=== PATIENT | female | born 1940 | race Caucasian/White ===

== ENCOUNTER → 2016-11-12 | Outpatient (CLI) | payer OTHER ==
[~2016-11-12] MED LIST: ATOR10TA82 PO; CALC500C70 PO; CHOL100010 PO; LISI-794 PO; TRAV0.00 OPB
[2016-11-12 13:09] LABS: BLOOD UREA NITROGEN 17 mg/dl (7-18); CALCIUM 9.7 mg/dl (8.5-10.1); CARBON DIOXIDE 27 mmol/L (21-32); CHLORIDE 108 mmol/L (98-107); CREATININE 0.93 mg/dl (0.60-1.20); GLUCOSE 110 mg/dl (70-99); POTASSIUM 3.9 mmol/L (3.5-5.1); SODIUM 143 mmol/L (136-145)
[2016-11-12 13:15] LABS: ESTIMATED AVERAGE GLUCOSE 117 mg/dl; HA1C FLAG Normal (Normal)
== END | disposition home or self-care (01) ==
LOC: C.LABPBG 08:00
PROVIDERS: ATTEND Internal Medicine Geriatric Medicine
DX: I10 Essential (primary) hypertension (principal); R73.9 Hyperglycemia, unspecified; K22.2 Esophageal obstruction

== ENCOUNTER → 2016-11-27 | Outpatient (CLI) | payer OTHER ==
[2016-11-27 18:13] LABS: LYME DISEASE AB IGG NEG (NEG); LYME DISEASE AB IGM NEG (NEG)
--- NOTE | 2016-11-28 11:43 | CODING QUERY NO DIAGNOSIS ---
TREATMENT RENDERED WITHOUT A DIAGNOSIS To promote full compliance with coding requirements relating to patient care, physician participation is requested in all cases of curbstone setter uncertainty. Please assist us with providing a diagnosis/symptom for the test(s) below: A diagnosis/symptom was not documented on your Order. A valid diagnosis/symptom is required to bill all insurances. Please remember that we are unable to code a diagnosis of rule out, probable, possible, questionable, or suspected. Tests that require a diagnosis: * LYME IGG & IGM +WM CONFIRM DIAGNOSIS: Provider Signature: Date: Thank you Mel [place] [employer] Information Management Once completed, please kindly fax back to [phone] For questions please call [phone]
== END | disposition home or self-care (01) ==
LOC: C.LABPBG 10:58
PROVIDERS: ATTEND Internal Medicine Geriatric Medicine
DX: T14.8 Other injury of unspecified body region (principal); W57.XXXA Bitten or stung by nonvenomous insect and other nonvenomous arthropods, initial encounter

== ENCOUNTER → 2016-12-04 | Outpatient (CLI) | payer OTHER ==
--- NOTE | 2016-12-04 15:28 | DIAGNOSTIC IMAGING REPORT ---
THORACIC SPINE 3 VIEWS HISTORY: Pain PAIN IN LT SCAPULA COMPARISON: None. FINDINGS: There is no fracture. No subluxation. Disc spaces are preserved. IMPRESSION: No fracture or subluxation within the thoracic spine. Electronically signed by: Robert Guzman M.D. 12/04/2016 3:27 PM Dictated Date/Time: 12/04/2016 3:27 PM
--- NOTE | 2016-12-04 15:37 | DIAGNOSTIC IMAGING REPORT ---
LEFT SCAPULA CLINICAL HISTORY: Left scapula pain. COMPARISON: None FINDINGS: Alignment of the left acromioclavicular and glenohumeral joints is anatomic. No fracture within the left scapula is identified. There is moderate left AC joint arthrosis. There is minimal glenohumeral joint arthrosis. IMPRESSION: 1. No acute fracture of the left scapula identified by radiography. 2. 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 Electronically signed by: Fernando Chavez M.D. 12/04/2016 3:36 PM Dictated Date/Time: 12/04/2016 3:35 PM
== END | disposition home or self-care (01) ==
LOC: C.RADBC 14:31
PROVIDERS: ATTEND Physician Assistant Medical
DX: M19.012 Primary osteoarthritis, left shoulder (principal); M89.8X1 Other specified disorders of bone, shoulder

== ENCOUNTER → 2017-05-27 | Outpatient (CLI) | payer OTHER ==
[2017-05-27 18:38] LABS: BLOOD UREA NITROGEN 19 mg/dl (7-18); BUN/CREATININE RATIO 14.8 (10-20); CALCIUM 9.4 mg/dl (8.5-10.1); CARBON DIOXIDE 27 mmol/L (21-32); CHLORIDE 104 mmol/L (98-107); CREATININE 1.26 mg/dl (0.60-1.20); GLUCOSE 116 mg/dl (70-99); POTASSIUM 3.7 mmol/L (3.5-5.1); SODIUM 141 mmol/L (136-145)
[2017-05-27 18:49] LABS: CHOLESTEROL 154 mg/dl (0-200); CHOLESTEROL/HDL RATIO 3.1; HDL CHOLESTEROL 50 mg/dl; LDL CHOLESTEROL CALCULATED 74 mg/dl; THYROID STIMULATING HORMONE 0.774 uIu/ml (0.300-4.500); TRIGLYCERIDES 148 mg/dl (0-150); VERY LOW DENSITY LIPOPROT CALC 30 mg/dl
== END | disposition home or self-care (01) ==
LOC: C.LABPBG 14:57
PROVIDERS: ATTEND Internal Medicine Geriatric Medicine
DX: I10 Essential (primary) hypertension (principal); E78.5 Hyperlipidemia, unspecified; N20.0 Calculus of kidney

== ENCOUNTER → 2017-06-10 | Outpatient (CLI) | payer OTHER ==
[2017-06-10 17:49] LABS: ALT/SGPT 28 U/L (12-78); BLOOD UREA NITROGEN 13 mg/dl (7-18); BUN/CREATININE RATIO 13.4 (10-20); CALCIUM 9.4 mg/dl (8.5-10.1); CARBON DIOXIDE 27 mmol/L (21-32); CHLORIDE 104 mmol/L (98-107); CHOLESTEROL 164 mg/dl (0-200); CREATININE 0.98 mg/dl (0.60-1.20); GLUCOSE 97 mg/dl (70-99); POTASSIUM 3.9 mmol/L (3.5-5.1); SODIUM 137 mmol/L (136-145); TRIGLYCERIDES 162 mg/dl (0-150); VERY LOW DENSITY LIPOPROT CALC 32 mg/dl
[2017-06-10 17:59] LABS: ALKALINE PHOSPHATASE 99 U/L (45-117); AST/SGOT 18 U/L (15-37); CHOLESTEROL/HDL RATIO 3.5; HDL CHOLESTEROL 47 mg/dl; LDL CHOLESTEROL CALCULATED 85 mg/dl
== END | disposition home or self-care (01) ==
LOC: C.LABPBG 13:45
PROVIDERS: ATTEND Internal Medicine Geriatric Medicine
DX: I10 Essential (primary) hypertension (principal); E78.5 Hyperlipidemia, unspecified; M81.0 Age-related osteoporosis without current pathological fracture; R73.9 Hyperglycemia, unspecified; N20.0 Calculus of kidney

== ENCOUNTER → 2017-06-27 | Outpatient (CLI) | payer OTHER ==
--- NOTE | 2017-06-28 12:55 | MAMMOGRAPHY REPORT ---
BILATERAL DIGITAL SCREENING MAMMOGRAM TOMOSYNTHESIS WITH CAD: 06/27/2017 CLINICAL HISTORY: Routine screening. Patient has no complaints. TECHNIQUE: Breast tomosynthesis in addition to standard 2D mammography was performed. Current study was also evaluated with a Computer Aided Detection (CAD) system. COMPARISON: Comparison is made to exams dated: 06/25/2016 mammogram, 12/28/2015 mammogram, 12/28/2015 ultrasound, 06/28/2015 ultrasound, 06/28/2015 mammogram, and 06/22/2015 mammogram - [facility]. BREAST COMPOSITION: There are scattered areas of fibroglandular density in both breasts. FINDINGS: No suspicious masses, calcifications, or areas of architectural distortion are noted in ei ther breast. There has been no significant interval change compared to prior exams. Scattered bilater al benign-appearing calcifications are not significantly changed. Small circumscribed benign-appeari ng masses are again noted bilaterally, which are considered benign given the multiplicity and bilater ality and likely represent cysts. IMPRESSION: ACR BI-RADS CATEGORY 2: BENIGN There is no mammographic evidence of malignancy. A 1 year screening mammogram is recommended. The pa tient will receive written notification of the results. Approximately 10% of breast cancers are not detected with mammography. A negative mammographic report should not delay biopsy if a clinically suggestive mass is present. Gabrielle Covington M.D. /:06/27/2017 14:34:35 Design Technology Professor: Ruby Villatoro, [facility] letter sent: Normal 1/2 BI-RADS Code: ACR BI-RADS Category 2: Benign
== END | disposition home or self-care (01) ==
LOC: C.MAMM 10:09
PROVIDERS: ATTEND Internal Medicine Geriatric Medicine
DX: Z12.31 Encounter for screening mammogram for malignant neoplasm of breast (principal)

== ENCOUNTER → 2017-08-01 | Outpatient (CLI) | payer OTHER | END | disposition home or self-care (01) | LOC: C.MAMM 13:07 | PROVIDERS: ATTEND Internal Medicine Geriatric Medicine | DX: M81.0 Age-related osteoporosis without current pathological fracture (principal); M85.89 Other specified disorders of bone density and structure, multiple sites ==

== ENCOUNTER → 2017-08-01 | Outpatient (CLI) | payer OTHER ==
[~2017-08-01] MED LIST changes: +OPTIRAY 320 IV PRN
--- NOTE | 2017-08-01 15:25 | DIAGNOSTIC IMAGING REPORT ---
CT NECK WITH INTRAVENOUS CONTRAST. HISTORY: Cervical lymphadenopathy. TECHNIQUE: Multiaxial CT images of the neck were performed following the use of intravenous contrast. COMPARISON STUDY: None. FINDINGS: The visualized brain parenchyma and orbits are unremarkable. The major mucosal airway surfaces are intact. Prevertebral soft tissues and the epiglottis are normal in thickness. The parotid and submandibular glands are symmetric. The major cervical vessels enhance normally. There is a 3 mm hypodense nodule/cyst within the left thyroid lobe. The lung apices are clear. A small amount of bubbly secretions within the frontal sinuses. The mastoid air cells are clear. No suspicious lytic or blastic osseous lesions within the visualized osseous structures. There are few enlarged left upper cervical lymph nodes. Dominant lymph node within the jugulodigastric station measures 2.7 x 1.7 cm. There is also a necrotic 1.3 x 1.1 cm posterior cervical chain lymph node. IMPRESSION: Left cervical lymphadenopathy as described above. One of these lymph nodes is necrotic. Therefore, this favors a neoplastic or infectious process. Ultrasound guided fine-needle aspiration is recommended for further evaluation. Electronically signed by: Edmar Daniel M.D. 08/01/2017 3:24 PM Dictated Date/Time: 08/01/2017 3:16 PM
== END | disposition home or self-care (01) ==
LOC: C.CTS 14:41
PROVIDERS: ATTEND Internal Medicine Geriatric Medicine
DX: R59.0 Localized enlarged lymph nodes (principal)

== ENCOUNTER → 2017-08-06 | Outpatient (CLI) | payer OTHER ==
[~2017-08-06] MED LIST changes: -OPTIRAY 320 IV PRN
--- NOTE | 2017-08-06 11:46 | Discharge Instructions ---
Discharge Instructions Procedure Procedure Date: Aug 06, 2017. Reason for visit: Enlarged Lymph Nodes. Discharge Discharge Date: Aug 06, 2017. Discharge Diagnosis: Cervical lymphadenopathy Instructions Activity Recommendations: No limitations Return to School/Work: no limitations Recommended Home Diet: Resume Previous Diet Provider Instructions: Ultrasound guided fine-needle aspiration of a left cervical lymph node is performed. The procedure was well tolerated and without immediate complication. ACTIVITY RECOMMENDATIONS: * Rest today. * Resume regular activity in one day. MEDICATIONS: * May take Tylenol or Ibuprofen as needed for pain. DIET: * Resume previous diet. SPECIAL CARE INSTRUCTIONS: Call your doctor if: * Temperature above 101 degrees F. * Pain not relieved by pain medicine ordered. * Increased drainage or redness from incision. * Notify your doctor with any questions or concerns. Call your doctor or go to the nearest Emergency Department if you experience: * Increased chest pain or shortness of breath. FOLLOW UP VISIT: Follow-up with Referring Physician as scheduled. Allergies Coded Allergies: Doxycycline (Unverified Allergy, Intermediate, HIVES, 04/19/16) Penicillins (Unverified Allergy, Intermediate, HIVES, 04/19/16) Sulfa Drugs (Unverified Allergy, Intermediate, HIVES, 04/19/16) [place] Recommendations: Call your doctor if: * Temperature above 101 degrees * Pain not relieved by pain medicine ordered * There is increased drainage or redness from any incision * You have any unanswered questions or concerns. Your Doctors Instructions noted above were prepared by provider Edilberto Ho. Patient Signature Section: Patient Instructions Signature Page Conchita Alejandra Patient (or Guardian) Signature/Date: I have read and understand the instructions given to me by my caregivers. Caregiver/RN/Doctor Signature/Date: The above-named patient and/or guardian has received patient instructions on this date. + Original Patient Signature Page (only) stays with chart. Please make copy for patient.
--- NOTE | 2017-08-06 11:58 | DIAGNOSTIC IMAGING REPORT ---
ULTRASOUND-GUIDED FINE-NEEDLE ASPIRATION LEFT CERVICAL LYMPH NODE CLINICAL HISTORY: Left cervical lymphadenopathy. COMPARISON STUDY: CT of the neck dated 08/01/2017. PROCEDURE: The risks, benefits, and alternatives to the procedure were discussed with the patient. Written informed consent was obtained. The patient was placed supine in ultrasound, and a 2.7 cm left cervical lymph node was localized by ultrasound and selected for fine needle aspiration. The left neck was prepped and draped in the usual sterile fashion. The node was aspirated under ultrasound guidance with 3 passes utilizing 25-gauge needles. The initial specimen was reviewed by the pathologist in real-time and deemed adequate for diagnosis, confirming lymphoid tissue. 2 additional specimens were acquired for flow cytometry. The patient tolerated the procedure well and left the department in satisfactory condition. IMPRESSION: Completed fine-needle aspiration of a left cervical lymph node as above. Electronically signed by: Edilberto Ho M.D. 08/06/2017 11:57 AM Dictated Date/Time: 08/06/2017 11:55 AM
== END | disposition home or self-care (01) ==
LOC: C.ULTR 10:05
PROVIDERS: ATTEND Internal Medicine Geriatric Medicine
DX: R59.9 Enlarged lymph nodes, unspecified (principal); C83.30 Diffuse large B-cell lymphoma, unspecified site

== ENCOUNTER → 2017-08-28 | Outpatient (CLI) | payer OTHER ==
[~2017-08-28] MED LIST changes: +ACET-1311 PO; -CHOL100010 PO; +CHOL2000 PO; +OXYC-57 PO; +TRAV0.00 OP
--- NOTE | 2017-08-28 10:51 | DIAGNOSTIC IMAGING REPORT ---
PET/CT HISTORY: LYMPHOMA TECHNIQUE: PET/CT was performed from the base of the skull through the pelvis following the intravenous administration of 14.5 mCi of F18-FDG. Non-contrast CT imaging was performed over the same range without breath-hold for attenuation correction of PET images and anatomic correlation, but not for primary interpretation as it is not of standard diagnostic quality. CT DOSE: COMPARISON: Neck CT 08/01/2017. FINDINGS: HEAD AND NECK: There are 4 adjacent left cervical lymph nodes which are enlarged and demonstrate abnormal FDG uptake. Dominant lymph node measures 2.7 x 2.0 cm. These have slightly increased in size. These demonstrate intense FDG uptake with an SUV max of 17. No FDG avid right cervical lymph nodes. CHEST: There is no FDG-avid disease in the chest. There is no axillary, mediastinal, or hilar lymphadenopathy. There is no pleural or pericardial effusion. There is no air-space disease or suspicious lung nodule. ABDOMEN/PELVIS: Below the diaphragm, tracer is distributed physiologically in the gastrointestinal and genitourinary tracts. There is no significant lymphadenopathy and no FDG-avid disease. Mild bilateral adrenal gland uptake is likely physiologic. Small hiatus hernia. There is a single prominent right external iliac lymph node on image 158 which measures 7 mm in short axis diameter. However, this does not demonstrate abnormal FDG uptake. Colonic diverticulosis. MUSCULOSKELETAL: There is no FDG-avid or destructive bone lesion. IMPRESSION: 1. A cluster of enlarged left cervical lymph nodes demonstrating intense FDG uptake consistent with the patient's history of lymphoma. 2. No additional FDG avid disease identified within the chest, abdomen or pelvis. Electronically signed by: Edmar Daniel M.D. 08/28/2017 10:50 AM Dictated Date/Time: 08/28/2017 10:34 AM
== END | disposition home or self-care (01) ==
LOC: C.PET 07:38
PROVIDERS: ATTEND Internal Medicine Hematology & Oncology
DX: C85.90 Non-Hodgkin lymphoma, unspecified, unspecified site (principal)

== ENCOUNTER 2017-09-02 05:11 | Day surgery (SDC) | payer OTHER ==
[2017-08-27 14:01] VITALS: BMI 25.0
--- NOTE | 2017-08-27 14:28 | PAT Medication Instructions ---
Service Date Aug 27, 2017. Current Home Medication List Acetaminophen (Tylenol), 650 MG PO PRN Atorvastatin (Lipitor), 10 MG PO HS Calcium/Vitamin D (Os-Haroldo 500 Plus D), 1 TAB PO HS Cholecalciferol (Vitamin D3), 4,000 UNITS PO HS Lisinopril (Zestril), 40 MG PO HS Travoprost (Travatan Z), 1 DROPS OPB HS Travoprost (Travatan Z), 1 DROPS OP HS Medication Instructions For Your Scheduled Surgery - Hold the following medications 24 hours prior to surgery: Lisinopril (Zestril), 40 MG PO HS - Take the following medications the morning of surgery with a sip of water: Acetaminophen (Tylenol), 650 MG PO PRN (okay to take up to 4 hours prior to surgery if needed) - Take the following medications as scheduled the night before surgery: Acetaminophen (Tylenol), 650 MG PO PRN (if needed) Atorvastatin (Lipitor), 10 MG PO HS Travoprost (Travatan Z), 1 DROPS OPB HS Travoprost (Travatan Z), 1 DROPS OP HS Calcium/Vitamin D (Os-Haroldo 500 Plus D), 1 TAB PO HS Cholecalciferol (Vitamin D3), 4,000 UNITS PO HS If you have any questions please call us at [phone] or [phone] or [phone]
--- NOTE | 2017-08-27 15:04 | DIAGNOSTIC IMAGING REPORT ---
CHEST 2 VIEWS ROUTINE CLINICAL HISTORY: PAT preoperative evaluation COMPARISON STUDY: No previous studies for comparison. FINDINGS: The bones soft tissues and hemidiaphragms are normal. The cardiomediastinal silhouette is normal. The lungs are clear. The pulmonary vasculature is normal. IMPRESSION: Negative chest. The above report was generated using voice recognition software. It may contain grammatical, syntax or spelling errors. Electronically signed by: Robert Guzman M.D. 08/27/2017 3:03 PM Dictated Date/Time: 08/27/2017 3:03 PM
[2017-08-27 15:59] LABS: BASO % 0.1 %; BASO ABS # 0.02 K/uL (0-0.2); EOS % 0.1 %; EOS ABS # 0.02 K/uL (0-0.5); HEMATOCRIT 40.4 % (37-47); HEMOGLOBIN 13.6 g/dL (12.0-16.0); IG# 0.04 K/uL (0.00-0.02); LYMPH ABS # 1.64 K/uL (1.2-3.4); MEAN CELL VOLUME 89.6 fL (80-100); MEAN CORPUSCULAR HEMOGLOBIN 30.2 pg (25-34); MEAN CORPUSCULAR HGB CONC 33.7 g/dl (32-36); MEAN PLATELET VOLUME 11.1 fL (7.4-10.4); MONO % 7.2 %; MONO ABS # 0.98 K/uL (0.11-0.59); NEUT % 80.3 %; NEUT ABS # 10.95 K/uL (1.4-6.5); PLATELET COUNT 289 K/uL (130-400); RED CELL DISTRIBUTION WIDTH CV 12.6 % (11.5-14.5); RED CELL DISTRIBUTION WIDTH SD 41.3 fL (36.4-46.3); WHITE BLOOD COUNT 13.65 K/uL (4.8-10.8)
[2017-08-27 16:06] LABS: ALBUMIN 3.8 gm/dl (3.4-5.0); CALCIUM 9.5 mg/dl (8.5-10.1); CREATININE 0.87 mg/dl (0.60-1.20); POTASSIUM 3.5 mmol/L (3.5-5.1)
[2017-08-27 16:08] LABS: TOTAL PROTEIN 7.8 gm/dl (6.4-8.2)
[2017-08-27 16:09] LABS: PTT PATIENT 25.8 SECONDS (21.0-31.0)
[~2017-09-02] VITALS: Ht 147.3 cm; Wt 55.1 kg
[~2017-09-02 05:11] MED LIST changes: -OXYC-57 PO
[2017-09-02 05:41] VITALS: BP 176/83; PULSE 96; TEMP 36.6; O2SAT 98; Ht 147.3 cm; Wt 55.1 kg
[2017-09-02] MEDS ORDERED: CLINDAMYCIN IV 900 MG in DEXTROSE 5% 50ML IV SCH (06:00)
[2017-09-02] MEDS ORDERED: LACTATED RINGER'S 1000ML 1,000 ML IV SCH ×2 (06:00→08:46)
[2017-09-02] MEDS ORDERED: PROPOFOL IV EMULSION 10 MG/ML 20 ML VIAL IV ONE (06:41)
[2017-09-02] MEDS ORDERED: LIDOCAINE HCL 2% 2 ML VIAL (20MG/ML) ONE (06:41)
[2017-09-02] MEDS ORDERED: FENTANYL CITRATE INJ 50 MCG/1 ML 2 ML VIAL ONE (06:41)
[2017-09-02] MEDS ORDERED: MIDAZOLAM HCL 1 MG/ML 2ML VIAL ONE (06:41)
--- NOTE | 2017-09-02 07:02 | History & Physical Bridge Note ---
H&P Re-Evaluation Bridge Note: I have examined the patient, reviewed the History & Physical and in the interval since the performance of the History & Physical I have noted the following changes of clinical significance: No changes noted
[2017-09-02] MEDS ORDERED: ONDANSETRON INJ 2 MG/ML 2 ML VIAL IV PRN ×2 (07:15→09:00)
[2017-09-02] MEDS ORDERED: EpHEDrine SULFATE INJ 50 MG/ML AMP IV PRN (07:15)
[2017-09-02] MEDS ORDERED: HYDROmorphone INJ 1 MG/ML SYR IV PRN (07:15)
[2017-09-02] MEDS ORDERED: ATROPINE SULFATE 0.1 MG/ML 5ML SYR IV PRN (07:15)
[2017-09-02] MEDS ORDERED: BUPIVACAINE 0.5 % 5 MG/1 ML MPF 30ML VIAL ONE (07:17)
[2017-09-02] MEDS ORDERED: DEXAMETHASONE SOD INJ 4 MG/ML VIAL ONE (07:33)
[2017-09-02] MEDS ORDERED: ONDANSETRON INJ 2 MG/ML 2 ML VIAL ONE (07:33)
[2017-09-02] MEDS ORDERED: KETOROLAC TROMETHAMINE 30 MG/ML VIAL ONE (08:19)
--- NOTE | 2017-09-02 08:31 | [facility] Post Operative Brief Note ---
Immediate Operative Summary Operative Date Sep 02, 2017. Pre-Operative Diagnosis Lympnhoma Left Neck Post-Operative Diagnosis Lympnhoma Left Neck Procedure(s) Performed Left Cervical Lymph Node Biopsy Surgeon Dr Villafana Ore Sampler Surgeon(s) Channing Layne PA-C Estimated Blood Loss 3cc Findings Consistent with Post-Op Diagnosis Specimens As Per Surgeon Giovani A. Left Cervicle Neck Lymph Node Drains None Anesthesia Type General Complication(s) none Disposition Accompanied Pt To Recover: no Disposition: Recovery Room / PACU
--- NOTE | 2017-09-02 08:41 | [facility] Operative Report ---
Operative Report Operative Date Sep 02, 2017. Pre-Operative Diagnosis Lymphoma Left Neck Post-Operative Diagnosis same Procedure(s) Performed left cervical lymph node biopsy Surgeon Dr Villafana Patient Service Specialist Surgeon(s) Channing Layne PA-C Estimated Blood Loss 3cc Findings Large left anterior cervical lymph node in belly of digastric Specimens As Per Surgeon Giovani A. Left Cervicle Neck Lymph Node Drains None Anesthesia GETA Complication(s) None Disposition Recovery Room / PACU Indications 77-year-old female with left cervical lymphadenopathy, FNA showed lymphoma. Plan for left cervical lymph node excisional biopsy. The risks of the procedure were discussed, all questions were answered, and the patient agreed to proceed with surgery as planned. Description of Procedure The patient was properly identified, consented, and taken to the operating room where she was placed in the supine position. General endotracheal anesthesia was induced. SCDs and a safety belt were placed. Preoperative antibiotics were administered. The patient's head was tilted to the right anterior left neck was prepped and draped in the standard sterile fashion. Surgical timeout was performed and all parties were in agreement that this was the correct patient and procedure to be performed and we continued as planned. Local anesthetic was injected along the skin incision. A oblique incision was made in a natural skin crease overlying the lymph node and deepened down through the subcutaneous tissue and platysma with electrocautery. The lymph node was in the belly of the digastric which was dissected away and partially divided. Nervous and vascular structures were maintained. Several small blood vessels were ligated with 3-0 silk ties. The lymph node was carefully circumferentially dissected, excised, and passed off the table as specimen. The wound was irrigated and hemostasis was confirmed. The platysma was closed with a running 3-0 Vicryl suture, and the skin was closed with interrupted 3-0 Vicryl deep dermal sutures, followed by 4-0 Monocryl running subcuticular suture. Dermabond was placed over the wound. The patient was extubated in the operating room and taken to the PACU where she recovered without apparent incident. All sponge, instrument and needle counts were correct at the conclusion of the procedure. The patient tolerated the procedure well. The physician's assistant head cashier was present and scrubbed for the entirety of the case. He was critical in positioning the patient, prepping and draping, retraction and exposure, excision of the lymph node, and closure of the incision with placement of dressings. I attest to the content of the Intraoperative Record and any orders documented therein. Any exceptions are noted below.
[2017-09-02] MEDS ORDERED: OXYC-57 PO (08:44)
--- NOTE | 2017-09-02 08:46 | Discharge Instructions ---
Discharge Instructions Date of Service Sep 02, 2017. Visit Reason for Visit: B-Cell Lymphoma, Cervical Lymphadenopathy Discharge Discharge Diagnosis / Problem: lymph node excision Discharge Goals Goal(s): Diagnostic testing Activity Recommendations Activity Limitations: as noted below Shower/Bathe: no limitations Driving or Machine Use: resume 3 days after discharge Anesthesia . Post Anesthesia Instructions: If you have had General Anesthesia or IV Sedation: * Do not drive today. * Resume driving when surgeon permits. * Do not make important decisions or sign legal documents today. * Call surgeon for: 1. Temperature elevations greater than 101 degrees F. 2. Uncontrollable pain. 3. Excessive bleeding. 4. Persistent nausea and vomiting. 5. Medication intolerance (nausea, vomiting or rash). * For nausea and vomiting use only clear liquids such as: tea, soda, bouillon until nausea subsides, then gradually increase diet as tolerated. * If you have any concerns or questions, call your surgeon's office. If physician is unavailable and it is an emergency, call 911 or go to the nearest emergency room. . Instructions / Follow-Up Instructions / Follow-Up Dr. Villafana as planned in 1-2 weeks, call [phone] if you do not already have an appt or have any questions It is ok to take Tylenol if you are not taking Percocet Diet Recommendations Recommended Home Diet: no limitations Procedures Procedures Performed: Left Cervical Lymph Node Biopsy Pending Studies Studies pending at discharge: yes List of pending studies: pathology Medical Emergencies . Who to Call and When: Medical Emergencies: If at any time you feel your situation is an emergency, please call 911 immediately. . Non-Emergent Contact Non-Emergency issues call your: Surgeon Call Non-Emergent contact if: you have a fever, temperature is above 101.5, your pain is not controlled, wound has increased pain, you have any medication questions . . "Provider Documentation" section prepared by Channing Layne. .
[2017-09-02] MEDS ORDERED: OXYCODONE/ACETAMINOPHEN 5-325 TAB PO PRN (09:00)
[2017-09-02] MEDS ORDERED: MoRPHine SULFATE 2 MG/ML CARP IV PRN (09:00)
[2017-09-02] MEDS: FENTANYL CITRATE INJ 50 MCG/1 ML 2 ML VIAL IV PRN ×2 (09:12→09:17)
--- NOTE | 2017-09-02 09:33 | Anesthesiology Progress Note ---
Anesthesia Post Op Note Date & Time Sep 02, 2017 at 09:32 Vital Signs Pain Intensity: 4 Vital Signs Past 12 Hours Date Time Temp Pulse Resp B/P (MAP) Pulse Ox O2 Delivery O2 Flow Rate FiO2 09/02/17 09:20 36.2 78 16 146/80 95 Room Air 09/02/17 09:10 79 16 152/78 96 Room Air 09/02/17 09:00 81 16 142/76 100 Oxymask 3 09/02/17 08:50 80 16 136/72 100 Oxymask 5 09/02/17 08:43 36.0 85 16 129/76 98 Oxymask 10 09/02/17 05:41 36.6 96 18 176/83 (114) 98 Room Air Notes Mental Status: alert / awake / arousable, participated in evaluation Pt Amnestic to Procedure: Yes Nausea / Vomiting: adequately controlled Pain: adequately controlled Airway Patency, RR, SpO2: stable & adequate BP & HR: stable & adequate Hydration State: stable & adequate Anesthetic Complications: no major complications apparent
[2017-09-02 09:40] VITALS: BP 157/77; PULSE 74; TEMP 36.4; O2SAT 97
[2017-09-02] MEDS ORDERED: CEFOXITIN SOD 1 GM VIAL ONE (09:53)
[2017-09-02 10:10] VITALS: BP 161/70; PULSE 69; O2SAT 97
[2017-09-02 10:35] VITALS: BP 155/72; PULSE 70; TEMP 36.1; O2SAT 98
== END 2017-09-02 10:40 | disposition home or self-care (01) ==
LOC: C.ACU 05:11
PROVIDERS: ATTEND Surgery
DX: C83.31 Diffuse large B-cell lymphoma, lymph nodes of head, face, and neck (principal); I10 Essential (primary) hypertension; K21.9 Gastro-esophageal reflux disease without esophagitis; Z88.2 Allergy status to sulfonamides; Z88.1 Allergy status to other antibiotic agents

== ENCOUNTER → 2017-09-03 | Outpatient (CLI) | payer OTHER ==
[~2017-09-03] MED LIST changes: -ACET-1311 PO; +CLR10 PO; +CRDCD180 PO; +DOCU-94 PO; +OXYC-57 PO; +POLY335019 PO; +SENN-134; -TRAV0.00 OP; +VLTG EXT; +XRL20 PO; +ZOLP5TAB PO
[2017-09-03 12:17] LABS: BASO % 0.1 %; BASO ABS # 0.01 K/uL (0-0.2); HEMATOCRIT 39.9 % (37-47); HEMOGLOBIN 13.3 g/dL (12.0-16.0); IG# 0.06 K/uL (0.00-0.02); LYMPH % 12.2 %; LYMPH ABS # 1.81 K/uL (1.2-3.4); MEAN CELL VOLUME 88.9 fL (80-100); MEAN CORPUSCULAR HEMOGLOBIN 29.6 pg (25-34); MEAN CORPUSCULAR HGB CONC 33.3 g/dl (32-36); MEAN PLATELET VOLUME 10.1 fL (7.4-10.4); MONO ABS # 0.74 K/uL (0.11-0.59); NEUT % 82.3 %; NEUT ABS # 12.16 K/uL (1.4-6.5); PLATELET COUNT 456 K/uL (130-400); RED CELL DISTRIBUTION WIDTH CV 12.6 % (11.5-14.5); RED CELL DISTRIBUTION WIDTH SD 40.5 fL (36.4-46.3); WHITE BLOOD COUNT 14.78 K/uL (4.8-10.8)
[2017-09-03 15:33] LABS: ALBUMIN 3.4 gm/dl (3.4-5.0); ALT/SGPT 15 U/L (12-78); AST/SGOT 11 U/L (15-37); BLOOD UREA NITROGEN 14 mg/dl (7-18); CALCIUM 9.6 mg/dl (8.5-10.1); CARBON DIOXIDE 26 mmol/L (21-32); CREATININE 1.22 mg/dl (0.60-1.20); GLUCOSE 141 mg/dl (70-99); POTASSIUM 3.8 mmol/L (3.5-5.1); SODIUM 139 mmol/L (136-145)
[2017-09-03 15:35] LABS: ALKALINE PHOSPHATASE 106 U/L (45-117); TOTAL PROTEIN 7.5 gm/dl (6.4-8.2)
--- NOTE | 2017-09-10 13:15 | CODING QUERY MEDICAL NECESSITY ---
CQTREATMENT RENDERED WITHOUT A DIAGNOSIS To promote full compliance with coding requirements relating to patient care, physician participation is requested in all cases of inpatient coder uncertainty. Please assist us with providing a diagnosis/symptom for the test(s) below: A diagnosis/symptom was not documented on your Order. A valid diagnosis/symptom is required to bill all insurances. Please remember that we are unable to code a diagnosis of rule out, probable, possible, questionable, or suspected. Tests that require a diagnosis: DOS 09/03/17 CBC WITH AUTO DIFF TESTING LDH TESTING COMPREHENSIVE METABOLIC TESTIG Provider Signature: Date: Thank you Dalia Pereira Health Information Management Once completed, please kindly fax back to [phone] For questions please call [phone]
== END | disposition home or self-care (01) ==
LOC: C.LABPBG 10:05
PROVIDERS: ATTEND Internal Medicine Hematology & Oncology
DX: C85.10 Unspecified B-cell lymphoma, unspecified site (principal)

== ENCOUNTER → 2017-09-17 | Outpatient (CLI) | payer OTHER ==
[~2017-09-17] MED LIST changes: -CLR10 PO; -CRDCD180 PO; -DOCU-94 PO; -POLY335019 PO; -SENN-134; -VLTG EXT; -XRL20 PO; -ZOLP5TAB PO
--- NOTE | 2017-09-17 15:40 | ECHOCARDIOGRAM REPORT ---
*NOTICE TO RECEIVING LIBERTARIAN AGENCY This information is strictly Confidential and protected under [place] law. [place] law prohibits you from making any further disclosure of this information unless further disclosure is expressly permitted by the written consent of the person to whom it pertains or is authorized by law. A general authorization for the release of medical or other information is not sufficient for this purpose. Hospital accepts no responsibility if the information is made available to any other person, INCLUDING THE PATIENT. Interpretation Summary * Name: HARI HOPKINS Study Date: 09/17/2017 01:39 PM BP: 148/78 mmHg * Patient Location: [facility] HR: 91 * : 1940 (M/d/yyyy) Gender: Female Height: 59 in * Age: 77 yrs Ethnicity: [place] Weight: 118 lb * Ordering Physician: Giovanni Mcpherson * Referring Physician: Giovanni Mcpherson * Performed By: Sue Richards RCS * * Reason For Study: Neoplasm, Pre-CHEMO Eval * BSA: 1.5 m2 * -- Conclusions -- * Left ventricular systolic function is normal. * No regional wall motion abnormalities noted. * Ejection Fraction = 60-65%. * There is borderline concentric left ventricular hypertrophy. * Grade I diastolic dysfunction, (abnormal relaxation pattern). * There is mild mitral regurgitation. Procedure Details * A complete two-dimensional transthoracic echocardiogram was performed (2D, M-mode, Doppler and color flow Doppler). Left Ventricle * The left ventricle is normal in size. * There is borderline concentric left ventricular hypertrophy. * Left ventricular systolic function is normal. * Ejection Fraction = 60-65%. * No regional wall motion abnormalities noted. Right Ventricle * The right ventricle is normal size. * The right ventricular systolic function is normal as assessed by tricuspid annular plane systolic excursion (TAPSE) (normal >1.5 cm). Atria * The left atrial size is normal. * Right atrial size is normal. * No ASD detected; PFO is not assessed. Mitral Valve * The mitral valve anatomy is normal. * There is no mitral valve stenosis. * There is mild mitral regurgitation. Tricuspid Valve * The tricuspid valve anatomy is normal. * There is no tricuspid stenosis. * Significant tricuspid regurgitation is absent. Aortic Valve * The aortic valve is normal in structure and function. * No hemodynamically significant valvular aortic stenosis. * There is no significant aortic regurgitation. Pulmonic Valve * The pulmonary valve is not well seen, but the Doppler examination is normal without significant regurgitation or stenosis. Great Vessels * The aortic root is normal size. * The pulmonary is not well visualized. Pericardium/Pleural * There is no pericardial effusion. Great Vessels * Normal inferior vena cava size and collapsability with sniff indicates a normal right atrial pressure of 3 mmHg Left Ventricular Diastolic Function * Grade I diastolic dysfunction, (abnormal relaxation pattern). MMode 2D Measurements and Calculations IVSd 1.0 cm IVSs 1.4 cm LVIDd 3.3 cm LVIDs 2.2 cm LVPWd 0.97 cm LVPWs 1.5 cm IVS/LVPW 1.1 FS 33.5 % EDV(Teich) 42.9 ml ESV(Teich) 15.6 ml EF(Teich) 63.6 % EDV(cubed) 34.7 ml ESV(cubed) 10.2 ml EF(cubed) 70.6 % % IVS thick 34.2 % % LVPW thick 54.3 % LV mass(C)d 93.7 grams LV mass(C)dI 63.6 grams/m\S\2 LV mass(C)s 100.0 grams LV mass(C)sI 67.9 grams/m\S\2 SV(Teich) 27.3 ml SI(Teich) 18.5 ml/m\S\2 SV(cubed) 24.5 ml SI(cubed) 16.6 ml/m\S\2 Ao root diam 3.2 cm Ao root area 8.0 cm\S\2 ACS 1.3 cm LA dimension 3.8 cm asc Aorta Diam 2.8 cm LA/Ao 1.2 EDV(MOD-sp2) 74.7 ml ESV(MOD-sp2) 19.6 ml EF(MOD-sp2) 73.8 % SV(MOD-sp2) 55.1 ml SI(MOD-sp2) 37.4 ml/m\S\2 Doppler Measurements and Calculations MV E max miguel 75.0 cm/sec MV A max miguel 85.7 cm/sec MV E/A 0.87 MV P1/2t max miguel 101.9 cm/sec MV P1/2t 65.1 msec MVA(P1/2t) 3.4 cm\S\2 MV dec slope 458.5 cm/sec\S\2 MV dec time 0.24 sec Ao V2 max 129.8 cm/sec Ao max PG 6.7 mmHg Ao max PG (full) 1.9 mmHg LV V1 max PG 4.9 mmHg LV V1 max 110.3 cm/sec PA V2 max 110.1 cm/sec PA max PG 4.9 mmHg TR max miguel 221.7 cm/sec
== END | disposition home or self-care (01) ==
LOC: C.CPL 13:28
PROVIDERS: ATTEND Internal Medicine Hematology & Oncology
DX: C85.11 Unspecified B-cell lymphoma, lymph nodes of head, face, and neck (principal)

== ENCOUNTER → 2017-09-18 | Outpatient (CLI) | payer OTHER ==
[2017-09-18 12:18] LABS: BASO % 0.4 %; BASO ABS # 0.03 K/uL (0-0.2); EOS % 0.8 %; EOS ABS # 0.06 K/uL (0-0.5); HEMOGLOBIN 13.7 g/dL (12.0-16.0); IG# 0.02 K/uL (0.00-0.02); LYMPH % 25.8 %; LYMPH ABS # 1.99 K/uL (1.2-3.4); MEAN CELL VOLUME 88.1 fL (80-100); MEAN CORPUSCULAR HEMOGLOBIN 30.2 pg (25-34); MEAN CORPUSCULAR HGB CONC 34.3 g/dl (32-36); MEAN PLATELET VOLUME 10.4 fL (7.4-10.4); MONO % 5.7 %; MONO ABS # 0.44 K/uL (0.11-0.59); NEUT ABS # 5.18 K/uL (1.4-6.5); PLATELET COUNT 346 K/uL (130-400); RED CELL DISTRIBUTION WIDTH CV 12.6 % (11.5-14.5); RED CELL DISTRIBUTION WIDTH SD 40.6 fL (36.4-46.3); WHITE BLOOD COUNT 7.72 K/uL (4.8-10.8)
[2017-09-18 12:54] LABS: ALBUMIN 3.7 gm/dl (3.4-5.0); ALT/SGPT 20 U/L (12-78); BLOOD UREA NITROGEN 12 mg/dl (7-18); CALCIUM 9.8 mg/dl (8.5-10.1); CARBON DIOXIDE 26 mmol/L (21-32); CREATININE 0.91 mg/dl (0.60-1.20); GLUCOSE 93 mg/dl (70-99); POTASSIUM 3.9 mmol/L (3.5-5.1); SODIUM 138 mmol/L (136-145)
[2017-09-18 12:57] LABS: ALKALINE PHOSPHATASE 103 U/L (45-117); AST/SGOT 14 U/L (15-37); TOTAL PROTEIN 7.6 gm/dl (6.4-8.2)
[2017-09-19 01:24] LABS: HEP C IGG 13 YRS+OLDER_RFLX NEG (NEG)
[2017-09-20 08:02] LABS: HEPATITIS A IGM TC 51813E NON-REACTIVE (NON-REACTIVE); HEPATITIS B CORE IGM TC51854R NON-REACTIVE (NON-REACTIVE)
== END | disposition home or self-care (01) ==
LOC: C.LABPBG 09:46
PROVIDERS: ATTEND Internal Medicine Hematology & Oncology
DX: C85.11 Unspecified B-cell lymphoma, lymph nodes of head, face, and neck (principal)

== ENCOUNTER → 2017-09-30 | Day surgery (SDC) | payer OTHER ==
[2017-09-18 14:09] VITALS: Ht 149.9 cm; Wt 53.6 kg
[~2017-09-30] VITALS: Ht 149.9 cm; Wt 53.6 kg
[~2017-09-30] MED LIST changes: +ATROPINE SULFATE 0.1 MG/ML 5ML SYR IV PRN; +BUPIVACAINE 0.5 % 5 MG/1 ML MPF 30ML VIAL ONE; +CLINDAMYCIN IV 900 MG in DEXTROSE 5% 50ML 44 ML IV SCH; +EpHEDrine SULFATE INJ 50 MG/ML AMP IV PRN; +FENTANYL CITRATE INJ 50 MCG/1 ML 2 ML VIAL IV PRN; +FENTANYL CITRATE INJ 50 MCG/1 ML 2 ML VIAL ONE; +HEPARIN SOD (PORCINE) 1000 UNIT/ML 10 ML VIAL ONE; +LACTATED RINGER'S 1000ML 1,000 ML IV SCH; +LIDOCAINE/EPINEPHRINE 1% 20 ML VIAL ONE; +MIDAZOLAM HCL 1 MG/ML 2ML VIAL ONE; +ONDANSETRON INJ 2 MG/ML 2 ML VIAL IV PRN; -OXYC-57 PO; +OXYCODONE/ACETAMINOPHEN 5-325 TAB PO PRN; +PROPOFOL IV EMULSION 10 MG/ML 20 ML VIAL IV ONE; +SODIUM CHLORIDE 0.9% 1000ML 1,000 ML IV SCH
[2017-09-30 06:54] VITALS: BP 172/81; PULSE 92; TEMP 36.8; O2SAT 99
--- NOTE | 2017-09-30 09:16 | [facility] Post Operative Brief Note ---
Immediate Operative Summary Operative Date Sep 30, 2017. Pre-Operative Diagnosis B-cell lymphoma Post-Operative Diagnosis B-cell lymphoma Procedure(s) Performed Left internal jugular vein Infusaport Insertion with Fluoroscopy Surgeon Dr. Villafana Rolling Machine Tender Surgeon(s) Fior Cunningham PA-C Estimated Blood Loss 5 mL Findings Consistent with Post-Op Diagnosis Left internal jugular vein port placed Specimens none per surgeon Drains None Anesthesia Type MAC Complication(s) none Disposition Accompanied Pt To Recover: no Disposition: Recovery Room / PACU
--- NOTE | 2017-09-30 09:20 | [facility] Operative Report ---
Operative Report Operative Date Sep 30, 2017. Pre-Operative Diagnosis B-cell lymphoma Post-Operative Diagnosis Same Procedure(s) Performed Left internal jugular vein port placement using real-time ultrasound guidance and fluoroscopy Surgeon Dr. Villafana Esthetician/Skin Therapist Surgeon(s) Fior Cunningham PA-C Estimated Blood Loss 5 mL Findings Left internal jugular vein accessed using real-time ultrasound guidance, port placed, placement confirmed with fluoroscopy. Specimens none per surgeon Drains None Anesthesia MAC/local Complication(s) None Disposition Recovery Room / PACU Indications 77-year-old female with newly diagnosed lymphoma, needs port placement for chemotherapy access. The risks of the procedure were discussed, all questions were answered, and the patient agreed to proceed with surgery as planned. Description of Procedure The patient was properly identified, consented, and taken to the operating room where she was placed in the supine position with both arms tucked and a shoulder roll placed vertically. Monitored anesthesia care was induced. SCDs and a safety belt were placed. Preoperative antibiotics were administered. The patient's chest and neck was prepped and draped in the standard sterile fashion. Surgical timeout was performed and all parties were in agreement that this was the correct patient and procedure to be performed and we continued as planned. The patient was placed in Trendelenburg position. Local anesthetic was injected along the skin incision. Using real-time ultrasound guidance the left internal jugular vein was accessed using the access needle. The wire was placed and the needle was removed. Fluoroscopy confirmed placement into the left internal jugular vein extending into the superior vena cava. A transverse skin incision was made in the right chest and a pocket was created for the port. A hemostat was used to create a subcutaneous tunnel and bring the catheter from the neck incision into the chest incision. The dilator and peel- away sheath were inserted over the wire. The catheter was then inserted through the peel-away sheath and fluoroscopy confirmed placement into the superior vena cava. The catheter was cut to length and attached to the port. The port was secured into place with 3-0 Prolene sutures. A final x-ray revealed good placement of the port. The wound was irrigated and hemostasis was confirmed. The skin was closed with interrupted 3-0 Vicryl deep dermal sutures, followed by 4-0 Monocryl running subcuticular suture. Dermabond was placed over the wounds. The port was accessed and chey blood easily and flushed easily. It was flushed with heparinized saline. The patient taken to the PACU where she recovered without apparent incident. All sponge, instrument and needle counts were correct at the conclusion of the procedure. The patient tolerated the procedure well. A chest x-ray was pending in the PACU at the time of this dictation per The physician's engineer second assistant was present and scrubbed for the entirety of the case. She was essential in positioning the patient, prepping and draping, retraction and exposure, placement of the port, closure of the incisions and placement of the dressings. I attest to the content of the Intraoperative Record and any orders documented therein. Any exceptions are noted below.
--- NOTE | 2017-09-30 09:22 | [facility] Operative Report ---
Operative Report Operative Date Sep 30, 2017. Pre-Operative Diagnosis B-cell lymphoma Surgeon Dr. Villafana Findings Real-time ultrasound guidance was used and interpreted for access into the left internal jugular vein. Fluoroscopy was used and interpreted by the surgeon throughout the procedure to assist in placement of the port. A total of 40.8 seconds of fluoroscopy time was utilized. I attest to the content of the Intraoperative Record and any orders documented therein. Any exceptions are noted below.
--- NOTE | 2017-09-30 09:31 | Discharge Instructions ---
Discharge Instructions Date of Service Sep 30, 2017. Admission Reason for Admission: B-Cell Lymphoma Discharge Discharge Diagnosis / Problem: B-Cell Lymphoma Discharge Goals Goal(s): Decrease discomfort, Improve function Activity Recommendations Activity Limitations: as noted below Lifting Limitations: no more than 10 pounds Exercise/Sports Limitations: until after follow-up appointment May Resume Sexual Activity: after follow-up appointment Shower/Bathe: tomorrow Driving or Machine Use: resume 3 days after discharge . Instructions / Follow-Up Instructions / Follow-Up You have surgical glue, Dermabond, over your incision. You may shower tomorrow. Do not soak or scrub your incision. You may use regular strength (325mg/tab) Tylenol for pain control. Take 2 tabs every 4-6 hrs as needed for pain. Do not exceed 10 tabs in a 24 hr period. Do not take more than 3000mg of Tylenol per day. Please follow-up with Dr. Villafana in the General Surgery Clinic in 1-2 weeks for incision check. Please call the office at [phone] with any questions or concerns. Current Hospital Diet Patient's current hospital diet: Discharge Diet Recommended Diet: Regular Diet Procedures Procedures Performed: Left internal jugular vein Infusaport Insertion with Fluoroscopy Pending Studies Studies pending at discharge: no Medical Emergencies . Who to Call and When: Medical Emergencies: If at any time you feel your situation is an emergency, please call 911 immediately. . Non-Emergent Contact Non-Emergency issues call your: Primary Care Provider, Surgeon Call Non-Emergent contact if: temperature is above 101.5, your pain is not controlled, wound has increased drainage, wound has increased redness . "Provider Documentation" section prepared by Fior Moore. .
--- NOTE | 2017-09-30 09:58 | Anesthesiology Progress Note ---
Anesthesia Post Op Note Date & Time Sep 30, 2017 at 09:57 Vital Signs Pain Intensity: 0 Vital Signs Past 12 Hours Date Time Temp Pulse Resp B/P (MAP) Pulse Ox O2 Delivery O2 Flow Rate FiO2 09/30/17 09:47 72 14 98 09/30/17 09:47 72 14 09/30/17 09:46 129/69 09/30/17 09:42 71 23 94 09/30/17 09:42 74 23 09/30/17 09:41 75 17 130/66 92 09/30/17 09:41 78 17 09/30/17 09:36 75 21 125/60 99 09/30/17 09:36 76 21 09/30/17 09:34 121/62 09/30/17 09:33 181/67 09/30/17 09:32 181/91 09/30/17 09:31 69 15 09/30/17 09:31 74 15 98 09/30/17 09:27 112/61 09/30/17 09:26 36.8 76 16 112/61 (81) 100 Oxymask 10 09/30/17 09:26 78 09/30/17 09:26 78 100 09/30/17 06:54 36.8 92 18 172/81 (111) 99 Room Air Notes Mental Status: alert / awake / arousable, participated in evaluation Pt Amnestic to Procedure: Yes Nausea / Vomiting: adequately controlled Pain: adequately controlled Airway Patency, RR, SpO2: stable & adequate BP & HR: stable & adequate Hydration State: stable & adequate Anesthetic Complications: no major complications apparent
--- NOTE | 2017-09-30 10:10 | DIAGNOSTIC IMAGING REPORT ---
CHEST ONE VIEW PORTABLE CLINICAL HISTORY: 77 years-old Female presenting with s/p port placement; pt in PACU. TECHNIQUE: Portable upright AP view of the chest was obtained. COMPARISON: 08/27/2017. FINDINGS: Interval placement of a left internal jugular Mediport terminates in the lower SVC. Cardiac silhouette top normal in size. Minimal bandlike opacities at the lung bases. No other focal opacity. No large effusion or pneumothorax. Osseous structures normal. Upper abdomen normal. IMPRESSION: 1. Interval placement of a left IJ Mediport, which is appropriately positioned. No pneumothorax. 2. Minimal bibasilar atelectasis. No convincing evidence of acute cardiopulmonary disease. Electronically signed by: Tyrone Noel M.D. 09/30/2017 10:09 AM Dictated Date/Time: 09/30/2017 10:08 AM
[2017-09-30 10:35] VITALS: BP 136/65; PULSE 69; TEMP 36.5; O2SAT 98
[2017-09-30 11:05] VITALS: BP 127/75; PULSE 70; TEMP 36.8; O2SAT 99
== END | disposition home or self-care (01) ==
LOC: C.ACU 06:32
PROVIDERS: ATTEND Surgery
DX: C85.10 Unspecified B-cell lymphoma, unspecified site (principal); E78.5 Hyperlipidemia, unspecified; K21.9 Gastro-esophageal reflux disease without esophagitis; H40.9 Unspecified glaucoma; I10 Essential (primary) hypertension; M81.0 Age-related osteoporosis without current pathological fracture; E55.9 Vitamin D deficiency, unspecified; Z82.49 Family history of ischemic heart disease and other diseases of the circulatory system; Z79.899 Other long term (current) drug therapy; Z88.1 Allergy status to other antibiotic agents; Z88.0 Allergy status to penicillin; Z88.2 Allergy status to sulfonamides

== ENCOUNTER 2017-10-07 07:35 | Emergency (ER) | payer OTHER ==
[~2017-10-07] VITALS: Ht 149.9 cm; Wt 53.3 kg
[2017-10-07 07:37] VITALS: TEMP 36.6; Ht 149.9 cm; Wt 53.3 kg
[2017-10-07] MEDS ORDERED: SODIUM CHLORIDE 0.9% 1000ML 1,000 ML IV STA (07:55)
[2017-10-07] MEDS ORDERED: KETOROLAC TROMETHAMINE 30 MG/ML VIAL IV STA (07:55)
[2017-10-07] MEDS ORDERED: CLR10 PO (08:07)
--- NOTE | 2017-10-07 08:09 | EMERGENCY ROOM VISIT NOTE ---
History First contact with patient: 07:43 Chief Complaint: ABDOMINAL PAIN Stated Complaint: PAINS STOMACH Nursing Triage Summary: Pt states she is getting chemo for lymphoma, just started chemo on . Reports upper abd pain and back pain that started last night. No BM since Sat. History of Present Illness The patient is a 77 year old female who presents to the Emergency Room with complaints of 4 day h/o constipation. Started chemotherapy for her b cell lymphoma 1 week prior, was told that side effects include constipation and to take stool softeners and laxative. She has been doing this regularly but 4 days ago was her last BM. At this time pain is constant, 6/10 in severity, made worse with movement. She denies vomiting, fevers, chills, chest pain or difficulty breathing. ROS See HPI for pertinent positives and negatives. Review of Systems ROS See HPI for pertinent positives and negatives. Past Medical/Surgical History Medical Problems: (1) Bladder infection (2) HLD (hyperlipidemia) (3) HTN (hypertension) (4) Kidney stone (5) Urinary tract infection (6) Urinary tract infection Surgical Problems: (1) Previous section Social History Smoking Status: Never Smoker Current/Historical Medications Scheduled Atorvastatin (Lipitor), 10 MG PO HS Calcium/Vitamin D (Os-Haroldo 500 Plus D), 1 TAB PO HS Cholecalciferol (Vitamin D3), 4,000 UNITS PO HS Lisinopril (Zestril), 40 MG PO HS Loratadine (Claritin), 10 MG PO DAILY Travoprost (Travatan Z), 1 DROPS OPB HS Physical Exam Vital Signs Date Time Temp Pulse Resp B/P (MAP) Pulse Ox O2 Delivery O2 Flow Rate FiO2 10/07/17 12:39 79 20 168/91 98 10/07/17 11:32 70 24 177/97 100 Room Air 10/07/17 09:10 71 18 175/84 99 Room Air 10/07/17 07:37 36.6 114 18 161/94 99 Room Air Physical Exam GENERAL: Awake, alert, well-appearing, in mild distress HENT: Normocephalic, atraumatic. EYES: Normal conjunctiva. Sclera non-icteric. NECK: Supple. FROM. No JVD. RESPIRATORY: Clear to auscultation. CARDIAC: Regular rate, normal rhythm. Extremities warm and well perfused. Pulses equal. ABDOMEN: Soft, non-distended. Mild tenderness to palpation in mid epigastric. No rebound or guarding. No masses. LOWER EXTREMITIES: Calves are equal size bilaterally. No edema. No discoloration. NEURO: No motor deficits noted. SKIN: No rash or jaundice noted. Medical Decision & Procedures Laboratory Results 10/07/17 08:10 Red Blood Count 4.79, Mean Corpuscular Volume 85.6, Mean Corpuscular Hemoglobin 29.6, Mean Corpuscular Hemoglobin Concent 34.6, Mean Platelet Volume 11.0, Neutrophils (%) (Auto) 52.5, Lymphocytes (%) (Auto) 42.1, Monocytes (%) (Auto) 1.8, Eosinophils (%) (Auto) 1.8, Basophils (%) (Auto) 0.9, Neutrophils # (Auto) 0.60, Lymphocytes # (Auto) 0.48, Monocytes # (Auto) 0.02, Eosinophils # (Auto) 0.02, Basophils # (Auto) 0.01 10/07/17 08:10 Test 10/07/17 08:10 10/07/17 08:45 White Blood Count 1.14 K/uL (4.8-10.8) Red Blood Count 4.79 M/uL (4.2-5.4) Hemoglobin 14.2 g/dL (12.0-16.0) Hematocrit 41.0 % (37-47) Mean Corpuscular Volume 85.6 fL (80-100) Mean Corpuscular Hemoglobin 29.6 pg (25-34) Mean Corpuscular Hemoglobin Concent 34.6 g/dl (32-36) Platelet Count 116 K/uL (130-400) Mean Platelet Volume 11.0 fL (7.4-10.4) Neutrophils (%) (Auto) 52.5 % Lymphocytes (%) (Auto) 42.1 % Monocytes (%) (Auto) 1.8 % Eosinophils (%) (Auto) 1.8 % Basophils (%) (Auto) 0.9 % Neutrophils # (Auto) 0.60 K/uL (1.4-6.5) Lymphocytes # (Auto) 0.48 K/uL (1.2-3.4) Monocytes # (Auto) 0.02 K/uL (0.11-0.59) Eosinophils # (Auto) 0.02 K/uL (0-0.5) Basophils # (Auto) 0.01 K/uL (0-0.2) RDW Standard Deviation 40.2 fL (36.4-46.3) RDW Coefficient of Variation 12.7 % (11.5-14.5) Immature Granulocyte % (Auto) 0.9 % Immature Granulocyte # (Auto) 0.01 K/uL (0.00-0.02) Anion Gap 11.0 mmol/L (3-11) Est Creatinine Clear Calc Drug Dose 38.8 ml/min Estimated GFR () 70.1 Estimated GFR (Non- 60.5 BUN/Creatinine Ratio 18.0 (10-20) Calcium Level 9.8 mg/dl (8.5-10.1) Total Bilirubin 1.7 mg/dl (0.2-1) Direct Bilirubin 0.4 mg/dl (0-0.2) Aspartate Amino Transf (AST/SGOT) 10 U/L (15-37) Alanine Aminotransferase (ALT/SGPT) 31 U/L (12-78) Alkaline Phosphatase 131 U/L (45-117) Total Protein 7.9 gm/dl (6.4-8.2) Albumin 4.1 gm/dl (3.4-5.0) Lipase 278 U/L (73-393) Urine Color YELLOW Urine Appearance CLEAR (CLEAR) Urine pH 8.0 (4.5-7.5) Urine Specific [employer] 1.015 (1.000-1.030) Urine Protein NEG (NEG) Urine Glucose (UA) NEG (NEG) Urine Ketones TRACE (NEG) Urine Occult Blood TRACE (NEG) Urine Nitrite NEG (NEG) Urine Bilirubin NEG (NEG) Urine Urobilinogen NEG (NEG) Urine Leukocyte Esterase NEG (NEG) Urine WBC (Auto) 1-5 /hpf (0-5) Urine RBC (Auto) 10-30 /hpf (0-4) Urine Hyaline Casts (Auto) 1-5 /lpf (0-5) Urine Epithelial Cells (Auto) 5-10 /lpf (0-5) Urine Bacteria (Auto) NEG (NEG) Medications Administered Medications (Trade) Dose Ordered Sig/Deepika Route Start Time Stop Time Status Last Admin Dose Admin Sodium Chloride 1,000 ml @ 400 mls/hr Q2H30M STAT IV 10/07/17 07:55 10/07/17 10:24 DC 10/07/17 08:28 400 MLS/HR Ketorolac Tromethamine (Toradol Inj) 30 mg NOW STAT IV 10/07/17 07:55 10/07/17 07:59 DC 10/07/17 08:28 30 MG Ondansetron HCl (Zofran Inj) 4 mg NOW STAT IV 10/07/17 09:58 10/07/17 09:59 DC 10/07/17 10:08 4 MG Fentanyl Citrate (Fentanyl Inj) 50 mcg NOW ONCE IV 10/07/17 11:30 10/07/17 11:31 DC 10/07/17 11:32 50 MCG ED Course 0746 Reviewed records, seen and assessed pt in B12B. 0800 Discussed case with attending, ordered CT abd/pelv oral & IV, labs: cbc, PRP, lipase. UA micros+cult if indic. 2L NSS @ 400cc/hr. 0919 Reviewed labs. CBC shows neutropenia neut # 0.6, leukocytopenia 1.14. Normal kidney function. Mildly low potassium and sodium 3.2 and 133 respectively. Alk phos is 131. BSG is 113. T bili 1.7, direct bili 0.4. Lipase is normal. AG is 11. [address] WNL. 1050 per nurse, pt reports continue abd pain. 1115 given 50 mcg fentanyl 1130 discussed labs and course with Dr. Mcpherson. Dr Mcpherson does not think hospitalization is recommended at this time. Told to call his office if her constipation recurs, as her regimen has high risk for constipation. Rec increase colace and miralax regimen. Pt feeling better, understands the plan. Medically stable for discharge. Medical Decision 77 F here for abdominal pain and 4 day h/o constipation. Pt is on chemotherapy since 1 week for her non hodgkin b cell lymphoma under the care of Dr. Ubaldo Santana. CT abd showed no stool impaction or evidence of acute diverticulitis or colitis. Given fluids and pain control. Pt is afebrile, found to be neutropenic which is a known and expected side effect of her chemotherapy as verified in records and discussed with Dr. Finley. Pt was able to move her bowels while here and felt symptomatic improvement. Discussed normal lab results, with the exception of neutropenia with Dr. Finley, and his recommendation was to increase stool softener and laxative use, and that if symtpom of constipation returns, to call his office immediately. Pt understands and agreeable to plan. Medically stable for discharge. Impression Primary Impression: Constipation due to pain medication therapy Additional Impression: Myelosuppression after chemotherapy Departure Information Dispostion Home / Self-Care Condition GOOD Referrals Chin Pineda M.D. (PCP) Patient Instructions My [facility] Additional Instructions You were admitted due to abdominal pain that was likely due to your history of four days of constipation. We have given you fluids here and some pain control. The CT of the abdomen did not show any signs of infection or obstruction. You have sinced moved your bowels here and improved some. We discussed your case with your oncologist Dr. Finley and he recommends that you increase your intake of stool softener daily. Also that you should call his office if your constipation recurs, since your chemotherapy is likely the cause of it. Stay well hydrated and eat foods high in fiber. Resident Tracking Resident Involvement: Resident Care Provided Care Provided: Adult Hospital Medicine Problem Qualifiers
--- NOTE | 2017-10-07 08:11 | DIAGNOSTIC IMAGING REPORT ---
CHEST ONE VIEW PORTABLE CLINICAL HISTORY: Abdominal pain. COMPARISON STUDY: PET CT August 28, 2017 and chest radiograph September 30, 2017. FINDINGS: No lucency is identified under the hemidiaphragms to suggest pneumoperitoneum. There is no pneumothorax or pleural effusion. Minimal linear left basilar opacity is suggestive of atelectasis. A left internal jugular [id number] is in place. Patient is mildly rotated. There is no evidence for pulmonary edema. Cardiomediastinal silhouette is unremarkable. IMPRESSION: No acute cardiopulmonary findings. Electronically signed by: Fernando Chavez M.D. 10/07/2017 8:09 AM Dictated Date/Time: 10/07/2017 8:07 AM
[2017-10-07 08:39] LABS: HEMOGLOBIN 14.2 g/dL (12.0-16.0); MEAN CELL VOLUME 85.6 fL (80-100); MEAN CORPUSCULAR HEMOGLOBIN 29.6 pg (25-34); MEAN CORPUSCULAR HGB CONC 34.6 g/dl (32-36); PLATELET COUNT 116 K/uL (130-400); RED CELL DISTRIBUTION WIDTH CV 12.7 % (11.5-14.5); RED CELL DISTRIBUTION WIDTH SD 40.2 fL (36.4-46.3); WHITE BLOOD COUNT 1.14 K/uL (4.8-10.8)
[2017-10-07 08:42] LABS: ALBUMIN 4.1 gm/dl (3.4-5.0); CALCIUM 9.8 mg/dl (8.5-10.1); CREATININE 0.92 mg/dl (0.60-1.20); POTASSIUM 3.2 mmol/L (3.5-5.1)
[2017-10-07 08:45] LABS: TOTAL PROTEIN 7.9 gm/dl (6.4-8.2)
[2017-10-07 08:58] LABS: BASO % 0.9 %; BASO ABS # 0.01 K/uL (0-0.2); EOS % 1.8 %; EOS ABS # 0.02 K/uL (0-0.5); IG# 0.01 K/uL (0.00-0.02); LYMPH % 42.1 %; LYMPH ABS # 0.48 K/uL (1.2-3.4); MONO % 1.8 %; MONO ABS # 0.02 K/uL (0.11-0.59); NEUT % 52.5 %
[2017-10-07] MEDS ORDERED: ATOR10TA82 PO (09:22)
[2017-10-07] MEDS ORDERED: CALC500C70 PO (09:22)
[2017-10-07] MEDS ORDERED: ONDANSETRON INJ 2 MG/ML 2 ML VIAL IV STA (09:58)
--- NOTE | 2017-10-07 10:35 | DIAGNOSTIC IMAGING REPORT ---
ABD/PELVIS IV AND ORAL CONT CT DOSE: 290.97 mGy.cm HISTORY: Pain lymphoma TECHNIQUE: Multiaxial CT images of the abdomen and pelvis were performed following the use of intravenous and oral contrast. A dose lowering technique was utilized adhering to the principles of ALARA. COMPARISON STUDY: PET/CT scan dated 08/28/2017. FINDINGS: minimal dependent basilar atelectasis. Liver is uniform. Gallbladder slightly distended. Kidneys negative for hydronephrosis. Enhancement characteristics are unremarkable. Small splenic cyst unchanged. Pancreas is uniform. Mild chronic sigmoid diverticulosis. Scattered additional colonic diverticulosis. No evidence for diverticulitis. No evidence for fecal impaction. Uterus is anteflexed. Bladder is midline. No significant abdominal pelvic or inguinal adenopathy. IMPRESSION: Mild chronic sigmoid diverticulosis. 2. No evidence for acute diverticulitis. 3. Nonobstructive bowel pattern with the remainder of the study unremarkable. The above report was generated using voice recognition software. It may contain grammatical, syntax or spelling errors. Electronically signed by: Robert Guzman M.D. 10/07/2017 10:33 AM Dictated Date/Time: 10/07/2017 10:29 AM
[2017-10-07] MEDS ORDERED: FENTANYL CITRATE INJ 50 MCG/1 ML 2 ML VIAL IV ONE (11:30)
--- NOTE | 2017-10-07 11:50 | EMERGENCY ROOM VISIT NOTE ---
History Report prepared by Sunnyibnicole: Abran Vázquez Under the Supervision of: Lu GarciaO. First contact with patient: 07:42 Chief Complaint: ABDOMINAL PAIN Stated Complaint: PAINS STOMACH Nursing Triage Summary: Pt states she is getting chemo for lymphoma, just started chemo on . Reports upper abd pain and back pain that started last night. No BM since Sat. History of Present Illness The patient is a 77 year old female who presents to the Emergency Room with complaints of constant upper abdominal pain beginning four days ago. The patient also complains of back pain. She rates her pain as a 6/10 in severity. Her pain is worsened with movement. The patient is currently receiving chemotherapy for lymphoma. She began her chemotherapy treatments last week. She was told to take stool softeners in case of chemotherapy induced constipation. The patient notes that she has not had a bowel movement in five days. She reports drinking a lot of water recently. She denies fevers or vomiting. Source of History: patient Onset: Four days ago Position: abdomen (upper) Symptom Intensity: 6/10 Timing: constant Modifying Factors (Worsening): movement Associated Symptoms: + back pain, No fevers, No vomiting Review of Systems See HPI for pertinent positives & negatives. A total of 10 systems reviewed and were otherwise negative. Past Medical & Surgical Medical Problems: (1) Bladder infection (2) HLD (hyperlipidemia) (3) HTN (hypertension) (4) Kidney stone (5) Urinary tract infection (6) Urinary tract infection Surgical Problems: (1) Previous section Family History No pertinent family history stated. Social History Smoking Status: Never Smoker Occupation Status: retired Current/Historical Medications Scheduled Atorvastatin (Lipitor), 10 MG PO HS Calcium/Vitamin D (Os-Haroldo 500 Plus D), 1 TAB PO HS Cholecalciferol (Vitamin D3), 4,000 UNITS PO HS Lisinopril (Zestril), 40 MG PO HS Loratadine (Claritin), 10 MG PO DAILY Travoprost (Travatan Z), 1 DROPS OPB HS Allergies Coded Allergies: Doxycycline (Verified Allergy, Intermediate, HIVES, 10/07/17) Penicillins (Verified Allergy, Intermediate, HIVES, 10/07/17) Sulfa Antibiotics (Verified Allergy, Intermediate, HIVES, 10/07/17) Physical Exam Vital Signs Date Time Temp Pulse Resp B/P (MAP) Pulse Ox O2 Delivery O2 Flow Rate FiO2 10/07/17 11:32 70 24 177/97 100 Room Air 10/07/17 09:10 71 18 175/84 99 Room Air 10/07/17 07:37 36.6 114 18 161/94 99 Room Air Physical Exam CONSTITUTIONAL/VITAL SIGNS: Reviewed / noted above. GENERAL: Non-toxic in appearance. INTEGUMENTARY: Warm, dry, and [place]. HEAD: Normocephalic. EYES: without scleral icterus or trauma. ENT/OROPHARYNX: clear and moist. LYMPHADENOPATHY/NECK: Is supple without lymphadenopathy or meningismus. RESPIRATORY: Lungs clear and equal. CARDIOVASCULAR: Regular rate and rhythm. GI/ABDOMEN: Soft. No organomegaly or pulsatile mass. No rebound or guarding. Normal bowel sounds. Mild epigastric tenderness. EXTREMITIES: Warm and well perfused. BACK: No CVA tenderness. NEUROLOGICAL: Intact without focal deficits. PSYCHIATRIC: normal affect. MUSCULOSKELETAL: Normally developed with good muscle tone. Medical Decision & Procedures ER Provider Diagnostic Interpretation: Radiology results as stated below per my review and radiologist interpretation: ABD/PELVIS IV AND ORAL CONT FINDINGS: minimal dependent basilar atelectasis. Liver is uniform. Gallbladder slightly distended. Kidneys negative for hydronephrosis. Enhancement characteristics are unremarkable. Small splenic cyst unchanged. Pancreas is uniform. Mild chronic sigmoid diverticulosis. Scattered additional colonic diverticulosis. No evidence for diverticulitis. No evidence for fecal impaction. Uterus is anteflexed. Bladder is midline. No significant abdominal pelvic or inguinal adenopathy. IMPRESSION: Mild chronic sigmoid diverticulosis. 2. No evidence for acute diverticulitis. 3. Nonobstructive bowel pattern with the remainder of the study unremarkable. The above report was generated using voice recognition software. It may contain grammatical, syntax or spelling errors. Electronically signed by: Robert Guzman M.D. 10/07/2017 10:33 AM CHEST ONE VIEW PORTABLE FINDINGS: No lucency is identified under the hemidiaphragms to suggest pneumoperitoneum. There is no pneumothorax or pleural effusion. Minimal linear left basilar opacity is suggestive of atelectasis. A left internal jugular [id number]-[id number] is in place. Patient is mildly rotated. There is no evidence for pulmonary edema. Cardiomediastinal silhouette is unremarkable. IMPRESSION: No acute cardiopulmonary findings. Electronically signed by: Fernando Chavez M.D. 10/07/2017 8:09 AM Laboratory Results 10/07/17 08:10 Red Blood Count 4.79, Mean Corpuscular Volume 85.6, Mean Corpuscular Hemoglobin 29.6, Mean Corpuscular Hemoglobin Concent 34.6, Mean Platelet Volume 11.0, Neutrophils (%) (Auto) 52.5, Lymphocytes (%) (Auto) 42.1, Monocytes (%) (Auto) 1.8, Eosinophils (%) (Auto) 1.8, Basophils (%) (Auto) 0.9, Neutrophils # (Auto) 0.60, Lymphocytes # (Auto) 0.48, Monocytes # (Auto) 0.02, Eosinophils # (Auto) 0.02, Basophils # (Auto) 0.01 10/07/17 08:10 Test 10/07/17 08:10 10/07/17 08:45 White Blood Count 1.14 K/uL (4.8-10.8) Red Blood Count 4.79 M/uL (4.2-5.4) Hemoglobin 14.2 g/dL (12.0-16.0) Hematocrit 41.0 % (37-47) Mean Corpuscular Volume 85.6 fL (80-100) Mean Corpuscular Hemoglobin 29.6 pg (25-34) Mean Corpuscular Hemoglobin Concent 34.6 g/dl (32-36) Platelet Count 116 K/uL (130-400) Mean Platelet Volume 11.0 fL (7.4-10.4) Neutrophils (%) (Auto) 52.5 % Lymphocytes (%) (Auto) 42.1 % Monocytes (%) (Auto) 1.8 % Eosinophils (%) (Auto) 1.8 % Basophils (%) (Auto) 0.9 % Neutrophils # (Auto) 0.60 K/uL (1.4-6.5) Lymphocytes # (Auto) 0.48 K/uL (1.2-3.4) Monocytes # (Auto) 0.02 K/uL (0.11-0.59) Eosinophils # (Auto) 0.02 K/uL (0-0.5) Basophils # (Auto) 0.01 K/uL (0-0.2) RDW Standard Deviation 40.2 fL (36.4-46.3) RDW Coefficient of Variation 12.7 % (11.5-14.5) Immature Granulocyte % (Auto) 0.9 % Immature Granulocyte # (Auto) 0.01 K/uL (0.00-0.02) Anion Gap 11.0 mmol/L (3-11) Est Creatinine Clear Calc Drug Dose 38.8 ml/min Estimated GFR () 70.1 Estimated GFR (Non- 60.5 BUN/Creatinine Ratio 18.0 (10-20) Calcium Level 9.8 mg/dl (8.5-10.1) Total Bilirubin 1.7 mg/dl (0.2-1) Direct Bilirubin 0.4 mg/dl (0-0.2) Aspartate Amino Transf (AST/SGOT) 10 U/L (15-37) Alanine Aminotransferase (ALT/SGPT) 31 U/L (12-78) Alkaline Phosphatase 131 U/L (45-117) Total Protein 7.9 gm/dl (6.4-8.2) Albumin 4.1 gm/dl (3.4-5.0) Lipase 278 U/L (73-393) Urine Color YELLOW Urine Appearance CLEAR (CLEAR) Urine pH 8.0 (4.5-7.5) Urine Specific [place] 1.015 (1.000-1.030) Urine Protein NEG (NEG) Urine Glucose (UA) NEG (NEG) Urine Ketones TRACE (NEG) Urine Occult Blood TRACE (NEG) Urine Nitrite NEG (NEG) Urine Bilirubin NEG (NEG) Urine Urobilinogen NEG (NEG) Urine Leukocyte Esterase NEG (NEG) Urine WBC (Auto) 1-5 /hpf (0-5) Urine RBC (Auto) 10-30 /hpf (0-4) Urine Hyaline Casts (Auto) 1-5 /lpf (0-5) Urine Epithelial Cells (Auto) 5-10 /lpf (0-5) Urine Bacteria (Auto) NEG (NEG) Laboratory results as stated above per my review. Medications Administered Medications (Trade) Dose Ordered Sig/Deepika Route Start Time Stop Time Status Last Admin Dose Admin Sodium Chloride 1,000 ml @ 400 mls/hr Q2H30M STAT IV 10/07/17 07:55 10/07/17 10:24 DC 10/07/17 08:28 400 MLS/HR Ketorolac Tromethamine (Toradol Inj) 30 mg NOW STAT IV 10/07/17 07:55 10/07/17 07:59 DC 10/07/17 08:28 30 MG Ondansetron HCl (Zofran Inj) 4 mg NOW STAT IV 10/07/17 09:58 10/07/17 09:59 DC 10/07/17 10:08 4 MG Fentanyl Citrate (Fentanyl Inj) 50 mcg NOW ONCE IV 10/07/17 11:30 10/07/17 11:31 DC 10/07/17 11:32 50 MCG ED Course 0744: Previous medical records were reviewed. The patient was evaluated in room B12B. A complete history and physical examination was performed. 0755: Ordered Toradol Inj 30 mg IV, Sodium Chloride 1000 ml @ 400 mls/hr IV. 0958: Ordered Zofran Inj 4 mg IV. 1130: Ordered Fentanyl Inj 50 mcg IV. 1145: On reevaluation, the patient is resting comfortably. I discussed the results and findings with the patient. She verbalized agreement of the treatment plan. The patient was discharged home. Medical Decision Differential considered: pancreatitis, hepatitis, or acute cholecystitis, AAA, UTI, pyelonephritis, kidney stones, appendicitis, diverticulitis, shingles, bowel obstruction mesenteric ischemia, intussusception, hernia, ovarian torsion , ruptured ovarian cyst. This is a 77-year-old female who presents to the ED with a chief complaint of abdominal discomfort and constipation. The patient has had the symptoms for the past 4 days. She reports some mild discomfort in the epigastric area. She states that her pain is worse with movement and constant in nature. She states that she has been trying some stool softeners and laxatives without improvement. The patient reports starting chemotherapy last week for lymphoma. She has been eating and drinking well. Her exam reveals some mild tenderness in the epigastric area. She is slightly tachycardic and hypertensive on her initial evaluation. A CT scan of the abdomen pelvis did not show acute process. White blood cell count was 1.14 with a absolute neutrophil count of 0.6. Lipase negative, potassium was 3.2, total bilirubin was 1.7, alkaline phosphatase 151, chest x-ray was negative for acute disease, urine did show trace ketones but no infection. She was treated with IV Toradol, IV fentanyl and IV fluids. She was advised of the results. The patient did have a small bowel movement here. There is no evidence of significant constipation on her CT scan. Dr. Mcpherson was made aware of the patient's abnormal white blood cell count and laboratory studies. He feels the patient is stable for discharge. The patient is afebrile. She was discharged Medication Reconcilliation Current Medication List: was personally reviewed by me Blood Pressure Screening Patient's blood pressure: Elevated blood pressure Blood pressure disposition: Referred to PCP Consults Time Called: 1125 Consulting Physician: Dr. Garcia - Oncology Returned Call: [phone] Discussed the patient's case. Jose Bolanos states that constipation is normal side effect from the patient's chemotherapy treatments. He does not believe hospitalization to be warranted currently. He recommends the patient call his office should her constipation continue. Impression Primary Impression: Constipation Additional Impressions: Abdominal pain Neutropenia Lymphoma Scribe Attestation The scribe's documentation has been prepared under my direction and personally reviewed by me in its entirety. I confirm that the note above accurately reflects all work, treatment, procedures, and medical decision making performed by me. Departure Information Dispostion Home / Self-Care Referrals Chin Pineda M.D. (PCP) Forms Call Back Authorization, HOME CARE DOCUMENTATION FORM, IMPORTANT VISIT INFORMATION Patient Instructions My [facility] Additional Instructions You were admitted due to abdominal pain that was likely due to your history of four days of constipation. We have given you fluids here and some pain control. The CT of the abdomen did not show any signs of infection or obstruction. You have sinced moved your bowels here and improved some. We discussed your case with your oncologist Dr. Finley and he recommends that you increase your intake of stool softener daily. Also that you should call his office if your constipation recurs, since your chemotherapy is likely the cause of it. Stay well hydrated and eat foods high in fiber. Problem Qualifiers
[2017-10-07] MEDS ORDERED: LISI-794 PO (12:07)
[2017-10-07] MEDS ORDERED: TRAV0.00 OPB (12:07)
[2017-10-07 12:39] VITALS: BP 168/91; PULSE 79; O2SAT 98
[2017-10-07] MEDS ORDERED: CHOL2000 PO (14:00)
[2017-10-11] MEDS ORDERED: ZOLP5TAB PO (12:39)
== END 2017-10-07 12:34 | disposition home or self-care (01) ==
LOC: C.EDB 07:36
DX: K59.00 Constipation, unspecified (principal); D70.9 Neutropenia, unspecified; C85.80 Other specified types of non-Hodgkin lymphoma, unspecified site; T45.1X5A Adverse effect of antineoplastic and immunosuppressive drugs, initial encounter; I10 Essential (primary) hypertension; E78.5 Hyperlipidemia, unspecified; Z87.442 Personal history of urinary calculi; Z87.440 Personal history of urinary (tract) infections; Z88.1 Allergy status to other antibiotic agents; Z88.0 Allergy status to penicillin; Z88.2 Allergy status to sulfonamides

== ENCOUNTER 2017-10-09 10:54 | Inpatient (IN) | payer OTHER ==
[~2017-10-09] VITALS: Ht 151.8 cm; Wt 53.7 kg
[~2017-10-09 10:54] MED LIST changes: -ATROPINE SULFATE 0.1 MG/ML 5ML SYR IV PRN; -BUPIVACAINE 0.5 % 5 MG/1 ML MPF 30ML VIAL ONE; -CLINDAMYCIN IV 900 MG in DEXTROSE 5% 50ML 44 ML IV SCH; +CLR10 PO; -EpHEDrine SULFATE INJ 50 MG/ML AMP IV PRN; -FENTANYL CITRATE INJ 50 MCG/1 ML 2 ML VIAL IV PRN; -FENTANYL CITRATE INJ 50 MCG/1 ML 2 ML VIAL ONE; -HEPARIN SOD (PORCINE) 1000 UNIT/ML 10 ML VIAL ONE; -LACTATED RINGER'S 1000ML 1,000 ML IV SCH; -LIDOCAINE/EPINEPHRINE 1% 20 ML VIAL ONE; -MIDAZOLAM HCL 1 MG/ML 2ML VIAL ONE; -ONDANSETRON INJ 2 MG/ML 2 ML VIAL IV PRN; -OXYCODONE/ACETAMINOPHEN 5-325 TAB PO PRN; -PROPOFOL IV EMULSION 10 MG/ML 20 ML VIAL IV ONE; -SODIUM CHLORIDE 0.9% 1000ML 1,000 ML IV SCH
[2017-10-09] MEDS ORDERED: MoRPHine SULFATE 4 MG/ML 1 ML CARP\\VIAL IV STA (11:31)
[2017-10-09] MEDS ORDERED: SODIUM CHLORIDE 0.9% 500ML 500 ML IV STA (11:31)
[2017-10-09] MEDS ORDERED: SODIUM CHLORIDE 0.9% 1000ML 1,000 ML IV STA (11:35)
[2017-10-09] MEDS ORDERED: OPTIRAY 320 IV PRN (11:45)
[2017-10-09 12:04] LABS: ALBUMIN 3.4 gm/dl (3.4-5.0); CALCIUM 9.5 mg/dl (8.5-10.1); CREATININE 0.93 mg/dl (0.60-1.20); POTASSIUM 3.2 mmol/L (3.5-5.1)
[2017-10-09 12:08] LABS: TOTAL PROTEIN 7.2 gm/dl (6.4-8.2)
[2017-10-09] MEDS ORDERED: DOCU-94 PO (12:17)
[2017-10-09] MEDS ORDERED: SENN-134 (12:17)
[2017-10-09] MEDS ORDERED: POLY335019 PO (12:17)
[2017-10-09 12:20] LABS: HEMATOCRIT 35.5 % (37-47); HEMOGLOBIN 12.4 g/dL (12.0-16.0); MEAN CELL VOLUME 84.9 fL (80-100); MEAN CORPUSCULAR HEMOGLOBIN 29.7 pg (25-34); MEAN CORPUSCULAR HGB CONC 34.9 g/dl (32-36); MEAN PLATELET VOLUME 11.3 fL (7.4-10.4); PLATELET COUNT 93 K/uL (130-400); RED CELL DISTRIBUTION WIDTH CV 12.5 % (11.5-14.5); RED CELL DISTRIBUTION WIDTH SD 38.8 fL (36.4-46.3); WHITE BLOOD COUNT 1.36 K/uL (4.8-10.8)
[2017-10-09] MEDS ORDERED: DILTIAZEM BOLUS / DRIP IV STA ×2 (13:09→14:40)
[2017-10-09] MEDS ORDERED: DILTIAZEM BOLUS FROM BAG IV ONE (13:15)
[2017-10-09] MEDS: DILTIAZEM HCL INJ 125 MG in DEXTROSE 5% 100ML IV PRN ×3 (13:31→14:40)
--- NOTE | 2017-10-09 14:12 | DIAGNOSTIC IMAGING REPORT ---
CT ANGIOGRAM OF THE CHEST CLINICAL HISTORY: Dyspnea. Back pain. COMPARISON STUDY: Chest x-ray dated 10/07/2017. PET/CT dated 08/28/2017. TECHNIQUE: Following the IV administration of 117 cc of Optiray 320, CT angiogram of the chest was performed from the upper abdomen to the thoracic inlet utilizing the pulmonary embolus protocol. Images are reviewed in the axial, sagittal, and coronal planes. 3-D MIPS images are created and assessed. IV contrast was administered without complication. A dose lowering technique was utilized adhering to the principles of ALARA. CT DOSE: 571.77 mGycm FINDINGS: Thyroid: Imaged portions of the thyroid gland are normal in size and attenuation. Thoracic aorta: The thoracic aorta is normal in caliber and demonstrates standard 3-vessel arch anatomy. No dissection is seen. A left internal jugular central venous infusion port is in place. Pulmonary vasculature: The pulmonary trunk is normal in caliber. There are no filling defects identified in main, lobar, or segmental pulmonary branches to suggest pulmonary embolus. Heart: The heart is enlarged and without pericardial effusion. The coronary arteries are calcified. Lungs and pleural spaces: Mild emphysematous change is noted. There is no airspace consolidation or pleural effusion. A calcific granuloma seen at the left apex. Dependent atelectasis is observed. The trachea and central airways are clear. Mediastinum: There is no mediastinal lymphadenopathy. Karmen: Clear. Axillae: There is no axillary lymphadenopathy. Upper abdomen: The partially visualized kidneys demonstrate cortical atrophy. A small hiatal hernia is identified. Skeletal structures: The skeletal structures are osteopenic. No lytic or blastic bony lesions are seen. IMPRESSION: 1. There is no evidence of pulmonary embolus in the main, lobar, or segmental pulmonary arteries. 2. Cardiomegaly and mild emphysema. 3. There is no airspace consolidation or pleural effusion. Electronically signed by: Edilberto Ho M.D. 10/09/2017 2:10 PM Dictated Date/Time: 10/09/2017 2:05 PM
--- NOTE | 2017-10-09 14:14 | DIAGNOSTIC IMAGING REPORT ---
THORACIC SPINE WITHOUT CT DOSE: HISTORY: Pain r flank pain TECHNIQUE: Multiaxial CT images of the thoracic spine were performed and reformatted in the sagittal and coronal plane without the use of contrast. A dose lowering technique was utilized adhering to the principles of ALARA. COMPARISON: None. FINDINGS: No fractures. No subluxation. Paraspinal soft tissues are unremarkable. Mild degenerative disc change throughout IMPRESSION: Minimal/mild degenerative disc change at the entire thoracic region. Otherwise negative study. The above report was generated using voice recognition software. It may contain grammatical, syntax or spelling errors. Electronically signed by: Robert Guzman M.D. 10/09/2017 2:12 PM Dictated Date/Time: 10/09/2017 2:10 PM
[2017-10-09] MEDS ORDERED: METOPROLOL TARTRATE 1 MG/ML VIAL IV STA (14:40)
[2017-10-09] MEDS ORDERED: ALUMINUM/MAGNESIUM/SIMETH (MAALOX MAX) 30 ML UDC PO PRN (14:45)
[2017-10-09] MEDS ORDERED: MAGNESIUM HYDROXIDE SUSP 30 ML UDC PO PRN (14:45)
[2017-10-09] MEDS ORDERED: MoRPHine SULFATE 4 MG/ML 1 ML CARP\\VIAL IV PRN (14:45)
[2017-10-09] MEDS ORDERED: ONDANSETRON INJ 2 MG/ML 2 ML VIAL IV PRN (14:45)
--- NOTE | 2017-10-09 15:08 | EMERGENCY ROOM VISIT NOTE ---
History Report prepared by Mckay: Abran Vázquez Under the Supervision of: Dr. Francis Coleman D.O. First contact with patient: 11:17 Chief Complaint: BACK PAIN Stated Complaint: BACK PAIN, SOB History of Present Illness The patient is a 77 year old female who presents to the Emergency Room with complaints of constant lower back pain beginning eight days ago. She rates her current pain as a 7/10 in severity. She also complains of lower abdominal pain ( also began eight days ago) and shortness of breath. The patient has a history of Large B-cell Lymphoma (most recent chemotherapy treatment was about one week ago). She was diagnosed three months ago, and had her port placed last week. She states that she has had her pain began after receiving her first chemotherapy treatment. The patient was seen in the ED two days ago for abdominal and back pain. She has taken Oxycodone for her pain, but it only helps when she takes two doses. Her pain is worsened with movement. The patient' s pain is improved with rest. Pt denies headache, fevers, chest pain, shortness of breath, nausea, vomiting, pain with urination, numbness, weakness, and melena. Source of History: patient Onset: Eight days ago Position: back (lower) Timing: constant Modifying Factors (Worsening): movement Modifying Factors (Relieving): rest Associated Symptoms: + abdominal pain (lower), No fevers, No headache, No chest pain, No SOB, No nausea, No vomiting, No melena, No weakness, No numbness Review of Systems See HPI for pertinent positives & negatives. A total of 10 systems reviewed and were otherwise negative. Past Medical & Surgical Medical Problems: (1) Atrial fibrillation with RVR (2) B-cell lymphoma (3) Back pain (4) Bladder infection (5) HLD (hyperlipidemia) (6) HTN (hypertension) (7) Kidney stone (8) Urinary tract infection (9) Urinary tract infection Surgical Problems: (1) Previous section Family History No pertinent family history stated. Social History Smoking Status: Never Smoker Marital Status: Occupation Status: retired Current/Historical Medications Scheduled Atorvastatin (Lipitor), 10 MG PO HS Calcium/Vitamin D (Os-Haroldo 500 Plus D), 1 TAB PO HS Cholecalciferol (Vitamin D3), 4,000 UNITS PO HS Docusate Sodium (Colace), 200 MG PO TID Lisinopril (Zestril), 40 MG PO HS Loratadine (Claritin), 10 MG PO DAILY Polyethylene Glycol 3350 (Miralax), 17 GM PO BID Travoprost (Travatan Z), 1 DROPS OPB HS Allergies Coded Allergies: Doxycycline (Verified Allergy, Intermediate, HIVES, 10/09/17) Penicillins (Verified Allergy, Intermediate, HIVES, 10/09/17) Sulfa Antibiotics (Verified Allergy, Intermediate, HIVES, 10/09/17) Physical Exam Vital Signs Date Time Temp Pulse Resp B/P (MAP) Pulse Ox O2 Delivery O2 Flow Rate FiO2 10/09/17 14:41 169 16 102/75 98 Room Air 10/09/17 14:20 163 22 122/81 100 Room Air 10/09/17 14:03 156 22 147/86 100 Room Air 10/09/17 13:41 106/79 10/09/17 13:40 99/65 10/09/17 13:35 97/68 10/09/17 13:34 185 10/09/17 13:34 167 16 97/68 100 Room Air 10/09/17 13:30 183 21 97 10/09/17 13:28 111 10/09/17 13:12 189 10/09/17 13:09 200 16 129/90 98 Room Air 10/09/17 11:01 36.5 121 20 143/85 99 Room Air Physical Exam GENERAL: Sitting up in bed, alert, anxious, tearful, non-toxic EYE EXAM: normal conjunctiva. OROPHARYNX: no exudate, no erythema, lips, buccal mucosa, and tongue normal and mucous membranes are moist NECK: supple, no nuchal rigidity, no adenopathy, non-tender LUNGS: Clear to auscultation. Normal chest wall mechanics HEART: no murmurs, S1 normal and S2 normal ABDOMEN: abdomen soft, non-tender, normo-active bowel sounds, no masses, no rebound or guarding. BACK: Back is symmetrical on inspection and there is no deformity, no midline tenderness, no CVA tenderness. SKIN: no rashes and no bruising UPPER EXTREMITIES: upper extremities are grossly normal. Radial pulses equal bilaterally. LOWER EXTREMITIES: Calves are equal bilaterally. NEURO EXAM: Normal sensorium, cranial nerves II-XII grossly intact, normal speech, no gross weakness of arms, no gross weakness of legs. Medical Decision & Procedures ER Provider Diagnostic Interpretation: Radiology results as stated below per my review and the radiologist's interpretation: THORACIC SPINE WITHOUT FINDINGS: No fractures. No subluxation. Paraspinal soft tissues are unremarkable. Mild degenerative disc change throughout IMPRESSION: Minimal/mild degenerative disc change at the entire thoracic region. Otherwise negative study. The above report was generated using voice recognition software. It may contain grammatical, syntax or spelling errors. Electronically signed by: Robert Guzman M.D. 10/09/2017 2:[address] ANGIOGRAM OF THE CHEST FINDINGS: Thyroid: Imaged portions of the thyroid gland are normal in size and attenuation. Thoracic aorta: The thoracic aorta is normal in caliber and demonstrates standard 3-vessel arch anatomy. No dissection is seen. A left internal jugular central venous infusion port is in place. Pulmonary vasculature: The pulmonary trunk is normal in caliber. There are no filling defects identified in main, lobar, or segmental pulmonary branches to suggest pulmonary embolus. Heart: The heart is enlarged and without pericardial effusion. The coronary arteries are calcified. Lungs and pleural spaces: Mild emphysematous change is noted. There is no airspace consolidation or pleural effusion. A calcific granuloma seen at the left apex. Dependent atelectasis is observed. The trachea and central airways are clear. Mediastinum: There is no mediastinal lymphadenopathy. Karmen: Clear. Axillae: There is no axillary lymphadenopathy. Upper abdomen: The partially visualized kidneys demonstrate cortical atrophy. A small hiatal hernia is identified. Skeletal structures: The skeletal structures are osteopenic. No lytic or blastic bony lesions are seen. IMPRESSION: 1. There is no evidence of pulmonary embolus in the main, lobar, or segmental pulmonary arteries. 2. Cardiomegaly and mild emphysema. 3. There is no airspace consolidation or pleural effusion. Electronically signed by: Edilberto Ho M.D. 10/09/2017 2:10 PM Laboratory Results 10/09/17 11:39 Red Blood Count 4.18, Mean Corpuscular Volume 84.9, Mean Corpuscular Hemoglobin 29.7, Mean Corpuscular Hemoglobin Concent 34.9, Mean Platelet Volume 11.3 10/09/17 11:39 Test 10/09/17 11:39 10/09/17 14:40 White Blood Count 1.36 K/uL (4.8-10.8) Red Blood Count 4.18 M/uL (4.2-5.4) Hemoglobin 12.4 g/dL (12.0-16.0) Hematocrit 35.5 % (37-47) Mean Corpuscular Volume 84.9 fL (80-100) Mean Corpuscular Hemoglobin 29.7 pg (25-34) Mean Corpuscular Hemoglobin Concent 34.9 g/dl (32-36) Platelet Count 93 K/uL (130-400) Mean Platelet Volume 11.3 fL (7.4-10.4) RDW Standard Deviation 38.8 fL (36.4-46.3) RDW Coefficient of Variation 12.5 % (11.5-14.5) Neutrophils % (Manual) 44.6 % Lymphocytes % (Manual) 28.6 % Variant Lymphocytes % (manual) 12.5 % Monocytes % (Manual) 11.6 % Eosinophils % (Manual) 0.9 % Basophils % (Manual) 1.8 % Neutrophils # (Manual) 0.61 K/uL (1.4-6.5) Total Absolute Neutrophils 0.61 K/uL (1.4-6.5) Lymphocytes # (Manual) 0.39 K/uL (1.2-3.4) Absolute Variant Lymphocytes 0.17 K/uL Total Absolute Lymphocytes 0.56 K/uL (1.2-3.4) Monocytes # (Manual) 0.16 K/uL (0.11-0.59) Eosinophils # (Manual) 0.01 K/uL (0-0.5) Basophils # (Manual) 0.02 K/uL (0-0.2) Toxic Granulation 1+ Dohle Bodies 2+ Platelet Estimate DECREASED Giant Platelets 3+ Red Blood Cell Morphology Unremarkable Anion Gap 10.0 mmol/L (3-11) Est Creatinine Clear Calc Drug Dose 38.2 ml/min Estimated GFR () 69.2 Estimated GFR (Non- 59.7 BUN/Creatinine Ratio 15.3 (10-20) Calcium Level 9.5 mg/dl (8.5-10.1) Total Bilirubin 0.8 mg/dl (0.2-1) Direct Bilirubin 0.3 mg/dl (0-0.2) Aspartate Amino Transf (AST/SGOT) 8 U/L (15-37) Alanine Aminotransferase (ALT/SGPT) 18 U/L (12-78) Alkaline Phosphatase 109 U/L (45-117) Total Protein 7.2 gm/dl (6.4-8.2) Albumin 3.4 gm/dl (3.4-5.0) Lipase 76 U/L (73-393) Laboratory results per my review. Medications Administered Medications (Trade) Dose Ordered Sig/Deepika Route Start Time Stop Time Status Last Admin Dose Admin Sodium Chloride 500 ml @ 999 mls/hr Q31M STAT IV 10/09/17 11:31 10/09/17 12:01 DC 10/09/17 11:31 999 MLS/HR Morphine Sulfate (MoRPHine SULFATE INJ) 4 mg NOW STAT IV 10/09/17 11:31 10/09/17 11:33 DC 10/09/17 11:31 4 MG Sodium Chloride 1,000 ml @ 999 mls/hr Q1H1M STAT IV 10/09/17 11:35 10/09/17 12:35 DC 10/09/17 11:49 999 MLS/HR Diltiazem HCl (Cardizem Bolus From Bag) 10 mg ONE ONCE IV 10/09/17 13:15 10/09/17 13:16 DC 10/09/17 13:15 10 MG Diltiazem HCl 125 mg/Dextrose 125 ml @ 0 mls/hr Q0M PRN IV 10/09/17 13:15 11/08/17 13:14 10/09/17 14:40 15 MLS/HR ECG Per My Interpretation Indication: back/shoulder pain Rate (beats per minute): 98 Rhythm: sinus rhythm Findings: PAC, left axis deviation Change: Repeat ECG reveals A-fib with RVR (rate of 187 bpm). Left axis deviation noted. ST depressions seen in the hilateral leads. ED Course ED COURSE: Vital signs were reviewed and showed tachycardia and hypertension. The patients medical record was reviewed The above diagnostic studies were performed and reviewed. ED treatments and interventions as stated above. 1122: The patient was evaluated in room C5. A complete history and physical examination was performed. 1131: Ordered Morphine Sulfate 4 mg IV, Sodium Chloride 500 ml @ 999 mls/hr IV. 1135: Ordered Sodium Chloride 1000 ml @ 999 mls/hr IV. 1305: The patient experienced a rapid and irregular heart rhythm. Repeat ECG was obtained. I reassessed the patient. Her back pain is gone, but her abdominal pain is still present. 1309: Ordered Cardizem Bolus/Drip IV. 1345: Upon reevaluation, the patient is resting comfortably. I discussed my findings with the patient and sh understands and agrees with the treatment plan. Based on the patients age, coexisting illnesses, exam and lab findings the decision to treat as an inpatient was made. The patient remained stable while under my care. The patient will be evaluated for further management. 1410: I checked in on the patient. Her heart rate is in the 150's, and her Cardizem Drip was increased. Medical Decision Differential diagnoses includes but is not limited to lumbar radiculopathy, muscle strain, facture, cauda equina, mass, and disc herniation. Patient is a 77-year-old female who presents the ER with a past medical history of lymphoma large B cell. Last chemo was a week ago. She has pain in her lower abdomen pain in her right upper back. These pains have been there since she received her last dose of Neulasta. CBC shows a neutropenia. BMP was fairly unremarkable along with bilirubin, LFTs and lipase. CTA of the chest was unremarkable. CT of the thoracic spine was negative. Previous imaging of the abdomen was reviewed and unremarkable. Patient was given fluids. Patient had 2 episodes of A. fib with RVR. She initially broke on her own and then was placed on Cardizem drip and bolus. This was titrated up. Patient family were updated at bedside. She was given IV morphine previously. She was admitted to internal medicine with A. fib and RVR. I do favor the back pain is likely muscle skeletal in nature versus related to the Neulasta. Medication Reconcilliation Current Medication List: was personally reviewed by me Blood Pressure Screening Patient's blood pressure: Elevated blood pressure Blood pressure disposition: Elevated BP felt to be situational Consults Time Called: 1345 Consulting Physician: Dr. Catrachito ROCA Hospitalist Returned Call: [phone] I reviewed the patient's case with Dr. Winston. CHANELLE will evaluate the patient for further management. Impression Primary Impression: Atrial fibrillation with RVR Critical Care I have personally spent 35 minutes of critical care time in the direct management of this patient. This includes bedside care, interpretation of diagnostic studies, and testing, discussion with consultants, patient, and family members, and other required patient management activities. This 35 minutes is in excess of all separately billable procedures. Scribe Attestation The scribe's documentation has been prepared under my direction and personally reviewed by me in its entirety. I confirm that the note above accurately reflects all work, treatment, procedures, and medical decision making performed by me. Departure Information Dispostion Being Evaluated By Hospitalist Referrals Chin Pineda M.D. (PCP) Patient Instructions My [facility]
[2017-10-09] MEDS ORDERED: POTASSIUM CHLORIDE 20 MEQ TABCR PO ONE ×2 (15:15→21:00)
[2017-10-09] MEDS ORDERED: DICLOFENAC SOD 1% GEL 100 GM TUBE EXT PRN (15:30)
--- NOTE | 2017-10-09 15:35 | History and Physical ---
History & Physical Date & Time of Service: Oct 09, 2017 at 15:04 Chief Complaint: Back Pain, Sob Primary Care Physician: Chin Pineda M.D. History of Present Illness Source: patient, family (daughter at bedside), clinic records, hospital records This is a 77 y/o female with a history of HTN, HLD, B cell lymphoma, prediabetes , glaucoma, osteoporosis and vitamin D deficiency who presented to the ED on with back pain, abdominal pain, and shortness of breath. The patient was recently diagnosed with B cell lymphoma in June 2017. She recently had a port placed and had her first chemotherapy treatment last week. The following day, she received Neulasta. The patient states that since receiving Neulasta, she has had right sided lower to mid back pain. She describes it as a constant ache that was a 9/10 at its worst with associated shortness of breath. She had also complained of lower abdominal pain and states that she had been constipated. Currently, she denies any pain after receiving morphine in the ED. Her SOB has also resolved. The patient was coincidentally found to be in a -fib with RVR. The patient denies any chest pain or palpitations or previous history of a-fib. She does note that she has not been sleeping much in the last week since starting the chemo and a short course of steroids. The patient denies fevers, chills, sweats, chest pain, palpitations, claudication, cough, wheezing, nausea, vomiting, dysuria, hematuria, urinary retention, paralysis, weakness, numbness and tingling. Past Medical/Surgical History Medical Problems: (1) Abdominal pain (2) Atrial fibrillation with RVR (3) B-cell lymphoma (4) Back pain (5) Bladder infection (6) Constipation (7) Constipation due to pain medication therapy (8) HLD (hyperlipidemia) (9) HTN (hypertension) (10) Kidney stone (11) Lymphoma (12) Myelosuppression after chemotherapy (13) Neutropenia (14) Urinary tract infection (15) Urinary tract infection Surgical Problems: (1) Previous section Prediabetes Glaucoma Family History Myocardial infarction Prostate cancer Stroke Social History Smoking Status: Never Smoker Smokeless Tobacco Use: No Alcohol Use: none Drug Use: none Marital Status: Housing status: lives with significant other Occupational Status: retired Allergies Coded Allergies: Doxycycline (Verified Allergy, Intermediate, HIVES, 10/09/17) Penicillins (Verified Allergy, Intermediate, HIVES, 10/09/17) Sulfa Antibiotics (Verified Allergy, Intermediate, HIVES, 10/09/17) Home Medications Scheduled Atorvastatin (Lipitor), 10 MG PO HS Calcium/Vitamin D (Os-Haroldo 500 Plus D), 1 TAB PO HS Cholecalciferol (Vitamin D3), 4,000 UNITS PO HS Docusate Sodium (Colace), 200 MG PO TID Lisinopril (Zestril), 40 MG PO HS Loratadine (Claritin), 10 MG PO DAILY Polyethylene Glycol 3350 (Miralax), 17 GM PO BID Travoprost (Travatan Z), 1 DROPS OPB HS Scheduled PRN Oxycodone/Acetaminophen 5MG/325MG (Percocet 5MG/325MG), 1-2 TABLETS PO Q4H PRN for Pain Review of Systems Constitutional: No fever, No chills, No sweats Eyes: No worsening of vision, No eye pain, No diplopia ENT: No hearing loss, No nasal symptoms, No trouble swallowing Respiratory: No cough, No wheezing, No shortness of breath Cardiovascular: No chest pain, No claudication, No palpitations Abdomen: +Abdominal pain, now resolved. No nausea, No vomiting Musculoskeletal: +Back pain, now resolved. No muscle pain, No swelling Genitourinary - Female: No dysuria, No urinary retention, No hematuria Neurologic: No paralysis, No weakness, No numbness/tingling Integumentary: No rash, No itch, No color change Physical Exam Vital Signs Date Time Temp Pulse Resp B/P (MAP) Pulse Ox O2 Delivery O2 Flow Rate FiO2 10/09/17 14:41 169 16 102/75 98 Room Air 10/09/17 14:20 163 22 122/81 100 Room Air 10/09/17 14:03 156 22 147/86 100 Room Air 10/09/17 13:41 106/79 10/09/17 13:40 99/65 10/09/17 13:35 97/68 10/09/17 13:34 185 10/09/17 13:34 167 16 97/68 100 Room Air 10/09/17 13:30 183 21 97 10/09/17 13:28 111 10/09/17 13:12 189 10/09/17 13:09 200 16 129/90 98 Room Air 10/09/17 11:01 36.5 121 20 143/85 99 Room Air General appearance: Well-developed, well-nourished, no apparent distress Head: Normocephalic, atraumatic Eyes: Normal inspection, PERRL, EOMI ENT: Normal ENT inspection, hearing grossly normal, pharynx normal Neck: Supple, no JVD, trachea midline Respiratory/Chest: Lungs clear to auscultation, normal breath sounds, no respiratory distress Cardiovascular: +Irregular, tachycardic. No gallop, no murmur Abdomen/GI: Normal bowel sounds, non-tender, soft Extremities/Musculoskeletal: Normal inspection, no calf tenderness, no pedal edema Neurological/Psych: Alert, normal mood/affect, oriented x 3 Skin: Normal color, warm/dry, no rash Diagnostics Laboratory Results Results Past 24 Hours Test 10/09/17 11:39 Range/Units White Blood Count 1.36 4.8-10.8 K/uL Red Blood Count 4.18 4.2-5.4 M/uL Hemoglobin 12.4 12.0-16.0 g/dL Hematocrit 35.5 37-47 % Mean Corpuscular Volume 84.9 80-100 fL Mean Corpuscular Hemoglobin 29.7 25-34 pg Mean Corpuscular Hemoglobin Concent 34.9 32-36 g/dl Platelet Count 93 130-400 K/uL Mean Platelet Volume 11.3 7.4-10.4 fL RDW Standard Deviation 38.8 36.4-46.3 fL RDW Coefficient of Variation 12.5 11.5-14.5 % Neutrophils % (Manual) 44.6 % Lymphocytes % (Manual) 28.6 % Variant Lymphocytes % (manual) 12.5 % Monocytes % (Manual) 11.6 % Eosinophils % (Manual) 0.9 % Basophils % (Manual) 1.8 % Neutrophils # (Manual) 0.61 1.4-6.5 K/uL Total Absolute Neutrophils 0.61 1.4-6.5 K/uL Lymphocytes # (Manual) 0.39 1.2-3.4 K/uL Absolute Variant Lymphocytes 0.17 K/uL Total Absolute Lymphocytes 0.56 1.2-3.4 K/uL Monocytes # (Manual) 0.16 0.11-0.59 K/uL Eosinophils # (Manual) 0.01 0-0.5 K/uL Basophils # (Manual) 0.02 0-0.2 K/uL Toxic Granulation 1+ Dohle Bodies 2+ Platelet Estimate DECREASED Giant Platelets 3+ Red Blood Cell Morphology Unremarkable Sodium Level 131 136-145 mmol/L Potassium Level 3.2 3.5-5.1 mmol/L Chloride Level 99 98-107 mmol/L Carbon Dioxide Level 22 21-32 mmol/L Anion Gap 10.0 3-11 mmol/L Blood Urea Nitrogen 14 7-18 mg/dl Creatinine 0.93 0.60-1.20 mg/dl Est Creatinine Clear Calc Drug Dose 38.2 ml/min Estimated GFR () 69.2 Estimated GFR (Non- 59.7 BUN/Creatinine Ratio 15.3 10-20 Random Glucose 124 70-99 mg/dl Calcium Level 9.5 8.5-10.1 mg/dl Total Bilirubin 0.8 0.2-1 mg/dl Direct Bilirubin 0.3 0-0.2 mg/dl Aspartate Amino Transf (AST/SGOT) 8 15-37 U/L Alanine Aminotransferase (ALT/SGPT) 18 12-78 U/L Alkaline Phosphatase 109 45-117 U/L Total Protein 7.2 6.4-8.2 gm/dl Albumin 3.4 3.4-5.0 gm/dl Lipase 76 73-393 U/L Diagnostic Radiology Reviewed the following studies and agree with interpretation as follows: CT ANGIOGRAM OF THE CHEST CLINICAL HISTORY: Dyspnea. Back pain. COMPARISON STUDY: Chest x-ray dated 10/07/2017. PET/CT dated 08/28/2017. TECHNIQUE: Following the IV administration of 117 cc of Optiray 320, CT angiogram of the chest was performed from the upper abdomen to the thoracic inlet utilizing the pulmonary embolus protocol. Images are reviewed in the axial, sagittal, and coronal planes. 3-D MIPS images are created and assessed. IV contrast was administered without complication. A dose lowering technique was utilized adhering to the principles of ALARA. CT DOSE: 571.77 mGycm FINDINGS: Thyroid: Imaged portions of the thyroid gland are normal in size and attenuation. Thoracic aorta: The thoracic aorta is normal in caliber and demonstrates standard 3-vessel arch anatomy. No dissection is seen. A left internal jugular central venous infusion port is in place. Pulmonary vasculature: The pulmonary trunk is normal in caliber. There are no filling defects identified in main, lobar, or segmental pulmonary branches to suggest pulmonary embolus. Heart: The heart is enlarged and without pericardial effusion. The coronary arteries are calcified. Lungs and pleural spaces: Mild emphysematous change is noted. There is no airspace consolidation or pleural effusion. A calcific granuloma seen at the left apex. Dependent atelectasis is observed. The trachea and central airways are clear. Mediastinum: There is no mediastinal lymphadenopathy. Karmen: Clear. Axillae: There is no axillary lymphadenopathy. Upper abdomen: The partially visualized kidneys demonstrate cortical atrophy. A small hiatal hernia is identified. Skeletal structures: The skeletal structures are osteopenic. No lytic or blastic bony lesions are seen. IMPRESSION: 1. There is no evidence of pulmonary embolus in the main, lobar, or segmental pulmonary arteries. 2. Cardiomegaly and mild emphysema. 3. There is no airspace consolidation or pleural effusion. THORACIC SPINE WITHOUT CT DOSE: HISTORY: Pain r flank pain TECHNIQUE: Multiaxial CT images of the thoracic spine were performed and reformatted in the sagittal and coronal plane without the use of contrast. A dose lowering technique was utilized adhering to the principles of ALARA. COMPARISON: None. FINDINGS: No fractures. No subluxation. Paraspinal soft tissues are unremarkable. Mild degenerative disc change throughout IMPRESSION: Minimal/mild degenerative disc change at the entire thoracic region. Otherwise negative study. EKG Reviewed EKG and agree with interpretation as follows: 98 bpm, sinus rhythm with premature supraventricular complexes Patient later found to be in an irregular rhythm with HR in 200s Impression Assessment and Plan 77 y/o female with a history of HTN, HLD, B cell lymphoma, prediabetes, glaucoma , osteoporosis and vitamin D deficiency who presented to the ED on 10/09 with back pain, abdominal pain, and shortness of breath. Pt had been in normal sinus rhythm on arrival but later developed an irregular rhythm with HR up to 200. Vital signs otherwise stable. EKG in ED still in sinus rhythm. Labs reveal pancytopenia. Potassium 3.2. Pt received diltiazem 10 mg bolus and drip and IVF in ED. CTA chest negative for PE. CT thoracic spine shows mild degenerative changes but otherwise negative. A-fib with RVR, new onset--HR still maintaining 160s-170s, difficult to ascertain if truly a-fib but does at times look/sound irregular -Admit to telemetry -Continue diltiazem drip, currently at 10 mg/hr, can titrate up to 15 -Lopressor 5 mg IV x 1 stat, will monitor response. May need to consider amiodarone -Repeat echocardiogram to assess for thrombus. Last echo 09/17/17 showed EF 60-65 %, no WMA. Borderline LVH. Grade I diastolic dysfunction -Heparin drip -Check TSH, magnesium -Trend troponin x 3, first negative Hypokalemia -Potassium 3.2 on admission -KCl 40 mEq PO now, another 40 mEq tonight, continue to monitor -Mag level pending Back pain/rib pain due to rib somatic dysfunction -CTA chest negative for PE, no acute findings -CT thoracic spine mild degenerative changes -OMT performed by Dr. Winston -Voltaren gel prn HTN, HLD--stable -Continue lisinopril 40 mg PO hs, Lipitor 10 mg PO qd B cell lymphoma, pancytopenia--first chemo treatment last week -Neutropenic precautions, continue to monitor CBC Prediabetes--stable -Check HgbA1c -Will hold off on ISS for now Glaucoma -Continue Travatan drops Osteoporosis, vitamin D deficiency -Continue calcium and vitamin D supplements DVT prophylaxis -Heparin drip -YULISA hernández and SCDs Code Status -Level I, FULL RESUSCITATION STATUS i personally examined pt and verified all luther points w Joya Chau PAC back pain afib totally asymptomatic vitals noted nad HR irreg irreg clearly afib on monitor by the time i see her ost/msk shows R ribs shayna 11-12 stuck in exhalation, tender decreased ROM - balanced ligamentous tension - improved afib - rate control, anticoagulation back pain / rib pain / rib somatic dysfunction - OMT as above, voltaren gel, outpt f/u for further OMT if pain persists late addendum - followed up multiple times due to afib - at one point HR ~150, BP ~75/40 - fluid bolus and changed to amiodarone, reduced dilt - vitals all ipmroved. pt asymptomatic the whole time. d/w cardiology after this due to possible need for cardioversion -- fortnatly on later follow ups she was much more stable vitals, and all the while asymptomatic Resuscitation Status VTE Prophylaxis Will order VTE Prophylaxis: Yes
[2017-10-09 16:30] LABS: HEMOGLOBIN A1C 5.8 % (4.5-5.6)
[2017-10-09] MEDS ORDERED: HEPARIN IV BOLUS 4,000 UNIT in SYRINGE 0 ML IV ONE (18:45)
[2017-10-09] MEDS ORDERED: HEPARIN 25,000 UNIT/500ML D5W 500 ML IV SCH (18:45)
[2017-10-09] MEDS ORDERED: AMIODARONE 150MG / 100ML D5W ONE (18:52)
[2017-10-09] MEDS ORDERED: AMIODARONE 360MG / 200ML D5W ONE (18:52)
[2017-10-09] MEDS ORDERED: AMIODARONE / D5W 100 ML IV SCH (19:45)
[2017-10-09] MEDS ORDERED: SODIUM CHLORIDE 0.9% 1000ML 1,000 ML IV SCH (19:45)
[2017-10-09] MEDS ORDERED: 0.2 MICRON FILTER SET 1 EA IV SCH (19:45)
[2017-10-09] MEDS ORDERED: AMIODARONE / D5W 200 ML IV SCH (19:55)
[2017-10-09] MEDS: CALCIUM 600MG + VIT D 400 IU TAB PO SCH (21:00)
[2017-10-09] MEDS: POLYETHYLENE (MIRALAX) 17 GM PACK PO SCH (21:00)
[2017-10-09] MEDS: ATORVASTATIN 10 MG TAB PO SCH (21:00)
[2017-10-09] MEDS: DOCUSATE SODIUM 100 MG CAP PO SCH (21:00)
[2017-10-09] MEDS: TRAVOPROST Z 0.004% OPH SOLN 2.5 ML BTL OPB SCH (21:00)
[2017-10-09] MEDS: LISINOPRIL 40 MG TAB PO SCH (21:00)
[2017-10-10] VITALS (10 sets, daily range): BP systolic 114–148; BP diastolic 59–80; PULSE 77–95; TEMP 36.4–36.9; O2SAT 95–98; Ht 151.8 cm; Wt 53.7 kg
[2017-10-10] MEDS ORDERED: AMIODARONE / D5W 200 ML IV SCH (01:55)
[2017-10-10] MEDS: DILTIAZEM HCL INJ 125 MG in DEXTROSE 5% 100ML IV PRN (02:30)
[2017-10-10 04:08] LABS: HEMATOCRIT 30.7 % (37-47); HEMOGLOBIN 10.2 g/dL (12.0-16.0); MEAN CELL VOLUME 85.8 fL (80-100); MEAN CORPUSCULAR HEMOGLOBIN 28.5 pg (25-34); MEAN CORPUSCULAR HGB CONC 33.2 g/dl (32-36); RED CELL DISTRIBUTION WIDTH CV 12.6 % (11.5-14.5); RED CELL DISTRIBUTION WIDTH SD 40.1 fL (36.4-46.3); WHITE BLOOD COUNT 2.66 K/uL (4.8-10.8)
[2017-10-10 04:11] LABS: PLATELET COUNT 99 K/uL (130-400)
[2017-10-10 04:39] LABS: PTT PATIENT 53.7 SECONDS (21.0-31.0)
[2017-10-10 04:40] LABS: CALCIUM 8.5 mg/dl (8.5-10.1); CREATININE 0.61 mg/dl (0.60-1.20); POTASSIUM 3.9 mmol/L (3.5-5.1)
[2017-10-10 05:09] LABS: BASO % 0.4 %; BASO ABS # 0.01 K/uL (0-0.2); EOS % 1.5 %; EOS ABS # 0.04 K/uL (0-0.5); IG# 0.02 K/uL (0.00-0.02); LYMPH % 16.9 %; LYMPH ABS # 0.45 K/uL (1.2-3.4); MONO % 17.7 %; MONO ABS # 0.47 K/uL (0.11-0.59); NEUT % 62.7 %; NEUT ABS # 1.67 K/uL (1.4-6.5)
[2017-10-10] MEDS: DOCUSATE SODIUM 100 MG CAP PO SCH ×3 (07:28→21:22)
[2017-10-10] MEDS: LORATADINE 10 MG TAB PO SCH (07:28)
[2017-10-10] MEDS: POLYETHYLENE (MIRALAX) 17 GM PACK PO SCH ×2 (07:29→21:21)
--- NOTE | 2017-10-10 08:44 | Clinical Documentation Query ---
MELVIN Mendez : CLINICAL DOCUMENTATION QUERY Patient is a 77 year old female admitted for evaluation of back and lower abdominal pain with associated SOB, subsequently found to be in atrial fibrillation. PMH includes "myelosuppression after chemotherapy". Documentation includes pancytopenia. This is in the setting of recent chemotherapy. As appropriate, consider documentation as suggested below in order to capture the associated severity of illness and risk of mortality. Thank you. In your clinical opinion is this patient being managed for: ( x ) possible antineoplastic chemotherapy induced pancytopenia ( ) Not Agree ( ) Other explanation of clinical findings (Please Explain) ( ) Unable to determine (Please Define) ( ) Need to Discuss The medical record reflects the following clinical findings, treatment, and risk factors. Clinical Indicators: As above Treatment: Neulasta, serial hematology Risk Factors: Chemotherapy Please clarify and document your clinical opinion in the progress notes and discharge summary. Terms such as "probable", "suspected", "likely", "questionable", "possible", or "still to be ruled out" are acceptable. IF IN AGREEMENT, YOU MUST DOCUMENT ABOVE DIAGNOSTIC STATEMENT IN DAILY PROGRESS NOTES AND DISCHARGE SUMMARY. This document is not part of the patient's record. Thank You, Josias Henriquez, DOMINGO [phone]
--- NOTE | 2017-10-10 08:45 | Clinical Documentation Query ---
TYE ROPER : CLINICAL DOCUMENTATION QUERY Patient is a 77 year old female admitted for evaluation of back and lower abdominal pain with associated SOB, subsequently found to be in atrial fibrillation. PMH includes "myelosuppression after chemotherapy". Documentation includes pancytopenia. This is in the setting of recent chemotherapy. As appropriate, consider documentation as suggested below in order to capture the associated severity of illness and risk of mortality. Thank you. In your clinical opinion is this patient being managed for: ( x ) Antineoplastic chemotherapy induced pancytopenia ( ) Not Agree ( ) Other explanation of clinical findings (Please Explain) ( ) Unable to determine (Please Define) ( ) Need to Discuss The medical record reflects the following clinical findings, treatment, and risk factors. Clinical Indicators: As above Treatment: Neulasta, serial hematology Risk Factors: Chemotherapy Please clarify and document your clinical opinion in the progress notes and discharge summary. Terms such as "probable", "suspected", "likely", "questionable", "possible", or "still to be ruled out" are acceptable. IF IN AGREEMENT, YOU MUST DOCUMENT ABOVE DIAGNOSTIC STATEMENT IN DAILY PROGRESS NOTES AND DISCHARGE SUMMARY. This document is not part of the patient's record. Thank You, Josias Henriquez, DOMINGO [phone]
--- NOTE | 2017-10-10 10:27 | Cardiology Consultation ---
Cardiology Consultation Date of Consultation: Oct 10, 2017. Requesting Physician: Dr. Sylvester Reason for Consultation: Atrial fibrillation with rapid ventricular response Pt evaluation today including: conversation w/ patient, physical exam, lab review, review of studies, review of inpatient medication list History of Present Illness This is a 77-year-old woman who has a history of hypertension, hyperlipidemia and lymphoma but no prior cardiovascular history who presented to [facility] on October 09, 2017 with abdominal and back discomfort as well as some shortness of breath. Her discomfort was constant, quite severe and was associated with shortness of breath when severe. She describes to me that the discomfort started about a week ago, has been on and off and at times quite severe. She does not recall having it before and she relates it to her lymphoma and chemotherapy. She was completely unaware of palpitations, either at the time of her emergency room visit or in the past. She reports no chest symptoms at all (discomfort, palpitations) and does not have difficulty with exertion or exertional chest discomfort. Her first vital signs in the emergency room were at 11 AM and her heart rate was 121, an electrocardiogram done at 11: 30 AM showed sinus tachycardia with premature atrial beats, 2 hours later her heart rate was 201 placed on telemetry at around 1300 she was in atrial fibrillation with rapid heart rate. She remained in atrial fibrillation with a rapid heart rate until 2100 when she converted spontaneously to sinus rhythm. She has remained in sinus rhythm since. In the emergency room she was evaluated with CT scanning which was negative for pulmonary emboli, cardiac enzymes did elevate somewhat (they were normal on arrival, however 8 hours later peaked at 0.059 and subsequently dropped slightly), admission electrocardiography does show inferolateral ST depression without elevation. These ST abnormalities were present on prior electrocardiograms however. An echocardiogram had been done on September 17, 2017 and that showed normal left ventricular size and function with mild left ventricular hypertrophy. This was repeated today. At the time of my evaluation she feels well, she has no chest complaints and currently is not having abdominal or back discomfort either. Past Medical/Surgical History (1) B-cell lymphoma (2) Kidney stone (3) HTN (hypertension) (4) HLD (hyperlipidemia) (5) Urinary tract infection (6) Previous section Family History Myocardial infarction Prostate cancer Stroke Social History Smoking Status: Never Smoker History of Alcohol Use: No Review of Systems Constitutional: No fever, No weight loss, No weakness Respiratory: + shortness of breath (With pain and atrial fibrillation), No cough, No wheezing, No dyspnea on exertion Cardiac: + see HPI, No chest pain, No orthopnea, No PND, No edema, No palpitations Abdomen: + pain, No nausea, No vomiting, No diarrhea, No GI bleeding Female : No problem reported Neurologic: No paralysis, No weakness, No numbness/tingling, No balance problems Heme: No abnormal bleeding/bruising, No clotting problems Endo: No fatigue Skin: No problem reported All Other Systems: Reviewed and Negative Allergies Coded Allergies: Doxycycline (Verified Allergy, Intermediate, HIVES, 10/09/17) Penicillins (Verified Allergy, Intermediate, HIVES, 10/09/17) Sulfa Antibiotics (Verified Allergy, Intermediate, HIVES, 10/09/17) Medications Current Inpatient Medications Medications (Trade) Dose Ordered Sig/Deepika Route Start Time Stop Time Status Last Admin Dose Admin Ioversol (Optiray 320) 100 ml UD PRN IV 10/09/17 11:45 10/13/17 11:44 Diltiazem HCl 125 mg/Dextrose 125 ml @ 0 mls/hr Q0M PRN IV 10/09/17 13:15 11/08/17 13:14 10/10/17 02:30 5 MLS/HR Acetaminophen (Tylenol Tab) 650 mg Q4H PRN PO 10/09/17 14:45 11/08/17 14:44 Al Hydrox/Mg Hydrox/Simethicone (Maalox Max Susp) 15 ml Q4H PRN PO 10/09/17 14:45 11/08/17 14:44 Magnesium Hydroxide (Milk Of Magnesia Susp) 30 ml Q12H PRN PO 10/09/17 14:45 11/08/17 14:44 Ondansetron HCl (Zofran Inj) 4 mg Q6H PRN IV 10/09/17 14:45 11/08/17 14:44 Polyethylene (Miralax Powder Packet) 17 gm BID PO 10/09/17 21:00 11/08/17 20:59 10/10/17 07:29 17 GM Atorvastatin Calcium (Lipitor Tab) 10 mg HS PO 10/09/17 21:00 11/08/17 20:59 10/09/17 21:00 10 MG Calcium/Vitamin D (Caltrate Plus Tab) 1 tab HS PO 10/09/17 21:00 11/08/17 20:59 10/09/17 21:00 1 TAB Docusate Sodium (coLACE CAP) 100 mg TID PO 10/09/17 21:00 11/08/17 20:59 10/10/17 07:28 100 MG Lisinopril (Zestril Tab) 40 mg HS PO 10/09/17 21:00 11/08/17 20:59 Loratadine (Claritin Tab) 10 mg DAILY PO 10/10/17 09:00 11/09/17 08:59 10/10/17 07:28 10 MG Travoprost (Travatan Z) 1 drops HS OPB 10/09/17 21:00 11/08/17 20:59 10/09/17 21:00 1 DROPS Morphine Sulfate (MoRPHine SULFATE INJ) 4 mg Q4H PRN IV 10/09/17 14:45 10/23/17 14:44 Diclofenac Sodium (Voltaren 1% Top Gel) 1 appln QID PRN EXT 10/09/17 15:30 11/08/17 15:29 Heparin Sodium/ Dextrose 500 ml @ 17 mls/hr Q24H IV 10/09/17 18:45 11/08/17 18:44 10/09/17 18:45 17 MLS/HR Amiodarone HCL/ Dextrose 200 ml @ 16.7 mls/hr [id number] IV 10/10/17 01:55 11/09/17 01:54 10/10/17 02:32 16.7 MLS/HR Physical Exam Vital Signs Past 12 Hours Date Time Temp Pulse Resp B/P (MAP) Pulse Ox O2 Delivery O2 Flow Rate FiO2 10/10/17 07:45 36.8 79 16 119/65 (83) 97 Room Air 10/10/17 05:57 36.5 79 16 120/69 (86) 97 Room Air 10/10/17 04:00 Room Air 10/10/17 02:35 77 131/75 (93) 10/10/17 00:41 Room Air 10/10/17 00:04 36.5 95 17 122/59 (80) 96 Room Air 10/10/17 00:00 Room Air Constitutional: General Apperance: heathly-appearing Level of Distress: NAD Psychiatric: Mental Status: active & alert Head: normocephalic Eyes: EOM: EOMI ENMT: normal ENT inspection, hearing grossly normal Neck: supple, no masses Lungs: Respiratory effort: no dyspnea, good air movement Auscultation: breath sounds normal, no wheezing Cardiovascular: Heart Auscultation: RRR, no murmurs, no rubs, no gallops Peripheral Pulses: Bruits: none appreciated Abdomen: Bowel Sounds: normal Inspection & Palpation: soft, no tenderness, guarding & rebound, no masses Musculoskeletal: normal strength (5/5 throughout) Extremities: no edema Neurologic: Cranial Nerves: grossly intact Sensation: grossly intact Data Laboratory Results: Last 24 Hours Test 10/09/17 11:39 10/09/17 19:15 10/09/17 21:25 10/10/17 03:28 White Blood Count 1.36 K/uL 2.66 K/uL Red Blood Count 4.18 M/uL 3.58 M/uL Hemoglobin 12.4 g/dL 10.2 g/dL Hematocrit 35.5 % 30.7 % Mean Corpuscular Volume 84.9 fL 85.8 fL Mean Corpuscular Hemoglobin 29.7 pg 28.5 pg Mean Corpuscular Hemoglobin Concent 34.9 g/dl 33.2 g/dl Platelet Count 93 K/uL 99 K/uL Mean Platelet Volume 11.3 fL 11.0 fL RDW Standard Deviation 38.8 fL 40.1 fL RDW Coefficient of Variation 12.5 % 12.6 % Neutrophils % (Manual) 44.6 % Lymphocytes % (Manual) 28.6 % Variant Lymphocytes % (manual) 12.5 % Monocytes % (Manual) 11.6 % Eosinophils % (Manual) 0.9 % Basophils % (Manual) 1.8 % Neutrophils # (Manual) 0.61 K/uL Total Absolute Neutrophils 0.61 K/uL Lymphocytes # (Manual) 0.39 K/uL Absolute Variant Lymphocytes 0.17 K/uL Total Absolute Lymphocytes 0.56 K/uL Monocytes # (Manual) 0.16 K/uL Eosinophils # (Manual) 0.01 K/uL Basophils # (Manual) 0.02 K/uL Toxic Granulation 1+ 2+ Dohle Bodies 2+ 2+ Platelet Estimate DECREASED Giant Platelets 3+ Red Blood Cell Morphology Unremarkable Unremarkable Sodium Level 131 mmol/L 138 mmol/L Potassium Level 3.2 mmol/L 3.9 mmol/L Chloride Level 99 mmol/L 108 mmol/L Carbon Dioxide Level 22 mmol/L 24 mmol/L Anion Gap 10.0 mmol/L 6.0 mmol/L Blood Urea Nitrogen 14 mg/dl 7 mg/dl Creatinine 0.93 mg/dl 0.61 mg/dl Est Creatinine Clear Calc Drug Dose 38.2 ml/min 55.7 ml/min Estimated GFR () 69.2 102.1 Estimated GFR (Non- 59.7 88.1 BUN/Creatinine Ratio 15.3 10.9 Random Glucose 124 mg/dl 114 mg/dl Estimated Average Glucose 120 mg/dl Hemoglobin A1c 5.8 % Calcium Level 9.5 mg/dl 8.5 mg/dl Magnesium Level 1.8 mg/dl 1.8 mg/dl Total Bilirubin 0.8 mg/dl Direct Bilirubin 0.3 mg/dl Aspartate Amino Transf (AST/SGOT) 8 U/L Alanine Aminotransferase (ALT/SGPT) 18 U/L Alkaline Phosphatase 109 U/L Troponin I < 0.015 ng/ml 0.059 ng/ml 0.053 ng/ml Total Protein 7.2 gm/dl Albumin 3.4 gm/dl Lipase 76 U/L Thyroid Stimulating Hormone (TSH) 1.090 uIu/ml Urine Color YELLOW Urine Appearance CLEAR Urine pH 6.5 Urine Specific [place] 1.027 Urine Protein NEG Urine Glucose (UA) NEG Urine Ketones NEG Urine Occult Blood TRACE Urine Nitrite NEG Urine Bilirubin NEG Urine Urobilinogen NEG Urine Leukocyte Esterase NEG Urine WBC (Auto) 0 /hpf Urine RBC (Auto) 0-4 /hpf Urine Hyaline Casts (Auto) 0 /lpf Urine Epithelial Cells (Auto) 5-10 /lpf Urine Bacteria (Auto) NEG Neutrophils (%) (Auto) 62.7 % Lymphocytes (%) (Auto) 16.9 % Monocytes (%) (Auto) 17.7 % Eosinophils (%) (Auto) 1.5 % Basophils (%) (Auto) 0.4 % Neutrophils # (Auto) 1.67 K/uL Lymphocytes # (Auto) 0.45 K/uL Monocytes # (Auto) 0.47 K/uL Eosinophils # (Auto) 0.04 K/uL Basophils # (Auto) 0.01 K/uL Immature Granulocyte % (Auto) 0.8 % Immature Granulocyte # (Auto) 0.02 K/uL Toxic Vacuolation 1+ Activated Partial Thromboplast Time 53.7 SECONDS Partial Thromboplastin Ratio 2.1 Imaging: Echocardiography reviewed at bedside does not show any significant abnormality, full report to follow EKG: Initial ECG shows sinus rhythm with premature atrial beats and inferolateral nonspecific ST depression. Telemetry reviewed: Atrial fibrillation with a rapid ventricular response when initially placed on telemetry at 1300 on October 09, 2017, spontaneous conversion to sinus rhythm on October 09 2017 at around 2100. Sinus rhythm since. Assessment & Plan 1. Atrial fibrillation: She developed asymptomatic atrial fibrillation after presentation to the emergency room, she has remained in sinus rhythm after spontaneous conversion to sinus rhythm after 8 hours of atrial fibrillation. I suspect she has had a before but cannot be certain, I doubt it has anything to do with her abdominal and back discomfort. The rate was very fast and she will need to be on AV brett blocking medications as she will likely have recurrence. It is conceivable it is related to her lymphoma but that seems unlikely. 2. Enzyme elevation: She did have slight troponin elevation, but I suspect this is demand ischemia. Her rate was fast enough that I think it is sufficient to explain the enzyme abnormalities. I certainly would not consider invasive evaluation, we could consider stress testing but my inclination would be to not do that. 3. Abdominal and back discomfort: I doubt this is a cardiac symptom, this is been present for a week and she was having severe symptoms when she presented to the emergency room and she was not in atrial fibrillation. I suspect atrial fibrillation truly was asymptomatic and was picked up because she came in for the discomfort which was unrelated. Thank you for allowing me to participate in her care.
--- NOTE | 2017-10-10 10:55 | Hospitalist Progress Note ---
Hospitalist Progress Note Date of Service Oct 10, 2017. Subjective Pt evaluation today including: conversation w/ patient, conversation w/ family , physical exam, chart review, lab review, review of studies, review of inpatient medication list Patient seen and evaluated. No acute events overnight. Had approx. 8 hours of A Fib. Converted to sinus at approx. 1130 PM. Was asymptomatic with RVR yesterday. Possibility that she has had this in the past. Electrolytes acceptable. TSH WNL. Cardiology saw patient and plan to implement Diltiazem. Will discuss oral AC options. Back pain remains but much more improved. Suspect this is a combination of muscle and Neulasta. She states the Voltaren and the manipulation therapy performed by Dr. Winston really helped Constitutional: No fever, No chills Respiratory: No cough, No shortness of breath Cardiovascular: No chest pain, No palpitations Abdomen: No pain, No nausea, No vomiting, No diarrhea, No constipation Musculoskeletal: + problem reported (low back pain - much improved), No calf pain Female : No dysuria Heme: No abnormal bleeding/bruising Medications Current Inpatient Medications Medications (Trade) Dose Ordered Sig/Deepika Route Start Time Stop Time Status Last Admin Dose Admin Ioversol (Optiray 320) 100 ml UD PRN IV 10/09/17 11:45 10/13/17 11:44 Acetaminophen (Tylenol Tab) 650 mg Q4H PRN PO 10/09/17 14:45 11/08/17 14:44 Al Hydrox/Mg Hydrox/Simethicone (Maalox Max Susp) 15 ml Q4H PRN PO 10/09/17 14:45 11/08/17 14:44 Magnesium Hydroxide (Milk Of Magnesia Susp) 30 ml Q12H PRN PO 10/09/17 14:45 11/08/17 14:44 Ondansetron HCl (Zofran Inj) 4 mg Q6H PRN IV 10/09/17 14:45 11/08/17 14:44 Polyethylene (Miralax Powder Packet) 17 gm BID PO 10/09/17 21:00 11/08/17 20:59 10/10/17 07:29 17 GM Atorvastatin Calcium (Lipitor Tab) 10 mg HS PO 10/09/17 21:00 11/08/17 20:59 10/09/17 21:00 10 MG Calcium/Vitamin D (Caltrate Plus Tab) 1 tab HS PO 10/09/17 21:00 11/08/17 20:59 10/09/17 21:00 1 TAB Docusate Sodium (coLACE CAP) 100 mg TID PO 10/09/17 21:00 11/08/17 20:59 10/10/17 07:28 100 MG Lisinopril (Zestril Tab) 40 mg HS PO 10/09/17 21:00 11/08/17 20:59 Loratadine (Claritin Tab) 10 mg DAILY PO 10/10/17 09:00 11/09/17 08:59 10/10/17 07:28 10 MG Travoprost (Travatan Z) 1 drops HS OPB 10/09/17 21:00 11/08/17 20:59 10/09/17 21:00 1 DROPS Morphine Sulfate (MoRPHine SULFATE INJ) 4 mg Q4H PRN IV 10/09/17 14:45 10/23/17 14:44 Diclofenac Sodium (Voltaren 1% Top Gel) 1 appln QID PRN EXT 10/09/17 15:30 11/08/17 15:29 Heparin Sodium/ Dextrose 500 ml @ 17 mls/hr Q24H IV 10/09/17 18:45 11/08/17 18:44 10/09/17 18:45 17 MLS/HR Diltiazem HCl (Cardizem Cd Cap) 180 mg QAM PO 10/11/17 09:00 11/10/17 08:59 UNV Diltiazem HCl (Cardizem Cd Cap) 180 mg ONE PO 10/10/17 10:30 11/09/17 10:29 UNV Objective Vital Signs Date Time Temp Pulse Resp B/P (MAP) Pulse Ox O2 Delivery O2 Flow Rate FiO2 10/10/17 08:00 97 Room Air 10/10/17 07:45 36.8 79 16 119/65 (83) 97 Room Air 10/10/17 05:57 36.5 79 16 120/69 (86) 97 Room Air 10/10/17 04:00 Room Air 10/10/17 02:35 77 131/75 (93) 10/10/17 00:41 Room Air 10/10/17 00:04 36.5 95 17 122/59 (80) 96 Room Air 10/10/17 00:00 Room Air 10/09/17 15:58 134 16 114/83 98 Room Air 10/09/17 14:41 169 16 102/75 98 Room Air 10/09/17 14:20 163 22 122/81 100 Room Air 10/09/17 14:03 156 22 147/86 100 Room Air 10/09/17 13:41 106/79 10/09/17 13:40 99/65 10/09/17 13:35 97/68 10/09/17 13:34 185 10/09/17 13:34 167 16 97/68 100 Room Air 10/09/17 13:30 183 21 97 10/09/17 13:28 111 10/09/17 13:12 189 10/09/17 13:09 200 16 129/90 98 Room Air 10/09/17 11:01 36.5 121 20 143/85 99 Room Air Physical Exam General Appearance: WD/WN, no apparent distress Eyes: sclerae normal ENT: hearing grossly normal Neck: supple, no JVD, trachea midline Respiratory/Chest: lungs clear, normal breath sounds, no respiratory distress, no accessory muscle use Cardiovascular: regular rate, rhythm, no gallop, no murmur Abdomen: normal bowel sounds, non tender, soft Extremities: no pedal edema Neurologic/Psychiatric: alert Skin: normal color, warm/dry Laboratory Results Last 24 Hours Test 10/09/17 11:39 10/09/17 19:15 10/09/17 21:25 10/10/17 03:28 White Blood Count 1.36 K/uL 2.66 K/uL Red Blood Count 4.18 M/uL 3.58 M/uL Hemoglobin 12.4 g/dL 10.2 g/dL Hematocrit 35.5 % 30.7 % Mean Corpuscular Volume 84.9 fL 85.8 fL Mean Corpuscular Hemoglobin 29.7 pg 28.5 pg Mean Corpuscular Hemoglobin Concent 34.9 g/dl 33.2 g/dl Platelet Count 93 K/uL 99 K/uL Mean Platelet Volume 11.3 fL 11.0 fL RDW Standard Deviation 38.8 fL 40.1 fL RDW Coefficient of Variation 12.5 % 12.6 % Neutrophils % (Manual) 44.6 % Lymphocytes % (Manual) 28.6 % Variant Lymphocytes % (manual) 12.5 % Monocytes % (Manual) 11.6 % Eosinophils % (Manual) 0.9 % Basophils % (Manual) 1.8 % Neutrophils # (Manual) 0.61 K/uL Total Absolute Neutrophils 0.61 K/uL Lymphocytes # (Manual) 0.39 K/uL Absolute Variant Lymphocytes 0.17 K/uL Total Absolute Lymphocytes 0.56 K/uL Monocytes # (Manual) 0.16 K/uL Eosinophils # (Manual) 0.01 K/uL Basophils # (Manual) 0.02 K/uL Toxic Granulation 1+ 2+ Dohle Bodies 2+ 2+ Platelet Estimate DECREASED Giant Platelets 3+ Red Blood Cell Morphology Unremarkable Unremarkable Sodium Level 131 mmol/L 138 mmol/L Potassium Level 3.2 mmol/L 3.9 mmol/L Chloride Level 99 mmol/L 108 mmol/L Carbon Dioxide Level 22 mmol/L 24 mmol/L Anion Gap 10.0 mmol/L 6.0 mmol/L Blood Urea Nitrogen 14 mg/dl 7 mg/dl Creatinine 0.93 mg/dl 0.61 mg/dl Est Creatinine Clear Calc Drug Dose 38.2 ml/min 55.7 ml/min Estimated GFR () 69.2 102.1 Estimated GFR (Non- 59.7 88.1 BUN/Creatinine Ratio 15.3 10.9 Random Glucose 124 mg/dl 114 mg/dl Estimated Average Glucose 120 mg/dl Hemoglobin A1c 5.8 % Calcium Level 9.5 mg/dl 8.5 mg/dl Magnesium Level 1.8 mg/dl 1.8 mg/dl Total Bilirubin 0.8 mg/dl Direct Bilirubin 0.3 mg/dl Aspartate Amino Transf (AST/SGOT) 8 U/L Alanine Aminotransferase (ALT/SGPT) 18 U/L Alkaline Phosphatase 109 U/L Troponin I < 0.015 ng/ml 0.059 ng/ml 0.053 ng/ml Total Protein 7.2 gm/dl Albumin 3.4 gm/dl Lipase 76 U/L Thyroid Stimulating Hormone (TSH) 1.090 uIu/ml Urine Color YELLOW Urine Appearance CLEAR Urine pH 6.5 Urine Specific [place] 1.027 Urine Protein NEG Urine Glucose (UA) NEG Urine Ketones NEG Urine Occult Blood TRACE Urine Nitrite NEG Urine Bilirubin NEG Urine Urobilinogen NEG Urine Leukocyte Esterase NEG Urine WBC (Auto) 0 /hpf Urine RBC (Auto) 0-4 /hpf Urine Hyaline Casts (Auto) 0 /lpf Urine Epithelial Cells (Auto) 5-10 /lpf Urine Bacteria (Auto) NEG Neutrophils (%) (Auto) 62.7 % Lymphocytes (%) (Auto) 16.9 % Monocytes (%) (Auto) 17.7 % Eosinophils (%) (Auto) 1.5 % Basophils (%) (Auto) 0.4 % Neutrophils # (Auto) 1.67 K/uL Lymphocytes # (Auto) 0.45 K/uL Monocytes # (Auto) 0.47 K/uL Eosinophils # (Auto) 0.04 K/uL Basophils # (Auto) 0.01 K/uL Immature Granulocyte % (Auto) 0.8 % Immature Granulocyte # (Auto) 0.02 K/uL Toxic Vacuolation 1+ Activated Partial Thromboplast Time 53.7 SECONDS Partial Thromboplastin Ratio 2.1 Assessment and Plan 77 y/o female with a history of HTN, HLD, B cell lymphoma, prediabetes, glaucoma , osteoporosis and vitamin D deficiency who presented to the ED on 10/09 with back pain, abdominal pain, and shortness of breath. Pt had been in normal sinus rhythm on arrival but later developed an irregular rhythm with HR up to 200. Vital signs otherwise stable. EKG in ED still in sinus rhythm. Labs reveal pancytopenia. Potassium 3.2. Pt received diltiazem 10 mg bolus and drip and IVF in ED. CTA chest negative for PE. CT thoracic spine shows mild degenerative changes but otherwise negative. Paroxysmal Atrial Fibrillation, New Onset: NSR Currently - Converted after initial use of Diltiazem then conversion to Amiodarone - Remains on heparin gtt - will need to evaluate if NOACs can be used or if contraindication given underlying CA process - given that thrombosis from A Fib is from the mechanical nature of blood pooling not the pro-inflammatory state of CA, would suspect a new agent may be a good option - Updated echo obtained - await read - Cardiology following - appreciate recommendations and possible outpatient establishment Elevated Troponins: Demand Ischemia - Likely from above and trending down - no ischemic findings and no chest pain Back Pain/Rib Pain - Element of MS Pain/Spasm and Likely Neulasta: - Reports good relief with OMT by Dr. Winston and Voltaren gel; Neulasta can cause bone pain due to marrow stimulation - Continue Voltaren gel; willing to prescribe stronger opiates for PRN use with CA pain - Also discussed the importance of a good bowel regimen given her underlying constipation - will prescribed Senna Hypokalemia: RESOLVED B Cell Lymphoma with Antineoplastic Chemotherapy-Induced Pancytopenia/ Neutropenia: - Labs improving and likely hit humberto and will continue to improve - looks well - continue neutropenic precautions at this time HTN/HLD: STABLE - Lipitor 10 mg daily Pre-DM: No intervention necessary Glaucoma: STABLE - Travatan drops Osteoporosis/Vitamin D Deficiency: -Continue calcium and vitamin D supplements DVT prophylaxis: Heparin gtt with oral conversion Code Status: FULL RESUSCITATION Disposition: Monitor with Diltiazem implementation and will assess AC options - likely D/C tomorrow Discharge planning: home
[2017-10-10] MEDS: ACETAMINOPHEN 325 MG TAB PO PRN ×2 (12:34→21:24)
[2017-10-10] MEDS ORDERED: DILTIAZEM HCL 180 MG CAPCR PO ONE (13:00)
--- NOTE | 2017-10-10 13:51 | ECHOCARDIOGRAM REPORT ---
*NOTICE TO RECEIVING REPUBLICAN AGENCY This information is strictly Confidential and protected under [place] law. [place] law prohibits you from making any further disclosure of this information unless further disclosure is expressly permitted by the written consent of the person to whom it pertains or is authorized by law. A general authorization for the release of medical or other information is not sufficient for this purpose. Hospital accepts no responsibility if the information is made available to any other person, INCLUDING THE PATIENT. Interpretation Summary * Conclusions -- * Limited 2D echo to assess LV function. * 1. Normal LV size and wall thickness. * 2. Normal LV function. LVEF 65-70%. No regional wall motion abnormalities. * 3. Normal RV size and function. * 4. No gross valvular abnormalities. * 5. Compared with prior study on 09/17/2017: No significant changes. Procedure Details * A two-dimensional transthoracic echocardiogram was performed. * Limited views were obtained. * A contrast injection of Definity was performed to improve assessment of LV function. * A contrast injection of Definity was performed to improve assessment for apical thrombus. * Contrast was injected into an intravenous site in the left arm. * One vial of Definity ultrasound contrast was diluted in normal saline to a total volume of 10 ml. A total of '1' ml of solution was administered during imaging. * Lot # [id number] of Definity utilized for procedure. * Expiration date 1APR19. * The attending nurse who injected the contrast agent was Sue Mccall RN. Left Ventricle * The left ventricle is grossly normal size. * There is normal left ventricular wall thickness. * Ejection Fraction = 65-70%. * No regional wall motion abnormalities noted. Right Ventricle * The right ventricle is grossly normal size. * The right ventricular systolic function is normal as assessed by tricuspid annular plane systolic excursion (TAPSE) (normal >1.5 cm). Atria * Borderline left atrial enlargement. * Right atrium not well visualized. * No ASD detected; PFO is not assessed. Mitral Valve * The mitral valve is grossly normal. * There is no mitral valve stenosis. Tricuspid Valve * The tricuspid valve is not well visualized, but is grossly normal. Aortic Valve * The aortic valve opens well. * No hemodynamically significant valvular aortic stenosis. Pulmonic Valve * The pulmonic valve is not well visualized. Great Vessels * The aortic root and proximal ascending aorta are normal sized. Pericardium/Pleural * There is no pericardial effusion. MMode 2D Measurements and Calculations IVSd 1.0 cm IVSs 1.1 cm LVIDd 4.3 cm LVIDs 2.8 cm LVPWd 0.95 cm LVPWs 1.1 cm IVS/LVPW 1.1 FS 34.0 % EDV(Teich) 81.4 ml ESV(Teich) 30.0 ml EF(Teich) 63.2 % EDV(cubed) 77.5 ml ESV(cubed) 22.3 ml EF(cubed) 71.2 % % IVS thick 7.2 % % LVPW thick 20.8 % LV mass(C)d 140.4 grams LV mass(C)dI 96.0 grams/m\S\2 LV mass(C)s 91.6 grams LV mass(C)sI 62.6 grams/m\S\2 SV(Teich) 51.5 ml SI(Teich) 35.2 ml/m\S\2 SV(cubed) 55.2 ml SI(cubed) 37.7 ml/m\S\2
[2017-10-10] MEDS ORDERED: RIVAROXABAN 20 MG TAB PO ONE (14:00)
[2017-10-10] MEDS ORDERED: OXYC-57 PO (16:38)
[2017-10-10] MEDS: LACTOBACILLUS ACIDOPHILUS (FLORANEX) TAB PO SCH (16:45)
[2017-10-10] MEDS ORDERED: ALPRAZOLAM 0.25 MG TAB PO ONE (21:00)
[2017-10-10] MEDS: ATORVASTATIN 10 MG TAB PO SCH (21:23)
[2017-10-10] MEDS: LISINOPRIL 40 MG TAB PO SCH (21:25)
[2017-10-10] MEDS: CALCIUM 600MG + VIT D 400 IU TAB PO SCH (21:25)
[2017-10-10] MEDS: TRAVOPROST Z 0.004% OPH SOLN 2.5 ML BTL OPB SCH (21:26)
[2017-10-11 00:20] VITALS: BP 162/77; PULSE 94; TEMP 36.8; O2SAT 93
[2017-10-11] MEDS: ACETAMINOPHEN 325 MG TAB PO PRN (01:55)
[2017-10-11] MEDS ORDERED: BISACODYL 10 MG SUPP PR PRN (02:15)
[2017-10-11 04:24] VITALS: BP 160/81; PULSE 78; TEMP 36.9; O2SAT 97
[2017-10-11 06:07] LABS: PTT PATIENT 38.9 SECONDS (21.0-31.0)
[2017-10-11 06:26] LABS: CALCIUM 9.1 mg/dl (8.5-10.1); CREATININE 0.65 mg/dl (0.60-1.20); POTASSIUM 3.9 mmol/L (3.5-5.1)
[2017-10-11 06:29] LABS: HEMOGLOBIN 10.3 g/dL (12.0-16.0); MEAN CORPUSCULAR HEMOGLOBIN 29.5 pg (25-34); MEAN CORPUSCULAR HGB CONC 34.3 g/dl (32-36); RED CELL DISTRIBUTION WIDTH CV 12.8 % (11.5-14.5); WHITE BLOOD COUNT 8.82 K/uL (4.8-10.8)
[2017-10-11 06:38] LABS: PLATELET COUNT 154 K/uL (130-400)
[2017-10-11 06:57] LABS: MEAN PLATELET VOLUME 10.4 fL (7.4-10.4)
[2017-10-11 07:57] VITALS: BP 129/75; PULSE 84; TEMP 36.9; O2SAT 97
[2017-10-11] MEDS: DOCUSATE SODIUM 100 MG CAP PO SCH ×2 (08:51→12:32)
[2017-10-11] MEDS: LACTOBACILLUS ACIDOPHILUS (FLORANEX) TAB PO SCH ×2 (08:51→11:10)
[2017-10-11] MEDS: LORATADINE 10 MG TAB PO SCH (08:52)
[2017-10-11] MEDS: POLYETHYLENE (MIRALAX) 17 GM PACK PO SCH (08:52)
[2017-10-11] MEDS ORDERED: DILTIAZEM HCL 180 MG CAPCR PO SCH (09:00)
--- NOTE | 2017-10-11 10:07 | Cardiology Follow-Up ---
Subjective Date of Service: Oct 11, 2017. Pt evaluation today including: conversation w/ patient, physical exam, lab review, review of studies, review of inpatient medication list History of Present Illness This is a 77-year-old woman who has a history of hypertension, hyperlipidemia and lymphoma but no prior cardiovascular history who presented to [facility] on October 09, 2017 with abdominal and back discomfort as well as some shortness of breath. Her discomfort was constant, quite severe and was associated with shortness of breath when severe. She describes to me that the discomfort started about a week ago, has been on and off and at times quite severe. She does not recall having it before and she relates it to her lymphoma and chemotherapy. She was completely unaware of palpitations, either at the time of her emergency room visit or in the past. She reports no chest symptoms at all (discomfort, palpitations) and does not have difficulty with exertion or exertional chest discomfort. Her first vital signs in the emergency room were at 11 AM and her heart rate was 121, an electrocardiogram done at 11: 30 AM showed sinus tachycardia with premature atrial beats, 2 hours later her heart rate was 201 placed on telemetry at around 1300 she was in atrial fibrillation with rapid heart rate. She remained in atrial fibrillation with a rapid heart rate until 2100 when she converted spontaneously to sinus rhythm. She has remained in sinus rhythm since. In the emergency room she was evaluated with CT scanning which was negative for pulmonary emboli, cardiac enzymes did elevate somewhat (they were normal on arrival, however 8 hours later peaked at 0.059 and subsequently dropped slightly), admission electrocardiography does show inferolateral ST depression without elevation. These ST abnormalities were present on prior electrocardiograms however. An echocardiogram had been done on September 17, 2017 and that showed normal left ventricular size and function with mild left ventricular hypertrophy. This was repeated yesterday and was similar. Today she is feeling better, she had a bowel movement yesterday and her discomfort has resolved. She has no palpitations and is tolerating her medications well. No evidence of bleeding. Social History Smoking Status: Never Smoker History of Alcohol Use: No Review of Systems Respiratory: No cough, No shortness of breath Cardiac: No chest pain, No palpitations Medications Cardiovascular: Item Value Date Time Rivaroxaban 20 mg 10/11/17 1615 (Xarelto Tab) DAILYBD/PO Diltiazem HCl 180 mg 10/11/17 0900 (Cardizem Cd Cap) QAM/PO 10/11/17 0904 Atorvastatin 10 mg 10/09/172099 Calcium HS/PO 10/10/172122 (Lipitor Tab) Lisinopril 40 mg 10/09/172099 (Zestril Tab) HS/PO 10/10/172124 Objective Vital Signs Past 12 Hours Date Time Temp Pulse Resp B/P (MAP) Pulse Ox O2 Delivery O2 Flow Rate FiO2 10/11/17 08:00 Room Air 10/11/17 07:57 36.9 84 18 129/75 (93) 97 10/11/17 04:24 36.9 78 16 160/81 (107) 97 Room Air 10/11/17 04:00 Room Air 10/11/17 00:20 36.8 94 17 162/77 (105) 93 Room Air 10/11/17 00:00 Room Air Last Recorded Weight-Kilograms: 53.700 Physical Exam Constitutional: General Apperance: heathly-appearing Level of Distress: NAD Lungs: Respiratory effort: no dyspnea, good air movement Auscultation: breath sounds normal, no wheezing Cardiovascular: Heart Auscultation: RRR, no murmurs, no rubs, no gallops Peripheral Pulses: Bruits: none appreciated Extremities: no edema Data Laboratory Results: Last 24 Hours Test 10/11/17 05:29 White Blood Count 8.82 K/uL Red Blood Count 3.49 M/uL Hemoglobin 10.3 g/dL Hematocrit 30.0 % Mean Corpuscular Volume 86.0 fL Mean Corpuscular Hemoglobin 29.5 pg Mean Corpuscular Hemoglobin Concent 34.3 g/dl Platelet Count 154 K/uL Mean Platelet Volume 10.4 fL RDW Standard Deviation 40.0 fL RDW Coefficient of Variation 12.8 % Neutrophils % (Manual) 78.2 % Lymphocytes % (Manual) 9.6 % Monocytes % (Manual) 5.2 % Basophils % (Manual) 2.6 % Metamyelocytes % 0.9 % Myelocytes % 2.6 % Blast Cells % 0.9 % Neutrophils # (Manual) 6.90 K/uL Total Absolute Neutrophils 6.90 K/uL Lymphocytes # (Manual) 0.85 K/uL Total Absolute Lymphocytes 0.85 K/uL Monocytes # (Manual) 0.46 K/uL Basophils # (Manual) 0.23 K/uL Metamyelocytes # 0.08 K/uL Myelocytes # 0.23 K/uL Blast Cells # 0.08 K/uL Blood Smear Review Toxic Granulation 2+ Dohle Bodies 2+ Giant Platelets 1+ Activated Partial Thromboplast Time 38.9 SECONDS Partial Thromboplastin Ratio 1.5 Sodium Level 138 mmol/L Potassium Level 3.9 mmol/L Chloride Level 104 mmol/L Carbon Dioxide Level 29 mmol/L Anion Gap 5.0 mmol/L Blood Urea Nitrogen 4 mg/dl Creatinine 0.65 mg/dl Est Creatinine Clear Calc Drug Dose 52.3 ml/min Estimated GFR () 100.0 Estimated GFR (Non- 86.2 BUN/Creatinine Ratio 6.8 Random Glucose 101 mg/dl Calcium Level 9.1 mg/dl Magnesium Level 2.1 mg/dl Imaging: Echo shows good left ventricular size and function, no effusion Telemetry reviewed: She has remained in sinus rhythm overnight, no significant bradycardia Assessment and Plan 1. Atrial fibrillation: She developed asymptomatic atrial fibrillation after presentation to the emergency room, she has remained in sinus rhythm after spontaneous conversion to sinus rhythm after 8 hours of atrial fibrillation. I suspect she has had a before but cannot be certain, I doubt it has anything to do with her abdominal and back discomfort. The rate was very fast and she will need to be on AV brett blocking medications as she will likely have recurrence. It is conceivable it is related to her lymphoma but that seems unlikely. She is tolerating her medications well and I would continue the current regimen. 2. Enzyme elevation: She did have slight troponin elevation, but I suspect this is demand ischemia. Her rate was fast enough that I think it is sufficient to explain the enzyme abnormalities. I certainly would not consider invasive evaluation, we could consider stress testing but my inclination would be to not do that. If she has recurrent symptoms we can consider it. 3. Abdominal and back discomfort: I doubt this is a cardiac symptom, this is been present for a week and she was having severe symptoms when she presented to the emergency room and she was not in atrial fibrillation. I suspect atrial fibrillation truly was asymptomatic and was picked up because she came in for the discomfort which was unrelated. Thank you for allowing me to participate in her care.
[2017-10-11] MEDS ORDERED: XRL20 PO (10:44)
[2017-10-11] MEDS ORDERED: CRDCD180 PO (10:49)
[2017-10-11] MEDS ORDERED: VLTG EXT (10:49)
[2017-10-11 11:10] VITALS: BP 131/82; PULSE 103; TEMP 36.9; O2SAT 93
--- NOTE | 2017-10-11 12:36 | Discharge Instructions ---
Discharge Instructions Date of Service Oct 11, 2017. Admission Reason for Admission: Atrial Fibrillation With Rvr, Back Pain Discharge Discharge Diagnosis / Problem: afib Discharge Goals Goal(s): Decrease discomfort, Improve disease control, Improve nutritional status, Learn about illness, Diagnostic testing, Therapeutic intervention, Prevent Disease Progression, Specific goals Activity Recommendations Activity Limitations: resume your previous activity . 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 - call your primary care physician OR go to local emergency room if has any fever/chill, chest pain, shortness of breathing, nausea/vomiting/abdominal pain , facial droop/slurry speech/local weakness, or if has any questions. - fall precaution - diet as instructed - you need to follow up with your subspecialists, such as oncologist and esters and emulsifiers supervisor Current Hospital Diet Patient's current hospital diet: AHA Diet (Heart Healthy) Discharge Diet Recommended Diet: AHA Diet (Heart Healthy) Pending Studies Studies pending at discharge: no Laboratory Results Hemoglobin A1c Test 10/09/17 11:39 Range/Units Estimated Average Glucose 120 mg/dl Hemoglobin A1c 5.8 H 4.5-5.6 % Medical Emergencies . Who to Call and When: Medical Emergencies: If at any time you feel your situation is an emergency, please call 911 immediately. . Non-Emergent Contact Non-Emergency issues call your: Primary Care Provider, Post Anesthesia Room Nurse, Oncologist . . "Provider Documentation" section prepared by Dennis Hooks. .
[2017-10-11] MEDS ORDERED: ZOLP5TAB PO (12:39)
[2017-10-11 12:43] VITALS: BP 131/82; PULSE 103; TEMP 36.9; O2SAT 93
--- NOTE | 2017-10-11 14:45 | Discharge Summary ---
Discharge Summary Date of Service Oct 11, 2017. Discharge Summary Admission Date: Oct 09, 2017 at 15:03 Discharge Date: Oct 11, 2017 Discharge Disposition: Home Principal Diagnosis: Paroxysmal Atrial Fibrillation Problems/Secondary Diagnoses: B Cell Lymphoma with Antineoplastic please follow up with your oncologist Procedures: No Consultations: Seed Tester Medication Reconciliation New Medications: Oxycodone/Acetaminophen 5MG/325MG (Percocet 5MG/325MG) Tab 1-2 TABLETS PO Q4H PRN for Pain for 3 Days, #20 TAB Zolpidem Tartrate (Ambien) 5 Mg Tab 1 TAB PO HS PRN for Insomnia for 30 Days, #30 TAB 0 Refills Diclofenac Sod (Voltaren) 100 Appln/100 Gm Gel 1 APPLN EXT QID PRN for pain for 30 Days, #1 TUBE Diltiazem HCl (Diltiazem HCl ER) 180 Mg Capcr 180 MG PO QAM for 30 Days, #30 TABS Rivaroxaban (Xarelto) 20 Mg Tab 20 MG PO DAILYBD for 90 Days, #90 TAB Continued Medications: Atorvastatin (Lipitor) 10 Mg Tab 10 MG PO HS Calcium/Vitamin D (Os-Haroldo 500 Plus D) Tab 1 TAB PO HS Cholecalciferol (Vitamin D3) 2,000 Unit Cap 4000 UNITS PO HS for 90 Days, CAP 3 Refills Docusate Sodium (Colace) 100 Mg Cap 200 MG PO TID Lisinopril (Zestril) 40 Mg Tab 40 MG PO HS, TAB Loratadine (Claritin) 10 Mg Tab 10 MG PO DAILY, TAB Polyethylene Glycol 3350 (Miralax) 1 Pow Pow 17 GM PO BID Travoprost (Travatan Z) 0.004 % Jerman 1 DROPS OPB HS Discharge Exam Pleasant, doing well, reported not sleeping well last night, no other complaint Review of Systems: Constitutional: No fever, No chills, No sweats, No weight loss, No weakness , No fatigue, No problem reported Eyes: No worsening of vision, No eye pain, No redness, No discharge, No diplopia, No problem reported ENT: No hearing loss, No unusual epistaxis, No nasal symptoms, No sore throat, No tinnitus, No dental problems, No trouble swallowing, No problem reported Respiratory: No cough, No sputum, No wheezing, No shortness of breath, No dyspnea on exertion, No dyspnea at rest, No hemoptysis, No problem reported Cardiovascular: No chest pain, No orthopnea, No PND, No edema, No claudication, No palpitations, No problem reported Abdomen: No pain, No nausea, No vomiting, No diarrhea, No constipation, No GI bleeding, No problem reported Musculoskeletal: No joint pain, No muscle pain, No swelling, No calf pain, No problem reported Genitourinary - Female: No dysuria, No urinary frequency, No urinary urgency , No urinary incontinence, No urinary retention, No hematuria, No dysmenorrhea, No menorrhagia, No metrorrhagia, No rash, No vaginal bleeding, No vaginal discharge, No vaginal itching, No vulvodynia, No , No problem reported Neurologic: No memory loss, No paralysis, No weakness, No numbness/tingling , No vertigo, No balance problems, No problem reported Psychiatric: No depression symptoms, No anhedonism, No anxiety, No insomnia , No substance abuse, No problem reported Endocrine: No fatigue, No excessive thirst, No excessive urination, No problem reported Hematologic / Lymphatic: No abnormal bleeding/bruising, No clotting problems , No swollen lymph nodes, No night sweats, No problem reported Integumentary: No rash, No itch, No new/changing skin lesions, No color change, No bleeding, No problem reported Physical Exam: General Appearance: WD/WN, no apparent distress Eyes: normal inspection, PERRL, EOMI ENT: normal ENT inspection, hearing grossly normal, TMs normal Neck: supple, no adenopathy, thyroid normal Respiratory/Chest: chest non-tender, + decreased breath sounds Cardiovascular: regular rate, rhythm, no edema, no gallop, no JVD Abdomen / GI: normal bowel sounds, non tender, no pulsatile mass Extremities: normal inspection, no calf tenderness, normal capillary refill , no pedal edema Neurologic/Psychiatric: technical sales consultant II-XII nml as tested, no motor/sensory deficits , alert, normal mood/affect, normal reflexes Skin: normal color, warm/dry Hospital Course 77 y/o female admitted to because of new diagnosed A. fib and elevated troponin Paroxysmal Atrial Fibrillation, New diagnosed: NSR Currently, Cardiology input appreciated, switch to oral medicine Cardizem CD 180 mg p.o. daily Discussed with patient about the need of stroke prevention [id number]- VASc Score is 2 with adjusted stroke rate is 2.2% per year HAS- Bled Score; 2 with bleeding rate at 1.88% per year Discussed with patient the risk and benefit, she agreed to start Xarelto Elevated Troponins: Demand Ischemia Back Pain/Rib Pain - Element of musculoskeletal pain/Spasm and Likely Neulasta: Continue current medication Recent B Cell Lymphoma with Antineoplastic Chemotherapy-Induced Pancytopenia/ Neutropenia: possible antineoplastic chemotherapy induced pancytopenia, resolved Was on neutropenic precautions HTN/HLD: STABLE Pre-DM: Was HbA1c 5.8 Glaucoma: STABLE\ Osteoporosis/Vitamin D Deficiency: The above condition is stable continue current care Patient reported insomnia, 5 mg of Ambien ordered as needed for insomnia at nighttime DVT prophylaxis: Heparin gtt with oral conversion Code Status: FULL RESUSCITATION Discharge instruction you have Paroxysmal Atrial Fibrillation, New diagnosed: NSR Currently, follow- up cardiology input, you are on blood thinner Xarelto for stroke prevention, be careful of fall, and watching signs of bleeding 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 - call your primary care physician OR go to local emergency room if has any fever/chill, chest pain, shortness of breathing, nausea/vomiting/abdominal pain , facial droop/slurry speech/local weakness, or if has any questions. - fall precaution - diet as instructed - you need to follow up with your subspecialists, such as oncologist and construction quality control manager Total Time Spent: Greater than 30 minutes This includes examination of the patient, discharge planning, medication reconciliation, and communication with other providers. Discharge Instructions Please refer to the electronic Patient Visit Report (Discharge Instructions) for additional information. Additional Copies To Chin Pineda M.D.; Chano Muelelr M.D.; Giovanni Mcpherson MD
[2017-10-11] MEDS ORDERED: RIVAROXABAN 20 MG TAB PO SCH (16:15)
== END 2017-10-11 14:31 | disposition home or self-care (01) | DRG 308 ==
LOC: C.EDB 10:56 → UNDOADMIN 15:03 → C.2E 15:03 → ENRESERV 15:16 → CANRESERV 15:16 → EDBEDREQ 15:32 → ENRESERV 15:53
PROVIDERS: ADMIT Family Medicine; ATTEND Hospitalist
DX: I48.0 Paroxysmal atrial fibrillation (principal); D61.810 Antineoplastic chemotherapy induced pancytopenia; C85.10 Unspecified B-cell lymphoma, unspecified site; I24.8 Other forms of acute ischemic heart disease; T45.8X5A Adverse effect of other primarily systemic and hematological agents, initial encounter; Z88.1 Allergy status to other antibiotic agents; Z88.0 Allergy status to penicillin; Z88.5 Allergy status to narcotic agent; E87.6 Hypokalemia; M99.08 Segmental and somatic dysfunction of rib cage; I10 Essential (primary) hypertension; R73.03 Prediabetes; H40.9 Unspecified glaucoma; M81.0 Age-related osteoporosis without current pathological fracture; E55.9 Vitamin D deficiency, unspecified

== ENCOUNTER → 2017-11-27 | Outpatient (CLI) | payer OTHER ==
[~2017-11-27] MED LIST changes: +CRDCD180 PO; +DOCU-94 PO; +POLY335019 PO; +VLTG EXT; +XRL20 PO; +ZOLP5TAB PO
--- NOTE | 2017-11-27 13:06 | DIAGNOSTIC IMAGING REPORT ---
PET/CT SKULL-THIGH CLINICAL HISTORY: 77 years-old Female presenting with LYMPHOMA, last treatment 11/12/2017. TECHNIQUE: PET/CT was performed from the skull base through the proximal thighs following the intravenous administration of 10.724 mCi of F18-FDG. Blood glucose level 94 mg/dL. The injection was performed at 9:14 AM and imaging began at 10:[address] was performed for attenuation correction purposes and anatomic localization. COMPARISON: 08/28/2017. CT DOSE (mGy.cm): The estimated cumulative dose is 969.17. FINDINGS: Head and neck: No FDG-avid mass in the visualized portion of the head or neck. No FDG avid or enlarged lymph nodes in the neck. Interval resolution of previously noted FDG avid enlarged left cervical lymph nodes. These are no longer apparent on anatomic imaging. Chest: Left internal jugular Mediport terminates in the upper SVC. Normal thyroid and thoracic inlet. No FDG avid axillary, supraclavicular, or mediastinal lymphadenopathy. Evaluation of the maritza on anatomic imaging limited without intravenous contrast. Atherosclerosis of the aorta. Normal heart size. Coronary artery calcification. No pericardial or pleural effusion. Minimal dependent changes likely atelectasis. No FDG avid focal nodule or infiltrate. Airways patent. Abdomen and pelvis: Normal physiologic distribution of radiotracer in the gastrointestinal and genitourinary tracts. No FDG avid lymphadenopathy or mass lesion. Normal liver density. Bilateral urothelial thickening evident at the renal pelvises. Diverticulosis of the descending and sigmoid colon. No pericolonic inflammatory change. Small hiatal hernia. Atherosclerosis of the normal caliber abdominal aorta. Musculoskeletal: No FDG-avid or destructive osseous lesion. IMPRESSION: 1. Follow-up PET/CT demonstrates complete resolution of FDG avid left cervical lymphadenopathy. No new sites of FDG avidity to suggest recurrent or residual lymphoproliferative disease. Electronically signed by: Tyrone Noel M.D. 11/27/2017 1:04 PM Dictated Date/Time: 11/27/2017 12:52 PM
== END | disposition home or self-care (01) ==
LOC: C.PET 08:28
PROVIDERS: ATTEND Internal Medicine Hematology & Oncology
DX: C85.11 Unspecified B-cell lymphoma, lymph nodes of head, face, and neck (principal)

== ENCOUNTER → 2018-02-13 | Outpatient (CLI) | payer OTHER ==
[~2018-02-13] MED LIST changes: -CLR10 PO; -CRDCD180 PO; -DOCU-94 PO; +LISI-725 PO; -LISI-794 PO; +METO25TA3 PO; -POLY335019 PO; -VLTG EXT; -XRL20 PO; -ZOLP5TAB PO
[2018-02-13 13:27] VITALS: BP 127/72; PULSE 63; TEMP 36.4; O2SAT 100
--- NOTE | 2018-02-13 16:22 | Radiation Oncology Follow-Up ---
Radiation Oncology Follow-Up Date of Visit Feb 13, 2018. Reason For Visit One-month follow-up in cancer survivorship care plan Radiation Completion Date finished 01-10-2018 Diagnosis (1) B-cell lymphoma Status: Chronic Onset Date: 09/02/2017 Stage: 0 Permanent Comment: Enlarged left cervical lymph node Status post excisional biopsy September 02, 2017 Diffuse large B-cell lymphoma Status post 3 cycles of R CHOP Status post completion of consolidation radiation therapy January 10, 2018. She received 3600 cGy Last Edited By: Aleja Monsalve on Jan 20, 2018 12:05 History of Present Illness Ms. Alejandra was found to have left cervical enlarged lymphadenopathy. On August 01, [address] scan of the neck. This revealed a 2.7 cm left cervical lymph node and a necrotic 1.3 x 1.1 cm posterior cervical chain lymph node. Patient underwent an ultrasound-guided FNA aspiration which diagnosed a B-cell lymphoma consistent with a diffuse large B-cell lymphoma on August 06, 2017. Case: [id number]. A surgical excision for confirmatory pathology was strongly recommended. Patient was seen by Dr. Giovanni Mcpherson on August 26, 2017. He recommended proceeding with the excisional biopsy. On September 02, 2017 Dr. Villafana performed an excisional biopsy of the left cervical adenopathy. The specimen consisted of a 3.2 x 2.7 x 2.0 cm soft rubbery lymph node. Pathology confirmed a diffuse large B-cell lymphoma with extensive necrosis. The lesion was positive for BCL 6 and CD10 and positive for CD20, PAX- 5, LCA and BCL-2 case: [id number]. On August 28, [address] scan. This again identified the dominant lymph node measuring 2.7 x 2.0 cm in the left neck with intense FDG uptake in an SUV max of 17. No FDG avid right cervical lymph nodes are appreciated. No uptake is noted in the chest abdomen pelvis or musculoskeletal area. This is compatible with the known diagnosis of lymphoma. A bone marrow biopsy was performed on September 16, 2017 and was negative for lymphomatous involvement. He recommended treatment with 3 cycles of R CHOP. The patient was able to complete the 3 cycles without interruption or significant difficulty. She did develop some back pain and on October [address] scan of the abdomen and pelvis which showed no evidence of abdominal or pelvic adenopathy. It did showed mild chronic sigmoid diverticulosis. CT scan of the thoracic spine and chest performed on October 09, 2017 also showed no evidence of lymphomatous involvement. Following the completion of her course of systemic therapy on November 27, 2017 patient underwent a repeat PET CT scan. This showed complete resolution of the uptake in the left neck with no new areas of uptake noted. Patient therefore had a complete response. Status post completion of radiation therapy January 10, 2018. She received 3600 cGy Interim History She continues to have xerostomia. She also has altered taste in regards to some foods. There is a better flavor to foods that are spicy. She does feel that some of her taste is recovering. She is using [id number] products to help with xerostomia. She is using Biotene rinse as well as spray. There was a dark discoloration to the skin on the side of her neck. She stated this is steadily improving as well as the dryness of the skin. She is noted no masses. She is being evaluated for atrial fibrillation which began with chemotherapy. She is being followed closely by her dentist. She is having regular cleanings and recently had a fluoride treatment. Allergies Coded Allergies: Morphine (Verified Allergy, Severe, caused A fib and tachycardia, 12/04/17) Doxycycline (Verified Allergy, Intermediate, HIVES, 10/09/17) Penicillins (Verified Allergy, Intermediate, HIVES, 10/09/17) Sulfa Antibiotics (Verified Allergy, Intermediate, HIVES, 10/09/17) Home Medications Scheduled Atorvastatin (Lipitor), 10 MG PO HS Calcium/Vitamin D (Os-Haroldo 500 Plus D), 1 TAB PO HS Cholecalciferol (Vitamin D3), 2,000 UNITS PO HS Lisinopril (Zestril), 20 MG PO DAILY Metoprolol Succ (Toprol Xl) (Toprol-Xl), 25 MG PO HS Travoprost (Travatan Z), 1 DROPS OPB HS Review of Systems Gastrointestinal: Symptoms: WNL Oral: Symptoms: Scant Saliva/Dry Mouth Respiratory: Symptoms: WNL Urinary: Symptoms: Nocturia Comments: occ nocturia times 1 Skin: Symptoms: No Problems Physical Exam Vital Signs Date Time Temp Pulse Resp B/P (MAP) Pulse Ox O2 Delivery O2 Flow Rate FiO2 02/13/18 13:27 36.4 63 16 127/72 100 General Appearance: no apparent distress Eyes: normal inspection, EOMI ENT: normal ENT inspection, hearing grossly normal, pharynx normal Neck: no adenopathy, thyroid normal, + pertinent finding (Resolving hyperpigmentation) Respiratory/Chest: lungs clear, no respiratory distress, no accessory muscle use Cardiovascular: no gallop, + irregularly irregular Extremities: no pedal edema Neurologic/Psychiatric: no motor/sensory deficits, alert, normal mood/affect Skin: warm/dry Pain Management Patient Reports Pain: No Side: Bilateral Patient Preferred Pain Scale: 0 - 10 Initial Pain Intensity: 0.0 Pain Management Plan She denies pain therefore requires no pain management. Laboratory Laboratory Results: not applicable Pathology Pathology Results: were reviewed, and pertinent findings noted in HPI Imaging Imaging Studies: not applicable Assessment & Plan Plan: Continue regular follow-up with her primary care provider and medical oncologist. Recheck scanning per medical oncology. We discussed the xerostomia. I gave her information about a oral gel that can be used especially at bedtime. I have recommended that she use Aquaphor to the skin on the side of her neck. We discussed that the issues with taste should steadily improve over time. We asked her to return to our office in 6 months. She may call if she has any questions or concerns in the interim. Today we completed a cancer survivorship care plan. A copy of the document was given to the patient. She was given a survivorship booklet. Total Time In Follow-Up I spent 20 minutes speaking to the patient in performing examination. I spent 20 minutes reviewing information, preparing the survivorship document, and completing this note. Copy To Chin Pineda M.D.; Giovanni Mcpherson MD Problem Qualifiers (1) B-cell lymphoma: B-cell lymphoma type: diffuse large B-cell Lymphoma site: neck Qualified Codes: C83.31 - Diffuse large b-cell lymphoma, lymph nodes of head, face, and neck
== END | disposition home or self-care (01) ==
LOC: C.ONC 13:10
PROVIDERS: ATTEND Physician Assistant Medical
DX: Z08 Encounter for follow-up examination after completed treatment for malignant neoplasm (principal); Z92.3 Personal history of irradiation; Z85.72 Personal history of non-Hodgkin lymphomas

== ENCOUNTER 2020-08-19 06:28 | Observation (INO) ==
[2020-08-19] MEDS ORDERED: METOPROLOL TARTRATE 1 MG/ML VIAL IV STA ×2 (07:01→07:45)
[2020-08-19] MEDS ORDERED: SODIUM CHLORIDE 0.9% 500 ML IV ONE ×2 (07:01→07:45)
[2020-08-19 07:02] LABS: Basophils # (auto) 0.02 K/uL (0-0.2); Basophils % (auto) 0.2 %; Eosinophils # (auto) 0.08 K/uL (0-0.5); Eosinophils % (auto) 0.6 %; Hematocrit (blood only) 39.9 % (37-47); Hemoglobin 13.2 g/dL (12.0-16.0); Immature Granulocytes # (auto) 0.04 K/uL (0.00-0.02); Immature Granulocytes % (auto) 0.3 %; Lymphocytes % (auto) 11.3 %; Mean Corpuscular Hemoglobin 30.8 pg (25-34); Mean Corpuscular Hgb Conc 33.1 g/dL (32-36); Mean Platelet Volume 10.2 fL (7.4-10.4); Monocytes # (auto) 0.96 K/uL (0.11-0.59); Monocytes % (auto) 7.8 %; Neutrophils # (auto) 9.85 K/uL (1.4-6.5); Neutrophils % (auto) 79.8 %; Platelet Count 244 K/uL (130-400); RDW Standard Deviation 43.8 fL (36.4-46.3); Red Blood Count 4.29 M/uL (4.2-5.4); White Blood Count 12.35 K/uL (4.8-10.8)
--- NOTE | 2020-08-19 07:16 | XRay Report ---
SINGLE VIEW CHEST CLINICAL HISTORY: Palpitations. FINDINGS: An AP, portable, upright chest radiograph is compared to study dated 08/03/2020. The heart i s top normal for projection noting atherosclerotic calcification of the thoracic aorta. The pulmonary vasculature is noncongested. There are mild airspace opacities at the right lung base. No large pleu ral effusion or pneumothorax is seen. The skeletal structures are osteopenic. The bony thorax is nancy sly intact. Catheters are partially visualized in the upper abdomen. IMPRESSION: There are mild airspace opacities at the right lung base. This could represent atelectasi s versus a mild infectious/inflammatory pneumonitis. Clinical correlation will be required. ACT 112: Negative or not required by law. Electronically signed by: Edilberto Ho M.D. 08/19/2020 7:15 AM
[2020-08-19 07:19] LABS: Partial Thromboplastin Ratio 0.9; Partial Thromboplastin Time 22.9 Seconds (21.0-31.0); Prothrombin Time 10.5 Seconds (9.0-12.0)
[2020-08-19 07:27] LABS: Albumin Level 3.7 gm/dl (3.4-5.0); BUN Creatinine Ratio 11.2 (10-20); Bilirubin Direct 0.2 mg/dl (0-0.2); Calcium 9.6 mg/dl (8.5-10.1); Creatinine Clr Calc Pharmacy 28.8 ml/min; Est GFR (African American) 51.3; Est GFR (Non-African American) 44.3; Magnesium 2.1 mg/dl (1.8-2.4); Potassium 3.8 mmol/L (3.5-5.1)
[2020-08-19 07:38] LABS: Bilirubin,Total 0.5 mg/dl (0.2-1); Thyroid Stimulating Hormone 1.37 uIu/ml (0.300-4.500); Total Protein 7.4 gm/dl (6.4-8.2); Troponin I 0.02 ng/ml (0-0.045)
[2020-08-19] MEDS ORDERED: IOVERSOL 100ml IV ONE (08:08)
--- NOTE | 2020-08-19 08:24 | CT Scan Report ---
CT SCAN OF THE ABDOMEN AND PELVIS WITH IV CONTRAST CLINICAL HISTORY: Generalized abdominal pain. Nausea and vomiting. Bilateral ureteral stents. Lymph jayde. COMPARISON STUDY: Abdominal CT dated 07/27/2020. TECHNIQUE: Following the IV administration of 95 cc of Optiray 320, CT scan of the abdomen and pelvi s is performed from the lung bases to the proximal femora. Images are reviewed in the axial, sagittal , and coronal planes. IV contrast was administered without complication. A dose lowering technique wa s utilized adhering to the principles of ALARA. CT DOSE: 272.32 mGy.cm FINDINGS: Lung bases: The heart is mildly enlarged and without pericardial effusion. The lung bases are clear n oting bibasilar scarring/atelectasis. There is a small hiatal hernia. Liver: The contrast-enhanced liver is normal in size, contour, and attenuation. Fatty infiltration is noted adjacent to falciform ligament. There is no intrahepatic biliary ductal dilatation. The hepati c veins and portal veins are patent. Gallbladder: Unremarkable. Spleen: Normal in size and attenuation measuring 8.0 cm in length. There are 2 splenic hypodensities which measure up to 1.7 cm. These are similar to previous Pancreas: Unremarkable. Adrenal glands: Unremarkable. Kidneys: The contrast enhanced kidneys demonstrate mild cortical atrophy. Bilateral ureteral stents a re in place. No calculi are identified in either ureter along the course of the stents. Urothelial th ickening and enhancement is seen within the renal pelvis bilaterally and involving both ureters with mild surrounding inflammation. There is mild bilateral hydronephrosis. The kidneys enhance symmetrica lly. Abdominal vasculature: The abdominal aorta is normal in course and caliber noting advanced atheroscle rotic calcification. Bowel: There is moderate colonic diverticulosis without CT evidence of acute diverticulitis. No bowel obstruction is seen. There is moderate constipation. The appendix is well-visualized and normal. Peritoneum: There is no intraperitoneal free air or abdominal ascites. There is a small fat-containin g umbilical hernia. Lymphadenopathy: None. Pelvic viscera: The bladder wall is thickened. The mucosa is hyperemic and there is pericystic strand ing. The ends of bilateral ureteral stents terminate in the bladder. The uterus and adnexa are normal as imaged. There are small bilateral fat-containing inguinal hernias. Skeletal structures: The skeletal structures are osteopenic. No lytic or blastic lesions are seen. IMPRESSION: 1. Bilateral ureteral stents are in appropriate position. No calculi are seen within either ureter al christal the course of the stents. 2. There is mild bilateral hydronephrosis. 3. The bladder wall appears thickened and hyperemic, and there is pericystic inflammation. Correlate clinically and with urinalysis for evidence of cystitis. 4. Urothelial thickening is seen within the renal pelvis bilaterally end involving both ureters with mild surrounding inflammation. This may be related to the presence of indwelling stents. Correlate fo r evidence of ascending urinary tract infection. 5. There are 2 pathologically indeterminant splenic hypodensities measuring up to 1.7 cm, similar to previous. 6. Colonic diverticulosis without CT evidence of acute diverticulitis. 7. Additional findings as above. ACT 112: Negative or not required by law. Electronically signed by: Edilberto Ho M.D. 08/19/2020 8:22 AM
[2020-08-19 08:41] LABS: Appearance Urine Clear (Clear); Bacteria Urine Automated Negative (Negative); Bilirubin Urine Negative (Negative); Blood Urine 3+ (Negative); Color Urine Dark Yellow; Glucose Urine UA Negative (Negative); Ketones Urine Negative (Negative); Leukocyte Esterase Urine 2+ (Negative); Nitrite Urine Negative (Negative); RBC Urine Automated >30 /hpf (0-4); Specific Gravity Urine 1.007 (1.000-1.030); Urobilinogen Urine Negative (Negative); pH Urine 7.5 (4.5-7.5)
[2020-08-19 08:45] LABS: Protein Urine 2+ (Negative)
[2020-08-19] MEDS ORDERED: cefTRIAXone SODIUM 1,000 MG/50 ML BAG IV STA (09:54)
--- NOTE | 2020-08-19 09:59 | Emergency Department Note ---
Impression & Plan Paroxysmal atrial flutter, Complicated UTI (urinary tract infection), S/P ureteral stent placement, Near syncope ED Provider Note NAME: HARI HOPKINS AGE: 80 SEX: F ARRIVES VIA: Walk-In INFORMANT: Patient, ED PROVIDER(S): Venancio Wong MD CHIEF COMPLAINT: Near syncope, PLAN: Disposition: Admit MEDICAL DECISION MAKING: The patient is a pleasant 80-year-old woman with a past medical history of paroxysmal atrial fibrillation remotely in the setting of being treated with chemotherapy 2 years ago, history of B-cell lymphoma, hypertension, hyperlipidemia, recent bilateral ureteral stent placement for ureteral stricture who presents emergency department with near syncope and nausea with heart rate in the 160s that she noticed today in the setting of feeling some generalized abdominal pain and nausea over the past several days since her ureteral stent placement. She denies any fevers, chills, cough, congestion, chest pain, shortness of breath, known COVID-19 exposures. She denies diarrhea. On arrival the patient is in no acute distress, afebrile with heart rate in the 160s and atrial flutter, in no acute distress vital signs otherwise stable. She appears clinically dry. EKG with ST abnormality likely rate-related without overt ST elevation. She was given IV fluid hydration as well as 5 mg followed by 2.5 mg of IV Lopressor with subsequent cardioversion and resolution of ST abnormalities on repeat EKG. Patient denied any change in what she was feeling as she felt okay on arrival despite HR in 160s. CXR negative for acute cardiopulmonary process. WBC 12.5, nonspecific. H/H and platelets wnl. Chemistry without acidosis. Electrolytes without significant abnormalities. LFTs unremarkable. Troponin 0.[address] on pelvis does show the possibility of cystitis with additional possibility of a ascending urinary infection though could be related to her recent ureteral stent placement. UA is not highly convincing though with LE 2+, WBCs 5-10, RBCs though with 10-20 epitheleal cells and no bacteria. She was given order for IV ceftriaxone for this possibility. Given the patient's atrial flutter in the setting of possible complicate UTI she was agreeable with recommendation for admission. Case was discussed with Dr. Duncan, [facility] hospitalist, CHANELLE will evaluate the patient for admission. Triage Nursing notes reviewed and agree them. Prior medical records reviewed Vital Signs: reviewed and remarkable for tachycardia. Differential diagnosis: Vasovagal event, dehydration, infection, hypoglycemia, electrolyte abn ormalities, cardiac sources, intracerebral event, pulmonary embolism, seizure, toxicologic, neurologic, as well as other pathologies. ER treatment provided: See below. Diagnostics interpreted by me: ECG 0641: Atrial flutter, 160 bpm, no ectopy, ST and TWA, no overt ST elevation. ECG 0827: NSR, 73 bpm, no ectopy, no overt ST elevation or depression. Cardiac Monitoring: An order for continuous cardiac monitoring was placed and demonstrated Atrial flutter, 160 bpm, no ectopy. Laboratory studies: See below Imaging studies: CT SCAN OF THE ABDOMEN AND PELVIS WITH IV CONTRAST CLINICAL HISTORY: Generalized abdominal pain. Nausea and vomiting. Bilateral ureteral stents. Lymphoma. COMPARISON STUDY: Abdominal CT dated 07/27/2020. TECHNIQUE: Following the IV administration of 95 cc of Optiray 320, CT scan of the abdomen and pelvis is performed from the lung bases to the proximal femora. Images are reviewed in the axial, sagittal, and coronal planes. IV contrast was administered without complication. A dose lowering technique was utilized adhering to the principles of ALARA. CT DOSE: 272.32 mGy.cm FINDINGS: Lung bases: The heart is mildly enlarged and without pericardial effusion. The lung bases are clear noting bibasilar scarring/atelectasis. There is a small hiatal hernia. Liver: The contrast-enhanced liver is normal in size, contour, and attenuation. Fatty infiltration is noted adjacent to falciform ligament. There is no intrahepatic biliary ductal dilatation. The hepatic veins and portal veins are patent. Gallbladder: Unremarkable. Spleen: Normal in size and attenuation measuring 8.0 cm in length. There are 2 splenic hypodensities which measure up to 1.7 cm. These are similar to previous Pancreas: Unremarkable. Adrenal glands: Unremarkable. Kidneys: The contrast enhanced kidneys demonstrate mild cortical atrophy. Bilateral ureteral stents are in place. No calculi are identified in either ureter along the course of the stents. Urothelial thickening and enhancement is seen within the renal pelvis bilaterally and involving both ureters with mild surrounding inflammation. There is mild bilateral hydronephrosis. The kidneys enhance symmetrically. Abdominal vasculature: The abdominal aorta is normal in course and caliber noting advanced atherosclerotic calcification. Bowel: There is moderate colonic diverticulosis without CT evidence of acute diverticulitis. No bowel obstruction is seen. There is moderate constipation. The appendix is well-visualized and normal. Peritoneum: There is no intraperitoneal free air or abdominal ascites. There is a small fat-containing umbilical hernia. Lymphadenopathy: None. Pelvic viscera: The bladder wall is thickened. The mucosa is hyperemic and there is pericystic stranding. The ends of bilateral ureteral stents terminate in the bladder. The uterus and adnexa are normal as imaged. There are small bilateral fat-containing inguinal hernias. Skeletal structures: The skeletal structures are osteopenic. No lytic or blastic lesions are seen. IMPRESSION: 1. Bilateral ureteral stents are in appropriate position. No calculi are seen within either ureter along the course of the stents. 2. There is mild bilateral hydronephrosis. 3. The bladder wall appears thickened and hyperemic, and there is pericystic inflammation. Correlate clinically and with urinalysis for evidence of cystitis. 4. Urothelial thickening is seen within the renal pelvis bilaterally end involving both ureters with mild surrounding inflammation. This may be related to the presence of indwelling stents. Correlate for evidence of ascending urinary tract infection. 5. There are 2 pathologically indeterminant splenic hypodensities measuring up to 1.7 cm, similar to previous. 6. Colonic diverticulosis without CT evidence of acute diverticulitis. 7. Additional findings as above. ACT 112: Negative or not required by law. Electronically signed by: Edilberto Ho M.D. 08/19/2020 8:22 AM Consultation(s): Case was discussed [place] Dr. Duncan, [facility] [place], [facility] will evaluate the patient for admission. HPI: The patient is a pleasant 80-year-old woman with a past medical history of paroxysmal atrial fibrillation remotely in the setting of being treated with chemotherapy 2 years ago, history of B-cell lymphoma, hypertension, hyperlipidemia, recent bilateral ureteral stent placement who presents emergency department with near syncope and nausea with heart rate in the 160s that she noticed today in the setting of feeling some generalized abdominal pain and nausea over the past several days since her ureteral stent placement. She denies any fevers, chills, cough, congestion, chest pain, shortness of breath, known COVID-19 exposures. She denies diarrhea. ROS: See above HPI for pertinent positives & negatives. A total of 10 systems reviewed and were otherwise negative. PAST MEDICAL HISTORY:See Below PAST SURGICAL HISTORY:See Below FAMILY HISTORY:See Below SOCIAL HISTORY:See Below HOME MEDICATIONS:See Below ALLERGIES:See Below VITALS:See Below PHYSICAL EXAMINATION: GENERAL: Awake, alert, fatigued-appearing, in no distress HENT: Normocephalic, atraumatic. Oropharynx with dry mucous membranes and otherwise unremarkable. EYES: Normal conjunctiva. Sclera non-icteric. NECK: Supple. No nuchal rigidity. FROM. No JVD. RESPIRATORY: Clear to auscultation. CARDIAC: Tachycardic rate, irregular rhythm. Extremities warm and well perfused. Pulses equal. ABDOMEN: Soft, non-distended. No tenderness to palpation. No rebound or guarding. No masses. RECTAL: Deferred. MUSCULOSKELETAL: Chest examination reveals no tenderness. The back is symmetrica l on inspection without obvious abnormality. There is no CVA tenderness to palpation. No joint edema. LOWER EXTREMITIES: Calves are equal size bilaterally and non-tender. No edema. No discoloration. NEURO: Normal sensorium. No sensory or motor deficits noted. SKIN: No rash or jaundice noted. ED COURSE: Critical Care: I have personally spent greater than 45 minutes of critical care time in the direct management of this patient. This includes bedside care, interpretation of diagnostic studies, and testing, discussion with consultants, patient, and family members, and other required patient management activities. This 45 minutes is in excess of all separately billable procedures. Venancio Wong MD Past Med/Surg History Medical History B-cell lymphoma Diffuse large B-cell lymphoma, s/p 3 cycles of R CHOP/XRT Coronary artery calcification follows with cardiology (Dr. Pineda) GERD (gastroesophageal reflux disease) Glaucoma Hiatal hernia HLD (hyperlipidemia) HTN (hypertension) Insomnia Kidney stone Osteoporosis Paroxysmal A-fib Single episode in 2018, asymptomatic in 200s, possible reaction to morphine, follows with cardiology (Dr. Pineda) Blake's patrizia Surgical History History of bilateral tubal ligation History of section x3 History of colonoscopy History of cystoscopy + stent History of esophagogastroduodenoscopy (EGD) History of lithotripsy History of tooth extraction History of vascular access device left upper chest (since removed) S/P cataract surgery B/L Family History Father Coronary heart disease Myocardial infarction Lung disease Prostate cancer Mother Coronary heart disease Myocardial infarction Brother Prostate cancer Denies family history of Ovarian cancer Diabetes Breast cancer Lung cancer Colorectal cancer Social History Smoking Status: Never smoker Second Hand Exposure: Yes (parents smoked); Hx Alcohol Use: No Hx Substance Use: No Preferred Language: Ugandan Communication Ability: Effective Visual Impairment: No Limitations Hearing Ability: Normal Psych Tech Required: No Beliefs That Will Affect Care: None marital status: Current Living Situation: Spouse Current Living Situation Comment: has pancreatic cancer. current occupational status: retired Other Information That Helps Us Care for You: No Feels Safe at Home: Yes Childhood Exposure to Second-Hand Smoke: Yes caffeine: No during the past year weight has: remained stable Dental Care, Regularly: Yes Physical Activity Frequency: 1-2 Times per Week Physical Activity Frequency Comment: walks Seatbelt Use: always Sunscreen Use: Yes Assistive Devices: Glasses Allergies Allergies Allergy/AdvReac Type Severity Reaction Status Date / Time doxycycline Allergy Intermediate HIVES Verified 08/19/20 07:34 Penicillins Allergy Intermediate HIVES Verified 08/19/20 07:34 Sulfa (Sulfonamide Allergy Intermediate HIVES Verified 08/19/20 07:34 Antibiotics) morphine AdvReac Severe caused A Verified 08/19/20 07:34 fib and tachycardia Home Meds Home Medications Medication Instructions Recorded Confirmed calcium carbonate-vitamin D3 1 tab PO HS 01/05/19 08/19/20 [Calcium 500 + D] cholecalciferol (vitamin D3) 2,000 unit PO HS 01/05/19 08/19/20 [Vitamin D3] lisinopril 20 mg PO QAM 01/05/19 08/19/20 metoprolol succinate 25 mg PO HS 01/05/19 08/19/20 travoprost 1 drp OPB HS 01/05/19 08/19/20 Previous Rx's Medication Instructions Recorded atorvastatin 10 mg tablet 10 mg PO HS #90 tab 03/24/20 ciprofloxacin HCl [Cipro] 500 mg PO Q12H #6 tab 08/15/20 phenazopyridine [Pyridium] 200 mg PO Q8H PRN #10 tab 08/15/20 tamsulosin 0.4 mg PO HS #30 cap 08/15/20 oxycodone 5 mg tablet 5 mg PO Q8H PRN #7 tab 08/16/20 Results & Data (ED) Vital Signs Vital Signs - 24 hr 08/19/20 06:33 08/19/20 06:59 08/19/20 07:00 Temperature 36.5 C Temperature Source Temporal Artery Scan Pulse Rate 160 H 157 H 157 H Pulse Rate from SpO2 Sensor 157 H 158 H Respiratory Rate 20 20 24 Blood Pressure 127/88 131/90 128/88 Blood Pressure Mean 101 103 101 Pulse Oximetry 97 99 98 Oxygen Delivery Method Room Air Room Air Room Air Sepsis Recent Fever Within 48 Hours No Sepsis New/Unexplained Change in Mental Status No Sepsis Action Taken by Nursing No Action Required 08/19/20 07:06 08/19/20 07:10 08/19/20 07:26 Temperature Temperature Source Pulse Rate 156 H 152 H 139 H Pulse Rate from SpO2 Sensor 152 H 146 H Respiratory Rate 20 17 Blood Pressure 128/88 134/96 117/88 Blood Pressure Mean 108 97 Pulse Oximetry 97 98 Oxygen Delivery Method Room Air Room Air Sepsis Recent Fever Within 48 Hours Sepsis New/Unexplained Change in Mental Status Sepsis Action Taken by Nursing 08/19/20 07:30 08/19/20 07:51 08/19/20 08:00 Temperature Temperature Source Pulse Rate 155 H 159 H 146 H Pulse Rate from SpO2 Sensor 143 H 147 H 154 H Respiratory Rate 17 24 19 Blood Pressure 114/94 123/75 123/89 Blood Pressure Mean 100 91 100 Pulse Oximetry 98 97 97 Oxygen Delivery Method Room Air Room Air Room Air Sepsis Recent Fever Within 48 Hours Sepsis New/Unexplained Change in Mental Status Sepsis Action Taken by Nursing 08/19/20 08:24 08/19/20 08:31 08/19/20 08:51 Temperature Temperature Source Pulse Rate 72 72 71 Pulse Rate from SpO2 Sensor 71 72 68 Respiratory Rate 19 20 19 Blood Pressure 138/89 124/70 143/83 H Blood Pressure Mean 105 88 103 Pulse Oximetry 97 97 99 Oxygen Delivery Method Room Air Room Air Room Air Sepsis Recent Fever Within 48 Hours Sepsis New/Unexplained Change in Mental Status Sepsis Action Taken by Nursing 08/19/20 09:15 08/19/20 09:27 08/19/20 09:30 Temperature Temperature Source Pulse Rate 74 68 73 Pulse Rate from SpO2 Sensor 74 68 74 Respiratory Rate 19 18 23 Blood Pressure 114/77 106/73 121/72 Blood Pressure Mean 89 84 88 Pulse Oximetry 95 97 96 Oxygen Delivery Method Room Air Room Air Room Air Sepsis Recent Fever Within 48 Hours Sepsis New/Unexplained Change in Mental Status Sepsis Action Taken by Nursing 08/19/20 10:00 Temperature Temperature Source Pulse Rate 75 Pulse Rate from SpO2 Sensor 77 Respiratory Rate 23 Blood Pressure 109/66 Blood Pressure Mean 80 Pulse Oximetry 96 Oxygen Delivery Method Room Air Sepsis Recent Fever Within 48 Hours Sepsis New/Unexplained Change in Mental Status Sepsis Action Taken by Nursing Laboratory Data Attestation: I reviewed the patient's lab results. Result diagrams: 08/19/20 06:51 08/19/20 06:51 Lab Results 08/19/20 08/19/20 08/19/20 Range/Units 06:50 06:51 06:51 WBC 12.35 H (4.8-10.8) K/uL RBC 4.29 (4.2-5.4) M/uL Hgb 13.2 (12.0-16.0) g/dL Hct 39.9 (37-47) % MCV 93.0 (80-100) fL MCH 30.8 (25-34) pg MCHC 33.1 (32-36) g/dL RDW Std Deviation 43.8 (36.4-46.3) fL RDW Coeff of Lazaro 13.0 (11.5-14.5) % Plt Count 244 (130-400) K/uL MPV 10.2 (7.4-10.4) fL Immature Gran % (Auto) 0.3 % Neut % (Auto) 79.8 % Lymph % (Auto) 11.3 % Woodson % (Auto) 7.8 % Eos % (Auto) 0.6 % Baso % (Auto) 0.2 % Neut # (Auto) 9.85 H (1.4-6.5) K/uL Lymph # (Auto) 1.40 (1.2-3.4) K/uL Woodson # (Auto) 0.96 H (0.11-0.59) K/uL Eos # (Auto) 0.08 (0-0.5) K/uL Baso # (Auto) 0.02 (0-0.2) K/uL Immature Gran # (Auto) 0.04 H (0.00-0.02) K/uL PT 10.5 (9.0-12.0) Seconds INR 1.0 (0.9-1.1) APTT 22.9 (21.0-31.0) Seconds PTT Ratio 0.9 Sodium (136-145) mmol/L Potassium (3.5-5.1) mmol/L Chloride (98-107) mmol/L Carbon Dioxide (21-32) mmol/L Anion Gap (3-11) BUN (7-18) mg/dl Creatinine (0.6-1.2) mg/dl Est Cr Clr Drug Dosing ml/min Est GFR ( Amer) Est GFR (Non-Af Amer) BUN/Creatinine Ratio (10-20) Glucose (70-99) mg/dl Calcium (8.5-10.1) mg/dl Phosphorus (2.5-4.9) mg/dl Magnesium (1.8-2.4) mg/dl Total Bilirubin (0.2-1) mg/dl Direct Bilirubin (0-0.2) mg/dl AST (15-37) U/L ALT (12-78) U/L Alkaline Phosphatase (45-117) U/L Troponin I (0-0.045) ng/ml Total Protein (6.4-8.2) gm/dl Albumin (3.4-5.0) gm/dl Lipase (73-393) U/L Procalcitonin < 0.05 (0-0.5) ng/ml TSH (0.300-4.500) uIu/ml Urine Color Urine Appearance (Clear) Urine pH (4.5-7.5) Ur Specific Montgomery (1.000-1.030) Urine Protein (Negative) Urine Glucose (UA) (Negative) Urine Ketones (Negative) Urine Blood (Negative) Urine Nitrite (Negative) Urine Bilirubin (Negative) Urine Urobilinogen (Negative) Ur Leukocyte Esterase (Negative) Urine WBC (Auto) (0-5) /hpf Urine RBC (Auto) (0-4) /hpf U Hyaline Cast (Auto) (0-5) /lpf U Epithel Cells (Auto) (0-5) /lpf Urine Bacteria (Auto) (Negative) COVID-19 Eval Order SARS-CoV-2, RNA, NAAT (NEGATIVE) 08/19/20 08/19/20 08/19/20 Range/Units 06:51 06:51 08:05 WBC (4.8-10.8) K/uL RBC (4.2-5.4) M/uL Hgb (12.0-16.0) g/dL Hct (37-47) % MCV (80-100) fL MCH (25-34) pg MCHC (32-36) g/dL RDW Std Deviation (36.4-46.3) fL RDW Coeff of Lazaro (11.5-14.5) % Plt Count (130-400) K/uL MPV (7.4-10.4) fL Immature Gran % (Auto) % Neut % (Auto) % Lymph % (Auto) % Woodson % (Auto) % Eos % (Auto) % Baso % (Auto) % Neut # (Auto) (1.4-6.5) K/uL Lymph # (Auto) (1.2-3.4) K/uL Woodson # (Auto) (0.11-0.59) K/uL Eos # (Auto) (0-0.5) K/uL Baso # (Auto) (0-0.2) K/uL Immature Gran # (Auto) (0.00-0.02) K/uL PT (9.0-12.0) Seconds INR (0.9-1.1) APTT (21.0-31.0) Seconds PTT Ratio Sodium 138 (136-145) mmol/L Potassium 3.8 (3.5-5.1) mmol/L Chloride 104 (98-107) mmol/L Carbon Dioxide 27 (21-32) mmol/L Anion Gap 7.0 (3-11) BUN 13 (7-18) mg/dl Creatinine 1.17 (0.6-1.2) mg/dl Est Cr Clr Drug Dosing 28.8 ml/min Est GFR ( Amer) 51.3 Est GFR (Non-Af Amer) 44.3 BUN/Creatinine Ratio 11.2 (10-20) Glucose 137 H (70-99) mg/dl Calcium 9.6 (8.5-10.1) mg/dl Phosphorus 2.4 L (2.5-4.9) mg/dl Magnesium 2.1 (1.8-2.4) mg/dl Total Bilirubin 0.5 (0.2-1) mg/dl Direct Bilirubin 0.2 (0-0.2) mg/dl AST 12 L (15-37) U/L ALT 16 (12-78) U/L Alkaline Phosphatase 87 (45-117) U/L Troponin I 0.020 (0-0.045) ng/ml Total Protein 7.4 (6.4-8.2) gm/dl Albumin 3.7 (3.4-5.0) gm/dl Lipase 133 (73-393) U/L Procalcitonin (0-0.5) ng/ml TSH 1.370 (0.300-4.500) uIu/ml Urine Color Dark Yellow Urine Appearance Clear (Clear) Urine pH 7.5 (4.5-7.5) Ur Specific Montgomery 1.007 (1.000-1.030) Urine Protein 2+ H (Negative) Urine Glucose (UA) Negative (Negative) Urine Ketones Negative (Negative) Urine Blood 3+ H (Negative) Urine Nitrite Negative (Negative) Urine Bilirubin Negative (Negative) Urine Urobilinogen Negative (Negative) Ur Leukocyte Esterase 2+ H (Negative) Urine WBC (Auto) 5-10 H (0-5) /hpf Urine RBC (Auto) >30 H (0-4) /hpf U Hyaline Cast (Auto) 1-5 (0-5) /lpf U Epithel Cells (Auto) 10-20 H (0-5) /lpf Urine Bacteria (Auto) Negative (Negative) COVID-19 Eval Order SARS-CoV-2, RNA, NAAT (NEGATIVE) 08/19/20 08/19/20 Range/Units 08:30 08:30 WBC (4.8-10.8) K/uL RBC (4.2-5.4) M/uL Hgb (12.0-16.0) g/dL Hct (37-47) % MCV (80-100) fL MCH (25-34) pg MCHC (32-36) g/dL RDW Std Deviation (36.4-46.3) fL RDW Coeff of Lazaro (11.5-14.5) % Plt Count (130-400) K/uL MPV (7.4-10.4) fL Immature Gran % (Auto) % Neut % (Auto) % Lymph % (Auto) % Woodson % (Auto) % Eos % (Auto) % Baso % (Auto) % Neut # (Auto) (1.4-6.5) K/uL Lymph # (Auto) (1.2-3.4) K/uL Woodson # (Auto) (0.11-0.59) K/uL Eos # (Auto) (0-0.5) K/uL Baso # (Auto) (0-0.2) K/uL Immature Gran # (Auto) (0.00-0.02) K/uL PT (9.0-12.0) Seconds INR (0.9-1.1) APTT (21.0-31.0) Seconds PTT Ratio Sodium (136-145) mmol/L Potassium (3.5-5.1) mmol/L Chloride (98-107) mmol/L Carbon Dioxide (21-32) mmol/L Anion Gap (3-11) BUN (7-18) mg/dl Creatinine (0.6-1.2) mg/dl Est Cr Clr Drug Dosing ml/min Est GFR ( Amer) Est GFR (Non-Af Amer) BUN/Creatinine Ratio (10-20) Glucose (70-99) mg/dl Calcium (8.5-10.1) mg/dl Phosphorus (2.5-4.9) mg/dl Magnesium (1.8-2.4) mg/dl Total Bilirubin (0.2-1) mg/dl Direct Bilirubin (0-0.2) mg/dl AST (15-37) U/L ALT (12-78) U/L Alkaline Phosphatase (45-117) U/L Troponin I (0-0.045) ng/ml Total Protein (6.4-8.2) gm/dl Albumin (3.4-5.0) gm/dl Lipase (73-393) U/L Procalcitonin (0-0.5) ng/ml TSH (0.300-4.500) uIu/ml Urine Color Urine Appearance (Clear) Urine pH (4.5-7.5) Ur Specific Montgomery (1.000-1.030) Urine Protein (Negative) Urine Glucose (UA) (Negative) Urine Ketones (Negative) Urine Blood (Negative) Urine Nitrite (Negative) Urine Bilirubin (Negative) Urine Urobilinogen (Negative) Ur Leukocyte Esterase (Negative) Urine WBC (Auto) (0-5) /hpf Urine RBC (Auto) (0-4) /hpf U Hyaline Cast (Auto) (0-5) /lpf U Epithel Cells (Auto) (0-5) /lpf Urine Bacteria (Auto) (Negative) COVID-19 Eval Order Covid19 IDNow atMSCC SARS-CoV-2, RNA, NAAT NEGATIVE (NEGATIVE) Administered Medications Acetaminophen (Acetaminophen 325 Mg Tab) 650 mg PO Q6H PRN PRN Reason: Pain or Fever Stop: 09/18/20 12:04 Last Admin: 08/19/20 20:01 Dose: 650 mg Documented by: [id number] Atorvastatin Calcium (Atorvastatin 10 Mg Tab) 10 mg PO [facility] Stop: 09/18/20 20:59 Last Admin: 08/19/20 20:03 Dose: 10 mg Documented by: [id number] Heparin Sodium (Porcine) (Heparin Sod 5,000 Unit/0.5 Ml Vial) 5,000 units SQ Q12 [facility] Stop: 09/18/20 20:59 Last Admin: 08/19/20 20:04 Dose: 5,000 units Documented by: [id number] Potassium Chloride/Sodium Chloride (Normal Saline W/20 Meq Kcl) 20 meq in 1,000 mls @ 80 mls/hr IV .[id number] [facility] Stop: 08/20/20 01:14 Last Admin: 08/19/20 13:28 Dose: 80 mls/hr Documented by: [id number] Lisinopril (Lisinopril 20 Mg Tab) 20 mg PO QAM [facility] Stop: 09/18/20 12:44 Last Admin: 08/19/20 13:28 Dose: 20 mg Documented by: [id number] Metoprolol Succinate (Metoprolol Succ 50mg Ext Rel Tab) 50 mg PO [facility] Stop: 09/18/20 20:59 Last Admin: 08/19/20 20:02 Dose: 50 mg Documented by: [id number] Multivitamins/Minerals (Calcium 600mg + Vit D 400 Iu Tab) 1 tab PO [facility] Stop: 09/18/20 20:59 Last Admin: 08/19/20 20:02 Dose: 1 tab Documented by: [id number] Tamsulosin HCl (Tamsulosin Hcl 0.4 Mg Cap) 0.4 mg PO [facility] Stop: 09/18/20 20:59 Last Admin: 08/19/20 20:02 Dose: 0.4 mg Documented by: [id number] Travoprost (Travoprost Z 0.004% Oph Soln 2.5 Ml Btl) 1 drops OPB [facility] Stop: 09/18/20 20:59 Last Admin: 08/19/20 20:05 Dose: 1 drops Documented by: [id number] Vitamin D (Cholecalciferol 1,000 Units 25 Mcg Tab) 2,000 units PO [facility] Stop: 09/18/20 20:59 Last Admin: 08/19/20 20:04 Dose: 2,000 units Documented by: [id number] Discontinued Medications Acetaminophen (Acetaminophen 325 Mg Tab) 650 mg PO NOW STA Stop: 08/19/20 11:19 Last Admin: 08/19/20 11:54 Dose: 650 mg Documented by: [id number] Sodium Chloride (Nss) 500 mls @ 999 mls/hr IV .Q31M ONE Stop: 08/19/20 07:31 Last Infusion: 08/19/20 07:39 Dose: 0 mls/hr Documented by: [id number] Admin: 08/19/20 07:06 Dose: 999 mls/hr Documented by: [id number] Sodium Chloride (Nss) 500 mls @ 999 mls/hr IV .Q31M ONE Stop: 08/19/20 08:15 Last Infusion: 08/19/20 08:23 Dose: 0 mls/hr Documented by: [id number] Admin: 08/19/20 07:50 Dose: 999 mls/hr Documented by: [id number] Ceftriaxone Sodium (Rocephin) 1,000 mg in 50 mls @ 100 mls/hr IV NOW STA Stop: 08/19/20 10:23 Last Infusion: 08/19/20 10:43 Dose: 0 mls/hr Documented by: [id number] Admin: 08/19/20 10:04 Dose: 100 mls/hr Documented by: [id number] Ioversol (Ioversol 100ml) 95 ml IV ONCE ONE Stop: 08/19/20 08:09 Last Admin: 08/19/20 08:09 Dose: 95 ml Documented by: [id number] Metoprolol Tartrate (Metoprolol Tartrate 1 Mg/Ml Vial) 5 mg IV NOW STA Stop: 08/19/20 07:02 Last Admin: 08/19/20 07:06 Dose: 5 mg Documented by: [id number] Metoprolol Tartrate (Metoprolol Tartrate 1 Mg/Ml Vial) 2.5 mg IV NOW STA Stop: 08/19/20 07:46 Last Admin: 08/19/20 07:51 Dose: 2.5 mg Documented by: [id number] Discharge Plan Visit Data Chief Complaint: Cardiac Assessment Stated Complaint: HIGH BP ED Provider: Venancio Wong Discharge Problem: Paroxysmal atrial flutter, Complicated UTI (urinary tract infection), S/P ureteral stent placement, Near syncope Patient Disposition: Admitted As Inpatient Discharge Instructions Interventions: ED Discharge Assessment Last Done: 08/19/20 11:12
[2020-08-19] MEDS ORDERED: ACETAMINOPHEN 325 MG TAB PO STA (11:18)
--- NOTE | 2020-08-19 11:21 | History & Physical Report ---
Date of Service August 19, 2020 Assessment & Plan (1) Complicated UTI (urinary tract infection): Mrs. Alejandra is a 80 year female with a history Paroxysmal Atrial Tachycardia, Hypertension, Hypercholesterolemia, Coronary Artery Calcifications, GERD, Shatzki's Ring, Glaucoma, Osteoporosis, Hyperplastic Colonic Polyp, B-Cell Lymphoma s/p R-CHOP 2017, single episode of A-Fib (at a time with severe pain secondary to Neulasta and after receiving IV Morphine in 2018), and Hematuria s/p Cystoscopy/Ureteroscopy with B/L Ureteral Stents and Dilation of Left Ureteral Stricture 08/15/2020-- who present to [facility] today with Newly Diagnosed Paroxysmal Atrial Flutter with 2:1 AV Conduction and a Complicated UTI. Patient states that at approximately 5:00 am she got out of bed to use the bathroom and felt transiently lightheaded and nauseated. She did not have any significant palpitations but her HR was up to 165 bpm at home. This is in the setting of experiencing some generalized abdominal pain and nausea over the past several days since her ureteral stents were placed on 08/15/20. Patient also complains of dysuria, urinary frequency, and pain in her low back. She denies any fevers, chills, headache, or rigors. Patient did not experience any any angina pectoris or anginal equivalent symptoms with her rapid atrial flutter. She did not have any associated dyspnea with rapid atrial flutter. On arrival to the ER, clinical research monitor and EKG confirmed A-Flutter with 2:1 AV Conduction. Patient initially appeared dehydrated so she was given a bolus of NSS. Patient then received IV Lopressor 5 mg, followed by 2.5 mg and spontaneously converted back to a NSR at 0819. Patient remains in a normal sinus rhythm at this time. Her initial troponin I is 0.020 ng/ml. Serum K and Mg levels are within normal limits. Urine analysis shows 3+ blood, 2+ leukocyte esterase, 2+ protein. CT scan of abdomen and pelvis showed bilateral ureteral stents, mild bilateral hydronephrosis, thickened and hyperemic bladder wall with pericystic inflammation. -- Admit on Observation Status to Med-Surg with Telemetry. -- Continue IV Ceftriaxone 1000 mg every 24 hours. -- Urine C&S ordered. -- Consult [facility], she's followed by Dr. Rouse. (2) Paroxysmal atrial flutter: Patient did not have any significant palpitations with Atrial Flutter despite her HR being up to 165 bpm. Patient did not experience any any angina pectoris or anginal equivalent symptoms with her rapid atrial flutter. She did not have any associated dyspnea with rapid atrial flutter. hall monitor and EKG confirmed A-Flutter with 2:1 AV Conduction. Patient was given a bolus of NSS. Patient then received IV Lopressor 5 mg, followed by 2.5 mg and spontaneously converted back to a NSR at 0819. Patient remains in a normal sinus rhythm at this time. Her initial troponin I is 0.020 ng/ml. Serum K and Mg levels are within normal limits. -- [id number] is 4 based on gender, hypertension, and age. -- Her single episode of A-Fib and this episode of A-Flutter occurred during extenuating circumstances. 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 -- Continue cardiac monitoring. -- Increase Metoprolol Succinate from 25 mg QHS to 50 mg QHS. -- Follow up with Dr. Pineda after discharge, consider 30 Cardiac Event Monitor. (3) HTN (hypertension): -- BP appears to be well controlled. -- Continue Lisinopril 20 mg every morning. -- Increase Metoprolol Succinate ER to 50 mg each evening. (4) HLD (hyperlipidemia): -- Continue Atorvastatin 10 mg each evening. History of Present Illness Chief Complaint: -- Complicated UTI, bilateral ureteral stents. -- Paroxysmal Atrial Flutter with 2:1 AV Conduction. Primary Care Provider: Malka Au DO Mrs. Alejandra is a 80 year female with a history Paroxysmal Atrial Tachycardia, Hypertension, Hypercholesterolemia, Coronary Artery Calcifications, GERD, Shatzki's Ring, Glaucoma, Osteoporosis, Hyperplastic Colonic Polyp, B-Cell Lymphoma s/p R-CHOP 2017, single episode of A-Fib (at a time with severe pain secondary to Neulasta and after receiving IV Morphine in 2018), and Hematuria s/p Cystoscopy/Ureteroscopy with B/L Ureteral Stents and Dilation of Left Ureteral Stricture 08/15/2020-- who present to [facility] today complaining of a near syncopal episode, elevated HR, and nausea. Patient states that at approximately 5:00 am she got out of bed to use the bathroom and felt transiently lightheaded and nauseated. She did not have any significant palpitations but her HR was up to 165 bpm at home. This is in the setting of experiencing some generalized abdominal pain and nausea over the past several days since her ureteral stents placed on 08/15/20. Patient also complains of dysuria, urinary frequency, and pain in her low back. She denies any fevers, chills, headache, stiff neck, congestion, shortness of breath, known COVID-19 exposures. Continue did not experience any chest pain, heaviness, tightness, pressure, vomiting, or diaphoresis with her elevated heart rate. Allergies Allergy/AdvReac Type Severity Reaction Status Date / Time doxycycline Allergy Intermediate HIVES Verified 08/19/20 07:34 Penicillins Allergy Intermediate HIVES Verified 08/19/20 07:34 Sulfa (Sulfonamide Allergy Intermediate HIVES Verified 08/19/20 07:34 Antibiotics) morphine AdvReac Severe caused A Verified 08/19/20 07:34 fib and tachycardia Home Medications Medication Instructions Recorded Confirmed Type calcium carbonate-vitamin D3 1 tab PO HS 01/05/19 08/19/20 History [Calcium 500 + D] cholecalciferol (vitamin D3) 2,000 unit PO HS 01/05/19 08/19/20 History [Vitamin D3] lisinopril 20 mg PO QAM 01/05/19 08/19/20 History metoprolol succinate 25 mg PO HS 01/05/19 08/19/20 History travoprost 1 drp OPB HS 01/05/19 08/19/20 History atorvastatin 10 mg tablet 10 mg PO HS #90 tab 03/24/20 08/19/20 Rx ciprofloxacin HCl [Cipro] 500 mg PO Q12H #6 tab 08/15/20 08/19/20 Rx phenazopyridine [Pyridium] 200 mg PO Q8H PRN #10 tab 08/15/20 08/19/20 Rx tamsulosin 0.4 mg PO HS #30 cap 08/15/20 08/19/20 Rx oxycodone 5 mg tablet 5 mg PO Q8H PRN #7 tab 08/16/20 08/19/20 Rx Past Med/Surg History Medical History B-cell lymphoma Diffuse large B-cell lymphoma, s/p 3 cycles of R CHOP/XRT Coronary artery calcification follows with cardiology (Dr. Pineda) GERD (gastroesophageal reflux disease) Glaucoma Hiatal hernia HLD (hyperlipidemia) HTN (hypertension) Insomnia Kidney stone Osteoporosis Paroxysmal A-fib Single episode in 2018, asymptomatic in 200s, possible reaction to morphine, follows with cardiology (Dr. Pineda) Schatzki's ring Surgical History History of bilateral tubal ligation History of section x3 History of colonoscopy History of cystoscopy + stent History of esophagogastroduodenoscopy (EGD) History of lithotripsy History of tooth extraction History of vascular access device left upper chest (since removed) S/P cataract surgery B/L Family History Father Coronary heart disease Myocardial infarction Lung disease Prostate cancer Mother Coronary heart disease Myocardial infarction Brother Prostate cancer Denies family history of Ovarian cancer Diabetes Breast cancer Lung cancer Colorectal cancer Social History Smoking Status: Never smoker Second Hand Exposure: Yes (parents smoked); Hx Alcohol Use: No Hx Substance Use: No Preferred Language: Micronesian Communication Ability: Effective Visual Impairment: No Limitations Hearing Ability: Normal 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 current occupational status: retired Other Information That Helps Us Care for You: No Feels Safe at Home: Yes Childhood Exposure to Second-Hand Smoke: Yes caffeine: No during the past year weight has: remained stable Dental Care, Regularly: Yes Physical Activity Frequency: 1-2 Times per Week Physical Activity Frequency Comment: walks Seatbelt Use: always Sunscreen Use: Yes Assistive Devices: Glasses Review of Systems Review of Systems: All systems reviewed & are unremarkable except as noted in Subjective Physical Exam Physical Exam: GENERAL: Patient in no acute distress. HEENT: Head is atraumatic, normocephalic. EOM's intact. Facies symmetric. No perioral cyanosis. NECK: No JVD. JVP is at the level of the clavicle sitting upright. Carotid upstrokes are + 2 bilaterally without obvious bruits. CHEST/LUNGS: Clear to auscultation throughout all lung aviles. No wheezes, rales, or crackles. CVS: S1 and S2 are regular without obvious murmurs, gallops, or rubs. PMI is nondisplaced. No lifts, heaves, or thrills. No abdominal aortic or renal brui ts. ABDOMINAL EXAM: Bowel sounds are present. No masses or organomegaly. Suprapubic tenderness to palpation. CVA's are non-tender to jarring. EXTREMITIES: No clubbing or cyanosis. No edema. Intact posterior tibial and radial pulses bilaterally. NEUROLOGIC EXAM: Patient is awake, alert, and oriented. Pleasant and cooperative. Answers questions appropriately. Speech is clear. Normal move ment in all 4 extremities. BOATSWAINS MATE: -- Currently NSR. -- Earlier rapid atrial flutter. -- Spontaneously converted back to NSR at 0819. EKG 08/19/2020: -- Atrial flutter with 2:1 A-V conduction -- ST & T wave abnormality, consider inferior ischemia. -- Abnormal EKG. When compared with EKG of 03-AUG-2020 14:29: -- Atrial flutter has replaced sinus rhythm. -- Vent. rate has increased BY 87 BPM. -- ST now depressed in Lateral leads. -- T wave inversion now evident in Inferior leads. Results & Data Results & Data ([facility]) Vital Signs (Past 12 Hours) Vital Signs Temp Pulse Resp BP Pulse Ox 08/19/20 10:30 68 20 124/82 98 08/19/20 10:00 75 23 109/66 96 08/19/20 09:30 73 23 121/72 96 08/19/20 09:27 68 18 106/73 97 08/19/20 09:15 74 19 114/77 95 08/19/20 08:51 71 19 143/83 H 99 08/19/20 08:31 72 20 124/70 97 08/19/20 08:24 72 19 138/89 97 08/19/20 08:00 146 H 19 123/89 97 08/19/20 07:51 159 H 24 123/75 97 08/19/20 07:30 155 H 17 114/94 98 08/19/20 07:26 139 H 17 117/88 98 08/19/20 07:10 152 H 20 134/96 97 08/19/20 07:06 156 H 128/88 08/19/20 07:00 157 H 24 128/88 98 08/19/20 06:59 157 H 20 131/90 99 08/19/20 06:33 36.5 C 160 H 20 127/88 97 Laboratory Results Laboratory Results - last 24 hr 08/19/20 08/19/20 08/19/20 06:51 06:51 06:51 WBC 12.35 H RBC 4.29 Hgb 13.2 Hct 39.9 MCV 93.0 MCH 30.8 MCHC 33.1 RDW Std Deviation 43.8 RDW Coeff of Lazaro 13.0 Plt Count 244 MPV 10.2 Immature Gran % (Auto) 0.3 Neut % (Auto) 79.8 Lymph % (Auto) 11.3 Randall % (Auto) 7.8 Eos % (Auto) 0.6 Baso % (Auto) 0.2 Neut # (Auto) 9.85 H Lymph # (Auto) 1.40 Randall # (Auto) 0.96 H Eos # (Auto) 0.08 Baso # (Auto) 0.02 Immature Gran # (Auto) 0.04 H PT 10.5 INR 1.0 APTT 22.9 PTT Ratio 0.9 Sodium 138 Potassium 3.8 Chloride 104 Carbon Dioxide 27 Anion Gap 7.0 BUN 13 Creatinine 1.17 Est Cr Clr Drug Dosing 28.8 Est GFR ( Amer) 51.3 Est GFR (Non-Af Amer) 44.3 BUN/Creatinine Ratio 11.2 Glucose 137 H Calcium 9.6 Phosphorus Magnesium 2.1 Total Bilirubin 0.5 Direct Bilirubin 0.2 AST 12 L ALT 16 Alkaline Phosphatase 87 Troponin I 0.020 Total Protein 7.4 Albumin 3.7 Lipase 133 TSH 1.370 Urine Color Urine Appearance Urine pH Ur Specific [place] Urine Protein Urine Glucose (UA) Urine Ketones Urine Blood Urine Nitrite Urine Bilirubin Urine Urobilinogen Ur Leukocyte Esterase Urine WBC (Auto) Urine RBC (Auto) U Hyaline Cast (Auto) U Epithel Cells (Auto) Urine Bacteria (Auto) COVID-19 Eval Order SARS-CoV-2, RNA, NAAT 08/19/20 08/19/20 08/19/20 06:51 08:05 08:30 WBC RBC Hgb Hct MCV MCH MCHC RDW Std Deviation RDW Coeff of Lazaro Plt Count MPV Immature Gran % (Auto) Neut % (Auto) Lymph % (Auto) Randall % (Auto) Eos % (Auto) Baso % (Auto) Neut # (Auto) Lymph # (Auto) Randall # (Auto) Eos # (Auto) Baso # (Auto) Immature Gran # (Auto) PT INR APTT PTT Ratio Sodium Potassium Chloride Carbon Dioxide Anion Gap BUN Creatinine Est Cr Clr Drug Dosing Est GFR ( Amer) Est GFR (Non-Af Amer) BUN/Creatinine Ratio Glucose Calcium Phosphorus 2.4 L Magnesium Total Bilirubin Direct Bilirubin AST ALT Alkaline Phosphatase Troponin I Total Protein Albumin Lipase TSH Urine Color Dark Yellow Urine Appearance Clear Urine pH 7.5 Ur Specific [place] 1.007 Urine Protein 2+ H Urine Glucose (UA) Negative Urine Ketones Negative Urine Blood 3+ H Urine Nitrite Negative Urine Bilirubin Negative Urine Urobilinogen Negative Ur Leukocyte Esterase 2+ H Urine WBC (Auto) 5-10 H Urine RBC (Auto) >30 H U Hyaline Cast (Auto) 1-5 U Epithel Cells (Auto) 10-20 H Urine Bacteria (Auto) Negative COVID-19 Eval Order Covid19 IDNow atMOHC SARS-CoV-2, RNA, NAAT 08/19/20 08:30 WBC RBC Hgb Hct MCV MCH MCHC RDW Std Deviation RDW Coeff of Lazaro Plt Count MPV Immature Gran % (Auto) Neut % (Auto) Lymph % (Auto) Randall % (Auto) Eos % (Auto) Baso % (Auto) Neut # (Auto) Lymph # (Auto) Randall # (Auto) Eos # (Auto) Baso # (Auto) Immature Gran # (Auto) PT INR APTT PTT Ratio Sodium Potassium Chloride Carbon Dioxide Anion Gap BUN Creatinine Est Cr Clr Drug Dosing Est GFR ( Amer) Est GFR (Non-Af Amer) BUN/Creatinine Ratio Glucose Calcium Phosphorus Magnesium Total Bilirubin Direct Bilirubin AST ALT Alkaline Phosphatase Troponin I Total Protein Albumin Lipase TSH Urine Color Urine Appearance Urine pH Ur Specific [place] Urine Protein Urine Glucose (UA) Urine Ketones Urine Blood Urine Nitrite Urine Bilirubin Urine Urobilinogen Ur Leukocyte Esterase Urine WBC (Auto) Urine RBC (Auto) U Hyaline Cast (Auto) U Epithel Cells (Auto) Urine Bacteria (Auto) COVID-19 Eval Order SARS-CoV-2, RNA, NAAT NEGATIVE Diagnostic Findings CT SCAN ABDOMEN/PELVIS 08/19/2020: 1. Bilateral ureteral stents are in appropriate position. No calculi are seen within either ureter along the course of the stents. 2. There is mild bilateral hydronephrosis. 3. The bladder wall appears thickened and hyperemic, and there is pericystic inflammation. Correlate clinically and with urinalysis for evidence of cystitis. 4. Urothelial thickening is seen within the renal pelvis bilaterally end involving both ureters with mild surrounding inflammation. This may be related to the presence of indwelling stents. Correlate for evidence of ascending urinary tract infection. 5. There are 2 pathologically indeterminant splenic hypodensities measuring up to 1.7 cm, similar to previous. 6. Colonic diverticulosis without CT evidence of acute diverticulitis. CXR 08/19/2020: -- There are mild airspace opacities at the right lung base. -- This could represent atelectasis versus a mild infectious/inflammatory pneumonitis. -- Clinical correlation will be required. Medications Administered Discontinued Medications Sodium Chloride (Nss) 500 mls @ 999 mls/hr IV .Q31M ONE Stop: 08/19/20 07:31 Last Infusion: 08/19/20 07:39 Dose: 0 mls/hr Documented by: [id number] Admin: 08/19/20 07:06 Dose: 999 mls/hr Documented by: [id number] Sodium Chloride (Nss) 500 mls @ 999 mls/hr IV .Q31M ONE Stop: 08/19/20 08:15 Last Infusion: 08/19/20 08:23 Dose: 0 mls/hr Documented by: [id number] Admin: 08/19/20 07:50 Dose: 999 mls/hr Documented by: [id number] Ceftriaxone Sodium (Rocephin) 1,000 mg in 50 mls @ 100 mls/hr IV NOW STA Stop: 08/19/20 10:23 Last Infusion: 08/19/20 10:43 Dose: 0 mls/hr Documented by: [id number] Admin: 08/19/20 10:04 Dose: 100 mls/hr Documented by: [id number] Ioversol (Ioversol 100ml) 95 ml IV ONCE ONE Stop: 08/19/20 08:09 Last Admin: 08/19/20 08:09 Dose: 95 ml Documented by: [id number] Metoprolol Tartrate (Metoprolol Tartrate 1 Mg/Ml Vial) 5 mg IV NOW STA Stop: 08/19/20 07:02 Last Admin: 08/19/20 07:06 Dose: 5 mg Documented by: [id number] Metoprolol Tartrate (Metoprolol Tartrate 1 Mg/Ml Vial) 2.5 mg IV NOW STA Stop: 08/19/20 07:46 Last Admin: 08/19/20 07:51 Dose: 2.5 mg Documented by: [id number] Code Status & VTE Plan Code Status Full Code VTE Prophylaxis Plan VTE Prophylaxis will be ordered: Yes Supervising Physician Co-Signing Physician Notes I personally saw and examined the patient. I verified all luther points and agree with ALEJANDRO Alvarez with the following exceptions and/or additions: 80-year-old female who presents to the ER with rapid heart rate and dizziness. S/p usual stents placed 4 days ago. O/E suprapubic pain. Patient reports since ureteral stents placed. Left-sided CVA tenderness. Heart sounds 1+2, no murmurs Atrial flutter with RVR -converted after metoprolol 7.5 mg IV, given suspected short duration of symptoms and 91 other occasion will defer anticoagulation to her bindery library technical assistant. Recommend repeating 30-day monitor to see if she has rec urrence. Complicated UTI/pyelonephritis - suspected. Left CVA tenderness. Consult urology. Ceftriaxone 1 g IV pending urine culture. PG Care Time/CCT Total # of Minutes Spent Total Time Spent with Patient: Total time spent is greater than 50% in coordination of care (as documented) at patient's floor/unit and/or counseling patient:40 Coding Level of Care Code 94634 Initial Inpt Care Lvl 3 Diagnoses Complicated UTI (urinary tract infection) N39.0 Paroxysmal atrial flutter I48.92 HTN (hypertension) I10 HLD (hyperlipidemia) E78.5 Time Spent (min) 65
[2020-08-19] MEDS ORDERED: MAGNESIUM HYDROXIDE SUSP 30 ML UDC PO PRN (12:05)
[2020-08-19] MEDS ORDERED: PHENAZOPYRIDINE HCL 200 MG TAB PO PRN (12:05)
[2020-08-19] MEDS ORDERED: ONDANSETRON INJ 2 MG/ML 2 ML VIAL IV PRN (12:05)
[2020-08-19] MEDS ORDERED: ALUMINUM/MAGNESIUM/SIMETH (MAALOX MAX) 30 ML UDC PO PRN (12:05)
[2020-08-19] MEDS ORDERED: oxyCODONE HCL IR 5 MG TAB (IMMEDIATE RELEASE) PO PRN (12:26)
--- NOTE | 2020-08-19 12:42 | Urology Consultation ---
Date of Consultation August 19, 2020 Assessment & Plan (1) Hematuria: (2) S/P ureteral stent placement: 80 year-old female patient, with multiple comorbidities, admitted with new onset paroxysmal atrial flutter and concern for complicated UTI. -Plan of care reviewed with Dr. Rouse. -She is s/p cystoscopy, bilateral ureteroscopy, with bilateral stent placement and dilation of left ureteral stricture with Dr. Rouse on 08/15/20. -Patient afebrile. -Labs reviewed - creatinine stable, mild increase in white count. -Urinalysis not overly concerning for acute infection. Hematuria and urine wbc typical with indwelling stents. -Imaging reviewed - findings consistent with recent urologic procedure and instrumentation. Bilateral stents in appropriate position. -Did receive 1g IV Rocephin in ED. Presuming she remains afebrile, would recommend holding additional antibiotic therapy while awaiting results of urine culture. -Continue supportive care and hydration. -Will continue to follow while inpatient. History of Present Illness Reason for Consultation: Complicated UTI, b/l stents Attending Physician: Lee Taylor MD History of Present Illness 80-year-old female patient, with a past medical history of paroxysmal atrial fibrillation remotely in the setting of being treated with chemotherapy 2 years ago, history of B-cell lymphoma, hypertension, hyperlipidemia, recent bilateral ureteral stent placement who presented to the emergency department with near syncope, dizziness, and nausea with an associated heart rate in the 160s. Did have associated vomiting prior to ER arrival. Symptoms worsened around 5:00 am this morning when she got up to use the bathroom. In the emergency room, bus driver/monitor confirmed A-flutter. She was provided IV Lopressor and converted back to NSR. She was admitted to hospital for observation for paroxysmal atrial flutter and concern for complicated UTI. Urology consulted for concern for complicated UTI with b/l ureteral stents. Patient known to [facility], follows with Dr. Rouse. She was being followed for gross hematuria. S/p recent cystoscopy and bilateral ureteroscopy, retrograde pyelogram, and stent placement with dilation of left ureteral stricture on August 15, [address] Rouse. During procedure, she was found to have moderate dilation on right with narrowing at UPJ and stricture of distal left ureter. Chart review: Afebrile Wbc 12.35 Hgb 13.2 Creatinine 1.17 Urinalysis +2 leukocytes, 5-10 wbc, >30 rbc, 10-20 epithelial cells, negative bacteria, negative nitrates. Urine culture ordered in ED. Patient did receive IV Rocephin 1g in ER. Imaging: CT abd/pelvis with IV contrast - IMPRESSION: 1. Bilateral ureteral stents are in appropriate position. No calculi are seen within either ureter along the course of the stents. 2. There is mild bilateral hydronephrosis. 3. The bladder wall appears thickened and hyperemic, and there is pericystic inflammation. Correlate clinically and with urinalysis for evidence of cystitis. 4. Urothelial thickening is seen within the renal pelvis bilaterally end involving both ureters with mild surrounding inflammation. This may be related to the presence of indwelling stents. Correlate for evidence of ascending urinary tract infection. 5. There are 2 pathologically indeterminant splenic hypodensities measuring up to 1.7 cm, similar to previous. 6. Colonic diverticulosis without CT evidence of acute diverticulitis. Patient examined at bedside. She is alert, awake, comfortable. Non-toxic in appearance. Reports she is feeling better overall since she arrived in the ER. No longer experiencing dizziness/lightheadedness. Currently denies nausea or vomiting. In regards to her urinary status, she denies dysuria but did note hematuria this morning. Does have some urinary frequency/urgency. Denies bladder pain or pressure. Feels she empties her bladder. Denies significant flank or abdominal pain, does however note "aching" in her b/l flank area. Denies fevers or chills. No history of fevers at home. Overall, her symptoms have improved. Denies additional urologic concerns today. Allergies Allergy/AdvReac Type Severity Reaction Status Date / Time doxycycline Allergy Intermediate HIVES Verified 08/19/20 07:34 Penicillins Allergy Intermediate HIVES Verified 08/19/20 07:34 Sulfa (Sulfonamide Allergy Intermediate HIVES Verified 08/19/20 07:34 Antibiotics) morphine AdvReac Severe caused A Verified 08/19/20 07:34 fib and tachycardia Home Medications Medication Instructions Recorded Confirmed Type calcium carbonate-vitamin D3 1 tab PO HS 01/05/19 08/19/20 History [Calcium 500 + D] cholecalciferol (vitamin D3) 2,000 unit PO HS 01/05/19 08/19/20 History [Vitamin D3] lisinopril 20 mg PO QAM 01/05/19 08/19/20 History metoprolol succinate 25 mg PO HS 01/05/19 08/19/20 History travoprost 1 drp OPB HS 01/05/19 08/19/20 History atorvastatin 10 mg tablet 10 mg PO HS #90 tab 03/24/20 08/19/20 Rx ciprofloxacin HCl [Cipro] 500 mg PO Q12H #6 tab 08/15/20 08/19/20 Rx phenazopyridine [Pyridium] 200 mg PO Q8H PRN #10 tab 08/15/20 08/19/20 Rx tamsulosin 0.4 mg PO HS #30 cap 08/15/20 08/19/20 Rx oxycodone 5 mg tablet 5 mg PO Q8H PRN #7 tab 08/16/20 08/19/20 Rx Patient History Medical History B-cell lymphoma Diffuse large B-cell lymphoma, s/p 3 cycles of R CHOP/XRT Coronary artery calcification follows with cardiology (Dr. Pineda) GERD (gastroesophageal reflux disease) Glaucoma Hiatal hernia HLD (hyperlipidemia) HTN (hypertension) Insomnia Kidney stone Osteoporosis Paroxysmal A-fib Single episode in 2018, asymptomatic in 200s, possible reaction to morphine, follows with cardiology (Dr. Pineda) Schatzki's ring Surgical History History of bilateral tubal ligation History of section x3 History of colonoscopy History of cystoscopy + stent History of esophagogastroduodenoscopy (EGD) History of lithotripsy History of tooth extraction History of vascular access device left upper chest (since removed) S/P cataract surgery B/L Family History Father Coronary heart disease Myocardial infarction Lung disease Prostate cancer Mother Coronary heart disease Myocardial infarction Brother Prostate cancer Denies family history of Ovarian cancer Diabetes Breast cancer Lung cancer Colorectal cancer Social History Smoking Status: Never smoker Second Hand Exposure: Yes (parents smoked); Hx Alcohol Use: No Hx Substance Use: No Preferred Language: Greenlandic Communication Ability: Effective Visual Impairment: No Limitations Hearing Ability: Normal Bilingual Speech Language Pathologist Required: No Beliefs That Will Affect Care: None marital status: Current Living Situation: Spouse Current Living Situation Comment: has pancreatic cancer. current occupational status: retired Other Information That Helps Us Care for You: No Feels Safe at Home: Yes Childhood Exposure to Second-Hand Smoke: Yes caffeine: No during the past year weight has: remained stable Dental Care, Regularly: Yes Physical Activity Frequency: 1-2 Times per Week Physical Activity Frequency Comment: walks Seatbelt Use: always Sunscreen Use: Yes Assistive Devices: Glasses Review of Systems Constitutional: as per Subjective / HPI; no fever and no chills Eyes: no problem reported Ear, Nose, Mouth, Throat: as per Subjective / HPI Respiratory: no cough and no dyspnea Cardiovascular: no chest pain and no edema Gastrointestinal: as per Subjective / HPI Genitourinary: as per Subjective / HPI Musculoskeletal: as per Subjective / HPI Neurologic: as per Subjective / HPI Psychiatric: Notes some stressors at home. Endocrine: as per Subjective / HPI Hematologic / Lymphatic: no easy bleeding and no easy bruising Physical Exam Constitutional: well developed, well nourished, cooperative and comfortable; no acute distress Non-toxic in appearance. ENMT: Ears: no external ear abnormality Nose: no external nose abnormality Neck: normal visual inspection and trachea midline Respiratory: normal respiratory effort and able to speak in complete sentences; no respiratory distress and no audible wheezes Cardiovascular: Extremities: no calf tenderness and no edema Gastrointestinal (Abdomen): Inspection/Auscultation: abdomen normal to inspection; abdomen not distended Percussion/Palpation: abdomen soft; abdomen nontender and no guarding Musculoskeletal: Moves all extremities without difficulty. Skin: No visible rashes, lesions, or wounds noted. Neurologic: moves all extremities and awake Psychiatric: Orientation: alert, oriented x 3 and cooperative Affect: euthymic affect Genitourinary: no CVA tenderness Results & Data ([facility]) Vital Signs (Past 12 Hours) Vital Signs Temp Pulse Pulse Resp BP BP Pulse Ox 08/19/20 12:16 36.8 C 71 18 134/93 97 08/19/20 12:09 79 08/19/20 11:00 70 20 126/70 98 08/19/20 10:30 68 20 124/82 98 08/19/20 10:00 75 23 109/66 96 08/19/20 09:30 73 23 121/72 96 08/19/20 09:27 68 18 106/73 97 08/19/20 09:15 74 19 114/77 95 08/19/20 08:51 71 19 143/83 H 99 08/19/20 08:31 72 20 124/70 97 08/19/20 08:24 72 19 138/89 97 08/19/20 08:00 146 H 19 123/89 97 08/19/20 07:51 159 H 24 123/75 97 08/19/20 07:30 155 H 17 114/94 98 08/19/20 07:26 139 H 17 117/88 98 08/19/20 07:10 152 H 20 134/96 97 08/19/20 07:06 156 H 128/88 08/19/20 07:00 157 H 24 128/88 98 08/19/20 06:59 157 H 20 131/90 99 08/19/20 06:33 36.5 C 160 H 20 127/88 97 PG Care Time/CCT Total # of Minutes Spent Total Time Spent with Patient: Total time spent is greater than 50% in coordina tion of care (as documented) at patient's floor/unit and/or counseling patient: Coding Level of Care Code 41147 Initial Inpt Care Lvl 2 Diagnoses Hematuria R31.9 S/P ureteral stent placement Z96.0
[2020-08-19] MEDS ORDERED: NSS + 20MEQ KCL 20 MEQ/1,000 ML BAG IV SCH (12:45)
[2020-08-19] MEDS: lisinopril 20 MG TAB PO SCH (13:28)
--- NOTE | 2020-08-19 13:36 | Electrocardiogram Report ---
Test Reason : Blood Pressure : / mmHG Vent. Rate : 160 BPM Atrial Rate : 320 BPM P-R Int : 000 ms QRS Dur : 062 ms QT Int : 288 ms P-R-T Axes : 000 002 -30 degrees QTc Int : 469 ms Atrial flutter with 2:1 A-V conduction Abnormal ECG When compared with ECG of 03-AUG-2020 14:29, Atrial flutter has replaced Sinus rhythm Vent. rate has increased BY [address] now depressed in Lateral leads T wave inversion now evident in Inferior leads Confirmed by Trace Brantley ([id number]) on 08/19/2020 1:36:06 PM Referred By: REFERRED SELF Confirmed By:Trace Brantley
[2020-08-19] MEDS: ACETAMINOPHEN 325 MG TAB PO PRN (20:01)
[2020-08-19] MEDS: HEPARIN SOD 5,000 UNIT/0.5 ML VIAL SQ SCH (20:04)
[2020-08-19] MEDS ORDERED: METOPROLOL SUCC 50MG EXT REL TAB PO SCH (21:00)
[2020-08-19] MEDS ORDERED: TAMSULOSIN HCL 0.4 MG CAP PO SCH (21:00)
[2020-08-19] MEDS ORDERED: CHOLECALCIFEROL 1,000 UNITS 25 MCG TAB PO SCH (21:00)
[2020-08-19] MEDS ORDERED: TRAVOPROST Z 0.004% OPH SOLN 2.5 ML BTL OPB SCH (21:00)
[2020-08-19] MEDS ORDERED: CALCIUM 600MG + VIT D 400 IU TAB PO SCH (21:00)
[2020-08-19] MEDS ORDERED: ATORVASTATIN 10 MG TAB PO SCH (21:00)
[2020-08-20] MEDS: ACETAMINOPHEN 325 MG TAB PO PRN ×2 (04:31→10:12)
[2020-08-20 06:17] LABS: Basophils # (auto) 0.03 K/uL (0-0.2); Basophils % (auto) 0.6 %; Eosinophils # (auto) 0.17 K/uL (0-0.5); Eosinophils % (auto) 3.1 %; Hematocrit (blood only) 32.8 % (37-47); Hemoglobin 10.6 g/dL (12.0-16.0); Immature Granulocytes # (auto) 0.02 K/uL (0.00-0.02); Immature Granulocytes % (auto) 0.4 %; Lymphocytes % (auto) 22.1 %; Mean Corpuscular Hemoglobin 30.5 pg (25-34); Mean Corpuscular Hgb Conc 32.3 g/dL (32-36); Mean Corpuscular Volume 94.3 fL (80-100); Mean Platelet Volume 10.1 fL (7.4-10.4); Monocytes # (auto) 0.55 K/uL (0.11-0.59); Monocytes % (auto) 10.1 %; Neutrophils # (auto) 3.45 K/uL (1.4-6.5); Neutrophils % (auto) 63.7 %; Platelet Count 208 K/uL (130-400); RDW Coefficient of Variation 13.2 % (11.5-14.5); Red Blood Count 3.48 M/uL (4.2-5.4); White Blood Count 5.42 K/uL (4.8-10.8)
[2020-08-20 06:45] LABS: BUN Creatinine Ratio 17.4 (10-20); Creatinine Clr Calc Pharmacy 37.5 ml/min; Est GFR (African American) 69.5; Potassium 4.3 mmol/L (3.5-5.1)
[2020-08-20] MEDS: HEPARIN SOD 5,000 UNIT/0.5 ML VIAL SQ SCH (08:05)
[2020-08-20] MEDS: lisinopril 20 MG TAB PO SCH (08:05)
[2020-08-20] MEDS ORDERED: cefTRIAXone SODIUM 1,000 MG in DEXTROSE 5% 50 ML IV SCH (10:00)
[2020-08-20 11:22] VITALS: O2SAT 97
--- NOTE | 2020-08-20 13:46 | Urology Progress Note ---
Date of Service August 20, 2020 Assessment & Plan (1) S/P ureteral stent placement: 80 year-old female patient admitted with new onset paroxysmal atrial flutter and concern for complicated UTI. Imaging was reviewed interpreted by myself patient has moderate inflammation which would be expected after ureteroscopy. Had undergone dilation due to narrowing of ureter which would likely also increase this issue. Patient has been voiding without considerable issues. She is remained afebrile and other than mild chills earlier in the week has not had considerable issues or concerns. Does have moderate discomfort with urgency and frequency which would again be expected after ureteroscopy and with stent placement. Patient has been tolerating with only the utilization of Tylenol and other [id number] medications for pain control. Patient had been started on IV antibiotics. White count was mildly elevated to 12 yesterday but has now reduced down to just over 5. Patient has been resting comfortably. Has been tolerating diet without major issues. At this point would recommend continued observation with plans for work-up for her cardiac issues. Continue with routine postoperative care management after ureteroscopy. Patient has a appointment already set for stent removal. Plan to keep this appointment. Call if any changes issues concerns or fever. Admission and Anticipated Discharge Date Admission Date: August 19, 2020 Subjective Postop from stent placement after bilateral ureteroscopy. Patient is postop day 5 status post bilateral ureteroscopy and stent placement. Has been tolerating stents with moderate discomfort as expected with stents. Patient has previously had stone disease and has not had significant increase in issues or concerns. Patient has been tolerating well. Has noticed some frequency and urgency. Has not had severe pain in the back and flank. Does have occasional burning and irritation. No severe episodes or major changes. No new nausea or vomiting. Had tolerated anesthesia without major problems Patient had developed significant weakness and was found to be in atrial flutter. Has a history of A. fib. Plan is to have assessment with cardiology while inpatient. Review of Systems Review of Systems: All systems reviewed & are unremarkable except as noted in HPI & below Physical Exam Physical Exam: General: Alert in no acute distress. HEENT: Normocephalic Atraumatic. Inspection normal. Cranial Nerves 2-12 Grossly intact. Normal inspection of face. Normal inspection of neck. Psychologic: Normal affect. Respiratory: Nonlabored. No use of accessory muscles. No tachypnea or dyspnea. Cardiovascular: No tachycardia Skin: Ar[place] and Dry. No rashes or visible lesions. Extremities/Lymphatics: No edema Abdomen: Soft Non-distended. No rebound or guarding. Results & Data ([facility]) Vital Signs (Past 12 Hours) Vital Signs Temp Pulse Pulse Resp BP Pulse Ox 08/20/20 11:21 36.4 C L 67 18 132/75 97 08/20/20 08:12 63 08/20/20 07:34 36.8 C 58 L 18 123/61 96 08/20/20 05:11 36.9 C 59 L 18 114/63 96 PG Care Time/CCT Total # of Minutes Spent Total Time Spent with Patient: Total time spent is greater than 50% in coordination of care (as documented) at patient's floor/unit and/or counseling patient: Coding Level of Care Code 06206 Subseq Hosp Care Lvl 3 Diagnoses S/P ureteral stent placement Z96.0
[2020-08-20 15:24] VITALS: PULSE 68
--- NOTE | 2020-08-20 16:03 | Discharge Summary ---
Date of Service August 20, 2020 Admission HPI Per Admitting Provider Mrs. Alejandra is a 80 year female with a history Paroxysmal Atrial Tachycardia, Hypertension, Hypercholesterolemia, Coronary Artery Calcifications, GERD, Shatzki's Ring, Glaucoma, Osteoporosis, Hyperplastic Colonic Polyp, B-Cell Lymphoma s/p R-CHOP 2017, single episode of A-Fib (at a time with severe pain secondary to Neulasta and after receiving IV Morphine in 2018), and Hematuria s/p Cystoscopy/Ureteroscopy with B/L Ureteral Stents and Dilation of Left Ureteral Stricture 08/15/2020-- who present to [facility] ER today complaining of a near syncopal episode, elevated HR, and nausea. Patient states that at approximately 5:00 am she got out of bed to use the bathroom and felt transiently lightheaded and nauseated. She did not have any significant palpitations but her HR was up to 165 bpm at home. This is in the setting of experiencing some generalized abdominal pain and nausea over the past several days since her ureteral stents placed on 08/15/20. Patient also complains of dysuria, urinary frequency, and pain in her low back. She denies any fevers, chills, headache, stiff neck, congestion, shortness of breath, known COVID-19 exposures. Continue did not experience any chest pain, heaviness, tightness, pressure, vomiting, or diaphoresis with her elevated heart rate. Principal Diagnosis Pt states she has occasional, mild abd pain, but not like EX ASSISTANT/PROGRAM DIRECTOR. She has had no further n/v or lightheadedness. She is eating without issue. 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 Pt denies fever, SOB, chest pain, c/d, LE pain or swelling. Discharge Exam Constitutional WD/WN, vitals as above Eyes normal visual aviles by confrontation and + anicteric sclerae Neck normal visual inspection and trachea midline Respiratory normal respiratory effort, lungs clear to auscultation Cardiovascular Rate/Rhythm: regular rate and regular rhythm Gastrointestinal (Abdomen) Inspection/Auscultation: abdomen not distended Percussion/Palpation: abdomen soft; abdomen nontender Musculoskeletal Head/Neck/Chest: normocephalic and head atraumatic Skin no rashes, warm and dry Neurologic awake; not confused Speech / Cognition: normal speech Psychiatric A+Ox3, euthymic affect Discharge Data Allergies Allergy/AdvReac Type Severity Reaction Status Date / Time doxycycline Allergy Intermediate HIVES Verified 08/19/20 07:34 Penicillins Allergy Intermediate HIVES Verified 08/19/20 07:34 Sulfa (Sulfonamide Allergy Intermediate HIVES Verified 08/19/20 07:34 Antibiotics) morphine AdvReac Severe caused A Verified 08/19/20 07:34 fib and tachycardia Consultations 08/19/20 09:54 ED Decision to Admit Stat 08/19/20 12:05 Consult Urology Routine Ordered Studies 08/19/20 07:46 CT abd pelvis IV con only Stat Hospital Course (1) Complicated UTI (urinary tract infection): Mrs. Alejandra is a 80 year female with a history Paroxysmal Atrial Tachycardia, Hypertension, Hypercholesterolemia, Coronary Artery Calcifications, GERD, Shatzki's Ring, Glaucoma, Osteoporosis, Hyperplastic Colonic Polyp, B-Cell Lymphoma s/p R-CHOP 2017, single episode of A-Fib (at a time with severe pain secondary to Neulasta and after receiving IV Morphine in 2018), and Hematuria s/p Cystoscopy/Ureteroscopy with B/L Ureteral Stents and Dilation of Left Ureteral Stricture 08/15/2020-- who present to [facility] ER today with Newly Diagnosed Paroxysmal Atrial Flutter with 2:1 AV Conduction and a Complicated UTI. Patient states that at approximately 5:00 am she got out of bed to use the bathroom and felt transiently lightheaded and nauseated. She did not have any significant palpitations but her HR was up to 165 bpm at home. This is in the setting of experiencing some generalized abdominal pain and nausea over the past several days since her ureteral stents were placed on 08/15/20. Patient also complains of dysuria, urinary frequency, and pain in her low back. She denies any fevers, chills, headache, or rigors. Patient did not experience any any angina pectoris or anginal equivalent symptoms with her rapid atrial flutter. She did not have any associated dyspnea with rapid atrial flutter. On arrival to the ER, nail technician teacher and EKG confirmed A-Flutter with 2:1 AV Conduction. Patient initially appeared dehydrated so she was given a bolus of NSS. Patient then received IV Lopressor 5 mg, followed by 2.5 mg and spontaneously converted back to a NSR at 0819. Patient remains in a normal sinus rhythm at this time. Her initial troponin I is 0.020 ng/ml. Serum K and Mg levels are within normal limits. Urine analysis shows 3+ blood, 2+ leukocyte esterase, 2+ protein. CT scan of abdomen and pelvis showed bilateral ureteral stents, mild bilateral hydronephrosis, thickened and hyperemic bladder wall with pericystic inflammation. Maintained on IV Ceftriaxone 1000 mg every 24 hours. -- Urine C&Snoted for <[address] Rouse. He feels she can go home on 3 days abx, however he does not feel overwhelmingly concerns that pt has a true UTI vs sx related to stents Recs for cefdinir x3 days PCN allergy noted, however pt has been without issue with several doses of ceftriaxone during admission pt has f/u on 08/25 for stent d/c (2) Paroxysmal atrial flutter: Patient did not have any significant palpitations with Atrial Flutter despite her HR being up to 165 bpm. Patient did not experience any any angina pectoris or anginal equivalent symptoms with her rapid atrial flutter. She did not have any associated dyspnea with rapid atrial flutter. avionics integration engineer and EKG confirmed A-Flutter with 2:1 AV Conduction. Patient was given a bolus of NSS. Patient then received IV Lopressor 5 mg, followed by 2.5 mg and spontaneously converted back to a NSR at 0819. Patient remains in a normal sinus rhythm at this time. Her initial troponin I is 0.020 ng/ml. Serum K and Mg levels are within normal limits. -- [id number] is 4 based on gender, hypertension, and age. -- Her single episode of A-Fib and this episode of A-Flutter occurred during extenuating circumstances. -- We will defer anticoagulation to her sulfur burner. -- Continue cardiac monitoring. -- Increase Metoprolol Succinate from 25 mg QHS to 50 mg QHS. -- Follow up with Dr. Pineda after discharge, consider 30 Cardiac Event Monitor. (3) HTN (hypertension): -- BP appears to be well controlled. -- Continue Lisinopril 20 mg every morning. Maintain home metoprolol dosing t/c increase if ongoing issues, however pt has been NSR since she converted in the ED s/p single lopressor dosing (4) HLD (hyperlipidemia): -- Continue Atorvastatin 10 mg each evening. Total Time Total Time Spent Total Time Spent (In Minutes): >30 Total Time Includes: Examination of the Patient, Discharge Planning, Medication Reconciliation, Communication With Other Providers and Other Discharge Plan Discharge Items Patient Disposition: Home - Self-Care Reason For Visit: UTI,URETERAL STENTS,A-FLUTTER W/RVR Discharge Diagnosis: Ureteral stent discomfort, possible UTI Activity: Resume your previous activity Non-emergency contact: Primary Care Provider, Prisoner Classification Interviewer and Urologist Call non-emergency contact if: you have any medication questions, your symptoms worsen, your pain is not controlled and your pain is worsening Follow-up/Referrals: Malka Au DO [Primary Care Provider] - Yannick Rouse DO [Physician] - ( for stent removal as scheduled prior) Vito Pineda DO [Physician] - (event monitor) Diet: Regular Addtl Attending Provider Instructions: You should have an event monitor placed to determine if this atrial fibrillation is more or less of a transient issue. You can follow up with Dr. Pineda for this as you did several years ago. Pending Studies at Discharge: Yes Studies:: Final urine culture Stand-Alone Forms: [facility] [employer], Smoking Cessation Medications and DC Order Prescriptions: New cefdinir 300 mg capsule 300 mg PO BID 3 Days Qty: 6 RF: 0 Continued atorvastatin 10 mg tablet 10 mg PO HS Qty: 90 RF: 3 oxycodone 5 mg tablet 5 mg PO Q8H PRN (Reason: pain) Qty: 7 RF: 0 lisinopril 20 mg Tablet 20 mg PO QAM RF: 0 travoprost 0.004 % Drops 1 drp OPB HS RF: 0 metoprolol succinate 25 mg Tablet Extended Release 24 Hr 25 mg PO HS RF: 0 calcium carbonate-vitamin D3 [Calcium 500 + D] 500 mg(1,250mg) -200 unit Tablet 1 tab PO HS RF: 0 cholecalciferol (vitamin D3) [Vitamin D3] 2,000 unit Capsule 2,000 unit PO HS RF: 0 phenazopyridine [Pyridium] 200 mg tablet 200 mg PO Q8H PRN (Reason: pain) Qty: 10 RF: 0 ciprofloxacin HCl [Cipro] 500 mg tablet 500 mg PO Q12H Qty: 6 RF: 0 tamsulosin 0.4 mg capsule 0.4 mg PO HS Qty: 30 RF: 0 Discharge Orders: Discharge Order (Routine); Ordered 08/20/20 Ordered By: Mel Amin Admission Data Admit Date/Time: 08/19/20 10:18 Attending Provider: Mel Amin Admit Provider: Lee Taylor Primary Care Provider: Malka Au Other Providers: Boni Alvarez ; Rohit Duncan ; Chano Aguilar ; Nilton Mccoy Christophe T. ; Jaquelin Mireles ; Katelyn Jerez ; Yannick Rouse ; Elisabeth Pineda ; Chula Lawrence ; Vernell Duncan ; Dakota Luu ; Renetta Gaviria ; Cinthya Lozano Other Interventions: Discharge Summary Assessment (RN) Last Done: 08/20/20 16:38 Coding Level of Care Code D/C Day Management >30 mins Diagnoses Complicated UTI (urinary tract infection) N39.0 Paroxysmal atrial flutter I48.92 HTN (hypertension) I10 HLD (hyperlipidemia) E78.5
[2020-08-20 16:04] VITALS: BP 136/78; TEMP 98.2
--- NOTE | 2020-08-21 10:51 | Electrocardiogram Report ---
Test Reason : Blood Pressure : / mmHG Vent. Rate : 073 BPM Atrial Rate : 073 BPM P-R Int : 124 ms QRS Dur : 066 ms QT Int : 406 ms P-R-T Axes : 026 -11 004 degrees QTc Int : 447 ms Normal sinus rhythm Normal ECG When compared with ECG of 19-AUG-2020 06:41, Sinus rhythm has replaced Atrial flutter Vent. rate has decreased BY [address] no longer depressed in Lateral leads Confirmed by Chano Mueller ([id number]) on 08/21/2020 10:51:14 AM Referred By: REFERRED SELF Confirmed By:Chano Mueller
== END 2020-08-20 17:17 | disposition home or self-care (01) ==
LOC: ED 06:28 → 2N 06:28 → SUATTDRO 10:18 → 2N 11:12

== ENCOUNTER 2025-04-21 11:23 | Inpatient (IN) ==
[2025-04-21] MEDS: OPTIRAY 320 125ml IV ONE (11:56)
--- NOTE | 2025-04-21 12:19 | CT Scan Report ---
CT angio head w con, CT angio neck with con CLINICAL HISTORY: 85 years-old Female with neuro deficit, acute stroke suspected. Acute stroke lik e symptoms COMPARISON STUDY: Head CT of same day, CTA head and neck 10/07/2024 TECHNIQUE: Following the IV administration of 112 cc of Optiray, CT angiogram of the head and neck wa s performed from the aortic arch the skull apex. Images are reviewed in the axial, sagittal, and heriberto nal planes. 3-D MIPS images are created and assessed. IV contrast was administered without complicati on. All measurements were obtained according to NASCET criteria. A dose lowering technique was utiliz ed adhering to the principles of ALARA. CT DOSE: 953.5 mGy.cm FINDINGS: CT BRAIN: Dictated separately. 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 Involutional changes with chronic microvascular ischemic disease. Ill-defined hypodensity of the left mid brain and maryjane sugges tive of pulmonary degeneration. Chronic left cerebellar lacunar infarct. CT ANGIOGRAM OF THE HEAD AND NECK: Borderline dilation of the pulmonary artery, 2.8 cm. Atherosclerosis of the thoracic aorta. There is patency of the innominate and imaged clavian arteries. The common and internal carotid arteries are p atent. The middle cerebral and anterior cerebral arteries are patent. There is moderate stenosis invo lving an M2 branch of the left middle through artery on image 90 series 6 The vertebral arteries are codominant. Mild multifocal stenoses of the V2 segments secondary to cervical spondylosis. No abnorma l intracranial enhancement. Dural sinuses appear patent. Unremarkable soft tissues. Lung apices appear clear. Degenerative changes of the spine. IMPRESSION: 1. Unremarkable CTA of the head and neck. 2. Chronic left MCA infarct. Please refer to the separately dictated head CT of same day. ACT 112: Negative or not required by law. The above report was generated using voice recognition software. It may contain grammatical, syntax o r spelling errors. Electronically signed by: Claus Moore M.D. 04/21/2025 12:18 PM
[2025-04-21 12:20] LABS: Hematocrit (blood only) 39.8 % (37.0-47.0); Hemoglobin 13.6 g/dl (12.0-16.0); Immature Granulocytes # (auto) 0.07 K/uL (0.01-0.20); Immature Granulocytes % (auto) 0.5 %; Mean Corpuscular Hemoglobin 29.2 pg (25.0-34.0); Mean Corpuscular Volume 85.6 fL (80.0-100.0); Platelet Count 308 K/uL (130-400); RDW Standard Deviation 42.1 fL (36.4-46.3); Red Blood Count 4.65 M/uL (4.20-5.40); White Blood Count 14.34 K/ul (4.8-10.8)
--- NOTE | 2025-04-21 12:24 | CT Scan Report ---
CT head/brain wo con CLINICAL HISTORY: neuro deficit, acute stroke suspected. TECHNIQUE: Multiple axial CT images of the head were obtained without contrast. A dose lowering tech nique was utilized adhering to the principles of ALARA. COMPARISON: 10/07/2024 FINDINGS: There is a large area of encephalomalacia in the left MCA distribution consistent with old infarction. There are stable mild globus pallidus calcifications. No intracranial hemorrhage seen. No mass effect, midline shift, or hydrocephalus. Stable moderate chronic small vessel ischemic change. Visualized paranasal sinuses and mastoid air cells are clear. No skull fracture seen. IMPRESSION: No acute findings. Otherwise as described. ACT 112: Negative or not required by law. The above report was generated using voice recognition software. It may contain grammatical, syntax o r spelling errors. Electronically signed by: Nilton Hurtado M.D. 04/21/2025 12:22 PM
[2025-04-21] MEDS: SODIUM CHLORIDE 0.9% 500 ML IV ONE (12:29)
[2025-04-21 12:35] LABS: Alanine Aminotransferase 15.0 U/L (7-52); Albumin Globulin Ratio 1.3 (0.9-2); Albumin Level 4.0 gm/dl (3.4-5.0); Alkaline Phosphatase 109.0 U/L (34-104); Anion Gap 6.0 (3-11); Bilirubin,Total 0.6 mg/dl (0.2-1.0); Blood Urea Nitrogen 13.0 mg/dl (6-23); Calcium 9.9 mg/dl (8.6-10.3); Carbon Dioxide 27.0 mmol/L (21-32); Chloride 102.0 mmol/L (98-107); Creatinine Clr Calc Pharmacy 35.7 ml/min; Globulin 3.1 gm/dl (2.5-4.0); Glucose 142.0 mg/dl (70-99(Fasting)); Magnesium 1.8 mg/dl (1.7-2.4); Potassium 4.0 mmol/L (3.5-5.1); Sodium 135.0 mmol/L (136-145); Total Protein 7.1 gm/dl (6.0-8.3)
[2025-04-21 12:46] LABS: INR 1.1 (0.9-1.1); Partial Thromboplastin Time 27 Seconds (21-31); Prothrombin Time 11.9 Seconds (9.0-12.0)
--- NOTE | 2025-04-21 12:48 | Emergency Department Note ---
Impression & Plan Stroke-like symptoms, Leukocytosis, History of CVA (cerebrovascular accident), Hypertension ED Provider Note NAME: HARI HOPKINS AGE: 85 SEX: F : 1940 ARRIVES VIA: Walk-In INFORMANT: [Family] ED PROVIDER(S): [Edilberto Parker MD] Patient initially seen by me at 1140 CHIEF COMPLAINT: Stroke symptoms HISTORY OF PRESENT ILLNESS: The patient is an 85-year-old female who suffered a large stroke around 6 months ago. 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 In the last 45 minutes, the patient vomited and, has been looking to the right as she did with her initial stroke. Her gaze issue had resolved even though the right sided paralysis and nonverbal status had been persisting. The patient was on the way to rehab today when her symptoms began. As per the family, the patient is not on antiseizure meds, she has never had a seizure. She is on Eliquis and did receive the Eliquis this morning. PMHx/PSHx/Social Hx: See Below PHYSICAL EXAM: GENERAL: Patient is in no acute distress. HEENT: No acute trauma, normocephalic atraumatic, mucous membranes moist, no nasal congestion. NECK: No stridor, no adenopathy, no meningismus, trachea is midline. LUNGS: Clear to auscultation bilaterally, no wheeze, no rhonchi, breath sounds equal. HEART: Without murmurs gallops or rubs, regular rate and rhythm. ABDOMEN: Soft, nontender, no peritonitis. EXTREMITIES: No cyanosis, full range of motion of all the joints without pain or difficulty. NEUROLOGIC: The patient is basically flaccid in the right arm and right leg. She is nonverbal. Most of the time during my evaluation, she would look only to the right with her eyes deviated to the right. A few times, this deficit seemed to resolve and she could look left and seemed to acknowledge her family on the left. SKIN: No jaundice, no diaphoresis. DIFFERENTIAL DIAGNOSIS: Seizure, stroke, intracranial bleeding, UTI, electrolyte balance, dehydration, among others. EMERGENCY DEPARTMENT PROCEDURES: MEDICAL DECISION MAKING: There is a mild leukocytosis, this certainly could be consistent with infection or just the stress of her current presentation. There is a normal hemoglobin and platelet count. There is no coagulopathy. No renal failure or significant electrolyte abnormality. No concerning liver enzyme elevation. ECG shows a sinus rhythm, no ST elevation. Cardiac enzyme testing x 1 is not consistent with acute cardiac injury. Urinalysis shows potential infection. COVID, influenza and RSV test were negative. Chest film does not show any focal infiltrate. Brain CT shows some older change, no acute intracranial bleeding. CTA of the head and neck were performed, there was no large clot seen. On exam, the patient was basically flaccid on the right and nonverbal--this was baseline as per the family. She would at times have her eyes deviate to the right and her head deviate to the right. This gaze issue was intermittent while in the ED. Given the circumstances, a stroke alert was called. I did speak with the [facility] stroke neurologist. The patient is not a TNK candidate for multiple reasons, primarily though, because she is on Eliquis. For now, a stroke workup/inpatient workup was recommended. Based on the presentation though, based on her recent history, seizure was thought a possible cause for her presentation. She was given IV saline, she received IV Keppra as anticonvulsive therapy. Because of her higher blood pressure, she was given 10 mg of IV labetalol. I did speak with the patient and family. I spoke with case management, the on- call hospitalist was consulted. Prior/Outside records/notes reviewed: None ECG per my interpretation: Indication was possible stroke. The ECG shows a normal sinus rhythm with a rate of 70. There is baseline artifact present. There is an old inferior infarct. There is no acute ST elevation, no PVCs. QTc is 425. Continuous Cardiac Monitoring per my interpretation: An order was placed for continuous cardiac monitoring. The monitor shows a rate of 73 with normal sinus rhythm. Imaging/x-ray results per my interpretation: Chest x-ray shows cardiomegaly, no pneumonia or CHF. Chronic Medical/Social conditions affecting care: Advanced age, recent CVA. Care/Management discussed with: Case management, the on-call hospitalist. Nathalie telestroke on-call-Dr. Salgado Level of care consideration(s): After review of the information above and other included data: --I believe the patient requires escalation of care to admission Critical Care Note: I have personally spent 48 minutes of critical care time in the direct management of this patient. This includes bedside care, interpretation of diagnostic studies, and testing, discussion with consultants, patient, and family members, and other required patient management activities. This 48 minutes is in excess of all separately billable procedures. 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 Paroxysmal atrial flutter Insomnia Coronary artery calcification follows with cardiology (Dr. Pineda) GERD (gastroesophageal reflux disease) Osteoporosis Schatzki's ring Vitamin D deficiency Hiatal hernia HLD (hyperlipidemia) HTN (hypertension) Glaucoma B-cell lymphoma Diffuse large B-cell lymphoma, s/p 3 cycles of R CHOP/XRT > in remission COVID-19 (~11/10/21) Paroxysmal atrial fibrillation with RVR Aug 2020> was related to pain after cysto surgery, wore monitor for a month, no further issues > follows with Dr. Pineda> no pacer Kidney stone Surgical History History of cystoscopy S/P ureteral stent placement (08/15/20) b/l, w/ removal on 08/25/2020 History of bilateral tubal ligation History of esophagogastroduodenoscopy (EGD) History of tooth extraction S/P cataract surgery B/L History of vascular access device left upper chest (since removed) History of section x3 History of lithotripsy Family History (Updated 04/21/25 @ 15:11 by Lee Philip MD) Father Coronary heart disease Myocardial infarction Lung disease Prostate cancer Stroke Mother Coronary heart disease Myocardial infarction Stroke Brother Prostate cancer Denies family history of Ovarian cancer Diabetes Breast cancer Lung cancer Colorectal cancer Social History Smoking Status: Never smoker Second Hand Exposure: No; Do You Dip or Chew Tobacco: No; Hx Alcohol Use: No Hx Substance Use: No Preferred Language: Slovak Communication Ability: Effective Visual Impairment: No Limitations Hearing Ability: Normal Information Manager Required: No Beliefs That Will Affect Care: Uatsdin marital status: / Current Living Situation: Family Current Living Situation Comment: lives with daughter current occupational status: retired How many Children do You have: 3 Feels Safe at Home: Yes Childhood Exposure to Second-Hand Smoke: Yes Diet: regular Diet Comment: regular caffeine: No during the past year weight has: remained stable Dental Care, Regularly: Yes Physical Activity Frequency: Daily Physical Activity Frequency Comment: walks/housework/outside work Seatbelt Use: always Sunscreen Use: Yes Assistive Devices: Glasses Allergies Allergies Allergy/AdvReac Type Severity Reaction Status Date / Time Cephalosporins Allergy Intermediate Hives Verified 04/21/25 15:21 doxycycline Allergy Intermediate HIVES Verified 04/21/25 15:21 Penicillins Allergy Intermediate HIVES Verified 04/21/25 15:21 Sulfa (Sulfonamide Allergy Intermediate HIVES Verified 04/21/25 15:21 Antibiotics) morphine AdvReac Severe caused A Verified 04/21/25 15:21 fib and tachycardia Home Meds Home Medications Medication Instructions Recorded Confirmed calcium 500 mg (as 1 tab PO HS 01/05/19 04/21/25 carbonate)-vitamin D3 5 mcg (200 unit) tablet (Calcium 500 + D) cholecalciferol (vitamin D3) 50 2,000 unit PO HS 01/05/19 04/21/25 mcg (2,000 unit) capsule (Vitamin D3) metoprolol succinate 25 mg 25 mg PO HS 01/05/19 04/21/25 tablet,extended release 24 hr travoprost 0.004 % eye drops 1 drp OPB HS 01/05/19 04/21/25 acetaminophen 325 mg tablet 650 mg PO DIRECTED PRN 04/21/25 04/21/25 (Tylenol) PAIN/FEVER apixaban 2.5 mg tablet (Eliquis) 2.5 mg PO BID 04/21/25 04/21/25 donepezil 5 mg tablet 5 mg PO HS 04/21/25 04/21/25 fluoxetine 40 mg capsule 40 mg PO DAILY 04/21/25 04/21/25 folic acid 1 mg tablet 2 mg PO DAILY 04/21/25 04/21/25 meclizine 12.5 mg tablet 12.5 - 25 mg PO Q8H PRN PRIOR TO 04/21/25 04/21/25 TRAVELING onabotulinumtoxinA 200 unit 400 unit subcut DIRECTED PRN 04/21/25 04/21/25 solution for injection (Botox) .[id number] ondansetron 4 mg disintegrating 4 mg PO TID PRN n/v 04/21/25 04/21/25 tablet sennosides 8.6 mg tablet (senna) 8.6 mg PO DAILY 04/21/25 04/21/25 Previous Rx's Medication Instructions Recorded atorvastatin 10 mg tablet 10 mg PO HS #90 tabs 03/04/24 Results & Data (ED) Vital Signs Vital Signs - 24 hr 04/21/25 11:26 04/21/25 12:05 04/21/25 12:15 Temperature 36.7 C Temperature Source Temporal Artery Scan Pulse Rate 55 L Pulse Rate [Apical] 71 Pulse Rate from SpO2 Sensor Respiratory Rate 14 18 Respiratory Effort / Characteristics Non-Labored Spontaneous Non-Labored Spontaneous Respiratory Depth Normal Normal Respiratory Pattern Regular Blood Pressure 143/70 H 199/95 H Blood Pressure [Left Arm] 213/103 H Blood Pressure Mean 94 158 Blood Pressure Mean [Left Arm] 139 Pulse Oximetry 95 94 Oxygen Delivery Method Room Air Room Air Oxygen Flow Rate Sepsis Recent Fever Within 48 Hours No Sepsis New/Unexplained Change in Mental Status No Sepsis Action Taken by Nursing No Action Required Oxygen Flow Rate - Titration Pulse Oximetry Post Tiitration 04/21/25 12:20 04/21/25 12:24 04/21/25 12:30 Temperature Temperature Source Pulse Rate 71 72 Pulse Rate [Apical] 75 Pulse Rate from SpO2 Sensor Respiratory Rate 18 25 H 20 Respiratory Effort / Characteristics Non-Labored Spontaneous Respiratory Depth Normal Respiratory Pattern Regular Blood Pressure 200/112 H 187/100 H Blood Pressure [Left Arm] 200/112 H Blood Pressure Mean 141 150 Blood Pressure Mean [Left Arm] 141 Pulse Oximetry 94 94 91 Oxygen Delivery Method Room Air Oxygen Flow Rate Sepsis Recent Fever Within 48 Hours Sepsis New/Unexplained Change in Mental Status Sepsis Action Taken by Nursing Oxygen Flow Rate - Titration Pulse Oximetry Post Tiitration 04/21/25 12:34 04/21/25 12:40 04/21/25 12:42 Temperature Temperature Source Pulse Rate 73 Pulse Rate [Apical] Pulse Rate from SpO2 Sensor Respiratory Rate Respiratory Effort / Characteristics Respiratory Depth Respiratory Pattern Blood Pressure 191/93 H Blood Pressure [Left Arm] Blood Pressure Mean 157 Blood Pressure Mean [Left Arm] Pulse Oximetry 87 L Oxygen Delivery Method Nasal Cannula Oxygen Flow Rate 0 Sepsis Recent Fever Within 48 Hours Sepsis New/Unexplained Change in Mental Status Sepsis Action Taken by Nursing Oxygen Flow Rate - Titration 2 Pulse Oximetry Post Tiitration 96 04/21/25 12:54 04/21/25 12:55 04/21/25 13:05 Temperature Temperature Source Pulse Rate 78 71 Pulse Rate [Apical] 76 Pulse Rate from SpO2 Sensor Respiratory Rate 21 17 Respiratory Effort / Characteristics Non-Labored Spontaneous Respiratory Depth Normal Respiratory Pattern Regular Blood Pressure 204/102 H 170/90 H Blood Pressure [Left Arm] 204/102 H Blood Pressure Mean 135 Blood Pressure Mean [Left Arm] 136 Pulse Oximetry 97 99 Oxygen Delivery Method Nasal Cannula Oxygen Flow Rate 2 Sepsis Recent Fever Within 48 Hours Sepsis New/Unexplained Change in Mental Status Sepsis Action Taken by Nursing Oxygen Flow Rate - Titration Pulse Oximetry Post Tiitration 04/21/25 13:10 04/21/25 13:21 04/21/25 13:30 Temperature Temperature Source Pulse Rate 71 68 Pulse Rate [Apical] Pulse Rate from SpO2 Sensor 67 Respiratory Rate 21 Respiratory Effort / Characteristics Respiratory Depth Respiratory Pattern Blood Pressure 181/87 H 180/88 H 190/97 H Blood Pressure [Left Arm] Blood Pressure Mean 111 148 Blood Pressure Mean [Left Arm] Pulse Oximetry 97 94 Oxygen Delivery Method Oxygen Flow Rate Sepsis Recent Fever Within 48 Hours Sepsis New/Unexplained Change in Mental Status Sepsis Action Taken by Nursing Oxygen Flow Rate - Titration Pulse Oximetry Post Tiitration 04/21/25 13:51 04/21/25 14:00 04/21/25 14:30 Temperature Temperature Source Pulse Rate 69 69 62 Pulse Rate [Apical] Pulse Rate from SpO2 Sensor 69 Respiratory Rate 35 H 30 H 22 Respiratory Effort / Characteristics Respiratory Depth Respiratory Pattern Blood Pressure 193/106 H 169/98 H 170/88 H Blood Pressure [Left Arm] Blood Pressure Mean 135 140 146 Blood Pressure Mean [Left Arm] Pulse Oximetry 99 100 Oxygen Delivery Method Oxygen Flow Rate Sepsis Recent Fever Within 48 Hours Sepsis New/Unexplained Change in Mental Status Sepsis Action Taken by Nursing Oxygen Flow Rate - Titration Pulse Oximetry Post Tiitration 04/21/25 14:51 04/21/25 15:00 04/21/25 15:15 Temperature Temperature Source Pulse Rate 62 65 65 Pulse Rate [Apical] Pulse Rate from SpO2 Sensor Respiratory Rate 19 27 H 22 Respiratory Effort / Characteristics Respiratory Depth Respiratory Pattern Blood Pressure 193/93 H 186/95 H 202/100 H Blood Pressure [Left Arm] Blood Pressure Mean 126 138 142 Blood Pressure Mean [Left Arm] Pulse Oximetry 99 99 99 Oxygen Delivery Method Oxygen Flow Rate Sepsis Recent Fever Within 48 Hours Sepsis New/Unexplained Change in Mental Status Sepsis Action Taken by Nursing Oxygen Flow Rate - Titration Pulse Oximetry Post Tiitration Home Medications Current Medication List: was personally reviewed by me Laboratory Data Attestation: I reviewed the patient's lab results. 04/21/25 11:53 04/21/25 11:53 Lab Results 04/21/25 04/21/25 04/21/25 Range/Units 11:53 12:21 13:39 WBC 14.34 H (4.8-10.8) K/ul RBC 4.65 (4.20-5.40) M/uL Hgb 13.6 (12.0-16.0) g/dl Hct 39.8 (37.0-47.0) % MCV 85.6 (80.0-100.0) fL MCH 29.2 (25.0-34.0) pg MCHC 34.2 (32.0-36.0) g/dL RDW Std Deviation 42.1 (36.4-46.3) fL RDW Coeff of Lazaro 13.5 (11.5-14.5) % Plt Count 308 (130-400) K/uL MPV 10.6 (9.4-12.4) fL Immature Gran % (Auto) 0.5 % Neut % (Auto) 75.6 % Lymph % (Auto) 17.5 % [place] % (Auto) 5.4 % Eos % (Auto) 0.7 % Baso % (Auto) 0.3 % Neut # (Auto) 10.84 H (1.40-6.50) K/uL Lymph # (Auto) 2.51 (1.20-3.40) K/uL [place] # (Auto) 0.77 H (0.11-0.59) K/uL Eos # (Auto) 0.10 (0.00-0.50) K/uL Baso # (Auto) 0.05 (0.00-0.20) K/uL Immature Gran # (Auto) 0.07 (0.01-0.20) K/uL PT 11.9 (9.0-12.0) Seconds INR 1.1 (0.9-1.1) APTT 27 (21-31) Seconds PTT Ratio 1.0 Sodium 135 L (136-145) mmol/L Potassium 4.0 (3.5-5.1) mmol/L Chloride 102 (98-107) mmol/L Carbon Dioxide 27 (21-32) mmol/L Anion Gap 6 (3-11) BUN 13 (6-23) mg/dl Creatinine 0.80 (0.6-1.2) mg/dl Est Cr Clr Drug Dosing 35.7 ml/min eGFR 72.61 BUN/Creatinine Ratio 16.3 (10-20) Glucose 142 H (70-99(Fasting)) mg/dl POC Glucose 152 H (70-99) mg/dl Calcium 9.9 (8.6-10.3) mg/dl Magnesium 1.8 (1.7-2.4) mg/dl Total Bilirubin 0.6 (0.2-1.0) mg/dl AST 18 (13-39) U/L ALT 15 (7-52) U/L Alkaline Phosphatase 109 H (34-104) U/L Troponin I High Sens 6.0 (0-14) pg/ml Total Protein 7.1 (6.0-8.3) gm/dl Albumin 4.0 (3.4-5.0) gm/dl Globulin 3.1 (2.5-4.0) gm/dl Albumin/Globulin Ratio 1.3 (0.9-2) Urine Color Yellow Urine Appearance Cloudy A (Clear) Urine pH 7.5 (4.5-7.5) Ur Specific Platinum 1.033 H (1.000-1.030) Urine Protein Trace H (Negative) Urine Glucose (UA) Negative (Negative) Urine Ketones Negative (Negative) Urine Blood 1+ H (Negative) Urine Nitrite Negative (Negative) Urine Bilirubin Negative (Negative) Urine Urobilinogen Negative (Negative) Ur Leukocyte Esterase 3+ H (Negative) Urine WBC (Auto) 11-20 H (0-5) /hpf Urine RBC (Auto) 6-10 H (0-2) /hpf U Hyaline Cast (Auto) 0-2 (0-2) /lpf U Epithel Cells (Auto) 0-2 (0-2) /hpf Urine Bacteria (Auto) None Seen (None Seen) Urine Comment SARS-CoV-2 (PCR) (Negative) Influenza Type A (PCR) (Neg) Influenza Type B (PCR) (Neg) RSV (RT-PCR) (Neg) 04/21/25 Range/Units 13:50 WBC (4.8-10.8) K/ul RBC (4.20-5.40) M/uL Hgb (12.0-16.0) g/dl Hct (37.0-47.0) % MCV (80.0-100.0) fL MCH (25.0-34.0) pg MCHC (32.0-36.0) g/dL RDW Std Deviation (36.4-46.3) fL RDW Coeff of Lazaro (11.5-14.5) % Plt Count (130-400) K/uL MPV (9.4-12.4) fL Immature Gran % (Auto) % Neut % (Auto) % Lymph % (Auto) % [place] % (Auto) % Eos % (Auto) % Baso % (Auto) % Neut # (Auto) (1.40-6.50) K/uL Lymph # (Auto) (1.20-3.40) K/uL [place] # (Auto) (0.11-0.59) K/uL Eos # (Auto) (0.00-0.50) K/uL Baso # (Auto) (0.00-0.20) K/uL Immature Gran # (Auto) (0.01-0.20) K/uL PT (9.0-12.0) Seconds INR (0.9-1.1) APTT (21-31) Seconds PTT Ratio Sodium (136-145) mmol/L Potassium (3.5-5.1) mmol/L Chloride (98-107) mmol/L Carbon Dioxide (21-32) mmol/L Anion Gap (3-11) BUN (6-23) mg/dl Creatinine (0.6-1.2) mg/dl Est Cr Clr Drug Dosing ml/min eGFR BUN/Creatinine Ratio (10-20) Glucose (70-99(Fasting)) mg/dl POC Glucose (70-99) mg/dl Calcium (8.6-10.3) mg/dl Magnesium (1.7-2.4) mg/dl Total Bilirubin (0.2-1.0) mg/dl AST (13-39) U/L ALT (7-52) U/L Alkaline Phosphatase (34-104) U/L Troponin I High Sens (0-14) pg/ml Total Protein (6.0-8.3) gm/dl Albumin (3.4-5.0) gm/dl Globulin (2.5-4.0) gm/dl Albumin/Globulin Ratio (0.9-2) Urine Color Urine Appearance (Clear) Urine pH (4.5-7.5) Ur Specific Platinum (1.000-1.030) Urine Protein (Negative) Urine Glucose (UA) (Negative) Urine Ketones (Negative) Urine Blood (Negative) Urine Nitrite (Negative) Urine Bilirubin (Negative) Urine Urobilinogen (Negative) Ur Leukocyte Esterase (Negative) Urine WBC (Auto) (0-5) /hpf Urine RBC (Auto) (0-2) /hpf U Hyaline Cast (Auto) (0-2) /lpf U Epithel Cells (Auto) (0-2) /hpf Urine Bacteria (Auto) (None Seen) Urine Comment SARS-CoV-2 (PCR) NEGATIVE (Negative) Influenza Type A (PCR) Negative (Neg) Influenza Type B (PCR) Negative (Neg) RSV (RT-PCR) Negative (Neg) Administered Medications Discontinued Medications Sodium Chloride (Nss) 500 mls @ 999 mls/hr IV .Q31M ONE Stop: 04/21/25 12:20 Last Infusion: 04/21/25 13:00 Dose: Infused Documented By: lakesha Admin: 04/21/25 12:29 Dose: 999 mls/hr Documented By: RAJNI Ioversol (Optiray 320 125ml) 112 ml IV ONCE ONE Stop: 04/21/25 11:56 Last Admin: 04/21/25 11:56 Dose: 112 ml Documented By: OWEN Labetalol HCl (Labetalol Hcl Iv 5 Mg/Ml 20ml) 10 mg IV NOW STA Stop: 04/21/25 12:39 Last Admin: 04/21/25 12:55 Dose: 10 mg Documented By: lakesha Levetiracetam (Levetiracetam 500 Mg/5 Ml Vial) 1,900 mg 40 mg/kg (1900 mg) IV NOW STA Stop: 04/21/25 12:14 Last Admin: 04/21/25 12:23 Dose: 1,900 mg Documented By: GCC Imaging Data Radiologist's Impression: Head CT 04/21/25 11:50 CT head/brain wo con CLINICAL HISTORY: neuro deficit, acute stroke suspected. TECHNIQUE: Multiple axial CT images of the head were obtained without contrast. A dose lowering technique was utilized adhering to the principles of ALARA. COMPARISON: 10/07/2024 FINDINGS: There is a large area of encephalomalacia in the left MCA distribution consistent with old infarction. There are stable mild globus pallidus calcifications. No intracranial hemorrhage seen. No mass effect, midline shift, or hydrocephalus. Stable moderate chronic small vessel ischemic change. Visualized paranasal sinuses and mastoid air cells are clear. No skull fracture seen. IMPRESSION: No acute findings. Otherwise as described. ACT 112: Negative or not required by law. The above report was generated using voice recognition software. It may contain grammatical, syntax or spelling errors. Electronically signed by: Nilton Hurtado M.D. 04/21/2025 12:22 PM Head CTA 04/21/25 11:50 CT angio head w con, CT angio neck with con CLINICAL HISTORY: 85 years-old Female with neuro deficit, acute stroke suspected. Acute stroke like symptoms COMPARISON STUDY: Head CT of same day, CTA head and neck 10/07/2024 TECHNIQUE: Following the IV administration of 112 cc of Optiray, CT angiogram of the head and neck was performed from the aortic arch the skull apex. Images are reviewed in the axial, sagittal, and coronal planes. 3-D MIPS images are created and assessed. IV contrast was administered without complication. All measurements were obtained according to NASCET criteria. A dose lowering technique was utilized adhering to the principles of ALARA. CT DOSE: 953.5 mGy.cm FINDINGS: CT BRAIN: Dictated separately. 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 Involutional changes with chronic microvascular ischemic disease. Ill-defined hypodensity of the left mid brain and maryjane suggestive of pulmonary degeneration. Chronic left cerebellar lacunar infarct. CT ANGIOGRAM OF THE HEAD AND NECK: Borderline dilation of the pulmonary artery, 2.8 cm. Atherosclerosis of the thoracic aorta. There is patency of the innominate and imaged clavian arteries. The common and internal carotid arteries are patent. The middle cerebral and anterior cerebral arteries are patent. There is moderate stenosis involving an M2 branch of the left middle through artery on image 90 series 6 The vertebral arteries are codominant. Mild multifocal stenoses of the V2 segments secondary to cervical spondylosis. No abnormal intracranial enhancement. Dural sinuses appear patent. Unremarkable soft tissues. Lung apices appear clear. Degenerative changes of the spine. IMPRESSION: 1. Unremarkable CTA of the head and neck. 2. Chronic left MCA infarct. Please refer to the separately dictated head CT of same day. ACT 112: Negative or not required by law. The above report was generated using voice recognition software. It may contain grammatical, syntax or spelling errors. Electronically signed by: Claus Moore M.D. 04/21/2025 12:18 PM Neck CTA 04/21/25 11:50 CT angio head w con, CT angio neck with con CLINICAL HISTORY: 85 years-old Female with neuro deficit, acute stroke suspected. Acute stroke like symptoms COMPARISON STUDY: Head CT of same day, CTA head and neck 10/07/2024 TECHNIQUE: Following the IV administration of 112 cc of Optiray, CT angiogram of the head and neck was performed from the aortic arch the skull apex. Images are reviewed in the axial, sagittal, and coronal planes. 3-D MIPS images are created and assessed. IV contrast was administered without complication. All measurements were obtained according to NASCET criteria. A dose lowering technique was utilized adhering to the principles of ALARA. CT DOSE: 953.5 mGy.cm FINDINGS: CT BRAIN: Dictated separately. 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 Involutional changes with chronic microvascular ischemic disease. Ill-defined hypodensity of the left mid brain and maryjane suggestive of pulmonary degeneration. Chronic left cerebellar lacunar infarct. CT ANGIOGRAM OF THE HEAD AND NECK: Borderline dilation of the pulmonary artery, 2.8 cm. Atherosclerosis of the thoracic aorta. There is patency of the innominate and imaged clavian arteries. The common and internal carotid arteries are patent. The middle cerebral and anterior cerebral arteries are patent. There is moderate stenosis involving an M2 branch of the left middle through artery on image 90 series 6 The vertebral arteries are codominant. Mild multifocal stenoses of the V2 segments secondary to cervical spondylosis. No abnormal intracranial enhancement. Dural sinuses appear patent. Unremarkable soft tissues. Lung apices appear clear. Degenerative changes of the spine. IMPRESSION: 1. Unremarkable CTA of the head and neck. 2. Chronic left MCA infarct. Please refer to the separately dictated head CT of same day. ACT 112: Negative or not required by law. The above report was generated using voice recognition software. It may contain grammatical, syntax or spelling errors. Electronically signed by: Claus Moore M.D. 04/21/2025 12:18 PM Chest X-Ray 04/21/25 14:40 XR chest 1V portable CLINICAL HISTORY: leukocytosis, altered mental status COMPARISON STUDY: 08/19/2020 FINDINGS: Stable mild cardiomegaly without pulmonary vascular congestion. No consolidation or pleural effusion seen. No pneumothorax. IMPRESSION: No pneumonia seen. ACT 112: Negative or not required by law. Electronically signed by: Nilton Hurtado M.D. 04/21/2025 3:02 PM Discharge Plan Visit Data Chief Complaint: Neuro Symptoms/Deficit Stated Complaint: GAZE SHIFTING, SLOWER WITH TASKS ED Provider: Edilberto Parker Discharge Problem: Stroke-like symptoms, Leukocytosis, History of CVA (cerebrovascular accident), Hypertension Patient Disposition: Admitted As Inpatient Condition: Fair Forms Stand Alone Forms: My [facility] Prescriptions Prescriptions: No Action atorvastatin 10 mg tablet 10 mg PO HS Qty: 90 3RF travoprost 0.004 % Drops 1 drp OPB HS metoprolol succinate 25 mg Tablet Extended Release 24 Hr 25 mg PO HS calcium carbonate-vitamin D3 [Calcium 500 + D] 500 mg(1,250mg) -200 unit Tablet 1 tab PO HS cholecalciferol (vitamin D3) [Vitamin D3] 2,000 unit Capsule 2,000 unit PO HS fluoxetine 40 mg capsule 40 mg PO DAILY donepezil 5 mg tablet 5 mg PO HS folic acid 1 mg tablet 2 mg PO DAILY ondansetron 4 mg tablet,disintegrating 4 mg PO TID PRN (Reason: n/v) Eliquis 2.5 mg tablet 2.5 mg PO BID sennosides [senna] 8.6 mg Tablet 8.6 mg PO DAILY acetaminophen [Tylenol] 325 mg Tablet 650 mg PO DIRECTED PRN (Reason: PAIN/FEVER) meclizine 12.5 mg Tablet 12.5 - 25 mg PO Q8H PRN (Reason: PRIOR TO TRAVELING) Rx Instructions: TAKE 30-60 MINUTES PRIOR TO TRAVELING. Botox 200 unit Recon Soln 400 unit subcut DIRECTED PRN (Reason: .[id number]) Rx Instructions: INJECTIONS TO RUE & RLE DIRECTED. Referrals Referrals: PCP,NO [Physician] - Discharge Problem: Leukocytosis Qualifiers: Leukocytosis type: unspecified Qualified Code(s): D72.829 - Elevated white blood cell count, unspecified Hypertension Qualifiers: Hypertension type: unspecified Qualified Code(s): I10 - Essential (primary) hypertension
[2025-04-21] MEDS: LABETALOL HCL IV 5 MG/ML 20ML IV STA (12:55)
[2025-04-21 14:31] LABS: Appearance Urine Cloudy (Clear); Bacteria Urine Automated None Seen (None Seen); Cast Urine Automated 0-2 /lpf (0-2); Epithelial Cell Urine Auto 0-2 /hpf (0-2); Glucose Urine UA Negative (Negative)
[2025-04-21 14:40] LABS: Influenza A virus by PCR Negative (Neg); Influenza B virus by PCR Negative (Neg); SARS CoV2 RNA(COVID-19) Ceph NEGATIVE (Negative)
--- NOTE | 2025-04-21 14:43 | History & Physical Report ---
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 speech therapy office due to concerns for eye deviation/staring to the right and suspected altered mental status. #staring episodes/eye deviation to the right - -differential - new stroke event vs seizures vs "stroke mimics" (infection, metabolic causes, etc) vs other -plan - -has been loaded with Keppra IV in the ER; will continue such; plan 500mg BID moving forward -EEG in am -MRI brain w/o contrast - rule out new CVA -once MRI brain returns will decide on formal neuro consult, adding an antiplatelet agent (if new CVA is seen), etc. -with respect to a stroke mimic --> COVID/flu/RSV negative; u/a possibly suggestive of UTI but no symptoms - await culture; cxr without pneumonia -cont Eliquis 2.5mg BID due to h/o PAF #prior left-sided LOUIS/MCA territory CVA - 09/2024 - -with resulting right hemiplegia, right facial droop, dense global aphasia, and ?memory difficulty? -cont Eliquis for secondary prevention -see above discussion under "staring episodes" #h/o PAF - -captured on monitoring in years past per her daughter -place on tele -cont meto succ daily -cont Eliquis 2.5mg BID (meets criteria for low dose due to low body weight, borderline age) #HTN - -markedly elevated BPs upon presentation -is only on meto succ 25mg HS -gave additional IV lopressor x 1 this evening -will need better BP control while here #hyperlipidemia - -LDL checked September 2024 and was 55 -all prior LDLs were <100 -defer on rechecking a lipid panel this admission -cont lipitor but uncertain why she is only on 10mg daily #glaucoma - -cont home eye drops #h/o non-Hodgkin's lymphoma - -in remission #vomiting - -1 episode today after getting out of the [employer] van -?abd pain on exam? -will obtain CT a/p - rule out intra-abdominal pathology -u/a findings noted #DVT proph - -Eliquis 2.5mg BID pt's daughter & son updated at bedside throughout the admission process History of Present Illness Chief Complaint: staring spells/eye deviation Primary Care Provider: Rosa Elena Carmona 85yo female with large left MCA territory stroke/LOUIS territory stroke in September 2024, PAF on Eliquis, HTN, hyperlipidemia, and prior non-Hodgkin's lymphoma presents from the outpatient [facility] speech therapy office due to concerns for eye deviation/staring. Ms Alejandra was in normal health this am, ate breakfast in usual fashion, and got ready to go to speech therapy. She takes [employer] transportation and she was with her son during the ride. When they got to [facility] she had emesis x 1. This did not recur, and they proceeded to the speech therapy office. She has been going to the same speech therapy team for months and they noticed that she wasn't acting normally. They specifically noted eye deviation of both eyes to the right. Her son wasn't sure how long it lasted. However, they feel that the staring to the right/eye deviation has been coming & going for several hours. They have not noted any right arm or right leg abnormalities (seizure activity, etc). By the time of my assessment she was back to baseline per her daughter & son. Since the stroke she has been ambulating with a hemiwalker. She does not need any thickened liquids or modified diet. She does have ongoing dense expressive & receptive aphasia and this poses significant challenges with communication. Her daughter stated "we just keep asking questions until we figure out what she needs." She does get yes/no mixed up frequently. Allergies Allergy/AdvReac Type Severity Reaction Status Date / Time Cephalosporins Allergy Intermediate Hives Verified 04/21/25 15:21 doxycycline Allergy Intermediate HIVES Verified 04/21/25 15:21 Penicillins Allergy Intermediate HIVES Verified 04/21/25 15:21 Sulfa (Sulfonamide Allergy Intermediate HIVES Verified 04/21/25 15:21 Antibiotics) morphine AdvReac Severe caused A Verified 04/21/25 15:21 fib and tachycardia Home Medications Medication Instructions Recorded Confirmed Type calcium 500 mg (as 1 tab PO HS 01/05/19 04/21/25 History carbonate)-vitamin D3 5 mcg (200 unit) tablet (Calcium 500 + D) cholecalciferol (vitamin D3) 50 2,000 unit PO HS 01/05/19 04/21/25 History mcg (2,000 unit) capsule (Vitamin D3) metoprolol succinate 25 mg 25 mg PO HS 01/05/19 04/21/25 History tablet,extended release 24 hr travoprost 0.004 % eye drops 1 drp OPB HS 01/05/19 04/21/25 History atorvastatin 10 mg tablet 10 mg PO HS #90 tabs 03/04/24 04/21/25 Rx acetaminophen 325 mg tablet 650 mg PO DIRECTED PRN 04/21/25 04/21/25 History (Tylenol) PAIN/FEVER apixaban 2.5 mg tablet (Eliquis) 2.5 mg PO BID 04/21/25 04/21/25 History donepezil 5 mg tablet 5 mg PO HS 04/21/25 04/21/25 History fluoxetine 40 mg capsule 40 mg PO DAILY 04/21/25 04/21/25 History folic acid 1 mg tablet 2 mg PO DAILY 04/21/25 04/21/25 History meclizine 12.5 mg tablet 12.5 - 25 mg PO Q8H PRN PRIOR TO 04/21/25 04/21/25 History TRAVELING onabotulinumtoxinA 200 unit 400 unit subcut DIRECTED PRN 04/21/25 04/21/25 History solution for injection (Botox) .[id number] ondansetron 4 mg disintegrating 4 mg PO TID PRN n/v 04/21/25 04/21/25 History tablet sennosides 8.6 mg tablet (senna) 8.6 mg PO DAILY 04/21/25 04/21/25 History Past Med/Surg History Problem List Hypertension (Acute) History of CVA (cerebrovascular accident) (Acute) Leukocytosis (Acute) Stroke-like symptoms (Acute) Staring episodes Right-sided low back pain with sciatica Paroxysmal A-fib Hyperplastic colonic polyp Abnormal radiologic findings on diagnostic imaging of renal pelvis, ureter, or bladder Medical History Prediabetes 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 Paroxysmal atrial flutter Insomnia Coronary artery calcification follows with cardiology (Dr. Pineda) GERD (gastroesophageal reflux disease) Osteoporosis Schatzki's ring Vitamin D deficiency Hiatal hernia HLD (hyperlipidemia) HTN (hypertension) Glaucoma B-cell lymphoma Diffuse large B-cell lymphoma, s/p 3 cycles of R CHOP/XRT > in remission COVID-19 (~11/10/21) Paroxysmal atrial fibrillation with RVR Aug 2020> was related to pain after cysto surgery, wore monitor for a month, no further issues > follows with Dr. Pineda> no pacer Kidney stone Surgical History History of cystoscopy S/P ureteral stent placement (08/15/20) b/l, w/ removal on 08/25/2020 History of bilateral tubal ligation History of esophagogastroduodenoscopy (EGD) History of tooth extraction S/P cataract surgery B/L History of vascular access device left upper chest (since removed) History of section x3 History of lithotripsy Family History (Updated 04/21/25 @ 15:11 by Lee Philip MD) Father Coronary heart disease Myocardial infarction Lung disease Prostate cancer Stroke Mother Coronary heart disease Myocardial infarction Stroke Brother Prostate cancer Denies family history of Ovarian cancer Diabetes Breast cancer Lung cancer Colorectal cancer Social History Smoking Status: Never smoker Second Hand Exposure: No; Do You Dip or Chew Tobacco: No; Hx Alcohol Use: No Hx Substance Use: No Preferred Language: Malay Communication Ability: Effective Visual Impairment: No Limitations Hearing Ability: Normal Stroboroma Operator Required: No Beliefs That Will Affect Care: Confucianist marital status: / Current Living Situation: Family Current Living Situation Comment: lives with daughter current occupational status: retired How many Children do You have: 3 Other Information That Helps Us Care for You: No Feels Safe at Home: Yes Safety Concerns: Feels Safe At This Time Childhood Exposure to Second-Hand Smoke: Yes Diet: regular Diet Comment: regular caffeine: No during the past year weight has: remained stable Dental Care, Regularly: Yes Physical Activity Frequency: Daily Physical Activity Frequency Comment: walks/housework/outside work Seatbelt Use: always Sunscreen Use: Yes Assistive Devices: Glasses Review of Systems Review of Systems: obtained from her daughter at bedside: gen - no fevers or chills; has been eating well HENT - no URI symptoms; no dysphagia CV - no chest pain pulm - no dyspnea or cough or wheeze GI - ?abd pain; 1 episode of emesis earlier today - none since; no diarrhea; no blood in stool - no dysuria or foul-smelling urine musculo - no recent c/o joint pains neuro - no movement of right arm, scant handgrip on right; minimal use of right leg; no obvious headache endo - no diabetes skin - no rash Physical Exam Physical Exam: gen - lying comfortably in bed, no staring or eye deviation; looks all about the room; dense expressive & receptive aphasia eyes - PERRL, no nystagmus, moves both eyes in all directions HENT - MMM, tiny ulceration tip of right tongue neck - no JVD, no lymph nodes, no goiter heart - RRR, s1 s2, no murmur lungs - CTA b/l abd - soft, NT, ND, BS+, no HSM, no flank tenderness ext - no edema, pulses 2+ b/l feet neuro - right facial droop (lower 2/3); right hemiplegia; dense expressive/receptive aphasia skin - no rash psych - unable to assess orientation Results & Data Results & Data Vital Signs (Past 12 Hours) Vital Signs Temp Pulse Pulse Resp BP BP Pulse Ox 04/21/25 14:00 69 30 H 169/98 H 100 04/21/25 13:51 69 35 H 193/106 H 99 04/21/25 13:30 190/97 H 94 04/21/25 13:21 68 180/88 H 04/21/25 13:10 71 21 181/87 H 97 04/21/25 13:05 71 17 170/90 H 99 04/21/25 12:55 78 204/102 H 04/21/25 12:54 76 21 204/102 H 97 04/21/25 12:42 87 L 04/21/25 12:40 191/93 H 04/21/25 12:34 73 04/21/25 12:30 72 20 187/100 H 91 04/21/25 12:24 71 25 H 200/112 H 94 04/21/25 12:20 75 18 200/112 H 94 04/21/25 12:15 199/95 H 04/21/25 12:05 71 18 213/103 H 94 04/21/25 11:26 36.7 C 55 L 14 143/70 H 95 O2 Del Method O2 Flow Rate 04/21/25 14:00 04/21/25 13:51 04/21/25 13:30 04/21/25 13:21 04/21/25 13:10 04/21/25 13:05 04/21/25 12:55 04/21/25 12:54 Nasal Cannula 2 04/21/25 12:42 Nasal Cannula 0 04/21/25 12:40 04/21/25 12:34 04/21/25 12:30 04/21/25 12:24 04/21/25 12:20 Room Air 04/21/25 12:15 04/21/25 12:05 Room Air 04/21/25 11:26 Room Air Laboratory Results Laboratory Results - last 24 hr 04/21/25 04/21/25 04/21/25 11:53 12:21 13:39 WBC 14.34 H RBC 4.65 Hgb 13.6 Hct 39.8 MCV 85.6 MCH 29.2 MCHC 34.2 RDW Std Deviation 42.1 RDW Coeff of Lazaro 13.5 Plt Count 308 MPV 10.6 Immature Gran % (Auto) 0.5 Neut % (Auto) 75.6 Lymph % (Auto) 17.5 Randolph % (Auto) 5.4 Eos % (Auto) 0.7 Baso % (Auto) 0.3 Neut # (Auto) 10.84 H Lymph # (Auto) 2.51 Randolph # (Auto) 0.77 H Eos # (Auto) 0.10 Baso # (Auto) 0.05 Immature Gran # (Auto) 0.07 PT 11.9 INR 1.1 APTT 27 PTT Ratio 1.0 Sodium 135 L Potassium 4.0 Chloride 102 Carbon Dioxide 27 Anion Gap 6 BUN 13 Creatinine 0.80 Est Cr Clr Drug Dosing 35.7 eGFR 72.61 BUN/Creatinine Ratio 16.3 Glucose 142 H POC Glucose 152 H Calcium 9.9 Magnesium 1.8 Total Bilirubin 0.6 AST 18 ALT 15 Alkaline Phosphatase 109 H Troponin I High Sens 6.0 Total Protein 7.1 Albumin 4.0 Globulin 3.1 Albumin/Globulin Ratio 1.3 Urine Color Yellow Urine Appearance Cloudy A Urine pH 7.5 Ur Specific [place] 1.033 H Urine Protein Trace H Urine Glucose (UA) Negative Urine Ketones Negative Urine Blood 1+ H Urine Nitrite Negative Urine Bilirubin Negative Urine Urobilinogen Negative Ur Leukocyte Esterase 3+ H Urine WBC (Auto) 11-20 H Urine RBC (Auto) 6-10 H U Hyaline Cast (Auto) 0-2 U Epithel Cells (Auto) 0-2 Urine Bacteria (Auto) None Seen Urine Comment SARS-CoV-2 (PCR) Influenza Type A (PCR) Influenza Type B (PCR) RSV (RT-PCR) 04/21/25 13:50 WBC RBC Hgb Hct MCV MCH MCHC RDW Std Deviation RDW Coeff of Lazaro Plt Count MPV Immature Gran % (Auto) Neut % (Auto) Lymph % (Auto) Randolph % (Auto) Eos % (Auto) Baso % (Auto) Neut # (Auto) Lymph # (Auto) Randolph # (Auto) Eos # (Auto) Baso # (Auto) Immature Gran # (Auto) PT INR APTT PTT Ratio Sodium Potassium Chloride Carbon Dioxide Anion Gap BUN Creatinine Est Cr Clr Drug Dosing eGFR BUN/Creatinine Ratio Glucose POC Glucose Calcium Magnesium Total Bilirubin AST ALT Alkaline Phosphatase Troponin I High Sens Total Protein Albumin Globulin Albumin/Globulin Ratio Urine Color Urine Appearance Urine pH Ur Specific [place] Urine Protein Urine Glucose (UA) Urine Ketones Urine Blood Urine Nitrite Urine Bilirubin Urine Urobilinogen Ur Leukocyte Esterase Urine WBC (Auto) Urine RBC (Auto) U Hyaline Cast (Auto) U Epithel Cells (Auto) Urine Bacteria (Auto) Urine Comment SARS-CoV-2 (PCR) NEGATIVE Influenza Type A (PCR) Negative Influenza Type B (PCR) Negative RSV (RT-PCR) Negative Diagnostic Findings Head CT 04/21/25 11:50 CT head/brain wo con CLINICAL HISTORY: neuro deficit, acute stroke suspected. TECHNIQUE: Multiple axial CT images of the head were obtained without contrast. A dose lowering technique was utilized adhering to the principles of ALARA. COMPARISON: 10/07/2024 FINDINGS: There is a large area of encephalomalacia in the left MCA distribution consistent with old infarction. There are stable mild globus pallidus calcifications. No intracranial hemorrhage seen. No mass effect, midline shift, or hydrocephalus. Stable moderate chronic small vessel ischemic change. Visualized paranasal sinuses and mastoid air cells are clear. No skull fracture seen. IMPRESSION: No acute findings. Otherwise as described. ACT 112: Negative or not required by law. The above report was generated using voice recognition software. It may contain grammatical, syntax or spelling errors. Electronically signed by: Nilton Hurtado M.D. 04/21/2025 12:22 PM Head CTA 04/21/25 11:50 CT angio head w con, CT angio neck with con CLINICAL HISTORY: 85 years-old Female with neuro deficit, acute stroke suspected. Acute stroke like symptoms COMPARISON STUDY: Head CT of same day, CTA head and neck 10/07/2024 TECHNIQUE: Following the IV administration of 112 cc of Optiray, CT angiogram of the head and neck was performed from the aortic arch the skull apex. Images are reviewed in the axial, sagittal, and coronal planes. 3-D MIPS images are created and assessed. IV contrast was administered without complication. All measurements were obtained according to NASCET criteria. A dose lowering technique was utilized adhering to the principles of ALARA. CT DOSE: 953.5 mGy.cm FINDINGS: CT BRAIN: Dictated separately. 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 Involutional changes with chronic microvascular ischemic disease. Ill-defined hypodensity of the left mid brain and maryjane suggestive of pulmonary degeneration. Chronic left cerebellar lacunar infarct. CT ANGIOGRAM OF THE HEAD AND NECK: Borderline dilation of the pulmonary artery, 2.8 cm. Atherosclerosis of the thoracic aorta. There is patency of the innominate and imaged clavian arteries. The common and internal carotid arteries are patent. The middle cerebral and anterior cerebral arteries are patent. There is moderate stenosis involving an M2 branch of the left middle through artery on image 90 series 6 The vertebral arteries are codominant. Mild multifocal stenoses of the V2 segments secondary to cervical spondylosis. No abnormal intracranial enhancement. Dural sinuses appear patent. Unremarkable soft tissues. Lung apices appear clear. Degenerative changes of the spine. IMPRESSION: 1. Unremarkable CTA of the head and neck. 2. Chronic left MCA infarct. Please refer to the separately dictated head CT of same day. ACT 112: Negative or not required by law. The above report was generated using voice recognition software. It may contain grammatical, syntax or spelling errors. Electronically signed by: Claus Moore M.D. 04/21/2025 12:18 PM Neck CTA 04/21/25 11:50 CT angio head w con, CT angio neck with con CLINICAL HISTORY: 85 years-old Female with neuro deficit, acute stroke suspected. Acute stroke like symptoms COMPARISON STUDY: Head CT of same day, CTA head and neck 10/07/2024 TECHNIQUE: Following the IV administration of 112 cc of Optiray, CT angiogram of the head and neck was performed from the aortic arch the skull apex. Images are reviewed in the axial, sagittal, and coronal planes. 3-D MIPS images are created and assessed. IV contrast was administered without complication. All measurements were obtained according to NASCET criteria. A dose lowering technique was utilized adhering to the principles of ALARA. CT DOSE: 953.5 mGy.cm FINDINGS: CT BRAIN: Dictated separately. 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 Involutional changes with chronic microvascular ischemic disease. Ill-defined hypodensity of the left mid brain and maryjane suggestive of pulmonary degeneration. Chronic left cerebellar lacunar infarct. CT ANGIOGRAM OF THE HEAD AND NECK: Borderline dilation of the pulmonary artery, 2.8 cm. Atherosclerosis of the thoracic aorta. There is patency of the innominate and imaged clavian arteries. The common and internal carotid arteries are patent. The middle cerebral and anterior cerebral arteries are patent. There is moderate stenosis involving an M2 branch of the left middle through artery on image 90 series 6 The vertebral arteries are codominant. Mild multifocal stenoses of the V2 segments secondary to cervical spondylosis. No abnormal intracranial enhancement. Dural sinuses appear patent. Unremarkable soft tissues. Lung apices appear clear. Degenerative changes of the spine. IMPRESSION: 1. Unremarkable CTA of the head and neck. 2. Chronic left MCA infarct. Please refer to the separately dictated head CT of same day. ACT 112: Negative or not required by law. The above report was generated using voice recognition software. It may contain grammatical, syntax or spelling errors. Electronically signed by: Claus Moore M.D. 04/21/2025 12:18 PM Chest X-Ray 04/21/25 14:40 XR chest 1V portable CLINICAL HISTORY: leukocytosis, altered mental status COMPARISON STUDY: 08/19/2020 FINDINGS: Stable mild cardiomegaly without pulmonary vascular congestion. No consolidation or pleural effusion seen. No pneumothorax. IMPRESSION: No pneumonia seen. ACT 112: Negative or not required by law. Electronically signed by: Nilton Hurtado M.D. 04/21/2025 3:02 PM ECG Additional Comments: EKG - my reading - NSR, NS ST changes inferior leads Code Status & VTE Plan Code Status full code PG Care Time/CCT Total # of Minutes Spent Total Time Spent with Patient: Total time spent is greater than 50% in coordination of care (as documented) at patient's floor/unit and/or counseling patient: Coding Level of Care Code 25394 INT INP/OBS CARE 3/75MIN Diagnoses Staring episodes R40.4 Paroxysmal A-fib I48.0 Left middle cerebral artery stroke I63.512 Embolism of left anterior cerebral artery I66.12 GERD (gastroesophageal reflux disease) K21.9 HLD (hyperlipidemia) E78.5 HTN (hypertension) I10 Glaucoma H40.9
--- NOTE | 2025-04-21 15:03 | XRay Report ---
XR chest 1V portable CLINICAL HISTORY: leukocytosis, altered mental status COMPARISON STUDY: 08/19/2020 FINDINGS: Stable mild cardiomegaly without pulmonary vascular congestion. No consolidation or pleural effusion seen. No pneumothorax. IMPRESSION: No pneumonia seen. ACT 112: Negative or not required by law. Electronically signed by: Nilton Hurtado M.D. 04/21/2025 3:02 PM
[2025-04-21 16:05] LABS: Lipase 30.0 U/L (11-82)
--- NOTE | 2025-04-21 16:07 | Electrocardiogram Report ---
Test Reason : Blood Pressure : */* mmHG Vent. Rate : 70 BPM Atrial Rate : 70 BPM P-R Int : 142 ms QRS Dur : 76 ms QT Int : 394 ms P-R-T Axes : * -16 -1 degrees QTcB Int : 425 ms Normal sinus rhythm Inferior infarct , age undetermined Abnormal ECG When compared with ECG of 07-Oct-2024 21:51, Inferior infarct is now Present T wave inversion now evident in Inferior leads Confirmed by Trace Brantley ([id number]) on 04/21/2025 4:07:04 PM Referred By: REFERRED SELF Confirmed By: Trace Brantley
[2025-04-21] MEDS: ONDANSETRON INJ 2 MG/ML 2 ML VIAL IV STA (16:08)
[2025-04-21] MEDS: METOPROLOL TARTRATE 1 MG/ML VIAL IV STA (16:09)
[2025-04-21] MEDS: METOPROLOL TARTRATE 25 MG TAB PO STA (16:09)
[2025-04-21] MEDS ORDERED: MECLIZINE 12.5 MG TAB PO PRN (16:42)
[2025-04-21] MEDS ORDERED: CETIRIZINE HCL 10 MG TABLET PO PRN (16:42)
--- NOTE | 2025-04-21 17:09 | CT Scan Report ---
EXAMINATION: CT of the abdomen and pelvis performed without contrast TECHNIQUE: Helical CT images from the lung bases through the symphysis pubis were obtained without contrast. Coronal and sagittal reformatted images were generated at a workstation for further assessment. Dose reduction techniques were achieved by using automatic exposure control and/or adjustment of mA and/or kV according to patient size and/or use of iterative reconstruction technique. COMPARISON: None HISTORY: Abdominal pain FINDINGS: Lower chest: No consolidation. No pleural effusion or pneumothorax. Liver: No suspicious liver lesions. Gallbladder: No gallstones. No evidence of acute cholecystitis. Spleen: Normal size. Pancreas: No suspicious pancreatic lesions. The pancreatic duct is not dilated. Adrenal glands: No adrenal nodules. Kidneys: No hydronephrosis or obstructing renal stones. Contrast excretion into the renal collecting systems and ureters likely from a prior study. Bladder / Pelvic organs: Unremarkable. Contrast in the urinary bladder without suspicious filling defect. Bowel: No bowel obstruction. No abnormal bowel wall thickening. The appendix is unremarkable. Lymph nodes: No retroperitoneal, mesenteric, or pelvic lymphadenopathy. Peritoneum / Retroperitoneum: No free fluid or air within the abdomen. Vessels: No infrarenal aortic aneurysm. Heavy aortoiliac calcification. Bones and soft tissues: No suspicious lesion in the bones. IMPRESSION: No obstructing renal or ureteral stone. No other acute finding. Electronically signed by Naldo Brenner 04-21-2025 5:08 PM
--- NOTE | 2025-04-21 18:18 | Magnetic Resonance Report ---
MRI BRAIN WITHOUT CONTRAST TECHNIQUE: An MRI examination of the brain was performed utilizing sagittal and axial T1-weighted images as well as axial T2-weighted, FLAIR, gradient echo and diffusion-weighted images. INDICATION: Altered mental status. Vomiting. COMPARISON: Brain CT October 07, 2024 FINDINGS: Chronic infarct of the left cerebrum involving the LOUIS and MCA territories with encephalomalacia, gliosis, laminar necrosis and hemosiderin coating. There is a punctate focus of apparent diffusion restriction (2 mm in size) in left frontal lobe (series 4, image 20). The ventricular, sulcal and cisternal spaces are normal in caliber. There is no evidence of intracranial mass lesion, hydrocephalus, extra-axial fluid collection or parenchymal hemorrhage. Age-related involutional changes of the brain and faint cyst chronic white matter ischemic changes. The cerebellar tonsils are normal in position. The pituitary gland is not enlarged. The major arterial vascular structures of the skull base are patent. No intraorbital soft tissue mass lesion is observed. Cataract surgeries. The visualized paranasal sinuses are aerated. Mastoids are aerated. IMPRESSION: Punctate focus of apparent diffusion restriction (2 mm in size) in the left frontal lobe may represent an acute to subacute infarct. 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 ACT 112: Positive. There are findings on this exam that require communication between the performing entity and the patient following Patient Test Result Information Act ([place] ACT 112) guidelines Electronically signed by Eduin Gaffney 04-21-2025 6:16 PM
[2025-04-21] MEDS: CALCIUM 600MG + VIT D 400 IU TAB PO SCH (20:45)
[2025-04-21] MEDS: ASPIRIN 81 MG ECTAB PO SCH (21:06)
[2025-04-21] MEDS: ONDANSETRON INJ 2 MG/ML 2 ML VIAL IV PRN (21:11)
[2025-04-21] MEDS: METOPROLOL SUCC 25MG EXT REL TAB PO SCH (21:14)
[2025-04-21] MEDS: DONEPEZIL HCL 5 MG TAB PO SCH (21:15)
[2025-04-21] MEDS: CHOLECALCIFEROL 25 MCG (1000 UNITS) TAB PO SCH (21:16)
[2025-04-21] MEDS: ATORVASTATIN 10 MG TAB PO SCH (21:16)
[2025-04-21] MEDS: APIXABAN 2.5 MG TAB PO SCH (21:16)
[2025-04-21] MEDS: TRAVOPROST Z 0.004% OPH SOLN 2.5 ML BTL OPB SCH (21:16)
[2025-04-22 08:42] LABS: Anion Gap 13.0 (3-11); Blood Urea Nitrogen 15.0 mg/dl (6-23); Calcium 9.7 mg/dl (8.6-10.3); Carbon Dioxide 21.0 mmol/L (21-32); Chloride 99.0 mmol/L (98-107); Creatinine Clr Calc Pharmacy 35.7 ml/min; Glucose 220.0 mg/dl (70-99(Fasting)); Potassium 4.2 mmol/L (3.5-5.1); Sodium 133.0 mmol/L (136-145)
[2025-04-22] MEDS: FOLIC ACID 1 MG TAB PO SCH (08:42)
[2025-04-22] MEDS: SENNA 8.6 MG TAB PO SCH (08:43)
--- NOTE | 2025-04-22 09:27 | Electroencephalogram ---
EEG Procedure Note Date of Service April 22, 2025 Start / End Times Start Time: 7:28 AM End Time: 7:48 AM Referring Physician Tamera History History of left frontal stroke, focal motor seizure, eyes driven to the right, altered mental status Home Medication List Medication Instructions Recorded Confirmed Type calcium 500 mg (as 1 tab PO HS 01/05/19 04/21/25 History carbonate)-vitamin D3 5 mcg (200 unit) tablet (Calcium 500 + D) cholecalciferol (vitamin D3) 50 2,000 unit PO HS 01/05/19 04/21/25 History mcg (2,000 unit) capsule (Vitamin D3) metoprolol succinate 25 mg 25 mg PO HS 01/05/19 04/21/25 History tablet,extended release 24 hr travoprost 0.004 % eye drops 1 drp OPB HS 01/05/19 04/21/25 History atorvastatin 10 mg tablet 10 mg PO HS #90 tabs 03/04/24 04/21/25 Rx acetaminophen 325 mg tablet 650 mg PO DIRECTED PRN 04/21/25 04/21/25 History (Tylenol) PAIN/FEVER apixaban 2.5 mg tablet (Eliquis) 2.5 mg PO BID 04/21/25 04/21/25 History donepezil 5 mg tablet 5 mg PO HS 04/21/25 04/21/25 History fluoxetine 40 mg capsule 40 mg PO DAILY 04/21/25 04/21/25 History folic acid 1 mg tablet 2 mg PO DAILY 04/21/25 04/21/25 History meclizine 12.5 mg tablet 12.5 - 25 mg PO Q8H PRN PRIOR TO 04/21/25 04/21/25 History TRAVELING onabotulinumtoxinA 200 unit 400 unit subcut DIRECTED PRN 04/21/25 04/21/25 History solution for injection (Botox) .[id number] ondansetron 4 mg disintegrating 4 mg PO TID PRN n/v 04/21/25 04/21/25 History tablet sennosides 8.6 mg tablet (senna) 8.6 mg PO DAILY 04/21/25 04/21/25 History Inpatient Medication List Apixaban (Apixaban 2.5 Mg Tab) 2.5 mg PO BID STEFANO Stop: 05/21/25 20:59 Last Admin: 04/22/25 08:42 Dose: 2.5 mg Documented By: Admin: 04/21/25 21:16 Dose: 2.5 mg Documented By: MARIAM Aspirin (Aspirin 81 Mg Ectab) 81 mg PO QAM STEFANO Stop: 05/21/25 18:29 Last Admin: 04/22/25 08:41 Dose: 81 mg Documented By: Admin: 04/21/25 21:06 Dose: Not Given Documented By: MARIAM Atorvastatin Calcium (Atorvastatin 10 Mg Tab) 10 mg PO HS STEFANO Stop: 05/21/25 20:59 Last Admin: 04/21/25 21:16 Dose: 10 mg Documented By: MARIAM Calcium/Vitamin D (Calcium 600mg + Vit D 400 Iu Tab) 1 tab PO HS STEFANO Stop: 05/21/25 20:59 Last Admin: 04/21/25 20:45 Dose: Not Given Documented By: MARIAM Donepezil HCl (Donepezil Hcl 5 Mg Tab) 5 mg PO HS STEFANO Stop: 05/21/25 20:59 Last Admin: 04/21/25 21:15 Dose: 5 mg Documented By: MARIAM Fluoxetine HCl (Fluoxetine Hcl 20 Mg Cap) 40 mg PO DAILY STEFANO Stop: 05/22/25 08:59 Last Admin: 04/22/25 08:42 Dose: 40 mg Documented By: FAUSTO Folic Acid (Folic Acid 1 Mg Tab) 2 mg PO DAILY STEFANO Stop: 05/22/25 08:59 Last Admin: 04/22/25 08:42 Dose: 2 mg Documented By: FAUSTO Levetiracetam (Levetiracetam Oral Soln 100mg/Ml) 500 mg PO Q12H STEFANO Stop: 05/22/25 08:59 Last Admin: 04/22/25 08:43 Dose: 500 mg Documented By: FAUSTO Ondansetron HCl (Ondansetron Inj 2 Mg/Ml 2 Ml Vial) 4 mg IV Q6H PRN PRN Reason: Nausea Stop: 05/21/25 16:41 Last Admin: 04/21/25 21:11 Dose: 4 mg Documented By: MARIAM Sennosides (Senna 8.6 Mg Tab) 8.6 mg PO DAILY STEFANO Stop: 05/22/25 08:59 Last Admin: 04/22/25 08:43 Dose: Not Given Documented By: FAUSTO Travoprost (Travoprost Z 0.004% Oph Soln 2.5 Ml Btl) 1 drops OPB [facility] Stop: 05/21/25 20:59 Last Admin: 04/21/25 21:16 Dose: 1 drops Documented By: MARIAM Vitamin D (Cholecalciferol 25 Mcg (1000 Units) Tab) 50 mcg PO [facility] Stop: 05/21/25 20:59 Last Admin: 04/21/25 21:16 Dose: Not Given Documented By: MARIAM Discontinued Medications Sodium Chloride (Nss) 500 mls @ 999 mls/hr IV .Q31M ONE Stop: 04/21/25 12:20 Last Infusion: 04/21/25 13:00 Dose: Infused Documented By: lakesha Admin: 04/21/25 12:29 Dose: 999 mls/hr Documented By: RAJNI Ioversol (Optiray 320 125ml) 112 ml IV ONCE ONE Stop: 04/21/25 11:56 Last Admin: 04/21/25 11:56 Dose: 112 ml Documented By: OWEN Labetalol HCl (Labetalol Hcl Iv 5 Mg/Ml 20ml) 10 mg IV NOW STA Stop: 04/21/25 12:39 Last Admin: 04/21/25 12:55 Dose: 10 mg Documented By: lakesha Levetiracetam (Levetiracetam 500 Mg/5 Ml Vial) 1,900 mg 40 mg/kg (1900 mg) IV NOW STA Stop: 04/21/25 12:14 Last Admin: 04/21/25 12:23 Dose: 1,900 mg Documented By: RAJNI Metoprolol Succinate (Metoprolol Succ 25mg Ext Rel Tab) 25 mg PO [facility] Stop: 05/21/25 20:59 Last Admin: 04/21/25 21:14 Dose: 25 mg Documented By: MARIAM Metoprolol Tartrate (Metoprolol Tartrate 25 Mg Tab) 25 mg PO NOW STA Stop: 04/21/25 15:03 Last Admin: 04/21/25 16:09 Dose: Not Given Documented By: CRISTOFER Metoprolol Tartrate (Metoprolol Tartrate 1 Mg/Ml Vial) 5 mg IV NOW STA Stop: 04/21/25 15:46 Last Admin: 04/21/25 16:09 Dose: 5 mg Documented By: CRISTOFER Ondansetron HCl (Ondansetron Inj 2 Mg/Ml 2 Ml Vial) 4 mg IV NOW STA Stop: 04/21/25 15:46 Last Admin: 04/21/25 16:08 Dose: 4 mg Documented By: CRISTOFER Description This is a 21 electrode EEG with a single channel dedicated to limited EKG. The electrodes were placed in accordance with the International 10-20 system. The predominant background rhythm consists of a mix of 8 to 9 Hz alpha activity and polymorphic theta rhythm. There is fairly continuous left frontal slowing with an associated spike wave abnormality seen intermittently throughout the study. There is a frontal beta rhythm that is symmetric. Photic stimulation is unremarkable. Hyperventilation not performed. Interpretation Abnormal awake/drowsy EEG revealing left frontal slowing and associated spike wave abnormality indicating an increased risk for focal seizures. Clinical Correlation Findings discussed with Dr. Philip. Patient has been started on Keppra. [facility] EEG Procedure Codes Indication for Procedure (1) Staring episodes: (2) Seizure-like activity: Neurology Neurology: [id number] EEG include record awake & drowsy
[2025-04-22] MEDS: METOPROLOL SUCC 25MG EXT REL TAB PO SCH (09:31)
[2025-04-22 10:38] LABS: Hemoglobin A1C 5.8 % (4.5-5.6)
--- NOTE | 2025-04-22 12:43 | XCELERA ---
[id number]
--- NOTE | 2025-04-22 13:26 | Hospitalist Progress Note ---
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 #staring episodes/eye deviation to the right - 2nd to seizures - -at time of presentation heavy concern for seizures thus loaded with IV keppra in the ER -EEG today with left frontal lobe slowing and spike activity highly suggestive of seizure -given her prior large left-sided CVA she is a set-up for seizures -continue keppra 500mg BID -care d/w on-call neurology Dr Cobos who read her EEG #punctate left-sided frontal lobe CVA - -seen on [facility] on MRI brain last pm -likely ischemic in nature as she is already on Eliquis -added aspirin 81mg daily -on-call neurology in agreement with addition of aspirin 81mg daily on top of her Eliquis #acute hypoxic respiratory failure 2nd to aspiration event/aspiration pneumonitis - -aspirated broccoli at lunchtime -speech therapy aware -s/p duoneb x 2 -s/p nasal-tracheal suctioning -this significantly improved her breathing and O2 was able to be weaned rapidly -cxr with mild R basilar infiltrate -since this is a chemical pneumonitis will hold off on abx for now -repeat a cxr in the am tomorrow; add abx if she develops fever, right lung infiltrates worsen, etc. -schedule duonebs BID #prior left-sided LOUIS/MCA territory CVA - 09/2024 - -with resulting right hemiplegia, right facial droop, dense global aphasia, and ?memory difficulty? -cont Eliquis for secondary prevention -see above discussion under "staring episodes" -EEG c/w left-sided seizures -MRI brain this admission with punctate left frontal lobe CVA - see above #h/o PAF - -captured on monitoring in years past per her daughter -tele thus far wnl -cont meto succ but increased to BID dosing with uncontrolled BPs -cont Eliquis 2.5mg BID (meets criteria for low dose due to low body weight, borderline age) #HTN - -markedly elevated BPs upon presentation - likely due to acute stroke, acute seizures, etc. -is only on meto succ 25mg HS - thus, increased to BID dosing -may need additional agents -- follow response to BID dosing of meto succ #hyperlipidemia - -LDL checked September 2024 and was 55 -all prior LDLs were <100 -defer on rechecking a lipid panel this admission -cont lipitor but uncertain why she is only on 10mg daily; consider increasing to at least 20mg/day #glaucoma - -cont home eye drops #h/o non-Hodgkin's lymphoma - -in remission #vomiting - -1 episode day of admission after getting out of the [employer] van -another episode shortly after admission -CT a/p without acute findings -no vomiting since -monitor #DVT proph - -Eliquis 2.5mg BID pt's daughter & son updated at bedside again today appreciate PT, OT, speech evals appreciate informal consultation with on-call neurology Admission and Anticipated Discharge Date Admission Date: April 21, 2025 Subjective patient had eaten breakfast this am and took morning meds w/o incident no dysphagia noted by nursing then seen by speech therapy and no changes to diet/liquids made at lunch-time today was eating broccoli and had aspiration event became hypoxic with audible course/wheezy breathing immediately following the aspiration event I came to bedside to check on her she was satting low 90s on 6-7 liters ordered STAT duoneb x 2 respiratory also performed nasal tracheal suctioning with copious material obtained including apparent broccoli remnants her O2 was weaned to 2 liters NC within an hour or two of the above pt's son & daughter were present at bedside Review of Systems Review of Systems: Other (due to global aphasia ) no apparent pain Physical Exam Physical Exam: gen - in distress - tachypnea, audible course/wheezy breath sounds, mild retractions HENT - MMM neck - no JVD heart - RRR, s1 s2, no murmur lungs - b/l wheezes, course BS b/l, rales R base, tachypnea/retractions -following duoneb x 2 and nasal-tracheal suctioning her breath sounds were MUCH better - more clear, minimal wheeze left lung, minimal rales R base, and ta chypnea/increased work of breathing improved abd - soft, NT, ND, BS+, no HSM, no flank tenderness ext - no edema, pulses 2+ b/l feet neuro - right facial droop (lower 2/3); right hemiplegia; dense expressive/receptive aphasia Results & Data Results & Data Vital Signs (Past 12 Hours) Vital Signs Temp Pulse Resp BP Pulse Ox O2 Del Method 04/22/25 11:28 36.9 C 72 17 166/84 H 94 Room Air 04/22/25 09:48 Room Air 04/22/25 08:47 36.3 C L 75 16 152/73 H 91 Room Air 04/22/25 02:41 36.5 C 70 16 170/71 H 90 Room Air Laboratory Results Laboratory Results - last 24 hr 04/22/25 04/22/25 07:58 08:01 Sodium 133 L Potassium 4.2 Chloride 99 Carbon Dioxide 21 Anion Gap 13 H BUN 15 Creatinine 0.80 Est Cr Clr Drug Dosing 35.7 eGFR 72.61 BUN/Creatinine Ratio 18.8 Glucose 220 H Estimat Average Glucose 120 Hemoglobin A1c 5.8 H Calcium 9.7 Vitamin B12 334 Diagnostic Findings Chest X-Ray 04/22/25 13:25 XR chest 1V portable CLINICAL HISTORY: aspiration event, b/l crackles COMPARISON STUDY: 04/21/2025 FINDINGS: Stable mild cardiomegaly without pulmonary vascular congestion. There is mildly increased stranding opacity medial right lung base. No pleural effusion or pneumothorax. IMPRESSION: Early pneumonia versus atelectasis right lung base. ACT 112: Negative or not required by law. Electronically signed by: Nilton Hurtado M.D. 04/22/2025 1:52 PM EEG --- Interpretation: Abnormal awake/drowsy EEG revealing left frontal slowing and associated spike wave abnormality indicating an increased risk for focal seizures. Echo --- normal EF, no thrombus, no PFO PG Care Time/CCT Total # of Minutes Spent Total Time Spent with Patient: Total time spent is greater than 50% in coordination of care (as documented) at patient's floor/unit and/or counseling patient: Coding Level of Care Code 96324 SUB INP/OBS CARE 3/50MIN Diagnoses Seizures R56.9 Staring episodes R40.4 Ischemic stroke of frontal lobe I63.9 Acute hypoxic respiratory failure J96.01 Aspiration pneumonitis due to regurgitated food J69.0 Paroxysmal A-fib I48.0 Left middle cerebral artery stroke I63.512 Embolism of left anterior cerebral artery I66.12 GERD (gastroesophageal reflux disease) K21.9 HLD (hyperlipidemia) E78.5 HTN (hypertension) I10 Glaucoma H40.9
[2025-04-22] MEDS: ALBUT/IPRATROP 3MG/0.5MG NEB 3 ML VIAL NEB STA (13:42)
[2025-04-22] MEDS: ALBUT/IPRATROP 3MG/0.5MG NEB 3 ML VIAL ONE (13:48)
--- NOTE | 2025-04-22 13:54 | XRay Report ---
XR chest 1V portable CLINICAL HISTORY: aspiration event, b/l crackles COMPARISON STUDY: 04/21/2025 FINDINGS: Stable mild cardiomegaly without pulmonary vascular congestion. There is mildly increased s tranding opacity medial right lung base. No pleural effusion or pneumothorax. IMPRESSION: Early pneumonia versus atelectasis right lung base. ACT 112: Negative or not required by law. Electronically signed by: Nilton Hurtado M.D. 04/22/2025 1:52 PM
[2025-04-22] MEDS: ALBUT/IPRATROP 3MG/0.5MG NEB 3 ML VIAL NEB SCH (20:41)
[2025-04-23 06:30] LABS: Hematocrit (blood only) 34.0 % (37.0-47.0); Hemoglobin 12.1 g/dl (12.0-16.0); Immature Granulocytes # (auto) 0.07 K/uL (0.01-0.20); Immature Granulocytes % (auto) 0.4 %; Mean Corpuscular Hemoglobin 29.2 pg (25.0-34.0); Mean Corpuscular Volume 82.1 fL (80.0-100.0); Platelet Count 251 K/uL (130-400); RDW Standard Deviation 39.9 fL (36.4-46.3); Red Blood Count 4.14 M/uL (4.20-5.40); White Blood Count 18.76 K/ul (4.8-10.8)
[2025-04-23 06:56] LABS: Anion Gap 9.0 (3-11); Blood Urea Nitrogen 17.0 mg/dl (6-23); Calcium 9.8 mg/dl (8.6-10.3); Carbon Dioxide 25.0 mmol/L (21-32); Chloride 91.0 mmol/L (98-107); Creatinine Clr Calc Pharmacy 41.4 ml/min; Glucose 143.0 mg/dl (70-99(Fasting)); Potassium 4.0 mmol/L (3.5-5.1); Sodium 125.0 mmol/L (136-145)
--- NOTE | 2025-04-23 07:45 | XRay Report ---
EXAM: XR chest 1V portable CLINICAL HISTORY: aspiration event TECHNIQUE: An X-ray image of the chest was obtained in the AP projection. COMPARISON: 04/21/2025 13:43:08 RIG OPERATOR FINDINGS: Pulmonary Parenchyma: Bilateral diffuse interstitial coarsening is still seen, more pronounced at the lower lung bases. A suspected right lower paracardiac opacity is present. There is no evidence of pleural effusion or pleural thickening. Heart and Mediastinum: There is a borderline cardiothoracic ratio. Atheromatous calcifications are noted in the aortic knob. There is no mediastinal widening or masses. No hilar or mediastinal lymphadenopathy is seen. Bony Thorax: The bony thorax appears intact, without fractures or deformities. Soft Tissues: The soft tissues overlying the chest wall are unremarkable. IMPRESSION: 1. Bilateral diffuse interstitial coarsening is still seen, more pronounced at the lower lung bases. Unchanged. 2. A suspected right lower paracardiac opacity is present. Progression. 3. Further assessment by CT is recommended to evaluate the possibility of interstitial lung disease, pulmonary oedema, and to rule out superimposed inflammatory changes. Electronically signed by Quirino Angulo 04-23-2025 07:45 AM
[2025-04-23] MEDS ORDERED: AZTREONAM 1,000 MG in DEXTROSE 5% MINI-B 100 ML IV SCH (09:00)
[2025-04-23] MEDS ORDERED: VANCOMYCIN CONSULT ACTIVE PRN (10:06)
[2025-04-23] MEDS: AZTREONAM 2,000 MG in DEXTROSE 5% MINI-B 100 ML IV SCH (10:06)
[2025-04-23] MEDS: VANCOMYCIN HCL / NSS 1,000 MG/270 ML BAG IV ONE (11:19)
--- NOTE | 2025-04-23 12:52 | Pharmacy Report ---
Pharmacy PK ABX Note - Date of Service April 23, 2025 - Assessment and Plan Assessment 85 year old F receiving aztreonam/vancomycin for treatment of possible HAP. Urine culture with Strep epidermidis (sensitivities pending). WBC trending upward. Afebrile. CXray with consolidation. Plan Vancomycin * Loading dose: 1000 mg IV x 1 * Maintenance dose: 500 mg IV every 12 hours * Regimen is predicted to achieve target AUC/MAYRA of 400-600 mg/L.hr * Random level ordered with AM labs to assist with dosing Pharmacy will continue to follow and will adjust dose/frequency as necessary. Thank you. Pharmacy has transitioned to AUC monitoring for vancomycin. AUC/MAYRA is the preferred PK/PD target and is associated with decreased risk of nephrotoxicity compared to traditional trough targets.
[2025-04-23] MEDS ORDERED: VANCOMYCIN 750 MG in SODIUM CHLORIDE 0.9% 250 ML IV SCH (20:00)
--- NOTE | 2025-04-23 20:01 | Hospitalist Progress Note ---
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 Heavy concern for seizures on day of admission and EEG highly suggestive of such. 04/22 - aspiration event while trying to eat broccoli. #staring episodes/eye deviation to the right - 2nd to seizures - -at time of presentation heavy concern for seizures thus loaded with IV keppra in the ER -EEG 04/22 with left frontal lobe slowing and spike activity highly suggestive of seizure -given her prior large left-sided CVA she is a set-up for seizures -continue keppra 500mg BID #punctate left-sided frontal lobe CVA - -seen on [facility] on MRI brain -likely ischemic in nature as she is already on Eliquis -added aspirin 81mg daily -on-call neurology in agreement with addition of aspirin 81mg daily on top of her Eliquis #acute hypoxic respiratory failure 2nd to aspiration event/aspiration pneumonitis - -aspirated broccoli 04/22 -although she has been weaned off NC O2, her chest x-ray is worse today, her WBC count has increased, she is not eating, and she seems more confused -suspect that she has developing pneumonia as opposed to chemical pneumonitis -seeing this event happened here she is at risk of typicals and gram negatives -multiple abx allergies - thus, start IV aztreonam (will provide gram negative coverage including pseudomonas) and IV vanco (for gram positives) #prior left-sided LOUIS/MCA territory CVA - 09/2024 - -with resulting right hemiplegia, right facial droop, dense global aphasia, and ?memory difficulty? -cont Eliquis for secondary prevention -see above discussion under "staring episodes" -EEG c/w left-sided seizures -MRI brain this admission with punctate left frontal lobe CVA - see above #h/o PAF - -captured on monitoring in years past per her daughter -tele remains wnl -cont meto succ BID -cont Eliquis 2.5mg BID (meets criteria for low dose due to low body weight, borderline age) #HTN - -markedly elevated BPs upon presentation - likely due to acute stroke, acute seizures, etc. -was only on meto succ 25mg HS - thus, increased to BID dosing -BPs still high - add amlodipine 2.5mg daily #hyperlipidemia - -LDL checked September 2024 and was 55 -all prior LDLs were <100 -defer on rechecking a lipid panel this admission -cont lipitor but uncertain why she is only on 10mg daily; consider increasing to at least 20mg/day #glaucoma - -cont home eye drops #h/o non-Hodgkin's lymphoma - -in remission #vomiting - -1 episode day of admission after getting out of the [facility] van -another episode shortly after admission -CT a/p without acute findings -no vomiting since -monitor #DVT proph - -Eliquis 2.5mg BID #hyponatremia - -was 133 yesterday -125 this am -lab error? 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 [facility] in [place] Admission and Anticipated Discharge Date Admission Date: April 21, 2025 Subjective patient with poor appetite today o2 has been weaned off fortunately son at bedside during my visit - he reports she is not her typical self seems fidgety and agitated he brought her a newspaper and typically she will look at it but she is just trying to rip the pages coughing, but no sputum PT/OT evaluated Ms Ny yesterday - advised rehab family wanting [facility] in [place] Review of Systems Review of Systems: Unobtainable due to cognitive status (and global aphasia) GI - per nursing notes had a stool this am Physical Exam Physical Exam: gen - previous respiratory distress from 04/22 fully resolved; coughing at times; awake/alert HENT - MMM neck - no JVD heart - RRR, s1 s2, no murmur lungs - b/l wheezes resolved, but she has b/l rales anteriorly and posteriorly; increased work of breathing resolved in comparison to 04/22 abd - soft, NT, ND, BS+, no HSM ext - no edema, pulses 2+ b/l feet neuro - right facial droop (lower 2/3); right hemiplegia; dense expressive/receptive aphasia unchanged Results & Data Results & Data Vital Signs (Past 12 Hours) Vital Signs Temp Pulse Resp BP Pulse Ox O2 Del Method 04/23/25 19:51 74 18 94 Room Air 04/23/25 19:50 36.6 C 72 17 123/73 94 Room Air 04/23/25 15:42 36.8 C 73 19 137/76 92 Room Air 04/23/25 12:10 36.8 C 71 17 146/75 H 91 Room Air 04/23/25 09:00 Room Air Laboratory Results Laboratory Results - last 24 hr 04/23/25 04/23/25 06:14 09:25 WBC 18.76 H RBC 4.14 L Hgb 12.1 Hct 34.0 L MCV 82.1 MCH 29.2 MCHC 35.6 RDW Std Deviation 39.9 RDW Coeff of Lazaro 13.2 Plt Count 251 MPV 10.5 Immature Gran % (Auto) 0.4 Neut % (Auto) 85.8 Lymph % (Auto) 6.2 Pender % (Auto) 7.5 Eos % (Auto) 0.0 Baso % (Auto) 0.1 Neut # (Auto) 16.11 H Lymph # (Auto) 1.16 L Pender # (Auto) 1.40 H Eos # (Auto) 0.00 Baso # (Auto) 0.02 Immature Gran # (Auto) 0.07 Sodium 125 L Potassium 4.0 Chloride 91 L Carbon Dioxide 25 Anion Gap 9 BUN 17 Creatinine 0.69 Est Cr Clr Drug Dosing 41.4 eGFR 85.52 BUN/Creatinine Ratio 24.6 H Glucose 143 H Calcium 9.8 Urine Osmolality 515 Ur Random Sodium 33 PG Care Time/CCT Total # of Minutes Spent Total Time Spent with Patient: Total time spent is greater than 50% in coordination of care (as documented) at patient's floor/unit and/or counseling patient: Coding Level of Care Code 63964 SUB INP/OBS CARE 3/50MIN Diagnoses Seizures R56.9 Staring episodes R40.4 Ischemic stroke of frontal lobe I63.9 Acute hypoxic respiratory failure J96.01 Aspiration pneumonitis due to regurgitated food J69.0 Paroxysmal A-fib I48.0 Left middle cerebral artery stroke I63.512 Embolism of left anterior cerebral artery I66.12 GERD (gastroesophageal reflux disease) K21.9 HLD (hyperlipidemia) E78.5 HTN (hypertension) I10 Glaucoma H40.9 Hyponatremia E87.1
[2025-04-23] MEDS: VANCOMYCIN 500 MG in NSS 100mL IV SCH (20:57)
[2025-04-23] MEDS: SODIUM CHLORIDE 0.9% 1,000 ML IV SCH (21:27)
[2025-04-24 05:47] LABS: Hematocrit (blood only) 33.9 % (37.0-47.0); Hemoglobin 11.4 g/dl (12.0-16.0); Mean Corpuscular Hemoglobin 27.7 pg (25.0-34.0); Mean Corpuscular Volume 82.3 fL (80.0-100.0); Platelet Count 227 K/uL (130-400); RDW Standard Deviation 39.9 fL (36.4-46.3); Red Blood Count 4.12 M/uL (4.20-5.40); White Blood Count 14.97 K/ul (4.8-10.8)
[2025-04-24 06:01] LABS: Anion Gap 8.0 (3-11); Blood Urea Nitrogen 18.0 mg/dl (6-23); Calcium 9.6 mg/dl (8.6-10.3); Carbon Dioxide 25.0 mmol/L (21-32); Chloride 93.0 mmol/L (98-107); Creatinine Clr Calc Pharmacy 46.1 ml/min; Glucose 129.0 mg/dl (70-99(Fasting)); Potassium 3.8 mmol/L (3.5-5.1); Sodium 126.0 mmol/L (136-145)
--- NOTE | 2025-04-24 09:58 | Pharmacy Report ---
Pharmacy PK ABX Note - Date of Service April 24, 2025 - Assessment and Plan Assessment 85 year old F receiving aztreonam/vancomycin for treatment of possible HAP. Urine culture with Strep epidermidis (sensitivities pending). WBC trending down. Afebrile. CXray with consolidation. Plan Vancomycin * Target AUC/MAYRA of 400-600 mg/L.hr * Level of 9.1 mcg/mL this AM associated with a subtherapeutic AUC in the next 24-48 hours * Will increase vancomycin slightly to help ensure therapeutic levels in the next 24-48 hours. However, may need to dose adjust back down soon to prevent supratherapeutic levels at steady state. Will therefore order the next level in 48 hours Pharmacy will continue to follow and will adjust dose/frequency as necessary. Thank you. Pharmacy has transitioned to AUC monitoring for vancomycin. AUC/MAYRA is the preferred PK/PD target and is associated with decreased risk of nephrotoxicity compared to traditional trough targets.
[2025-04-24] MEDS: VANCOMYCIN 750 MG in SODIUM CHLORIDE 0.9% 250 ML IV SCH (20:03)
[2025-04-24] MEDS: MELATONIN 3 MG TAB PO PRN (20:54)
--- NOTE | 2025-04-24 21:40 | Hospitalist Progress Note ---
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 Heavy concern for seizures on day of admission and EEG highly suggestive of such. 04/22 - aspiration event while trying to eat broccoli. #staring episodes/eye deviation to the right - 2nd to seizures - -at time of presentation heavy concern for seizures thus loaded with IV keppra in the ER -EEG 04/22 with left frontal lobe slowing and spike activity highly suggestive of seizure -given her prior large left-sided CVA she is a set-up for seizures -continue keppra 500mg BID #punctate left-sided frontal lobe CVA - -seen on DWI on MRI brain -likely ischemic in nature as she is already on Eliquis -added aspirin 81mg daily -on-call neurology in agreement with addition of aspirin 81mg daily on top of her Eliquis #acute hypoxic respiratory failure 2nd to aspiration event/aspiration pneumonitis - -aspirated broccoli 04/22 -although she been weaned off [place] O2, her chest x-ray was worse on 04/23, her WBC count had increased, she was not eating, and became more confused -suspect that she developed pneumonia as opposed to just chemical pneumonitis -seeing this event happened here she is at risk of both typicals and gram negatives -multiple abx allergies - thus, started IV aztreonam (will provide gram negative coverage including pseudomonas) and IV vanco (for gram positives) -day #2 of each -repeat cbc am #prior left-sided LOUIS/MCA territory CVA - 09/2024 - -with resulting right hemiplegia, right facial droop, dense global aphasia, and ?memory difficulty? -cont Eliquis for secondary prevention -see above discussion under "staring episodes" -EEG c/w left-sided seizures -MRI brain this admission with punctate left frontal lobe CVA - see above #h/o PAF - -captured on monitoring in years past per her daughter -tele remains wnl -cont meto succ BID -cont Eliquis 2.5mg BID (meets criteria for low dose due to low body weight, borderline age) #HTN - -markedly elevated BPs upon presentation - likely due to acute stroke, acute seizures, etc. -was only on meto succ 25mg HS - thus, increased to BID dosing -added amlodipine 2.5mg daily -BPs improved with such #hyperlipidemia - -LDL checked September 2024 and was 55 -all prior LDLs were <100 -defer on rechecking a lipid panel this admission -cont lipitor but uncertain why she is only on 10mg daily; consider increasing to at least 20mg/day #glaucoma - -cont home eye drops #h/o non-Hodgkin's lymphoma - -in remission #vomiting - -1 episode day of admission after getting out of the [employer] van -another episode shortly after admission -CT a/p without acute findings -no vomiting since -monitor #DVT proph - -Eliquis 2.5mg BID #hyponatremia - -was 133 two days ago, then fell to mid 120s -urine osm, serum osm, and urine Na NOT c/w SIADH; c/w solute def -cont isotonic fluids with repeat BMP am #acute met encephalopathy - -infection, seizures, cva, low sodium all to blame -improved today pt's son updated at bedside yesterday pt's daughter updated at bedside today appreciate PT, OT, speech javi needs rehab nurse case manager to make referral to [facility] in [place] Admission and Anticipated Discharge Date Admission Date: April 21, 2025 Subjective less confused more like herself today per daughter sitting in chair during the visit coughing at times no dyspnea no obvious seizures tele stable Review of Systems Review of Systems: no obvious pain in any location Physical Exam Physical Exam: gen - sitting in chair; awake/alert; looks better today; following commands better HENT - MMM neck - no JVD heart - RRR, s1 s2, no murmur lungs - b/l rales about 1/[address] up back; no wheeze; no increased work of breathing today abd - soft, NT, ND, BS+, no HSM ext - no edema, pulses 2+ b/l feet neuro - right facial droop (lower 2/3); right hemiplegia; dense expressive/receptive aphasia unchanged Results & Data Results & Data Vital Signs (Past 12 Hours) Vital Signs Temp Pulse Pulse Resp BP Pulse Ox O2 Del Method 04/24/25 19:30 36.0 C L 65 16 150/71 H 97 Room Air 04/24/25 16:44 73 04/24/25 15:23 36.7 C 65 18 133/68 94 Room Air 04/24/25 13:57 64 04/24/25 10:54 37.0 C 67 18 123/71 95 Room Air 04/24/25 10:45 Room Air Laboratory Results Laboratory Results - last 48 hr 04/23/25 04/23/25 04/24/25 09:25 20:49 03:00 WBC RBC Hgb Hct MCV MCH MCHC RDW Std Deviation RDW Coeff of Lazaro Plt Count MPV Sodium 123 L Potassium Chloride Carbon Dioxide Anion Gap BUN Creatinine Est Cr Clr Drug Dosing eGFR BUN/Creatinine Ratio Glucose Osmolality 263 L Calcium Urine Osmolality 515 387 L Ur Random Sodium 33 16 Nasal Screen MRSA (PCR) Random Vancomycin 04/24/25 04/24/25 05:27 12:54 WBC 14.97 H RBC 4.12 L Hgb 11.4 L Hct 33.9 L MCV 82.3 MCH 27.7 MCHC 33.6 RDW Std Deviation 39.9 RDW Coeff of Lazaro 13.2 Plt Count 227 MPV 10.1 Sodium 126 L 126 L Potassium 3.8 Chloride 93 L Carbon Dioxide 25 Anion Gap 8 BUN 18 Creatinine 0.62 Est Cr Clr Drug Dosing 46.1 eGFR 87.76 BUN/Creatinine Ratio 29.0 H Glucose 129 H Osmolality Calcium 9.6 Urine Osmolality Ur Random Sodium Nasal Screen MRSA (PCR) Random Vancomycin 9.1 L PG Care Time/CCT Total # of Minutes Spent Total Time Spent with Patient: Total time spent is greater than 50% in coordination of care (as documented) at patient's floor/unit and/or counseling patient: Coding Level of Care Code 22885 SUB INP/OBS CARE 3/50MIN Diagnoses Seizures R56.9 Staring episodes R40.4 Ischemic stroke of frontal lobe I63.9 Acute hypoxic respiratory failure J96.01 Aspiration pneumonitis due to regurgitated food J69.0 Paroxysmal A-fib I48.0 Left middle cerebral artery stroke I63.512 Embolism of left anterior cerebral artery I66.12 GERD (gastroesophageal reflux disease) K21.9 HLD (hyperlipidemia) E78.5 HTN (hypertension) I10 Glaucoma H40.9 Hyponatremia E87.1 Acute metabolic encephalopathy G93.41
[2025-04-25] MEDS: ACETAMINOPHEN 325 MG TAB PO PRN (02:45)
[2025-04-25 05:53] LABS: Hematocrit (blood only) 29.1 % (37.0-47.0); Hemoglobin 9.6 g/dl (12.0-16.0); Mean Corpuscular Hemoglobin 27.7 pg (25.0-34.0); Mean Corpuscular Volume 83.9 fL (80.0-100.0); Platelet Count 211 K/uL (130-400); RDW Standard Deviation 40.2 fL (36.4-46.3); Red Blood Count 3.47 M/uL (4.20-5.40); White Blood Count 11.13 K/ul (4.8-10.8)
[2025-04-25 06:06] LABS: Anion Gap 6.0 (3-11); Blood Urea Nitrogen 18.0 mg/dl (6-23); Calcium 9.1 mg/dl (8.6-10.3); Carbon Dioxide 25.0 mmol/L (21-32); Chloride 99.0 mmol/L (98-107); Creatinine Clr Calc Pharmacy 46.1 ml/min; Glucose 109.0 mg/dl (70-99(Fasting)); Potassium 3.4 mmol/L (3.5-5.1); Sodium 130.0 mmol/L (136-145)
[2025-04-25] MEDS: POTASSIUM CHLORIDE PWD 20 MEQ PACK PO SCH (11:53)
--- NOTE | 2025-04-26 05:11 | Hospitalist Progress Note ---
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 Heavy concern for seizures on day of admission and EEG highly suggestive of such. 04/22 - aspiration event while trying to eat broccoli. #staring episodes/eye deviation to the right - present on admission - 2nd to abel cerda - -at time of presentation heavy concern for seizures thus loaded with IV keppra in the ER -EEG 04/22 with left frontal lobe slowing and spike activity highly suggestive of seizure -given her prior large left-sided CVA she is a set-up for seizures -continue keppra 500mg BID for seizure prophylaxis -since the keppra was started no further staring spells -tolerating keppra -she will need f/u with either [facility] - family's choice #punctate left-sided frontal lobe CVA - -seen on DWI on MRI brain -likely ischemic in nature as she is already on Eliquis -added aspirin 81mg daily -on-call neurology in agreement with addition of aspirin 81mg daily on top of her Eliquis for secondary prevention #acute hypoxic respiratory failure 2nd to aspiration event/aspiration pneumonitis - -aspirated broccoli 04/22 -although she had been weaned off [place] O2, her chest x-ray was worse on 04/23, her WBC count had increased, she was not eating, and she became more confused -suspect that she developed infectious pneumonia as opposed to just chemical pneumonitis -seeing this event happened here she is at risk of both typicals and gram negatives -multiple abx allergies - thus, started IV aztreonam (will provide gram negative coverage including pseudomonas) and IV vanco (for gram positives) -day #3 of each -could consider transition to PO levaquin with zyvox (or similar combo) tomorrow if stable/improved -CBC is improving nicely -clinically improving -cont twice daily nebs -cont twice daily chest PT vest #prior left-sided LOUIS/MCA territory CVA - 09/2024 - -with resulting right hemiplegia, right facial droop, dense global aphasia, and ?memory difficulty? -cont Eliquis for secondary prevention -see above discussion under "staring episodes" -EEG c/w left-sided seizures -MRI brain this admission with punctate left frontal lobe CVA - see above #h/o PAF - -captured on monitoring in years past per her daughter -tele remains wnl -cont meto succ BID -cont Eliquis 2.5mg BID (meets criteria for low dose due to low body weight, borderline age) #HTN - -markedly elevated BPs upon presentation - likely due to acute stroke, acute seizures, etc. -was only on meto succ 25mg HS - thus, increased to BID dosing -added amlodipine 2.5mg daily as well -BPs improved with such #hyperlipidemia - -LDL checked September 2024 and was 55 -all prior LDLs were <100 -defer on rechecking a lipid panel this admission -cont lipitor but uncertain why she is only on 10mg daily; consider increasing to at least 20mg/day #glaucoma - -cont home eye drops #h/o non-Hodgkin's lymphoma - -in remission #vomiting - -1 episode day of admission after getting out of a [employer] van on day of admission -another episode shortly after admission -CT a/p without acute findings -no vomiting since -monitor #DVT proph - -Eliquis 2.5mg BID #hyponatremia - -was 133, then fell to mid 120s -urine osm, serum osm, and urine Na NOT c/w SIADH; c/w solute deficiency -Na level continues to improve -- now 130 -repeat BMP am -could consider salt tablets for a few days to improve solute intake #acute met encephalopathy - -infection, seizures, cva, low sodium all to blame -continues to improve #hypokalemia - -supplement -repeat BMP with mag level in the am tomorrow pt's son, daughter, and [id number] updated at bedside today on 2 separate visits appreciate PT, OT, ammy caldwell needs rehab medical case manager to make referral to [facility] in [place] Admission and Anticipated Discharge Date Admission Date: April 21, 2025 Subjective 2 visits to bedside today first visit, early afternoon - pt's daughter at bedside -patient was sleeping - I did not wake her -daughter said she has been sleeping a lot today, but did eat well at breakfast 2nd visit later in the day - son & [id number] were at bedside patient was awake during this 2nd visit patient was coughing during the 2nd visit, but she was laying completely flat in bed I raised the head of the bed to help with the cough son said she had eaten decently at lunch-time/dinner-time son confirmed his mother is looking more like herself tele overnight wnl Review of Systems Review of Systems: Unobtainable due to cognitive status (due to global aphasia unable to ask ROS ) Physical Exam Physical Exam: gen - laying in bed; awake/alert; coughing but no distress; thin HENT - MMM, no thrush neck - no JVD heart - RRR, s1 s2, no murmur lungs - b/l rales about 1/[address] up back - fine rales - no change; no wheeze; no increased work of breathing abd - soft, NT, ND, BS+, no HSM ext - no edema, pulses 2+ b/l feet neuro - right lower facial droop; right hemiplegia; dense expressive/receptive aphasia unchanged Results & Data Results & Data Vital Signs (Past 12 Hours) Vital Signs Temp Pulse Pulse Resp BP Pulse Ox O2 Del Method 04/25/25 15:25 36.3 C L 57 L 16 145/79 H 96 Room Air 04/25/25 14:23 58 L 04/25/25 10:39 36.8 C 63 14 155/85 H 97 Room Air 04/25/25 09:27 54 L 04/25/25 07:06 36.7 C 58 L 16 137/70 95 Room Air 04/25/25 06:13 53 H 95 Room Air Laboratory Results Laboratory Results - last 24 hr 04/25/25 04/25/25 05:07 05:13 WBC 11.13 H RBC 3.47 L Hgb 9.6 L Hct 29.1 L MCV 83.9 MCH 27.7 MCHC 33.0 RDW Std Deviation 40.2 RDW Coeff of Lazaro 13.2 Plt Count 211 MPV 10.5 Sodium 130 L Potassium 3.4 L Chloride 99 Carbon Dioxide 25 Anion Gap 6 BUN 18 Creatinine 0.62 Est Cr Clr Drug Dosing 46.1 eGFR 87.76 BUN/Creatinine Ratio 29.0 H Glucose 109 H Calcium 9.1 Nasal Screen MRSA (PCR) Negative PG Care Time/CCT Total # of Minutes Spent Total Time Spent with Patient: Total time spent is greater than 50% in coordination of care (as documented) at patient's floor/unit and/or counseling patient: Coding Level of Care Code 06428 SUB INP/OBS CARE 2/35MIN Diagnoses Seizures R56.9 Staring episodes R40.4 Ischemic stroke of frontal lobe I63.9 Acute hypoxic respiratory failure J96.01 Aspiration pneumonitis due to regurgitated food J69.0 Paroxysmal A-fib I48.0 Left middle cerebral artery stroke I63.512 Embolism of left anterior cerebral artery I66.12 GERD (gastroesophageal reflux disease) K21.9 HLD (hyperlipidemia) E78.5 HTN (hypertension) I10 Glaucoma H40.9 Hyponatremia E87.1 Acute metabolic encephalopathy G93.41
[2025-04-26 06:16] LABS: Hematocrit (blood only) 29.7 % (37.0-47.0); Hemoglobin 10.3 g/dl (12.0-16.0); Mean Corpuscular Hemoglobin 29.3 pg (25.0-34.0); Mean Corpuscular Volume 84.4 fL (80.0-100.0); Platelet Count 240 K/uL (130-400); RDW Standard Deviation 41.1 fL (36.4-46.3); Red Blood Count 3.52 M/uL (4.20-5.40); White Blood Count 10.41 K/ul (4.8-10.8)
[2025-04-26 06:36] LABS: Anion Gap 6.0 (3-11); Blood Urea Nitrogen 16.0 mg/dl (6-23); Calcium 8.8 mg/dl (8.6-10.3); Carbon Dioxide 25.0 mmol/L (21-32); Chloride 104.0 mmol/L (98-107); Creatinine Clr Calc Pharmacy 47.6 ml/min; Glucose 94.0 mg/dl (70-99(Fasting)); Magnesium 1.8 mg/dl (1.7-2.4); Potassium 3.5 mmol/L (3.5-5.1); Sodium 135.0 mmol/L (136-145)
--- NOTE | 2025-04-26 09:11 | Pharmacy Report ---
Pharmacy PK ABX Note - Date of Service April 26, 2025 - Assessment and Plan Assessment 04/26 * Random vancomycin level this AM came back at ~15.6 mcg/ml - current regimen estimated to achieve goal AUC/MAYRA therefore will continue current dosing for vancomycin 04/24 * 85 year old F receiving aztreonam/vancomycin for treatment of possible HAP. Urine culture with Strep epidermidis (sensitivities pending). WBC trending down. Afebrile. CXray with consolidation. Plan Vancomycin * Continue 750 mg iv q 12 hr Pharmacy will continue to follow and will adjust dose/frequency as necessary. Thank you. Pharmacy has transitioned to AUC monitoring for vancomycin. AUC/MAYRA is the preferred PK/PD target and is associated with decreased risk of nephrotoxicity compared to traditional trough targets.
[2025-04-26] MEDS: VANCOMYCIN LEVEL ONE (09:44)
--- NOTE | 2025-04-26 15:00 | Hospitalist Progress Note ---
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 Heavy concern for seizures on day of admission and EEG highly suggestive of such. 04/22 - aspiration event while trying to eat broccoli. #staring episodes/eye deviation to the right - present on admission - 2nd to seizures - -at time of presentation heavy concern for seizures thus loaded with IV keppra in the ER -EEG 04/22 with left frontal lobe slowing and spike activity highly suggestive of seizure -given her prior large left-sided CVA she is a set-up for seizures -continue keppra 500mg BID for seizure prophylaxis -since the keppra was started no further staring spells -tolerating keppra -Family prefers to follow-up with [place] neurology team as they are affiliated with this team after recent CVA in September 2024 #punctate left-sided frontal lobe CVA - -seen on DWI on MRI brain -likely ischemic in nature as she is already on Eliquis -added aspirin 81mg daily -on-call neurology in agreement with addition of aspirin 81mg daily on top of her Eliquis for secondary prevention #acute hypoxic respiratory failure 2nd to aspiration event/aspiration pneumonitis - -aspirated broccoli 04/22 -although she had been weaned off [place] O2, her chest x-ray was worse on 04/23, her WBC count had increased, she was not eating, and she became more confused -suspect that she developed infectious pneumonia as opposed to just chemical pneumonitis -seeing this event happened here she is at risk of both typicals and gram negatives -multiple abx allergies - thus, started IV aztreonam (will provide gram negative coverage including pseudomonas) and IV vanco (for gram positives) -day #4 of each -could consider transition to PO levaquin with zyvox (or similar combo) tomorrow if stable/improved. Can consider potential switch to Clindamycin after discussions with pharmacy team. -cont twice daily nebs -cont twice daily chest PT vest -CBC QAM #prior left-sided LOUIS/MCA territory CVA - 09/2024 - -with resulting right hemiplegia, right facial droop, dense global aphasia, and ?memory difficulty? -cont Eliquis for secondary prevention -see above discussion under "staring episodes" -EEG c/w left-sided seizures -MRI brain this admission with punctate left frontal lobe CVA - see above #h/o PAF - -captured on monitoring in years past per her daughter -tele remains wnl -cont meto succ BID -cont Eliquis 2.5mg BID (meets criteria for low dose due to low body weight, borderline age) #HTN - -markedly elevated BPs upon presentation - likely due to acute stroke, acute seizures, etc. -was only on meto succ 25mg HS - thus, increased to BID dosing -added amlodipine 2.5mg daily as well -BPs improved with such #hyperlipidemia - -LDL checked September 2024 and was 55 -all prior LDLs were <100 -defer on rechecking a lipid panel this admission -cont lipitor but uncertain why she is only on 10mg daily; consider increasing to at least 20mg/day #glaucoma - -cont home eye drops #h/o non-Hodgkin's lymphoma - -in remission #vomiting - -1 episode day of admission after getting out of a [employer] van on day of admission -another episode shortly after admission -CT a/p without acute findings -no vomiting since -monitor #DVT proph - -Eliquis 2.5mg BID #hyponatremia - -was 133, then fell to mid 120s -urine osm, serum osm, and urine Na NOT c/w SIADH; c/w solute deficiency -Na level continues to improve -- now 130 -repeat BMP am -could consider salt tablets for a few days to improve solute intake #acute met encephalopathy - -infection, seizures, cva, low sodium all to blame -continues to improve #hypokalemia - -supplement -repeat BMP with mag level in the am tomorrow pt's son, daughter, and [id number] updated at bedside today on 2 separate visits appreciate PT, OT, speech evals needs rehab egg caser to make referral to [facility] in [place] Admission and Anticipated Discharge Date Admission Date: April 21, 2025 Supervising Physician Co-Signing Physician Notes Attending Attestation & Progress note: Pt seen/examined, chart reviewed, care plan d/w resident physician Dr Jerald Hargrove. I agree w/ the luther components of his documentation with the following additions/corrections -- * Na level now 135 today * staph UTI * exam - patient with dense right-sided hemiplegia including R facial droop During rounds patient resting in bed comfortably. She did not cough today. She was smiling. Son present at bedside. VSS, afebrile, o2 sats wnl gen - thin, NAD, smiling mouth - MMM neck - no JVD heart - RRR, s1 s2 lungs - b/l basilar rales, no wheeze, no increased work of breathing abd - soft NT ext - no edema, pulses 2+ b/l feet neuro - right sided hemiplegia, right lower facial droop Na 135 WBC count wnl A/P: 1. aspiration pneumonia - clinically improved/resolving. Currently on aztreonam/vanco - day #4. Can transition to PO abx tomorrow. 2. hyponatremia - resolved. 3. recent seizures - no recurrence on keppra 500 BID. 4. staph UTI - vanco adequate. 5. metabolic encephalopathy - resolved, back to baseline. I confirmed w/ case management --> insurance auth submitted for acute rehab at [place] [facility] in [place] she would GREATLY BENEFIT FROM ACUTE REHAB -- SHE WAS WALKING AT HOME BEFORE THIS HOSPITALIZATION (WITH HEMIWALKER) AND NOW IS QUITE WEAK NEEDING MAX ASSIST PER THERAPY NOTES. Lee Philip MD Subjective Patient is seen resting comfortably at bedside this AM. Daughter is also present at bedside and majority of history is gathered from daughter as patient is unable to answer orientation questions. Patient is able to follow simple commands and is alert and non-toxic in appearance. Patient is in NAD and her status has been improving per daughter. Daughter endorses that she would like to follow-up with the neurology team in [place] for further rehab needs given recent small L. frontal CVA and seizures. Patient is afebrile and hemodynamically stable. Physical Exam Physical Exam: General: patient resting comfortably, NAD, non-toxic in appearance, answers questions appropriately. Skin: warm, dry, intact HEENT: NC/AT, anicteric sclera, conjunctiva without injection, moist mucus membranes. Heart: +S1/S2, regular, no m/r/g Lungs: equal air entry bilaterally, BL rales present at lower lung aviles, no wheeze/rhonchi present Abd: +BS, soft, NT/ND Ext: warm, no clubbing/cyanosis or edema Neuro: nonfocal, speech intact, no facial droop, moving all extremities. Results & Data Results & Data Vital Signs (Past 12 Hours) Vital Signs Temp Pulse Pulse Resp BP Pulse Ox O2 Del Method 04/26/25 14:02 57 L 04/26/25 11:16 36.4 C L 59 L 18 148/54 H 96 Room Air 04/26/25 07:57 Room Air 04/26/25 07:46 52 L 04/26/25 07:09 59 L 16 95 Room Air 04/26/25 07:05 36.6 C 59 L 18 133/66 95 Room Air Resident Activity Tracking Resident Involvement: Resident Care Provided Care Provided: Adult Hospital Medicine
--- NOTE | 2025-04-26 19:14 | Billing Data ---
Date of Service April 26, 2025 Coding Level of Care Code 13581 SUB INP/OBS CARE MIN
[2025-04-27 06:03] LABS: Hematocrit (blood only) 31.5 % (37.0-47.0); Hemoglobin 10.3 g/dl (12.0-16.0); Immature Granulocytes # (auto) 0.22 K/uL (0.01-0.20); Immature Granulocytes % (auto) 2.1 %; Mean Corpuscular Hemoglobin 27.8 pg (25.0-34.0); Mean Corpuscular Volume 85.1 fL (80.0-100.0); Platelet Count 271 K/uL (130-400); RDW Standard Deviation 42.3 fL (36.4-46.3); Red Blood Count 3.70 M/uL (4.20-5.40); White Blood Count 10.63 K/ul (4.8-10.8)
[2025-04-27 06:21] LABS: Anion Gap 5.0 (3-11); Blood Urea Nitrogen 12.0 mg/dl (6-23); Calcium 9.0 mg/dl (8.6-10.3); Carbon Dioxide 27.0 mmol/L (21-32); Chloride 105.0 mmol/L (98-107); Creatinine Clr Calc Pharmacy 47.6 ml/min; Glucose 88.0 mg/dl (70-99(Fasting)); Potassium 3.5 mmol/L (3.5-5.1); Sodium 137.0 mmol/L (136-145)
--- NOTE | 2025-04-27 07:33 | Hospitalist Progress Note ---
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 Heavy concern for seizures on day of admission and EEG highly suggestive of such. 04/22 - aspiration event while trying to eat broccoli. #staring episodes/eye deviation to the right - present on admission - 2nd to seizures - -at time of presentation heavy concern for seizures thus loaded with IV keppra in the ER -EEG 04/22 with left frontal lobe slowing and spike activity highly suggestive of seizure -given her prior large left-sided CVA she is a set-up for seizures -continue keppra 500mg BID for seizure prophylaxis -since the keppra was started no further staring spells -tolerating keppra -Family prefers to follow-up with [place] neurology team as they are affiliated with this team after recent CVA in September 2024 #punctate left-sided frontal lobe CVA - -seen on DWI on MRI brain -likely ischemic in nature as she is already on Eliquis -added aspirin 81mg daily -on-call neurology in agreement with addition of aspirin 81mg daily on top of her Eliquis for secondary prevention #acute hypoxic respiratory failure 2nd to aspiration event/aspiration pneumonitis - -aspirated broccoli 04/22 -although she had been weaned off NC O2, her chest x-ray was worse on 04/23, her WBC count had increased, she was not eating, and she became more confused -suspect that she developed infectious pneumonia as opposed to just chemical pneumonitis -seeing this event happened here she is at risk of both typicals and gram negatives -IV aztreonam and IV vanco used for 4 days, additional 3 days course of Levaquin 750mg PO started Q48H due to renal function, plan for 2 doses for completion of therapy -cont twice daily nebs -cont twice daily chest PT vest -CBC QAM #prior left-sided LOUIS/MCA territory CVA - 09/2024 - -with resulting right hemiplegia, right facial droop, dense global aphasia, and ?memory difficulty? -cont Eliquis for secondary prevention -see above discussion under "staring episodes" -EEG c/w left-sided seizures -MRI brain this admission with punctate left frontal lobe CVA - see above #h/o PAF - -captured on monitoring in years past per her daughter -tele remains wnl -cont meto succ BID -cont Eliquis 2.5mg BID (meets criteria for low dose due to low body weight, borderline age) #HTN - -markedly elevated BPs upon presentation - likely due to acute stroke, acute seizures, etc. -was only on meto succ 25mg HS - thus, increased to BID dosing -added amlodipine 2.5mg daily as well -BPs improved with such #hyperlipidemia - -LDL checked September 2024 and was 55 -all prior LDLs were <100 -defer on rechecking a lipid panel this admission -cont lipitor but uncertain why she is only on 10mg daily; consider increasing to at least 20mg/day #glaucoma - -cont home eye drops #h/o non-Hodgkin's lymphoma - -in remission #vomiting - -1 episode day of admission after getting out of a [employer] van on day of admission -another episode shortly after admission -CT a/p without acute findings -no vomiting since -monitor #DVT proph - -Eliquis 2.5mg BID #hyponatremia - -was 133, then fell to mid 120s -urine osm, serum osm, and urine Na NOT c/w SIADH; c/w solute deficiency -Na level continues to improve -- now 137 -repeat BMP am #acute met encephalopathy - -infection, seizures, cva, low sodium all to blame -continues to improve #hypokalemia - -supplement -repeat BMP with mag level in the am tomorrow #UTI - Staph epi UTI seen on culture - Potentially contaminant, however patient is undergoing Levaquin treatment for aspiration pneumonia pt's son, daughter, and [id number] updated at bedside today on 2 separate visits appreciate PT, OT, speech javi needs rehab correctional case records supervisor to make referral to [facility] in [place] Admission and Anticipated Discharge Date Admission Date: April 21, 2025 Supervising Physician Co-Signing Physician Notes Attending Attestation & Progress note: Pt seen/examined, chart reviewed, care plan d/w resident physician Dr Jerald Hargrove. I agree w/ the luther components of his documentation. During rounds patient resting in bed comfortably. Son at bedside. At one point she was smiling, and at another point she was crying. Appetite today has been poor. I did not hear her cough today. VSS, afebrile, o2 sats wnl gen - thin, NAD, looks similar to yesterday mouth - MMM, no obvious thrush neck - no JVD heart - RRR, s1 s2, no murmur lungs - b/l basilar rales - fine, dry - improved from yesterday; no wheezes, no increased work of breathing abd - soft NT ND BS+ ext - no edema, pulses 2+ b/l feet neuro - right sided hemiplegia, right lower facial droop Na 137 WBC count wnl A/P: 1. aspiration pneumonia - clinically improved/resolving. Currently on aztreonam/vanco - day #5. Can transition to PO abx today. WBC count has normalized - 10.6 today. 2. hyponatremia - resolved. 3. recent seizures - no recurrence on keppra 500 BID. 4. staph UTI - vanco was adequate Rx. 5. metabolic encephalopathy - resolved, back to baseline per family. pt's son states she enjoys dogs, animals, etc. will ask pet therapy program to pay her a visit insurance auth submitted for acute rehab at [facility] in [place]. she would GREATLY BENEFIT FROM ACUTE REHAB -- SHE WAS WALKING AT HOME BEFORE THIS HOSPITALIZATION (WITH HEMIWALKER) AND NOW IS QUITE WEAK NEEDING MAX ASSIST PER THERAPY NOTES. EXCELLENT candidate for inpatient rehab. Lee Philip MD Subjective Conchita is seen resting comfortably this AM. Patient is not oriented and confused but is amenable to exam. Patient unable to follow commands when attempting strength and reflex testing. Nursing notes that patient pulled out IVs overnight, but has not been agitated or distressed and has had no difficulties swallowing medications. Patient is smiling during exam in no apparent distress, afebrile and hemodynamically stable. Physical Exam Physical Exam: General: patient resting comfortably, NAD, non-toxic in appearance, answers questions appropriately. Skin: warm, dry, intact HEENT: NC/AT, anicteric sclera, conjunctiva without injection, moist mucus membranes. Heart: +S1/S2, regular, no m/r/g Lungs: equal air entry bilaterally, no rales/rhonchi/wheezes Abd: +BS, soft, NT/ND Ext: warm, no clubbing/cyanosis or edema Neuro: R. sided hemiplegia and R. facial droop. No gaze deviation Results & Data Results & Data Vital Signs (Past 12 Hours) Vital Signs Temp Pulse Pulse Resp BP Pulse Ox O2 Del Method 04/27/25 07:24 58 L 04/27/25 07:16 58 L 16 97 Room Air 04/27/25 07:10 36.6 C 53 L 18 149/66 H 97 Room Air 04/27/25 02:38 37.1 C 65 14 147/75 H 95 Room Air 04/27/25 00:05 56 L 04/26/25 23:04 36.7 C 60 16 114/62 96 Room Air 04/26/25 19:45 36.9 C 54 L 18 135/72 96 Room Air 04/26/25 19:34 60 16 96 Room Air Resident Activity Tracking Resident Involvement: Resident Care Provided Care Provided: Adult Hospital Medicine
[2025-04-27] MEDS: INFLUENZA VACC TS2025-26(65y+)/PF (IIV3) 0.5mL Syr IM ONE (20:04)
[2025-04-28 06:26] LABS: Hematocrit (blood only) 31.0 % (37.0-47.0); Hemoglobin 10.4 g/dl (12.0-16.0); Immature Granulocytes # (auto) 0.42 K/uL (0.01-0.20); Immature Granulocytes % (auto) 3.6 %; Mean Corpuscular Hemoglobin 28.1 pg (25.0-34.0); Mean Corpuscular Volume 83.8 fL (80.0-100.0); Platelet Count 277 K/uL (130-400); RDW Standard Deviation 42.2 fL (36.4-46.3); Red Blood Count 3.70 M/uL (4.20-5.40); White Blood Count 11.73 K/ul (4.8-10.8)
[2025-04-28 06:43] LABS: Anion Gap 4.0 (3-11); Blood Urea Nitrogen 13.0 mg/dl (6-23); Calcium 9.1 mg/dl (8.6-10.3); Carbon Dioxide 28.0 mmol/L (21-32); Chloride 104.0 mmol/L (98-107); Creatinine Clr Calc Pharmacy 50.1 ml/min; Glucose 100.0 mg/dl (70-99(Fasting)); Potassium 3.5 mmol/L (3.5-5.1); Sodium 136.0 mmol/L (136-145)
--- NOTE | 2025-04-28 10:20 | Billing Data ---
Date of Service April 27, 2025 Coding Level of Care Code 73488 SUB INP/OBS CARE
--- NOTE | 2025-04-28 16:28 | XRay Report ---
Abdominal radiograph, one view History: Abdominal pain Comparison: None Findings: Single AP view of the abdomen performed. The bowel gas pattern appears nonobstructive. No pneumatosis or portal venous gas. No abnormal calcifications project over the abdomen. No acute abnormality of the bony structures. Impression: Nonobstructive bowel gas pattern. Colonic stool burden appears mild. Electronically signed by Naldo Brenner 04-28-2025 4:28 PM
--- NOTE | 2025-04-28 17:31 | Hospitalist Progress Note ---
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 Heavy concern for seizures on day of admission and EEG highly suggestive of such. 04/22 - aspiration event while trying to eat broccoli. #staring episodes/eye deviation to the right - present on admission - 2nd to seizures - -at time of presentation heavy concern for seizures thus loaded with IV keppra in the ER -EEG 04/22 with left frontal lobe slowing and spike activity highly suggestive of seizure -given her prior large left-sided CVA she is a set-up for seizures -continue keppra 500mg BID for seizure prophylaxis -since the keppra was started no further staring spells -tolerating keppra -Family prefers to follow-up with [place] neurology team as they are affiliated with this team after recent CVA in September 2024 -P2P unsuccessful, family prefers home PT/OT at d/c rather than SNF #punctate left-sided frontal lobe CVA - -seen on DWI on MRI brain -likely ischemic in nature as she is already on Eliquis -added aspirin 81mg daily -on-call neurology in agreement with addition of aspirin 81mg daily on top of her Eliquis for secondary prevention #acute hypoxic respiratory failure 2nd to aspiration event/aspiration pneumonitis - -aspirated broccoli 04/22 -although she had been weaned off [place] O2, her chest x-ray was worse on 04/23, her WBC count had increased, she was not eating, and she became more confused -suspect that she developed infectious pneumonia as opposed to just chemical pneumonitis -seeing this event happened here she is at risk of both typicals and gram negatives -IV aztreonam and IV vanco used for 4 days, additional 3 days course of Levaquin 750mg PO started Q48H due to renal function, plan for 2 doses for completion of therapy -cont twice daily nebs -cont twice daily chest PT vest -CBC QAM #prior left-sided LOUIS/MCA territory CVA - 09/2024 - -with resulting right hemiplegia, right facial droop, dense global aphasia, and ?memory difficulty? -cont Eliquis for secondary prevention -see above discussion under "staring episodes" -EEG c/w left-sided seizures -MRI brain this admission with punctate left frontal lobe CVA - see above #h/o PAF - -captured on monitoring in years past per her daughter -tele remains wnl -cont meto succ BID -cont Eliquis 2.5mg BID (meets criteria for low dose due to low body weight, borderline age) #HTN - -markedly elevated BPs upon presentation - likely due to acute stroke, acute seizures, etc. -was only on meto succ 25mg HS - thus, increased to BID dosing -added amlodipine 2.5mg daily as well -BPs improved with such #hyperlipidemia - -LDL checked September 2024 and was 55 -all prior LDLs were <100 -defer on rechecking a lipid panel this admission -cont lipitor but uncertain why she is only on 10mg daily; consider increasing to at least 20mg/day #glaucoma - -cont home eye drops #h/o non-Hodgkin's lymphoma - -in remission #vomiting - -1 episode day of admission after getting out of a [employer] van on day of admission -another episode shortly after admission -CT a/p without acute findings -no vomiting since -monitor #DVT proph - -Eliquis 2.5mg BID #hyponatremia - -was 133, then fell to mid 120s -urine osm, serum osm, and urine Na NOT c/w SIADH; c/w solute deficiency -Na level continues to improve -- now 137 -repeat BMP am #acute met encephalopathy - -infection, seizures, cva, low sodium all to blame -continues to improve #hypokalemia - -supplement -repeat BMP with mag level in the am tomorrow #UTI - Staph epi UTI seen on culture - Potentially contaminant, however patient is undergoing Levaquin treatment for aspiration pneumonia pt's son, daughter, and [id number] updated at bedside today on 2 separate visits appreciate PT, OT, speech javi needs rehab correctional case manager to make referral to [facility] in [place] Admission and Anticipated Discharge Date Admission Date: April 21, 2025 Supervising Physician Co-Signing Physician Notes Attending Attestation & Progress note: Pt seen/examined, chart reviewed, care plan d/w resident physician Dr Jerald Hargrove. I agree w/ the luther components of his documentation. During rounds patient resting in bed comfortably. No cough. VSS, afebrile, o2 sats wnl gen - thin, NAD, looks similar to yesterday mouth - MMM, no obvious thrush neck - no JVD heart - RRR, s1 s2, no murmur lungs - minimal b/l basilar rales - fine, dry no wheezes, no increased work of breathing abd - soft NT ND BS+ ext - no edema, pulses 2+ b/l feet neuro - right sided hemiplegia, right lower facial droop Na 137 WBC count wnl A/P: 1. aspiration pneumonia - clinically improved/resolving. Currently on aztreonam/vanco - day #5. Can transition to PO abx today. WBC count has normalized - 10.6 today. 2. hyponatremia - resolved. 3. recent seizures - no recurrence on keppra 500 BID. 4. staph UTI - vanco was adequate Rx. 5. metabolic encephalopathy - resolved, back to baseline per family. pt's son states she enjoys dogs, animals, etc. insurance auth submitted for acute rehab at [facility] in [place]. she would GREATLY BENEFIT FROM ACUTE REHAB -- SHE WAS WALKING AT HOME BEFORE THIS HOSPITALIZATION (WITH HEMIWALKER) AND NOW IS QUITE WEAK NEEDING MAX ASSIST PER THERAPY NOTES. EXCELLENT candidate for inpatient rehab. Awaiting placement. Subjective Conchita is seen resting comfortably this AM. Patient is not oriented and confused but is amenable to exam. Patient unable to follow commands when attempting strength and reflex testing. Nursing notes that patient pulled out IVs overnight, but has not been agitated or distressed and has had no difficulties swallowing medications. Patient is smiling during exam in no a pparent distress, afebrile and hemodynamically stable. Physical Exam Physical Exam: General: patient resting comfortably, NAD, non-toxic in appearance, answers questions appropriately. Skin: warm, dry, intact HEENT: NC/AT, anicteric sclera, conjunctiva without injection, moist mucus membranes. Heart: +S1/S2, regular, no m/r/g Lungs: equal air entry bilaterally, no rales/rhonchi/wheezes Abd: +BS, soft, NT/ND Ext: warm, no clubbing/cyanosis or edema Neuro: R. sided hemiplegia and R. facial droop. No gaze deviation Results & Data Results & Data Vital Signs (Past 12 Hours) Vital Signs Temp Pulse Pulse Resp BP Pulse Ox O2 Del Method 04/28/25 15:32 36.4 C L 62 18 110/61 94 Room Air 04/28/25 14:18 Room Air 04/28/25 11:02 37.0 C 67 18 114/66 96 Room Air 04/28/25 07:17 68 04/28/25 07:17 66 20 96 Room Air 04/28/25 07:09 36.8 C 72 18 145/71 H 94 Room Air Resident Activity Tracking Resident Involvement: Resident Care Provided Care Provided: Adult Hospital Medicine
[2025-04-29 06:25] LABS: Hematocrit (blood only) 30.6 % (37.0-47.0); Hemoglobin 10.5 g/dl (12.0-16.0); Immature Granulocytes # (auto) 0.44 K/uL (0.01-0.20); Immature Granulocytes % (auto) 4.6 %; Mean Corpuscular Hemoglobin 28.7 pg (25.0-34.0); Mean Corpuscular Volume 83.6 fL (80.0-100.0); Platelet Count 297 K/uL (130-400); RDW Standard Deviation 42.1 fL (36.4-46.3); Red Blood Count 3.66 M/uL (4.20-5.40); White Blood Count 9.60 K/ul (4.8-10.8)
[2025-04-29 06:50] LABS: Anion Gap 8.0 (3-11); Blood Urea Nitrogen 13.0 mg/dl (6-23); Calcium 9.1 mg/dl (8.6-10.3); Carbon Dioxide 27.0 mmol/L (21-32); Chloride 103.0 mmol/L (98-107); Creatinine Clr Calc Pharmacy 49.2 ml/min; Glucose 105.0 mg/dl (70-99(Fasting)); Potassium 3.6 mmol/L (3.5-5.1); Sodium 138.0 mmol/L (136-145)
[2025-04-29 07:06] VITALS: RESP 18
[2025-04-29 11:05] VITALS: BP 105/66; PULSE 69; TEMP 97.9; O2SAT 97
--- NOTE | 2025-04-29 13:46 | Discharge Summary ---
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 Ms Alejandra was in normal health this am, ate breakfast in usual fashion, and got ready to go to speech therapy. She takes [employer] transportation and she was with her son during the ride. When they got to [facility] she had emesis x 1. This did not recur, and they proceeded to the speech therapy office. She has been going to the same speech therapy team for months and they noticed that she wasn't acting normally. They specifically noted eye deviation of both eyes to the right. Her son wasn't sure how long it lasted. However, they feel that the staring to the right/eye deviation has been coming & going for several hours. They have not noted any right arm or right leg abnormalities (seizure activity, etc). By the time of my assessment she was back to baseline per her daughter & son. Since the stroke she has been ambulating with a hemiwalker. She does not need any thickened liquids or modified diet. She does have ongoing dense expressive & receptive aphasia and this poses significant challenges with communication. Her daughter stated "we just keep asking questions until we figure out what she needs." She does get yes/no mixed up frequently. Admission Exam Per Admitting Provider gen - lying comfortably in bed, no staring or eye deviation; looks all about the room; dense expressive & receptive aphasia eyes - PERRL, no nystagmus, moves both eyes in all directions HENT - MMM, tiny ulceration tip of right tongue neck - no JVD, no lymph nodes, no goiter heart - RRR, s1 s2, no murmur lungs - CTA b/l abd - soft, NT, ND, BS+, no HSM, no flank tenderness ext - no edema, pulses 2+ b/l feet neuro - right facial droop (lower 2/3); right hemiplegia; dense expressive/receptive aphasia skin - no rash psych - unable to assess orientation Principal Diagnosis L. frontal CVA, Aspiration pneumonia, seizures Discharge Exam General: patient resting comfortably, NAD, non-toxic in appearance, answers questions appropriately. Skin: warm, dry, intact HEENT: NC/AT, anicteric sclera, conjunctiva without injection, moist mucus membranes. Heart: +S1/S2, regular, no m/r/g Lungs: equal air entry bilaterally, no rales/rhonchi/wheezes Abd: +BS, soft, NT/ND Ext: warm, no clubbing/cyanosis or edema Neuro: R. sided hemiplegia and R. facial droop. No gaze deviation Discharge Data Allergies Allergy/AdvReac Type Severity Reaction Status Date / Time Cephalosporins Allergy Intermediate Hives Verified 04/21/25 15:21 doxycycline Allergy Intermediate HIVES Verified 04/21/25 15:21 Penicillins Allergy Intermediate HIVES Verified 04/21/25 15:21 Sulfa (Sulfonamide Allergy Intermediate HIVES Verified 04/21/25 15:21 Antibiotics) morphine AdvReac Severe caused A Verified 04/21/25 15:21 fib and tachycardia Consultations 04/21/25 13:21 ED Decision to Admit Stat Ordered Studies 04/21/25 11:50 CT angio head w con Stat CT angio neck with con Stat CT head/brain wo con Stat 04/21/25 14:53 MR brain wo con Stat 04/21/25 15:46 CT Abdomen and Pelvis [CT abd pelvis wo con] Urgent Hospital Course (1) Seizures: (2) Staring episodes: (3) Ischemic stroke of frontal lobe: (4) Acute hypoxic respiratory failure: (5) Aspiration pneumonitis due to regurgitated food: (6) Paroxysmal A-fib: (7) Left middle cerebral artery stroke: (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 Heavy concern for seizures on day of admission and EEG highly suggestive of such. 04/22 - aspiration event while trying to eat broccoli. #staring episodes/eye deviation to the right - present on admission - 2nd to seizures - -at time of presentation heavy concern for seizures thus loaded with IV keppra in the ER -EEG 04/22 with left frontal lobe slowing and spike activity highly suggestive of seizure -given her prior large left-sided CVA she is a set-up for seizures -continue keppra 500mg BID for seizure prophylaxis -since the keppra was started no further staring spells -tolerating keppra -Family prefers to follow-up with [facility] as they are affiliated with this team after recent CVA in September 2024 -P2P unsuccessful, family prefers home PT/OT at d/c rather than SNF #punctate left-sided frontal lobe CVA - -seen on DWI on MRI brain -likely ischemic in nature as she is already on Eliquis -added aspirin 81mg daily -on-call neurology in agreement with addition of aspirin 81mg daily on top of her Eliquis for secondary prevention #acute hypoxic respiratory failure 2nd to aspiration event/aspiration pneumonitis - -aspirated broccoli 04/22 -although she had been weaned off NC O2, her chest x-ray was worse on 04/23, her WBC count had increased, she was not eating, and she became more confused -suspect that she developed infectious pneumonia as opposed to just chemical pneumonitis -seeing this event happened here she is at risk of both typicals and gram negatives -IV aztreonam and IV vanco used for 4 days, additional 3 days course of Levaquin 750mg PO started Q48H due to renal function, plan for 2 doses for completion of therapy -cont twice daily nebs -cont twice daily chest PT vest - Leukocytosis resolved, no continued dyspnea #prior left-sided LOUIS/MCA territory CVA - 09/2024 - -with resulting right hemiplegia, right facial droop, dense global aphasia, and ?memory difficulty? -cont Eliquis for secondary prevention -see above discussion under "staring episodes" -EEG c/w left-sided seizures -MRI brain this admission with punctate left frontal lobe CVA - see above #h/o PAF - -captured on monitoring in years past per her daughter -tele remains wnl -cont meto succ BID -cont Eliquis 2.5mg BID (meets criteria for low dose due to low body weight, borderline age) #HTN - -markedly elevated BPs upon presentation - likely due to acute stroke, acute seizures, etc. -was only on meto succ 25mg HS - thus, increased to BID dosing -added amlodipine 2.5mg daily as well -BPs improved with such #hyperlipidemia - -LDL checked September 2024 and was 55 -all prior LDLs were <100 -defer on rechecking a lipid panel this admission -cont lipitor but uncertain why she is only on 10mg daily; consider increasing to at least 20mg/day #glaucoma - -cont home eye drops #h/o non-Hodgkin's lymphoma - -in remission #vomiting - -1 episode day of admission after getting out of a [employer] van on day of admission -another episode shortly after admission -CT a/p without acute findings -no vomiting since -monitor #DVT proph - -Eliquis 2.5mg BID #hyponatremia - -was 133, then fell to mid 120s -urine osm, serum osm, and urine Na NOT c/w SIADH; c/w solute deficiency -Na level continues to improve -- now 137 -repeat BMP am #acute met encephalopathy - -infection, seizures, cva, low sodium all to blame -continues to improve #hypokalemia - -supplement -repeat BMP with mag level in the am tomorrow #UTI - Staph epi UTI seen on culture - Potentially contaminant, however patient is undergoing Levaquin treatment for aspiration pneumonia pt's son, daughter, and [id number] updated at bedside today on 2 separate visits appreciate PT, OT, speech evals needs rehab disability case manager to make referral to [facility] in [place] Total Time Total Time Spent Total Time Spent (In Minutes): See attending attestation Discharge Plan Discharge Items Patient Disposition: Home - Home Health Services Reason For Visit: STARING SPELLS, ALTERED MENTAL STATUS Discharge Diagnosis: Left sided frontal CVA/siezures Condition on Discharge: Fair Activity: Per Instructions section Non-emergency contact: Primary Care Provider Call non-emergency contact if: your symptoms worsen Follow-up/Referrals: Rosa Elena Carmona [Primary Care Provider] - Diet: Regular Diet Texture: Dental soft (bite-sized) Addtl Attending Provider Instructions: You were admitted to [facility] for new seizures and gaze deviation, an aspiration pneumonia event from broccoli, and a new small ischemic infarct in the L. frontal lobe. For the seizures and staring episodes you were prescribed 500mg of Keppra to be taken twice daily. Please continue this medication at home. For the Aspiration pneumonia you were treated with a 7 day antibiotic course, 4 days of IV antibiotics and 3 days of oral antibiotics. This regimen is now complete and we have not seen any difficulties while breathing or concerns for aspiration during feedings or while taking medications. Conchita's white blood cell count was initially elevated yesterday concerning for an infection, but when checked the following day, this level normalized, showing that this brief elevation was unlikely to be from an infection, and other labs such as CRP that downtrended after yesterday also suggest this. For the new L. sided frontal small CVA or stroke, it was recommended that a daily aspirin be added to your medication list for better secondary stroke prevention in addition to the Eliquis that is already being taken for resolution of this clot. For the ambulatory dysfunction and difficulty moving, Conchita has had regular PT/OT sessions while in the hospital and she should continue these treatments at home. A peer to peer was attempted to get patient to acute rehab, but this was unsuccessful and although SNF therapy was an option you preferred to go the home health PT/OT route and this has been set up. A discharge summary will be sent to your primary care physician to ensure continuity of care. Please bring this discharge summary with you to your next office appointment so that your provider can review it at that time. Follow-up appointments: Make a follow-up appointment with your PCP within the next week. It is very important that you follow up with them shortly after discharge from the [facility]. Take your medications as instructed; do not skip a dose of your medicines. Make sure all of your doctors know every medicine you are taking (including [id number] medicines, vitamins, and supplements). Call your primary care provider before taking any new medicines (including [id number] medicines, vitamins, and supplements), because some of these may interact with your current medications, or may make your symptoms worse. Tell your primary care provider if you cannot afford your medications. CONTACT YOUR PRIMARY CARE PROVIDER if you experience any of the following: Difficulty following your treatment plan, or difficulty taking medications CALL 911 OR GO TO THE EMERGENCY DEPARTMENT if you experience any of the following: Sudden, severe abdominal pain or nausea/vomiting Severe chest pain, or chest pain that radiates (moves) to your jaw or arm Sudden, severe shortness of breath or difficulty breathing Thank you for allowing us to participate in your care. Pending Studies at Discharge: No Stand-Alone Forms: My [facility] [address], Smoking Cessation Medications and DC Order Prescriptions: New levetiracetam [Keppra] 500 mg tablet 500 mg PO Q12H Qty: 60 0RF aspirin 81 mg capsule 81 mg PO DAILY Qty: 30 0RF Continued atorvastatin 10 mg tablet 10 mg PO HS Qty: 90 3RF travoprost 0.004 % Drops 1 drp OPB HS metoprolol succinate 25 mg Tablet Extended Release 24 Hr 25 mg PO HS calcium carbonate-vitamin D3 [Calcium 500 + D] 500 mg(1,250mg) -200 unit Tablet 1 tab PO HS cholecalciferol (vitamin D3) [Vitamin D3] 2,000 unit Capsule 2,000 unit PO HS fluoxetine 40 mg capsule 40 mg PO DAILY donepezil 5 mg tablet 5 mg PO HS folic acid 1 mg tablet 2 mg PO DAILY ondansetron 4 mg tablet,disintegrating 4 mg PO TID PRN (Reason: n/v) Eliquis 2.5 mg tablet 2.5 mg PO BID sennosides [senna] 8.6 mg Tablet 8.6 mg PO DAILY acetaminophen [Tylenol] 325 mg Tablet 650 mg PO DIRECTED PRN (Reason: PAIN/FEVER) meclizine 12.5 mg Tablet 12.5 - 25 mg PO Q8H PRN (Reason: PRIOR TO TRAVELING) Rx Instructions: TAKE 30-60 MINUTES PRIOR TO TRAVELING. Botox 200 unit Recon Soln 400 unit subcut DIRECTED PRN (Reason: .[id number]) Rx Instructions: INJECTIONS TO RUE & RLE DIRECTED. Discharge Orders: Discharge Order (Routine); Ordered 04/29/25 Ordered By: Jerald Hargrove Admission Data Admit Date/Time: 04/21/25 14:48 Attending Provider: Javan Lara Admit Provider: Lee Philip Primary Care Provider: Rosa Elena Carmona Other Providers: Lee Philip Other Interventions: Discharge Summary Assessment (RN) Last Done: 04/29/25 16:19 Resident Activity Tracking Resident Involvement: Resident Care Provided Care Provided: Adult Hospital Medicine
--- NOTE | 2025-05-04 12:54 | Billing Data ---
Date of Service April 28, 2025 Coding Level of Care Code 00824 SUB INP/OBS CARE 3/50MIN Time Spent (min) 50 Comment chart review
== END 2025-04-29 17:13 | disposition home or self-care (01) | DRG 64 ==
LOC: ED 11:23 → 4W 14:48 → SUATTDRO 14:48 → 4W 16:21
DX: K21.9 Gastro-esophageal reflux disease without esophagitis; Z88.0 Allergy status to penicillin; Z88.1 Allergy status to other antibiotic agents; Z79.01 Long term (current) use of anticoagulants; Z88.2 Allergy status to sulfonamides; Z82.3 Family history of stroke; I10 Essential (primary) hypertension; E87.6 Hypokalemia; H40.9 Unspecified glaucoma; R56.9 Unspecified convulsions; G93.41 Metabolic encephalopathy; Z79.899 Other long term (current) drug therapy; J96.01 Acute respiratory failure with hypoxia; I63.9 Cerebral infarction, unspecified; E87.1 Hypo-osmolality and hyponatremia; Z82.49 Family history of ischemic heart disease and other diseases of the circulatory system; J69.0 Pneumonitis due to inhalation of food and vomit; E78.5 Hyperlipidemia, unspecified; T17.928A Food in respiratory tract, part unspecified causing other injury, initial encounter; Z88.5 Allergy status to narcotic agent; I69.320 Aphasia following cerebral infarction; I69.351 Hemiplegia and hemiparesis following cerebral infarction affecting right dominant side; N39.0 Urinary tract infection, site not specified; I48.0 Paroxysmal atrial fibrillation; Z85.72 Personal history of non-Hodgkin lymphomas; B95.7 Other staphylococcus as the cause of diseases classified elsewhere